=== PATIENT | female | born 1955 | race Hispanic/Latino ===

== ENCOUNTER 2021-02-02 10:39 | Emergency (ER) ==
[2021-02-02] MEDS ORDERED: Promethazine HCl 25 MG/ML VIAL ONE (11:31)
[2021-02-02] MEDS ORDERED: Ketorolac Tromethamine 30 MG/ML VIAL ONE (11:31)
[2021-02-02] MEDS ORDERED: diphenhydrAMINE 25 MG CAP ONE (12:22)
[2021-02-02] MEDS ORDERED: Prochlorperazine 10 MG/2 ML VIAL IVP SCH (12:30)
[2021-02-02] MEDS ORDERED: Promethazine 25 MG TAB ONE (14:48)
== END 2021-02-02 16:47 | disposition home or self-care (01) ==
LOC: ERS 10:39
DX: G43.909 Migraine, unspecified, not intractable, without status migrainosus (principal); M54.9 Dorsalgia, unspecified; G89.29 Other chronic pain; E11.9 Type 2 diabetes mellitus without complications; I10 Essential (primary) hypertension; Z79.84 Long term (current) use of oral hypoglycemic drugs; Z79.899 Other long term (current) drug therapy
CPT/HCPCS: 93005; 96372; 96374; J0780; J1885; J2550; Q0163; Q0169

== ENCOUNTER 2021-06-10 11:37 | Emergency (ER) | payer MEDICARE, OTHER ==
[2021-06-10 12:29] LABS: #Eosinphils 0.2 thou/uL (0.0-0.7); #Lymphocytes 1.5 thou/uL (1.20-3.40); #Monocytes 0.5 thou/uL (0.11-0.59); #Neutrophils 5.6 thou/uL (1.40-6.50); %Basophils 0.2 % (0.0-1.0); %Eosinophils 2.1 % (0.0-10.0); %Neutrophils 72.8 % (42.0-75.0); Hemoglobin 13.3 g/dL (12.0-16.0); Mean Corpuscular HGB CONC 31.7 g/dL (32.0-36.0); Mean Corpuscular Hemoglobin 25.6 pg (27.0-31.0); Mean Corpuscular Volume 80.7 fL (78.0-98.0); Mean Platelet Volume 9.8 fL (7.4-10.4); Platelet Count 209 thou/uL (130-400); RBC Distribution Width 14.9 % (11.5-14.5); White Blood Cell (WBC) Count 7.7 thou/uL (4.8-10.8)
[2021-06-10 12:50] LABS: ALT (SGPT) 8 U/L (8-55); AST (SGOT) 18 U/L (5-34); Albumin 3.1 g/dL (3.4-4.8); Alkaline Phosphatase 253 U/L (40-110); Anion Gap 17 mmol/L (10-20); BUN (Urea Nitrogen) 13 mg/dL (9.8-20.1); Bilirubin, Total 0.8 mg/dL (0.2-1.2); Calc. Creatinine Clearance 0 mL/min (70-130); Calcium 9.2 mg/dL (7.8-10.44); Carbon Dioxide 22 mmol/L (23-31); Chloride 97 mmol/L (98-107); Globulin 3.8 g/dL (2.4-3.5); Glucose 473 mg/dL (80-115); Potassium 3.5 mmol/L (3.5-5.1); Protein, Total 6.9 g/dL (5.8-8.1); Sodium 132 mmol/L (136-145)
[2021-06-10] MEDS ORDERED: Ibuprofen 800 MG TAB ONE (13:43)
[2021-06-10] MEDS ORDERED: Metoclopramide HCl 10 MG TAB ONE (13:43)
[2021-06-10 18:57] LABS: SARS-CoV-2 PCR by NAA Not Detected (NotDetected)
== END 2021-06-10 14:49 | disposition home or self-care (01) ==
LOC: ERS 11:37
DX: B34.9 Viral infection, unspecified (principal); Z20.822 Contact with and (suspected) exposure to COVID-19; E78.00 Pure hypercholesterolemia, unspecified; I10 Essential (primary) hypertension; E11.9 Type 2 diabetes mellitus without complications
CPT/HCPCS: 71045; 80053; 84484; 85025; 93005; U0003; U0005; 36415

== ENCOUNTER 2021-06-14 08:55 | Emergency (ER) | payer MEDICARE, OTHER | END 2021-06-14 12:39 | disposition home or self-care (01) | LOC: ERS 08:55 | DX: J00 Acute nasopharyngitis [common cold] (principal); G89.29 Other chronic pain; M54.9 Dorsalgia, unspecified; I10 Essential (primary) hypertension; E11.9 Type 2 diabetes mellitus without complications; E78.00 Pure hypercholesterolemia, unspecified | CPT/HCPCS: 99284 ==

== ENCOUNTER 2021-06-15 18:04 | Inpatient (IN) | payer MEDICARE, MEDICAID ==
[2021-06-15 19:08] LABS: Hemoglobin 13.9 g/dL (12.0-16.0); Mean Corpuscular HGB CONC 34.4 g/dL (32.0-36.0); Mean Corpuscular Hemoglobin 27.8 pg (27.0-31.0); Mean Corpuscular Volume 80.9 fL (78.0-98.0); Mean Platelet Volume 9.6 fL (7.4-10.4); Platelet Count 199 thou/uL (130-400); RBC Distribution Width 14.5 % (11.5-14.5); Red Blood Cell (RBC) Count 4.98 mill/uL (4.20-5.40)
[2021-06-15] MEDS ORDERED: Meclizine HCl 25 MG TAB ONE (19:13)
[2021-06-15] MEDS ORDERED: hydrALAZINE 20 MG/ML VIAL ONE (19:13)
[2021-06-15 19:26] LABS: MDiff Complete? YES; White Blood Cell (WBC) Count 6.7 thou/uL (4.8-10.8)
[2021-06-15 19:27] LABS: Band 3 % (5-11); Eosinophils 2 % (0-10); Lymphocytes 23 % (21-51); Monocytes 6 % (0-10); Neutrophil 63 % (42-75); Platelet Morphology Comment Appears Adequate; RBC Morphology Normal; Reactive Lymphocytes 1 % (0-10)
[2021-06-15 19:37] LABS: ALT (SGPT) 7 U/L (8-55); AST (SGOT) 12 U/L (5-34); Albumin 2.9 g/dL (3.4-4.8); Alkaline Phosphatase 234 U/L (40-110); Anion Gap 17 mmol/L (10-20); BUN (Urea Nitrogen) 11 mg/dL (9.8-20.1); Bilirubin, Total 0.3 mg/dL (0.2-1.2); Calc. Creatinine Clearance 0 mL/min (70-130); Calcium 8.5 mg/dL (7.8-10.44); Carbon Dioxide 21 mmol/L (23-31); Chloride 97 mmol/L (98-107); Globulin 3.7 g/dL (2.4-3.5); Potassium 3.1 mmol/L (3.5-5.1); Protein, Total 6.6 g/dL (5.8-8.1); Sodium 132 mmol/L (136-145)
[2021-06-15 19:39] LABS: Actual Bicarbonate (HCO3v) 27 mEq/L (22-28); Analyzer IN Cardio ER; Base Excess 1.3 mEq/L (-2.0 to +3.0); Calcium, Ionized (venous) 1.03 mmol/L (1.16-1.32); Chloride (VBG) 95 mmol/L (98-106); Hemoglobin (Hb) 12.6 g/dL (11.7-16.1); Potassium (VBG) 3.19 mmol/L (3.70-5.30); Sodium 130.1 mmol/L (133-146); pH (venous) 7.38 (7.32-7.43)
[2021-06-15 19:45] LABS: Glucose 695 mg/dL (80-115)
[2021-06-15] MEDS ORDERED: Potassium Chloride 20 MEQ TAB ONE (19:49)
[2021-06-15] MEDS ORDERED: Insulin Regular 300 UNITS/3 ML VIAL ONE (20:18)
[2021-06-16] MEDS ORDERED: Acetaminophen 650 MG Suppository PR PRN (01:10)
[2021-06-16] MEDS ORDERED: Dextrose 5% in Water 1,000 ML IV PRN (01:10)
[2021-06-16] MEDS ORDERED: HumaLOG 300 UNITS/3 ML VIAL SC PRN ×2 (01:10→02:50)
[2021-06-16] MEDS ORDERED: Dextrose 50% Abboject 50 ML SYRINGE SLOW IVP PRN (01:10)
[2021-06-16] MEDS ORDERED: Ondansetron PF 4 MG/2 ML Vial IVP PRN (01:12)
[2021-06-16] MEDS ORDERED: Benzonatate 100 MG CAP ONE (01:35)
[2021-06-16] MEDS ORDERED: Acetaminophen 325 MG TAB ONE (01:35)
[2021-06-16] MEDS: Benzonatate 100 MG CAP PO PRN ×2 (02:00→18:16)
[2021-06-16 02:07] LABS: Anion Gap 14 mmol/L (10-20); BUN (Urea Nitrogen) 11 mg/dL (9.8-20.1); Calc. Creatinine Clearance 0 mL/min (70-130); Calcium 8.4 mg/dL (7.8-10.44); Carbon Dioxide 26 mmol/L (23-31); Chloride 99 mmol/L (98-107); Glucose 381 mg/dL (80-115); Sodium 136 mmol/L (136-145)
[2021-06-16 02:16] LABS: Potassium 2.8 mmol/L (3.5-5.1)
[2021-06-16] MEDS ORDERED: Potassium Chloride 20 MEQ TAB PO SCH ×2 (02:45→05:00)
[2021-06-16] MEDS ORDERED: Nystatin Powder 15 GM BOT TOP PRN (02:48)
[2021-06-16] MEDS ORDERED: Labetalol HCl 100 MG/20 ML VIAL SLOW IVP PRN (02:52)
[2021-06-16] MEDS ORDERED: hydrALAZINE 20 MG/ML VIAL SLOW IVP PRN (02:52)
[2021-06-16] MEDS ORDERED: Amlodipine 5 MG TAB PO SCH ×2 (03:00→09:00)
[2021-06-16] MEDS ORDERED: Sodium Chloride 0.9% 1,000 ML IV SCH (03:15)
[2021-06-16] MEDS ORDERED: Senokot S 8.6-50 MG TAB PO PRN (03:17)
[2021-06-16] MEDS ORDERED: Potassium Chloride 20 MEQ TAB ONE ×2 (03:26→05:25)
[2021-06-16] MEDS ORDERED: Amlodipine 5 MG TAB ONE ×2 (03:26→09:26)
[2021-06-16 04:36] LABS: SARS-CoV-2 NAA Rapid Test Not Detected (NotDetected)
[2021-06-16] MEDS ORDERED: hydrALAZINE 20 MG/ML VIAL ONE (05:25)
[2021-06-16 05:56] LABS: #Eosinphils 0.2 thou/uL (0.0-0.7); #Monocytes 0.5 thou/uL (0.11-0.59); #Neutrophils 3.4 thou/uL (1.40-6.50); %Basophils 0.7 % (0.0-1.0); %Eosinophils 3.1 % (0.0-10.0); %Lymphocytes 33.3 % (21.0-51.0); %Monocytes 7.6 % (0.0-10.0); %Neutrophils 55.3 % (42.0-75.0); Hemoglobin 12.4 g/dL (12.0-16.0); Mean Corpuscular HGB CONC 32.2 g/dL (32.0-36.0); Mean Corpuscular Hemoglobin 25.8 pg (27.0-31.0); Mean Corpuscular Volume 80.3 fL (78.0-98.0); Mean Platelet Volume 9.3 fL (7.4-10.4); Platelet Count 212 thou/uL (130-400); RBC Distribution Width 14.8 % (11.5-14.5); White Blood Cell (WBC) Count 6.1 thou/uL (4.8-10.8)
[2021-06-16 06:04] LABS: Hemoglobin A1c 13.3 % (4.0-6.0)
[2021-06-16 06:19] LABS: Anion Gap 12 mmol/L (10-20); BUN (Urea Nitrogen) 9 mg/dL (9.8-20.1); Calc. Creatinine Clearance 0 mL/min (70-130); Calcium 8.2 mg/dL (7.8-10.44); Carbon Dioxide 25 mmol/L (23-31); Cardiac Risk 3.3 (Less than 4.5); Chloride 102 mmol/L (98-107); Cholesterol 190 mg/dl (< 200 Desired); Glucose 438 mg/dL (80-115); HDL Cholesterol 57 mg/dL (>60 Neg Risk); LDL Cholesterol, Calculated 97 mg/dL; Magnesium 1.5 mg/dL (1.6-2.6); Sodium 136 mmol/L (136-145); Triglycerides 180 mg/dL (Less than 150)
[2021-06-16] MEDS ORDERED: Albuterol 200 PUFF (6.7GM INHALER) ONE (08:17)
[2021-06-16] MEDS: Albuterol 200 PUFF (6.7GM INHALER) INH SCH ×3 (08:22→15:35)
[2021-06-16 08:27] LABS: Anion Gap 14 mmol/L (10-20); BUN (Urea Nitrogen) 10 mg/dL (9.8-20.1); Calc. Creatinine Clearance 0 mL/min (70-130); Calcium 8.4 mg/dL (7.8-10.44); Carbon Dioxide 22 mmol/L (23-31); Chloride 103 mmol/L (98-107); Glucose 467 mg/dL (80-115); Potassium 3.6 mmol/L (3.5-5.1); Sodium 135 mmol/L (136-145)
[2021-06-16] MEDS ORDERED: Lantus 1000 UNITS/10 ML VIAL SC SCH (09:00)
[2021-06-16] MEDS ORDERED: Lisinopril/Hydrochlorothiazide 20/25 mg Tablet PO SCH (09:30)
[2021-06-16] MEDS ORDERED: metFORMIN 500 MG TAB PO SCH ×2 (09:30→21:00)
[2021-06-16] MEDS: Carvedilol 6.25 MG TAB PO SCH ×2 (09:55→18:16)
[2021-06-16] MEDS ORDERED: glipiZIDE 5 MG TAB PO SCH (10:02)
[2021-06-16] MEDS ORDERED: HumaLOG 300 UNITS/3 ML VIAL ONE (13:51)
[2021-06-16] MEDS: HumaLOG 300 UNITS/3 ML VIAL SC PRN ×2 (13:52→18:00)
[2021-06-16 17:44] VITALS: BMI 34.1
[2021-06-16] MEDS ORDERED: FLU VACC QS2021-22(65YR UP)/PF 240 MCG/0.7 ML SYRINGE IM ONE (17:45)
[2021-06-16] MEDS: glipiZIDE 5 MG TAB PO SCH (18:18)
[2021-06-16] MEDS: Albuterol Sulfate 2.5 mg/3 ml Neb NEB SCH (19:49)
[2021-06-16] MEDS: Lantus 1000 UNITS/10 ML VIAL SC SCH (21:11)
[2021-06-17] MEDS: HumaLOG 300 UNITS/3 ML VIAL SC PRN ×3 (04:55→17:20)
[2021-06-17 07:29] LABS: #Eosinphils 0.2 thou/uL (0.0-0.7); #Lymphocytes 1.9 thou/uL (1.20-3.40); #Monocytes 0.5 thou/uL (0.11-0.59); #Neutrophils 3.4 thou/uL (1.40-6.50); %Basophils 0.6 % (0.0-1.0); %Eosinophils 3.8 % (0.0-10.0); %Lymphocytes 31.7 % (21.0-51.0); %Monocytes 7.8 % (0.0-10.0); %Neutrophils 56.2 % (42.0-75.0); Hemoglobin 11.2 g/dL (12.0-16.0); Mean Corpuscular HGB CONC 32.7 g/dL (32.0-36.0); Mean Corpuscular Hemoglobin 26.7 pg (27.0-31.0); Mean Corpuscular Volume 81.7 fL (78.0-98.0); Mean Platelet Volume 9.5 fL (7.4-10.4); Platelet Count 218 thou/uL (130-400); RBC Distribution Width 14.8 % (11.5-14.5)
[2021-06-17] MEDS: Albuterol Sulfate 2.5 mg/3 ml Neb NEB SCH ×3 (07:31→14:44)
[2021-06-17 07:48] LABS: Anion Gap 9 mmol/L (10-20); BUN (Urea Nitrogen) 14 mg/dL (9.8-20.1); Calc. Creatinine Clearance 70 mL/min (70-130); Calcium 8.6 mg/dL (7.8-10.44); Carbon Dioxide 28 mmol/L (23-31); Chloride 103 mmol/L (98-107); Glucose 348 mg/dL (80-115); Magnesium 1.6 mg/dL (1.6-2.6); Potassium 3.2 mmol/L (3.5-5.1); Sodium 137 mmol/L (136-145)
[2021-06-17 08:07] VITALS: TEMP 98.5
[2021-06-17] MEDS: Carvedilol 6.25 MG TAB PO SCH ×2 (08:10→17:21)
[2021-06-17] MEDS: glipiZIDE 5 MG TAB PO SCH ×2 (08:11→17:21)
[2021-06-17] MEDS: Lantus 1000 UNITS/10 ML VIAL SC SCH (08:11)
[2021-06-17] MEDS ORDERED: Amlodipine 10 MG TAB PO SCH (09:00)
[2021-06-17] MEDS ORDERED: Lisinopril/Hydrochlorothiazide 20/25 mg Tablet PO SCH (09:00)
[2021-06-17] MEDS ORDERED: Acetaminophen 325 MG TAB PO SCH (14:30)
[2021-06-17 17:19] VITALS: BP 161/80
== END 2021-06-17 18:34 | disposition home or self-care (01) | DRG 638 ==
LOC: ERS 18:04 → ERHOLD 20:40 → T4-A 06-16 16:42
PROVIDERS: ADMIT Internal Medicine; ATTEND Internal Medicine
DX: E11.65 Type 2 diabetes mellitus with hyperglycemia (principal); E87.2 Acidosis; I16.0 Hypertensive urgency; Z20.822 Contact with and (suspected) exposure to COVID-19; E78.00 Pure hypercholesterolemia, unspecified; M54.9 Dorsalgia, unspecified; G89.29 Other chronic pain; F41.9 Anxiety disorder, unspecified; N18.30 Chronic kidney disease, stage 3 unspecified; E11.22 Type 2 diabetes mellitus with diabetic chronic kidney disease; I12.9 Hypertensive chronic kidney disease with stage 1 through stage 4 chronic kidney disease, or unspecified chronic kidney disease; J45.909 Unspecified asthma, uncomplicated; K21.9 Gastro-esophageal reflux disease without esophagitis; E87.6 Hypokalemia; F31.9 Bipolar disorder, unspecified; Z90.49 Acquired absence of other specified parts of digestive tract; Z88.2 Allergy status to sulfonamides; Z88.5 Allergy status to narcotic agent; Z79.84 Long term (current) use of oral hypoglycemic drugs; Z79.899 Other long term (current) drug therapy
CPT/HCPCS: 0240U; 36415; 36416; 70450; 71045; 80048; 80053; 80061; 82010; 82805; 83036; 83735; 85025; 93005; 93306; 94640; 96374; 96375; J0360; J1815; J2405; J7050; J7611

== ENCOUNTER 2021-06-28 11:47 | Emergency (ER) | payer MEDICARE, OTHER ==
[2021-06-28 13:40] LABS: #Eosinphils 0.1 thou/uL (0.0-0.7); #Lymphocytes 2.2 thou/uL (1.20-3.40); #Monocytes 0.4 thou/uL (0.11-0.59); #Neutrophils 4.1 thou/uL (1.40-6.50); %Basophils 0.6 % (0.0-1.0); %Lymphocytes 32.1 % (21.0-51.0); %Monocytes 6.2 % (0.0-10.0); Hemoglobin 13.3 g/dL (12.0-16.0); Mean Corpuscular Volume 81.2 fL (78.0-98.0); Mean Platelet Volume 8.6 fL (7.4-10.4); Platelet Count 277 thou/uL (130-400); RBC Distribution Width 14.5 % (11.5-14.5); White Blood Cell (WBC) Count 6.9 thou/uL (4.8-10.8)
[2021-06-28] MEDS ORDERED: Acetaminophen 500 MG TAB ONE (13:49)
[2021-06-28] MEDS ORDERED: Ketorolac Tromethamine 30 MG/ML VIAL ONE (13:49)
[2021-06-28] MEDS ORDERED: Metoclopramide HCl 10 MG/2 ML VIAL ONE (13:49)
[2021-06-28] MEDS ORDERED: diphenhydrAMINE 50 MG/ML VIAL ONE (13:49)
[2021-06-28 14:00] LABS: ALT (SGPT) 12 U/L (8-55); AST (SGOT) 16 U/L (5-34); Albumin 3.1 g/dL (3.4-4.8); Alkaline Phosphatase 186 U/L (40-110); Anion Gap 13 mmol/L (10-20); BUN (Urea Nitrogen) 17 mg/dL (9.8-20.1); Bilirubin, Total 0.5 mg/dL (0.2-1.2); Calc. Creatinine Clearance 0 mL/min (70-130); Carbon Dioxide 27 mmol/L (23-31); Chloride 97 mmol/L (98-107); Globulin 3.7 g/dL (2.4-3.5); Glucose 464 mg/dL (80-115); Magnesium 1.6 mg/dL (1.6-2.6); Phosphorus 3.7 mg/dL (2.3-4.7); Potassium 3.5 mmol/L (3.5-5.1); Protein, Total 6.8 g/dL (5.8-8.1); Sodium 133 mmol/L (136-145)
[2021-06-28 16:49] LABS: Bacteria/HPF None Seen HPF (None Seen); Bilirubin Negative (Negative); Blood, Urine 1+ (Negative); Clarity Clear (Clear); Glucose, Urine (Dipstick) Greater than 1000 mg/dL (Negative); Ketone, Urine Negative (Negative); Leukocyte Negative Leu/uL (Negative); Nitrite Negative (Negative); Protein, Urine (Dipstick) 300 mg/dL (Neg-Trace); Specific Gravity, Urine 1.039 (1.002-1.036); Squamous Epithelial 0-3 HPF (0-3); Urobilinogen Normal mg/dL (Less than 2); WBC/HPF 0-3 HPF (0-3); pH, Urine 6.5 (5.0-9.0)
[2021-06-28 17:00] LABS: SARS-CoV-2 NAA Rapid Test Not Detected (NotDetected)
== END 2021-06-28 18:05 | disposition home or self-care (01) ==
LOC: ERS 11:47
DX: E11.65 Type 2 diabetes mellitus with hyperglycemia (principal); R11.2 Nausea with vomiting, unspecified; R19.7 Diarrhea, unspecified; R10.32 Left lower quadrant pain; R05.9 Cough, unspecified; R51.9 Headache, unspecified; I10 Essential (primary) hypertension; E78.00 Pure hypercholesterolemia, unspecified; Z20.822 Contact with and (suspected) exposure to COVID-19; Z79.4 Long term (current) use of insulin
CPT/HCPCS: 71045; 74177; 80053; 82010; 82962; 83690; 83735; 84100; 84484; 85025; 93005; 94760; 96365; 96366; 96375; 99285; U0002; 36415; 36416; 81003; 81015; J1200; J1885; J2765

== ENCOUNTER 2021-07-12 17:47 | Emergency (ER) | payer MEDICARE, MEDICAID ==
[2021-07-12 19:10] LABS: #Basophils 0.1 thou/uL (0.0-0.2); #Eosinphils 0.1 thou/uL (0.0-0.7); #Lymphocytes 1.9 thou/uL (1.20-3.40); #Monocytes 0.4 thou/uL (0.11-0.59); #Neutrophils 5.3 thou/uL (1.40-6.50); %Basophils 0.6 % (0.0-1.0); %Eosinophils 1.6 % (0.0-10.0); %Lymphocytes 24.3 % (21.0-51.0); %Monocytes 5.3 % (0.0-10.0); %Neutrophils 68.2 % (42.0-75.0); Hemoglobin 13.4 g/dL (12.0-16.0); Mean Corpuscular HGB CONC 33.9 g/dL (32.0-36.0); Mean Corpuscular Volume 82.6 fL (78.0-98.0); Mean Platelet Volume 8.9 fL (7.4-10.4); Platelet Count 248 thou/uL (130-400); RBC Distribution Width 14.4 % (11.5-14.5); White Blood Cell (WBC) Count 7.7 thou/uL (4.8-10.8)
[2021-07-12 19:33] LABS: Lipase 39 U/L (8-78); Magnesium 1.5 mg/dL (1.6-2.6)
[2021-07-12 19:36] LABS: ALT (SGPT) 7 U/L (8-55); AST (SGOT) 10 U/L (5-34); Albumin 3.2 g/dL (3.4-4.8); Alkaline Phosphatase 241 U/L (40-110); Anion Gap 14 mmol/L (10-20); BUN (Urea Nitrogen) 18 mg/dL (9.8-20.1); Bilirubin, Total 0.6 mg/dL (0.2-1.2); Calc. Creatinine Clearance 0 mL/min (70-130); Calcium 8.6 mg/dL (7.8-10.44); Carbon Dioxide 25 mmol/L (23-31); Chloride 95 mmol/L (98-107); Globulin 3.1 g/dL (2.4-3.5); Phosphorus 3.5 mg/dL (2.3-4.7); Protein, Total 6.3 g/dL (5.8-8.1); Sodium 130 mmol/L (136-145)
[2021-07-12 19:42] LABS: Glucose 705 mg/dL (80-115)
[2021-07-12 20:05] LABS: Bacteria/HPF None Seen HPF (None Seen); Bilirubin Negative (Negative); Blood, Urine 1+ (Negative); Clarity Clear (Clear); Glucose, Urine (Dipstick) Greater than 1000 mg/dL (Negative); Ketone, Urine Negative (Negative); Leukocyte Negative Leu/uL (Negative); Nitrite Negative (Negative); Protein, Urine (Dipstick) 300 mg/dL (Neg-Trace); Specific Gravity, Urine 1.031 (1.002-1.036); Urobilinogen Normal mg/dL (Less than 2); WBC/HPF 0-3 HPF (0-3); Yeast-Budding 1+ HPF (None Seen); pH, Urine 6.5 (5.0-9.0)
[2021-07-13] MEDS ORDERED: Magnesium 2 GM/50 ML BAG (IN WATER) ONE (00:09)
[2021-07-13] MEDS ORDERED: Ibuprofen 800 MG TAB ONE (00:09)
[2021-07-13] MEDS ORDERED: Insulin Regular 300 UNITS/3 ML VIAL ONE (00:09)
== END 2021-07-13 00:20 | disposition home or self-care (01) ==
LOC: ERS 17:47
DX: E11.65 Type 2 diabetes mellitus with hyperglycemia (principal); Z79.4 Long term (current) use of insulin; Z79.899 Other long term (current) drug therapy; E78.00 Pure hypercholesterolemia, unspecified; I10 Essential (primary) hypertension
CPT/HCPCS: 36415; 36416; 80053; 81003; 81015; 82010; 83690; 83735; 84100; 85025; 96365; 96375; J1815; J3475

== ENCOUNTER 2021-10-03 14:14 | Observation (INO) | payer MEDICARE, MEDICAID ==
[2021-10-03 14:39] LABS: #Eosinphils 0.3 thou/uL (0.0-0.7); #Lymphocytes 2.6 thou/uL (1.20-3.40); #Monocytes 0.4 thou/uL (0.11-0.59); #Neutrophils 4.2 thou/uL (1.40-6.50); %Basophils 0.6 % (0.0-1.0); %Eosinophils 4.3 % (0.0-10.0); %Lymphocytes 34.1 % (21.0-51.0); %Neutrophils 56.1 % (42.0-75.0); Mean Corpuscular HGB CONC 34.3 g/dL (32.0-36.0); Mean Corpuscular Hemoglobin 28.8 pg (27.0-31.0); Mean Corpuscular Volume 84.2 fL (78.0-98.0); Mean Platelet Volume 8.1 fL (7.4-10.4); Platelet Count 258 thou/uL (130-400); RBC Distribution Width 15.8 % (11.5-14.5); Red Blood Cell (RBC) Count 3.81 mill/uL (4.20-5.40); White Blood Cell (WBC) Count 7.5 thou/uL (4.8-10.8)
[2021-10-03 14:52] LABS: PTT 27.7 sec (22.9-36.1); Prothrombin Time 12.8 sec (12.0-14.7)
[2021-10-03 15:00] LABS: ALT (SGPT) 7 U/L (8-55); AST (SGOT) 13 U/L (5-34); Albumin 3.3 g/dL (3.4-4.8); Alkaline Phosphatase 166 U/L (40-110); Anion Gap 11 mmol/L (10-20); BUN (Urea Nitrogen) 20 mg/dL (9.8-20.1); Bilirubin, Total 0.5 mg/dL (0.2-1.2); Calc. Creatinine Clearance 0 mL/min (70-130); Calcium 9.6 mg/dL (7.8-10.44); Carbon Dioxide 28 mmol/L (23-31); Chloride 102 mmol/L (98-107); Globulin 3.8 g/dL (2.4-3.5); Glucose 144 mg/dL (80-115); Lipase 34 U/L (8-78); Magnesium 1.9 mg/dL (1.6-2.6); Potassium 3.8 mmol/L (3.5-5.1); Protein, Total 7.1 g/dL (5.8-8.1); Sodium 137 mmol/L (136-145)
[2021-10-03] MEDS ORDERED: Acetaminophen 500 MG TAB ONE (15:21)
[2021-10-03] MEDS ORDERED: Ondansetron PF 4 MG/2 ML Vial ONE (15:55)
[2021-10-03] MEDS ORDERED: hydrALAZINE 20 MG/ML VIAL SLOW IVP PRN ×2 (17:21→18:09)
[2021-10-03] MEDS ORDERED: Ondansetron ODT 4 MG TAB PO PRN (17:33)
[2021-10-03] MEDS ORDERED: Acetaminophen 325 MG TAB PO PRN (17:33)
[2021-10-03] MEDS ORDERED: Dextrose 50% Abboject 50 ML SYRINGE SLOW IVP PRN (17:39)
[2021-10-03] MEDS ORDERED: Dextrose 5% in Water 1,000 ML IV PRN (17:39)
[2021-10-03] MEDS ORDERED: HumaLOG 300 UNITS/3 ML VIAL SC PRN ×2 (17:39)
[2021-10-03] MEDS ORDERED: Carvedilol 6.25 MG TAB PO SCH (18:30)
[2021-10-03 19:51] LABS: Hemoglobin A1c 7.8 % (4.0-6.0)
[2021-10-03] MEDS ORDERED: Benzonatate 100 MG CAP PO PRN (20:05)
[2021-10-03] MEDS ORDERED: Albuterol Sulfate 2.5 mg/3 ml Neb NEB PRN (20:09)
[2021-10-03] MEDS: Insulin Glargine 30 UNITS/0.3 ML VIAL SC SCH (20:43)
[2021-10-03] MEDS: glipiZIDE 5 MG TAB PO SCH (20:44)
[2021-10-03] MEDS: guaiFENesin ER 600 MG TAB PO SCH (20:44)
[2021-10-03] MEDS ORDERED: Atorvastatin Calcium 40 MG TAB PO SCH (21:00)
[2021-10-03] MEDS ORDERED: Melatonin 3 MG TAB PO SCH ×2 (21:00→21:30)
[2021-10-03] MEDS ORDERED: Montelukast Sodium 10 mg Tablet PO SCH (21:00)
[2021-10-03] MEDS ORDERED: diphenhydrAMINE 25 MG CAP PO SCH (21:30)
[2021-10-03] MEDS ORDERED: Aripiprazole 10 MG TAB PO SCH (21:30)
[2021-10-04] MEDS ORDERED: Lorazepam 0.5 MG TAB PO PRN (03:47)
[2021-10-04 04:29] VITALS: BP 164/78; TEMP 97.5
[2021-10-04 05:52] VITALS: BMI 31.8
[2021-10-04 06:12] LABS: #Eosinphils 0.3 thou/uL (0.0-0.7); #Lymphocytes 2.3 thou/uL (1.20-3.40); #Monocytes 0.3 thou/uL (0.11-0.59); #Neutrophils 3.1 thou/uL (1.40-6.50); %Basophils 0.3 % (0.0-1.0); %Eosinophils 5.4 % (0.0-10.0); %Lymphocytes 37.1 % (21.0-51.0); %Monocytes 5.3 % (0.0-10.0); %Neutrophils 51.9 % (42.0-75.0); Hemoglobin 9.3 g/dL (12.0-16.0); Mean Corpuscular HGB CONC 34.7 g/dL (32.0-36.0); Mean Corpuscular Hemoglobin 29.7 pg (27.0-31.0); Mean Corpuscular Volume 85.6 fL (78.0-98.0); Mean Platelet Volume 8.2 fL (7.4-10.4); Platelet Count 202 thou/uL (130-400); RBC Distribution Width 15.9 % (11.5-14.5); Red Blood Cell (RBC) Count 3.12 mill/uL (4.20-5.40); White Blood Cell (WBC) Count 6.1 thou/uL (4.8-10.8)
[2021-10-04 06:40] LABS: ALT (SGPT) 7 U/L (8-55); AST (SGOT) 11 U/L (5-34); Albumin 2.5 g/dL (3.4-4.8); Alkaline Phosphatase 107 U/L (40-110); Anion Gap 10 mmol/L (10-20); BUN (Urea Nitrogen) 19 mg/dL (9.8-20.1); Bilirubin, Total 0.6 mg/dL (0.2-1.2); Calc. Creatinine Clearance 58 mL/min (70-130); Calcium 8.8 mg/dL (7.8-10.44); Carbon Dioxide 28 mmol/L (23-31); Cardiac Risk 2.8 (Less than 4.5); Chloride 105 mmol/L (98-107); Cholesterol 168 mg/dl (< 200 Desired); Globulin 3.1 g/dL (2.4-3.5); Glucose 162 mg/dL (80-115); HDL Cholesterol 61 mg/dL (>60 Neg Risk); LDL Cholesterol, Calculated 80 mg/dL; Protein, Total 5.6 g/dL (5.8-8.1); Sodium 139 mmol/L (136-145); Triglycerides 136 mg/dL (Less than 150)
[2021-10-04] MEDS ORDERED: Carvedilol 6.25 MG TAB PO SCH (08:00)
[2021-10-04] MEDS: Insulin Glargine 30 UNITS/0.3 ML VIAL SC SCH (08:42)
[2021-10-04] MEDS: glipiZIDE 5 MG TAB PO SCH (08:43)
[2021-10-04] MEDS: guaiFENesin ER 600 MG TAB PO SCH (08:43)
[2021-10-04] MEDS ORDERED: Loratadine 10 MG TAB PO SCH (09:00)
[2021-10-04] MEDS ORDERED: NIFEdipine XL 60 MG TAB PO SCH (09:00)
[2021-10-04] MEDS ORDERED: Empagliflozin 25 MG TAB PO SCH (09:00)
[2021-10-04] MEDS ORDERED: Aspirin 81 mg Enteric Coated Tablet PO SCH (09:00)
[2021-10-04] MEDS ORDERED: Enoxaparin Sodium 40 MG/0.4 ML SYRINGE SC SCH (09:00)
[2021-10-04 09:52] LABS: Amphetamine Not Detected (NotDetected); Barbiturates Screen Not Detected (NotDetected); Benzodiazepine Screen Not Detected (NotDetected); Cocaine Metabolite Screen Not Detected (NotDetected); Methadone Not Detected (NotDetected); Methamphetamine Not Detected (NotDetected); Opiate Screen Not Detected (NotDetected); Oxycodone Screen Not Detected (NotDetected); Phencyclidine (PCP) Not Detected (NotDetected); THC/Cannabinoid Screen Not Detected (NotDetected); Tricyclic Screen Not Detected (NotDetected)
[2021-10-04 11:44] LABS: SARS-CoV-2 PCR by NAA Not Detected (NotDetected)
[2021-10-04] MEDS ORDERED: Aripiprazole 10 MG TAB PO SCH (21:00)
== END 2021-10-04 11:35 | disposition home or self-care (01) ==
LOC: ERS 14:14 → NEURO 18:42 → INTOOBSV 18:42
PROVIDERS: ADMIT Family Medicine; ATTEND Family Medicine
DX: I16.1 Hypertensive emergency (principal); R55 Syncope and collapse; R47.1 Dysarthria and anarthria; J90 Pleural effusion, not elsewhere classified; J44.9 Chronic obstructive pulmonary disease, unspecified; I12.9 Hypertensive chronic kidney disease with stage 1 through stage 4 chronic kidney disease, or unspecified chronic kidney disease; E11.22 Type 2 diabetes mellitus with diabetic chronic kidney disease; N18.30 Chronic kidney disease, stage 3 unspecified; D63.1 Anemia in chronic kidney disease; E78.5 Hyperlipidemia, unspecified; G89.29 Other chronic pain; M54.9 Dorsalgia, unspecified; J32.9 Chronic sinusitis, unspecified; Z79.4 Long term (current) use of insulin; Z79.84 Long term (current) use of oral hypoglycemic drugs; Z79.899 Other long term (current) drug therapy; Z88.2 Allergy status to sulfonamides; Z88.5 Allergy status to narcotic agent; Z99.81 Dependence on supplemental oxygen; Z20.822 Contact with and (suspected) exposure to COVID-19
CPT/HCPCS: 70450; 70551; 71045; 80053; 80061; 80306; 82962 ×2; 83036; 83605; 83690; 83735; 83880; 84484; 85025; 85610; 85730; 93005; 93880; 96374; 97139; 99285; U0003; U0005; 36415; 36416; 84443; J1650; J1815; J2405; Q0162

== ENCOUNTER 2021-10-11 15:48 | Inpatient (IN) | payer MEDICARE, MEDICAID ==
[2021-10-11] MEDS ORDERED: diphenhydrAMINE 50 MG/ML VIAL ONE (16:44)
[2021-10-11] MEDS ORDERED: Metoclopramide HCl 10 MG/2 ML VIAL ONE (16:44)
[2021-10-11] MEDS ORDERED: Acetaminophen 500 MG TAB ONE (16:44)
[2021-10-11] MEDS ORDERED: Magnesium 2 GM/50 ML(in water) 2 GM in Premix Bag 1 BAG IVPB SCH (17:00)
[2021-10-11 17:25] LABS: #Basophils 0.1 thou/uL (0.0-0.2); #Eosinphils 0.3 thou/uL (0.0-0.7); #Lymphocytes 2.8 thou/uL (1.20-3.40); #Monocytes 0.5 thou/uL (0.11-0.59); #Neutrophils 4.7 thou/uL (1.40-6.50); %Basophils 0.7 % (0.0-1.0); %Eosinophils 3.9 % (0.0-10.0); %Lymphocytes 33.3 % (21.0-51.0); %Monocytes 5.7 % (0.0-10.0); %Neutrophils 56.5 % (42.0-75.0); Hemoglobin 10.5 g/dL (12.0-16.0); Mean Corpuscular HGB CONC 33.6 g/dL (32.0-36.0); Mean Corpuscular Hemoglobin 28.4 pg (27.0-31.0); Mean Corpuscular Volume 84.7 fL (78.0-98.0); Mean Platelet Volume 8.4 fL (7.4-10.4); Platelet Count 281 thou/uL (130-400); RBC Distribution Width 15.1 % (11.5-14.5); White Blood Cell (WBC) Count 8.3 thou/uL (4.8-10.8)
[2021-10-11 17:43] LABS: ALT (SGPT) 9 U/L (8-55); AST (SGOT) 20 U/L (5-34); Albumin 2.9 g/dL (3.4-4.8); Alkaline Phosphatase 160 U/L (40-110); Anion Gap 11 mmol/L (10-20); BUN (Urea Nitrogen) 20 mg/dL (9.8-20.1); Bilirubin, Total 0.4 mg/dL (0.2-1.2); Calc. Creatinine Clearance 0 mL/min (70-130); Carbon Dioxide 26 mmol/L (23-31); Chloride 106 mmol/L (98-107); Globulin 3.8 g/dL (2.4-3.5); Glucose 99 mg/dL (80-115); Potassium 3.9 mmol/L (3.5-5.1); Protein, Total 6.7 g/dL (5.8-8.1); Sodium 139 mmol/L (136-145)
[2021-10-11] MEDS ORDERED: Labetalol HCl 100 MG/20 ML VIAL ONE (18:02)
[2021-10-11] MEDS ORDERED: hydrALAZINE 20 MG/ML VIAL ONE ×2 (20:13→22:50)
[2021-10-11] MEDS ORDERED: Ondansetron PF 4 MG/2 ML Vial ONE (22:49)
[2021-10-12 00:31] VITALS: BMI 34.0
[2021-10-12] MEDS ORDERED: Ondansetron PF 4 MG/2 ML Vial IVP PRN (01:53)
[2021-10-12] MEDS ORDERED: Acetaminophen 325 MG TAB PO PRN (01:53)
[2021-10-12] MEDS ORDERED: Ondansetron ODT 4 MG TAB PO PRN (01:53)
[2021-10-12] MEDS ORDERED: Acetaminophen 650 MG Suppository PR PRN (01:53)
[2021-10-12] MEDS: HYDROcodone/Acetaminophen 5/325 mg Tablet PO PRN ×4 (02:15→22:05)
[2021-10-12] MEDS ORDERED: Labetalol HCl 100 MG/20 ML VIAL SLOW IVP PRN (02:21)
[2021-10-12] MEDS ORDERED: hydrALAZINE 20 MG/ML VIAL SLOW IVP PRN (02:21)
[2021-10-12] MEDS ORDERED: cloNIDine 0.1 MG TAB PO PRN (02:22)
[2021-10-12] MEDS ORDERED: Albuterol 200 PUFF (6.7GM INHALER) INH PRN (02:23)
[2021-10-12] MEDS ORDERED: Torsemide 10 MG TAB PO SCH ×2 (02:30→02:45)
[2021-10-12] MEDS ORDERED: NIFEdipine XL 60 MG TAB PO SCH (02:30)
[2021-10-12] MEDS ORDERED: Furosemide 40 MG/4 ML VIAL SLOW IVP SCH (03:00)
[2021-10-12] MEDS ORDERED: guaiFENesin ER 600 MG TAB PO SCH (03:00)
[2021-10-12 05:31] LABS: #Eosinphils 0.4 thou/uL (0.0-0.7); #Lymphocytes 2.5 thou/uL (1.20-3.40); #Monocytes 0.5 thou/uL (0.11-0.59); #Neutrophils 6.7 thou/uL (1.40-6.50); %Basophils 0.3 % (0.0-1.0); %Eosinophils 3.5 % (0.0-10.0); %Lymphocytes 24.7 % (21.0-51.0); %Monocytes 4.6 % (0.0-10.0); %Neutrophils 66.9 % (42.0-75.0); Hemoglobin 10.7 g/dL (12.0-16.0); Mean Corpuscular Hemoglobin 28.1 pg (27.0-31.0); Mean Corpuscular Volume 85.1 fL (78.0-98.0); Mean Platelet Volume 8.6 fL (7.4-10.4); Platelet Count 280 thou/uL (130-400); RBC Distribution Width 15.4 % (11.5-14.5); Red Blood Cell (RBC) Count 3.82 mill/uL (4.20-5.40); White Blood Cell (WBC) Count 10.1 thou/uL (4.8-10.8)
[2021-10-12] MEDS ORDERED: Dextrose 50% Abboject 50 ML SYRINGE SLOW IVP PRN (05:49)
[2021-10-12] MEDS ORDERED: Dextrose 5% in Water 1,000 ML IV PRN (05:49)
[2021-10-12 05:55] LABS: Anion Gap 15 mmol/L (10-20); BUN (Urea Nitrogen) 22 mg/dL (9.8-20.1); Calc. Creatinine Clearance 54 mL/min (70-130); Calcium 9.2 mg/dL (7.8-10.44); Carbon Dioxide 21 mmol/L (23-31); Chloride 105 mmol/L (98-107); Glucose 283 mg/dL (80-115); Potassium 3.7 mmol/L (3.5-5.1); Sodium 137 mmol/L (136-145)
[2021-10-12] MEDS: HumaLOG 300 UNITS/3 ML VIAL SC PRN ×3 (06:06→22:06)
[2021-10-12 07:43] LABS: Magnesium 1.7 mg/dL (1.6-2.6)
[2021-10-12] MEDS: Carvedilol 6.25 MG TAB PO SCH ×2 (07:45→15:53)
[2021-10-12] MEDS: guaiFENesin ER 600 MG TAB PO SCH ×2 (07:46→22:05)
[2021-10-12] MEDS ORDERED: Metoclopramide HCl 10 MG/2 ML VIAL IVP SCH (08:45)
[2021-10-12] MEDS ORDERED: Diazepam 10 MG/2 ML SYRINGE IVP SCH (08:45)
[2021-10-12] MEDS ORDERED: Lisinopril 20 MG TAB PO SCH (09:00)
[2021-10-12 12:00] LABS: SARS-CoV-2 PCR by NAA Not Detected (NotDetected)
[2021-10-12] MEDS: traZODone HCl 50 MG TAB PO SCH (22:05)
[2021-10-12] MEDS: Lisinopril 20 MG TAB PO SCH (22:05)
[2021-10-12] MEDS ORDERED: Lorazepam 0.5 MG TAB PO PRN (23:03)
[2021-10-13 05:42] LABS: Anion Gap 11 mmol/L (10-20); BUN (Urea Nitrogen) 25 mg/dL (9.8-20.1); Calc. Creatinine Clearance 52 mL/min (70-130); Calcium 8.4 mg/dL (7.8-10.44); Carbon Dioxide 26 mmol/L (23-31); Chloride 105 mmol/L (98-107); Glucose 184 mg/dL (80-115); Potassium 3.6 mmol/L (3.5-5.1); Sodium 138 mmol/L (136-145)
[2021-10-13] MEDS: HumaLOG 300 UNITS/3 ML VIAL SC PRN ×4 (06:23→21:15)
[2021-10-13] MEDS: HYDROcodone/Acetaminophen 5/325 mg Tablet PO PRN ×2 (06:24→21:12)
[2021-10-13] MEDS: Carvedilol 6.25 MG TAB PO SCH ×2 (08:27→16:04)
[2021-10-13] MEDS: guaiFENesin ER 600 MG TAB PO SCH ×2 (08:27→21:11)
[2021-10-13] MEDS: Empagliflozin 25 MG TAB PO SCH (08:27)
[2021-10-13] MEDS: Furosemide 40 MG/4 ML VIAL SLOW IVP SCH (08:27)
[2021-10-13] MEDS: Lisinopril 20 MG TAB PO SCH ×2 (08:27→21:11)
[2021-10-13] MEDS: NIFEdipine XL 60 MG TAB PO SCH (08:28)
[2021-10-13] MEDS ORDERED: Torsemide 10 MG TAB PO SCH (09:00)
[2021-10-13] MEDS ORDERED: SUMAtriptan Succinate 6 MG/0.5 ML VIAL SC SCH ×2 (09:45→15:45)
[2021-10-13] MEDS ORDERED: Metoclopramide HCl 10 MG/2 ML VIAL IVP SCH (09:45)
[2021-10-13] MEDS ORDERED: diphenhydrAMINE 10 MG in Sodium Chloride 0.9% 50 ML IVPB SCH (10:00)
[2021-10-13] MEDS ORDERED: Potassium Chloride 20 MEQ TAB PO SCH (12:00)
[2021-10-13] MEDS: traZODone HCl 50 MG TAB PO SCH (21:12)
[2021-10-14 06:16] LABS: Anion Gap 11 mmol/L (10-20); BUN (Urea Nitrogen) 28 mg/dL (9.8-20.1); Calc. Creatinine Clearance 55 mL/min (70-130); Calcium 8.6 mg/dL (7.8-10.44); Carbon Dioxide 27 mmol/L (23-31); Chloride 105 mmol/L (98-107); Glucose 156 mg/dL (80-115); Potassium 3.9 mmol/L (3.5-5.1); Sodium 139 mmol/L (136-145)
[2021-10-14] MEDS ORDERED: Carvedilol 25 MG TAB PO SCH (08:00)
[2021-10-14] MEDS: Furosemide 40 MG/4 ML VIAL SLOW IVP SCH (08:17)
[2021-10-14] MEDS: Empagliflozin 25 MG TAB PO SCH (08:17)
[2021-10-14] MEDS: guaiFENesin ER 600 MG TAB PO SCH (08:17)
[2021-10-14] MEDS: NIFEdipine XL 60 MG TAB PO SCH (08:17)
[2021-10-14] MEDS: Lisinopril 20 MG TAB PO SCH (08:17)
[2021-10-14] MEDS: HYDROcodone/Acetaminophen 5/325 mg Tablet PO PRN (08:22)
[2021-10-14] MEDS ORDERED: Potassium Chloride 20 MEQ TAB PO SCH (09:00)
[2021-10-14] MEDS: HumaLOG 300 UNITS/3 ML VIAL SC PRN (10:24)
[2021-10-14] MEDS ORDERED: SUMAtriptan Succinate 6 MG/0.5 ML VIAL SC SCH (10:30)
[2021-10-14] MEDS ORDERED: Metoclopramide HCl 10 MG/2 ML VIAL IVP SCH (10:30)
[2021-10-14] MEDS ORDERED: diphenhydrAMINE 50 MG/ML VIAL IVP SCH (10:30)
[2021-10-14] MEDS ORDERED: Lorazepam 2 MG/ML VIAL SLOW IVP SCH (10:45)
[2021-10-14 11:33] VITALS: BP 143/69; TEMP 98
== END 2021-10-14 13:56 | disposition home or self-care (01) | DRG 291 ==
LOC: ERS 15:48 → 2SW 21:50 → OBSVTOIN 10-13 17:57
PROVIDERS: ADMIT Internal Medicine; ATTEND Internal Medicine
DX: I13.0 Hypertensive heart and chronic kidney disease with heart failure and stage 1 through stage 4 chronic kidney disease, or unspecified chronic kidney disease (principal); I50.33 Acute on chronic diastolic (congestive) heart failure; I16.1 Hypertensive emergency; Z20.822 Contact with and (suspected) exposure to COVID-19; F41.9 Anxiety disorder, unspecified; F32.A Depression, unspecified; Z60.2 Problems related to living alone; E11.43 Type 2 diabetes mellitus with diabetic autonomic (poly)neuropathy; E66.9 Obesity, unspecified; K31.84 Gastroparesis; N18.32 Chronic kidney disease, stage 3b; E11.22 Type 2 diabetes mellitus with diabetic chronic kidney disease; E78.00 Pure hypercholesterolemia, unspecified; G89.29 Other chronic pain; M54.9 Dorsalgia, unspecified; Z96.612 Presence of left artificial shoulder joint; Z96.652 Presence of left artificial knee joint; Z86.73 Personal history of transient ischemic attack (TIA), and cerebral infarction without residual deficits; Z88.1 Allergy status to other antibiotic agents; Z88.5 Allergy status to narcotic agent; Z88.2 Allergy status to sulfonamides; Z79.899 Other long term (current) drug therapy; Z79.84 Long term (current) use of oral hypoglycemic drugs; Z79.82 Long term (current) use of aspirin; Z79.4 Long term (current) use of insulin; Z90.49 Acquired absence of other specified parts of digestive tract; Z90.710 Acquired absence of both cervix and uterus; Z98.890 Other specified postprocedural states; Z68.33 Body mass index [BMI] 33.0-33.9, adult
CPT/HCPCS: 36415; 36416; 70450; 71045; 80048; 80053; 83735; 83880; 84484; 85025; 93005; 96365; 96375; 96376; G0378; J0360; J1200; J1815; J1940; J2060; J2405; J2765; J3030; J3360; U0003; U0005

== ENCOUNTER 2021-10-23 16:38 | Emergency (ER) | payer MEDICARE, MEDICAID ==
[2021-10-23 17:14] LABS: #Eosinphils 0.3 thou/uL (0.0-0.7); #Lymphocytes 2.7 thou/uL (1.20-3.40); #Monocytes 0.4 thou/uL (0.11-0.59); #Neutrophils 3.3 thou/uL (1.40-6.50); %Basophils 0.7 % (0.0-1.0); %Eosinophils 5.1 % (0.0-10.0); %Lymphocytes 40.5 % (21.0-51.0); %Monocytes 5.7 % (0.0-10.0); Hemoglobin 10.8 g/dL (12.0-16.0); Mean Corpuscular Hemoglobin 29.2 pg (27.0-31.0); Mean Platelet Volume 8.4 fL (7.4-10.4); Platelet Count 264 thou/uL (130-400); RBC Distribution Width 14.5 % (11.5-14.5); Red Blood Cell (RBC) Count 3.69 mill/uL (4.20-5.40); White Blood Cell (WBC) Count 6.8 thou/uL (4.8-10.8)
[2021-10-23 17:30] LABS: ALT (SGPT) 10 U/L (8-55); AST (SGOT) 17 U/L (5-34); Albumin 3.2 g/dL (3.4-4.8); Alkaline Phosphatase 111 U/L (40-110); Anion Gap 14 mmol/L (10-20); BUN (Urea Nitrogen) 22 mg/dL (9.8-20.1); Bilirubin, Total 0.4 mg/dL (0.2-1.2); Calc. Creatinine Clearance 0 mL/min (70-130); Calcium 8.7 mg/dL (7.8-10.44); Carbon Dioxide 27 mmol/L (23-31); Chloride 102 mmol/L (98-107); Globulin 3.2 g/dL (2.4-3.5); Glucose 224 mg/dL (80-115); Potassium 4.3 mmol/L (3.5-5.1); Protein, Total 6.4 g/dL (5.8-8.1); Sodium 139 mmol/L (136-145)
[2021-10-23] MEDS ORDERED: Ondansetron PF 4 MG/2 ML Vial ONE (18:00)
[2021-10-23] MEDS ORDERED: Morphine 4 MG/ML VIAL ONE (18:00)
[2021-10-23] MEDS ORDERED: Dicyclomine 20 MG/2 ML VIAL ONE (20:58)
[2021-10-23 21:06] LABS: Bacteria/HPF None Seen HPF (None Seen); Bilirubin Negative (Negative); Blood, Urine Trace (Negative); Clarity Clear (Clear); Glucose, Urine (Dipstick) Greater than 1000 mg/dL (Negative); Ketone, Urine Negative (Negative); Leukocyte 25 Leu/uL (Negative); Nitrite Negative (Negative); Protein, Urine (Dipstick) 100 mg/dL (Neg-Trace); RBC/HPF 0-3 HPF (0-3); Specific Gravity, Urine 1.012 (1.002-1.036); Squamous Epithelial 0-3 HPF (0-3); Urobilinogen Normal mg/dL (Less than 2); WBC/HPF 0-3 HPF (0-3); pH, Urine 5.5 (5.0-9.0)
== END 2021-10-23 22:07 | disposition home or self-care (01) ==
LOC: ERS 16:38
DX: N17.9 Acute kidney failure, unspecified (principal); R10.31 Right lower quadrant pain; E78.00 Pure hypercholesterolemia, unspecified; I10 Essential (primary) hypertension; E11.9 Type 2 diabetes mellitus without complications; J44.9 Chronic obstructive pulmonary disease, unspecified; Z79.4 Long term (current) use of insulin; Z79.899 Other long term (current) drug therapy
CPT/HCPCS: 36415; 70450; 71045; 74176; 80053; 81003; 81015; 84484; 85025; 93005; 96372; 96374; 96375; J0500; J2270; J2405

== ENCOUNTER 2021-11-12 13:31 | Emergency (ER) | payer MEDICARE, MEDICAID ==
[2021-11-12] MEDS ORDERED: Dexamethasone 10 MG/ML VIAL ONE (15:44)
[2021-11-12] MEDS ORDERED: Metoclopramide HCl 10 MG/2 ML VIAL ONE (15:44)
[2021-11-12] MEDS ORDERED: Fentanyl 100 MCG/2 ML VIAL ONE (15:44)
[2021-11-12 15:49] LABS: #Eosinphils 0.2 thou/uL (0.0-0.7); #Lymphocytes 2.6 thou/uL (1.20-3.40); #Monocytes 0.3 thou/uL (0.11-0.59); #Neutrophils 3.4 thou/uL (1.40-6.50); %Basophils 0.5 % (0.0-1.0); %Eosinophils 3.5 % (0.0-10.0); %Lymphocytes 39.4 % (21.0-51.0); %Monocytes 4.8 % (0.0-10.0); %Neutrophils 51.8 % (42.0-75.0); Hemoglobin 11.4 g/dL (12.0-16.0); Mean Corpuscular HGB CONC 33.9 g/dL (32.0-36.0); Mean Corpuscular Volume 85.6 fL (78.0-98.0); Mean Platelet Volume 8.5 fL (7.4-10.4); Platelet Count 240 thou/uL (130-400); RBC Distribution Width 13.4 % (11.5-14.5); Red Blood Cell (RBC) Count 3.94 mill/uL (4.20-5.40); White Blood Cell (WBC) Count 6.5 thou/uL (4.8-10.8)
[2021-11-12 16:11] LABS: ALT (SGPT) 11 U/L (8-55); AST (SGOT) 15 U/L (5-34); Albumin 3.4 g/dL (3.4-4.8); Alkaline Phosphatase 126 U/L (40-110); Anion Gap 14 mmol/L (10-20); BUN (Urea Nitrogen) 28 mg/dL (9.8-20.1); Bilirubin, Total 0.3 mg/dL (0.2-1.2); CK (CPK) 28 U/L (29-168); Calc. Creatinine Clearance 0 mL/min (70-130); Calcium 9.7 mg/dL (7.8-10.44); Carbon Dioxide 27 mmol/L (23-31); Chloride 103 mmol/L (98-107); Globulin 3.6 g/dL (2.4-3.5); Glucose 160 mg/dL (80-115); Potassium 4.1 mmol/L (3.5-5.1); Sodium 140 mmol/L (136-145)
== END 2021-11-12 18:49 | disposition home or self-care (01) ==
LOC: ERS 13:31
DX: R51.9 Headache, unspecified (principal); E11.9 Type 2 diabetes mellitus without complications; E78.00 Pure hypercholesterolemia, unspecified; I10 Essential (primary) hypertension; J44.9 Chronic obstructive pulmonary disease, unspecified
CPT/HCPCS: 70450; 80053; 82550; 85025; 93005; 96374; 96375; J1100; J2765; J3010

== ENCOUNTER 2021-11-18 17:10 | Emergency (ER) | payer MEDICARE, OTHER ==
[2021-11-18] MEDS ORDERED: diphenhydrAMINE 50 MG/ML VIAL ONE (18:11)
[2021-11-18] MEDS ORDERED: Metoclopramide HCl 10 MG/2 ML VIAL ONE (18:11)
[2021-11-18] MEDS ORDERED: Acetaminophen 500 MG TAB ONE (18:11)
== END 2021-11-18 20:43 | disposition home or self-care (01) ==
LOC: ERS 17:10
DX: R55 Syncope and collapse (principal); R51.9 Headache, unspecified; E11.9 Type 2 diabetes mellitus without complications; I10 Essential (primary) hypertension; E78.00 Pure hypercholesterolemia, unspecified; J44.9 Chronic obstructive pulmonary disease, unspecified; Z79.4 Long term (current) use of insulin; Z79.899 Other long term (current) drug therapy
CPT/HCPCS: 70450; 93005; 96361; 96365; 96375; J1200; J2765

== ENCOUNTER 2021-11-30 19:18 | Emergency (ER) | payer MEDICARE, OTHER ==
[2021-11-30] MEDS ORDERED: Metoclopramide HCl 10 MG/2 ML VIAL ONE (20:36)
[2021-11-30] MEDS ORDERED: diphenhydrAMINE 50 MG/ML VIAL ONE (20:36)
[2021-11-30] MEDS ORDERED: Acetaminophen 500 MG TAB ONE (20:36)
[2021-11-30 20:41] LABS: #Eosinphils 0.1 thou/uL (0.0-0.7); #Lymphocytes 2.6 thou/uL (1.20-3.40); #Monocytes 0.4 thou/uL (0.11-0.59); #Neutrophils 3.8 thou/uL (1.40-6.50); %Basophils 0.2 % (0.0-1.0); %Lymphocytes 37.1 % (21.0-51.0); %Monocytes 6.3 % (0.0-10.0); %Neutrophils 54.4 % (42.0-75.0); Hemoglobin 11.1 g/dL (12.0-16.0); Mean Corpuscular Hemoglobin 28.1 pg (27.0-31.0); Mean Corpuscular Volume 82.5 fL (78.0-98.0); Mean Platelet Volume 8.2 fL (7.4-10.4); Platelet Count 232 thou/uL (130-400); RBC Distribution Width 13.3 % (11.5-14.5); Red Blood Cell (RBC) Count 3.94 mill/uL (4.20-5.40); White Blood Cell (WBC) Count 6.9 thou/uL (4.8-10.8)
[2021-11-30 20:46] LABS: Bilirubin Negative (Negative); Blood, Urine 1+ (Negative); Clarity Clear (Clear); Glucose, Urine (Dipstick) >=1000 mg/dL (Negative); Ketone, Urine Negative (Negative); Leukocyte Negative Leu/uL (Negative); Nitrite Negative (Negative); Protein, Urine (Dipstick) 200 mg/dL (Neg-Trace); Specific Gravity, Urine 1.011 (1.002-1.036); Squamous Epithelial 0-3 HPF (0-3); Urobilinogen Normal mg/dL (Less than 2); WBC/HPF 0-3 HPF (0-3)
[2021-11-30 20:48] LABS: Bacteria/HPF Rare-Few HPF (None Seen)
[2021-11-30 21:03] LABS: ALT (SGPT) 8 U/L (8-55); AST (SGOT) 12 U/L (5-34); Albumin 3.2 g/dL (3.4-4.8); Alkaline Phosphatase 140 U/L (40-110); Anion Gap 13 mmol/L (10-20); BUN (Urea Nitrogen) 29 mg/dL (9.8-20.1); Bilirubin, Total 0.3 mg/dL (0.2-1.2); Calc. Creatinine Clearance 0 mL/min (70-130); Calcium 9.5 mg/dL (7.8-10.44); Carbon Dioxide 23 mmol/L (23-31); Chloride 107 mmol/L (98-107); Estimated GFR 38; Globulin 3.4 g/dL (2.4-3.5); Glucose 88 mg/dL (80-115); Lipase 59 U/L (8-78); Potassium 3.3 mmol/L (3.5-5.1); Protein, Total 6.6 g/dL (5.8-8.1); Sodium 140 mmol/L (136-145)
[2021-11-30] MEDS ORDERED: methylPREDNISolone Sod Succ/PF 125 MG/2 ML VIAL ONE (21:38)
[2021-11-30] MEDS ORDERED: Ketorolac Tromethamine 30 MG/ML VIAL ONE (21:38)
[2021-11-30] MEDS ORDERED: Magnesium 2 GM/50 ML BAG (IN WATER) ONE (21:39)
== END 2021-11-30 23:22 | disposition home or self-care (01) ==
LOC: ERS 19:18
DX: G43.909 Migraine, unspecified, not intractable, without status migrainosus (principal); E11.9 Type 2 diabetes mellitus without complications; I10 Essential (primary) hypertension; E78.00 Pure hypercholesterolemia, unspecified; J45.909 Unspecified asthma, uncomplicated; Z79.4 Long term (current) use of insulin; Z79.899 Other long term (current) drug therapy; Z79.84 Long term (current) use of oral hypoglycemic drugs; N18.9 Chronic kidney disease, unspecified
CPT/HCPCS: 36415; 80069; 81001; 81015; 83690; 85025; 87086; 93005; 96374; 96375; J1200; J1885; J2765; J2930; J3475

== ENCOUNTER 2021-12-17 11:34 | Emergency (ER) | payer MEDICARE, OTHER ==
[2021-12-17] MEDS ORDERED: Ketorolac Tromethamine 30 MG/ML VIAL ONE (12:23)
[2021-12-17] MEDS ORDERED: Dexamethasone 10 MG/ML VIAL ONE (12:23)
[2021-12-17] MEDS ORDERED: diphenhydrAMINE 50 MG/ML VIAL ONE (12:23)
== END 2021-12-17 15:28 | disposition home or self-care (01) ==
LOC: ERS 11:34
DX: G43.909 Migraine, unspecified, not intractable, without status migrainosus (principal); I10 Essential (primary) hypertension; E11.9 Type 2 diabetes mellitus without complications; E78.5 Hyperlipidemia, unspecified; J44.9 Chronic obstructive pulmonary disease, unspecified; Z79.4 Long term (current) use of insulin; Z79.899 Other long term (current) drug therapy
CPT/HCPCS: 96374; 96375; J1100; J1200; J1790; J1885

== ENCOUNTER 2022-01-03 20:56 | Emergency (ER) | payer MEDICARE, OTHER ==
[2022-01-03] MEDS ORDERED: diphenhydrAMINE 50 MG/ML VIAL ONE (21:12)
[2022-01-03] MEDS ORDERED: Ketorolac Tromethamine 30 MG/ML VIAL ONE (21:12)
[2022-01-03] MEDS ORDERED: Metoclopramide HCl 10 MG/2 ML VIAL ONE (21:12)
[2022-01-03] MEDS ORDERED: methylPREDNISolone Sod Succ/PF 125 MG/2 ML VIAL ONE (22:43)
[2022-01-03] MEDS ORDERED: Acetaminophen 500 MG TAB ONE (22:43)
== END 2022-01-03 23:46 | disposition home or self-care (01) ==
LOC: ERS 20:56
DX: G43.909 Migraine, unspecified, not intractable, without status migrainosus (principal); E78.00 Pure hypercholesterolemia, unspecified; I10 Essential (primary) hypertension; E11.9 Type 2 diabetes mellitus without complications; J44.9 Chronic obstructive pulmonary disease, unspecified
CPT/HCPCS: 96365; 96375; J1200; J1885; J2765; J2930

== ENCOUNTER 2022-01-20 12:34 | Inpatient (IN) | payer OTHER ==
[2022-01-20] MEDS ORDERED: diphenhydrAMINE 50 MG/ML VIAL ONE (12:56)
[2022-01-20] MEDS ORDERED: Metoclopramide HCl 10 MG/2 ML VIAL ONE (12:56)
[2022-01-20] MEDS ORDERED: Magnesium 2 GM/50 ML BAG (IN WATER) ONE (12:56)
[2022-01-20] MEDS ORDERED: Acetaminophen 500 MG TAB ONE (12:56)
[2022-01-20 13:08] LABS: #Eosinphils 0.2 thou/uL (0.0-0.7); #Monocytes 0.4 thou/uL (0.11-0.59); #Neutrophils 6.1 thou/uL (1.40-6.50); %Basophils 0.3 % (0.0-1.0); %Monocytes 5.1 % (0.0-10.0); %Neutrophils 69.7 % (42.0-75.0); Hemoglobin 11.3 g/dL (12.0-16.0); Mean Corpuscular HGB CONC 33.7 g/dL (32.0-36.0); Mean Corpuscular Hemoglobin 28.4 pg (27.0-31.0); Mean Corpuscular Volume 84.3 fL (78.0-98.0); Mean Platelet Volume 8.4 fL (7.4-10.4); Platelet Count 252 thou/uL (130-400); RBC Distribution Width 13.1 % (11.5-14.5); Red Blood Cell (RBC) Count 3.97 mill/uL (4.20-5.40); White Blood Cell (WBC) Count 8.7 thou/uL (4.8-10.8)
[2022-01-20 13:31] LABS: ALT (SGPT) 8 U/L (8-55); AST (SGOT) 11 U/L (5-34); Albumin 3.3 g/dL (3.4-4.8); Alkaline Phosphatase 146 U/L (40-110); Anion Gap 18 mmol/L (10-20); BUN (Urea Nitrogen) 24 mg/dL (9.8-20.1); Bilirubin, Total 0.6 mg/dL (0.2-1.2); Calc. Creatinine Clearance 0 mL/min (70-130); Carbon Dioxide 21 mmol/L (23-31); Chloride 101 mmol/L (98-107); Estimated GFR 28; Globulin 3.2 g/dL (2.4-3.5); Potassium 4.6 mmol/L (3.5-5.1); Protein, Total 6.5 g/dL (5.8-8.1); Sodium 135 mmol/L (136-145)
[2022-01-20 13:37] LABS: Glucose 581 mg/dL (80-115)
[2022-01-20 14:08] LABS: Phosphorus 4.6 mg/dL (2.3-4.7)
[2022-01-20 14:12] LABS: Magnesium 1.8 mg/dL (1.6-2.6)
[2022-01-20 14:16] LABS: Actual Bicarbonate (HCO3v) 21 mEq/L (22-28); Base Excess -4.6 mEq/L (-2.0 to +3.0); Calcium, Ionized (venous) 1.07 mmol/L (1.16-1.32); Chloride (VBG) 103 mmol/L (98-106); Hemoglobin (Hb) 11.6 g/dL (11.7-16.1); Sodium 131.8 mmol/L (133-146); pH (venous) 7.35 (7.32-7.43)
[2022-01-20] MEDS ORDERED: Insulin Regular 300 UNITS/3 ML VIAL ONE (15:22)
[2022-01-20 15:59] LABS: Bacteria/HPF None Seen HPF (None Seen); Bilirubin Negative (Negative); Blood, Urine Trace (Negative); Clarity Clear (Clear); Glucose, Urine (Dipstick) Greater than 1000 mg/dL (Negative); Ketone, Urine Negative (Negative); Leukocyte Negative Leu/uL (Negative); Nitrite Negative (Negative); Protein, Urine (Dipstick) 200 mg/dL (Neg-Trace); RBC/HPF 0-3 HPF (0-3); Specific Gravity, Urine 1.026 (1.002-1.036); Squamous Epithelial 0-3 HPF (0-3); Urobilinogen Normal mg/dL (Less than 2)
[2022-01-20 17:33] LABS: Troponin I Less than 0.010 ng/mL (< 0.028)
[2022-01-20] MEDS ORDERED: Bisacodyl 5 MG TAB PO PRN (18:23)
[2022-01-20] MEDS ORDERED: Acetaminophen 650 MG Suppository PR PRN (18:23)
[2022-01-20] MEDS ORDERED: HumaLOG 300 UNITS/3 ML VIAL SC PRN ×2 (18:23)
[2022-01-20] MEDS ORDERED: Dextrose 5% in Water 1,000 ML IV PRN (18:23)
[2022-01-20] MEDS ORDERED: Ondansetron PF 4 MG/2 ML Vial IVP PRN (18:23)
[2022-01-20] MEDS ORDERED: Dextrose 50% Abboject 50 ML SYRINGE SLOW IVP PRN (18:23)
[2022-01-20] MEDS ORDERED: Guaifenesin DM 100-10/5 ML UDCUP PO PRN (18:23)
[2022-01-20] MEDS ORDERED: Senokot S 8.6-50 MG TAB PO PRN (18:23)
[2022-01-20] MEDS ORDERED: Calcium Carbonate 500 MG ChewTAB PO PRN (18:23)
[2022-01-20] MEDS ORDERED: Ondansetron ODT 4 MG TAB PO PRN (18:23)
[2022-01-20 19:36] LABS: Troponin I Less than 0.010 ng/mL (< 0.028)
[2022-01-20 21:59] VITALS: BMI 34.5
[2022-01-20] MEDS ORDERED: Benzonatate 100 MG CAP PO PRN (22:54)
[2022-01-20] MEDS ORDERED: Albuterol Sulfate 2.5 mg/3 ml Neb NEB PRN (23:08)
[2022-01-20] MEDS ORDERED: Atorvastatin Calcium 40 MG TAB PO SCH (23:15)
[2022-01-20] MEDS: ALPRAZolam 0.5 MG TAB PO SCH (23:25)
[2022-01-20] MEDS: Topiramate 25 MG TAB PO SCH (23:25)
[2022-01-20] MEDS: Sodium Chloride 0.9% 1,000 ML IV SCH (23:26)
[2022-01-20] MEDS ORDERED: Rosuvastatin 10 MG TAB PO SCH (23:30)
[2022-01-21 05:05] LABS: #Eosinphils 0.2 thou/uL (0.0-0.7); #Lymphocytes 2.2 thou/uL (1.20-3.40); #Monocytes 0.4 thou/uL (0.11-0.59); #Neutrophils 2.7 thou/uL (1.40-6.50); %Basophils 0.2 % (0.0-1.0); %Eosinophils 3.2 % (0.0-10.0); %Lymphocytes 39.5 % (21.0-51.0); %Neutrophils 49.2 % (42.0-75.0); Hemoglobin 10.5 g/dL (12.0-16.0); Mean Corpuscular HGB CONC 33.7 g/dL (32.0-36.0); Mean Corpuscular Hemoglobin 28.5 pg (27.0-31.0); Mean Corpuscular Volume 84.6 fL (78.0-98.0); Mean Platelet Volume 8.1 fL (7.4-10.4); Platelet Count 223 thou/uL (130-400); Red Blood Cell (RBC) Count 3.69 mill/uL (4.20-5.40); White Blood Cell (WBC) Count 5.5 thou/uL (4.8-10.8)
[2022-01-21 05:11] LABS: Hemoglobin A1c 7.9 % (4.0-6.0)
[2022-01-21 05:36] LABS: Anion Gap 14 mmol/L (10-20); BUN (Urea Nitrogen) 23 mg/dL (9.8-20.1); Calc. Creatinine Clearance 59 mL/min (70-130); Calcium 8.5 mg/dL (7.8-10.44); Carbon Dioxide 21 mmol/L (23-31); Chloride 109 mmol/L (98-107); Estimated GFR 40; Glucose 213 mg/dL (80-115); Sodium 140 mmol/L (136-145)
[2022-01-21] MEDS ORDERED: HumaLOG 300 UNITS/3 ML VIAL SC SCH (08:00)
[2022-01-21] MEDS ORDERED: Iopamidol-370 76% 500 ML 1 ML ONE (09:23)
[2022-01-21] MEDS: Carvedilol 25 MG TAB PO SCH ×2 (09:49→16:18)
[2022-01-21] MEDS: Lisinopril 20 MG TAB PO SCH ×2 (09:49→20:46)
[2022-01-21] MEDS: Aspirin 81 mg Enteric Coated Tablet PO SCH (09:50)
[2022-01-21] MEDS: Acetaminophen 325 MG TAB PO PRN ×2 (09:50→20:47)
[2022-01-21] MEDS: Potassium Chloride 20 MEQ TAB PO SCH (09:50)
[2022-01-21] MEDS: NIFEdipine XL 90 MG TAB PO SCH (09:50)
[2022-01-21] MEDS: Loratadine 10 MG TAB PO SCH (09:50)
[2022-01-21] MEDS: Topiramate 25 MG TAB PO SCH ×2 (09:50→20:47)
[2022-01-21] MEDS: glipiZIDE 5 MG TAB PO SCH ×2 (10:11→16:17)
[2022-01-21] MEDS: ALPRAZolam 0.5 MG TAB PO SCH ×3 (10:12→20:46)
[2022-01-21 14:18] LABS: Troponin I Less than 0.010 ng/mL (< 0.028)
[2022-01-21 14:42] LABS: #Eosinphils 0.2 thou/uL (0.0-0.7); #Lymphocytes 2.4 thou/uL (1.20-3.40); #Monocytes 0.4 thou/uL (0.11-0.59); #Neutrophils 3.3 thou/uL (1.40-6.50); %Basophils 0.6 % (0.0-1.0); %Eosinophils 2.7 % (0.0-10.0); %Lymphocytes 37.7 % (21.0-51.0); %Monocytes 6.6 % (0.0-10.0); %Neutrophils 52.4 % (42.0-75.0); Hemoglobin 11.1 g/dL (12.0-16.0); Mean Corpuscular HGB CONC 34.1 g/dL (32.0-36.0); Mean Corpuscular Hemoglobin 29.1 pg (27.0-31.0); Mean Corpuscular Volume 85.2 fL (78.0-98.0); Mean Platelet Volume 8.2 fL (7.4-10.4); Platelet Count 210 thou/uL (130-400); Red Blood Cell (RBC) Count 3.81 mill/uL (4.20-5.40); White Blood Cell (WBC) Count 6.3 thou/uL (4.8-10.8)
[2022-01-21 15:02] LABS: ALT (SGPT) 10 U/L (8-55); AST (SGOT) 13 U/L (5-34); Albumin 2.9 g/dL (3.4-4.8); Alkaline Phosphatase 121 U/L (40-110); Anion Gap 13 mmol/L (10-20); BUN (Urea Nitrogen) 20 mg/dL (9.8-20.1); Bilirubin, Total 0.4 mg/dL (0.2-1.2); Calc. Creatinine Clearance 57 mL/min (70-130); Calcium 8.6 mg/dL (7.8-10.44); Carbon Dioxide 21 mmol/L (23-31); Chloride 110 mmol/L (98-107); Estimated GFR 38; Glucose 222 mg/dL (80-115); Potassium 4.8 mmol/L (3.5-5.1); Protein, Total 5.9 g/dL (5.8-8.1); Sodium 139 mmol/L (136-145)
[2022-01-21] MEDS: HumaLOG 300 UNITS/3 ML VIAL SC SCH (16:18)
[2022-01-21] MEDS: Sodium Chloride 0.9% 1,000 ML IV SCH (16:19)
[2022-01-21 20:00] LABS: Troponin I Less than 0.010 ng/mL (< 0.028)
[2022-01-21] MEDS: Aripiprazole 10 MG TAB PO SCH (20:46)
[2022-01-21] MEDS: Montelukast Sodium 10 mg Tablet PO SCH (20:47)
[2022-01-21] MEDS: traZODone HCl 50 MG TAB PO SCH (20:47)
[2022-01-21] MEDS: Rosuvastatin 10 MG TAB PO SCH (20:47)
[2022-01-21] MEDS ORDERED: Atorvastatin Calcium 40 MG TAB PO SCH (21:00)
[2022-01-22] MEDS: HumaLOG 300 UNITS/3 ML VIAL SC SCH ×2 (07:50→16:36)
[2022-01-22] MEDS: glipiZIDE 5 MG TAB PO SCH ×2 (07:51→15:42)
[2022-01-22] MEDS: Carvedilol 25 MG TAB PO SCH ×2 (07:52→16:37)
[2022-01-22] MEDS: Potassium Chloride 20 MEQ TAB PO SCH (07:52)
[2022-01-22] MEDS: NIFEdipine XL 90 MG TAB PO SCH (07:53)
[2022-01-22] MEDS: ALPRAZolam 0.5 MG TAB PO SCH ×3 (07:53→20:33)
[2022-01-22] MEDS: Loratadine 10 MG TAB PO SCH (07:53)
[2022-01-22] MEDS: Topiramate 25 MG TAB PO SCH ×2 (07:53→20:34)
[2022-01-22] MEDS: Aspirin 81 mg Enteric Coated Tablet PO SCH (07:53)
[2022-01-22] MEDS: Lisinopril 20 MG TAB PO SCH ×2 (07:54→20:33)
[2022-01-22] MEDS: Acetaminophen 325 MG TAB PO PRN ×2 (15:42→19:34)
[2022-01-22] MEDS: Fioricet 325/50/40 mg Tablet PO PRN (17:39)
[2022-01-22] MEDS: Aripiprazole 10 MG TAB PO SCH (20:33)
[2022-01-22] MEDS: Montelukast Sodium 10 mg Tablet PO SCH (20:33)
[2022-01-22] MEDS: Rosuvastatin 10 MG TAB PO SCH (20:34)
[2022-01-22] MEDS: traZODone HCl 50 MG TAB PO SCH (20:34)
[2022-01-23 05:19] LABS: #Eosinphils 0.2 thou/uL (0.0-0.7); #Lymphocytes 2.2 thou/uL (1.20-3.40); #Monocytes 0.4 thou/uL (0.11-0.59); #Neutrophils 2.5 thou/uL (1.40-6.50); %Basophils 0.5 % (0.0-1.0); %Eosinophils 4.2 % (0.0-10.0); %Monocytes 6.9 % (0.0-10.0); %Neutrophils 47.4 % (42.0-75.0); Hemoglobin 9.8 g/dL (12.0-16.0); Mean Corpuscular HGB CONC 33.3 g/dL (32.0-36.0); Mean Corpuscular Hemoglobin 28.8 pg (27.0-31.0); Mean Corpuscular Volume 86.5 fL (78.0-98.0); Mean Platelet Volume 8.2 fL (7.4-10.4); Platelet Count 231 thou/uL (130-400); RBC Distribution Width 13.3 % (11.5-14.5); Red Blood Cell (RBC) Count 3.39 mill/uL (4.20-5.40); White Blood Cell (WBC) Count 5.3 thou/uL (4.8-10.8)
[2022-01-23 05:34] LABS: ALT (SGPT) 8 U/L (8-55); AST (SGOT) 11 U/L (5-34); Albumin 2.8 g/dL (3.4-4.8); Alkaline Phosphatase 100 U/L (40-110); Anion Gap 13 mmol/L (10-20); BUN (Urea Nitrogen) 22 mg/dL (9.8-20.1); Bilirubin, Total 0.3 mg/dL (0.2-1.2); Calc. Creatinine Clearance 50 mL/min (70-130); Calcium 8.7 mg/dL (7.8-10.44); Carbon Dioxide 22 mmol/L (23-31); Chloride 111 mmol/L (98-107); Estimated GFR 33; Globulin 2.6 g/dL (2.4-3.5); Glucose 116 mg/dL (80-115); Potassium 4.3 mmol/L (3.5-5.1); Protein, Total 5.4 g/dL (5.8-8.1); Sodium 142 mmol/L (136-145)
[2022-01-23] MEDS ORDERED: Regadenoson 0.4 MG/5 ML SYRINGE ONE (08:55)
[2022-01-23] MEDS: HumaLOG 300 UNITS/3 ML VIAL SC SCH ×2 (09:36→16:58)
[2022-01-23] MEDS: Carvedilol 25 MG TAB PO SCH ×2 (09:36→15:56)
[2022-01-23] MEDS: glipiZIDE 5 MG TAB PO SCH ×2 (09:36→15:56)
[2022-01-23] MEDS: ALPRAZolam 0.5 MG TAB PO SCH ×3 (12:28→20:10)
[2022-01-23] MEDS: Lisinopril 20 MG TAB PO SCH ×2 (15:26→20:17)
[2022-01-23] MEDS: Topiramate 25 MG TAB PO SCH ×2 (15:27→20:11)
[2022-01-23] MEDS: Potassium Chloride 20 MEQ TAB PO SCH (15:55)
[2022-01-23] MEDS: NIFEdipine XL 90 MG TAB PO SCH (15:56)
[2022-01-23] MEDS: Aspirin 81 mg Enteric Coated Tablet PO SCH (15:56)
[2022-01-23] MEDS: Loratadine 10 MG TAB PO SCH (15:56)
[2022-01-23] MEDS: traZODone HCl 50 MG TAB PO SCH (20:09)
[2022-01-23] MEDS: Montelukast Sodium 10 mg Tablet PO SCH (20:11)
[2022-01-23] MEDS: Rosuvastatin 10 MG TAB PO SCH (20:11)
[2022-01-23] MEDS: Aripiprazole 10 MG TAB PO SCH (20:11)
[2022-01-23] MEDS: Fioricet 325/50/40 mg Tablet PO PRN (21:08)
[2022-01-24 05:01] LABS: #Eosinphils 0.2 thou/uL (0.0-0.7); #Lymphocytes 2.4 thou/uL (1.20-3.40); #Monocytes 0.4 thou/uL (0.11-0.59); #Neutrophils 3.6 thou/uL (1.40-6.50); %Basophils 0.4 % (0.0-1.0); %Eosinophils 3.2 % (0.0-10.0); %Lymphocytes 35.6 % (21.0-51.0); %Monocytes 6.2 % (0.0-10.0); %Neutrophils 54.6 % (42.0-75.0); Hemoglobin 9.8 g/dL (12.0-16.0); Mean Corpuscular HGB CONC 33.3 g/dL (32.0-36.0); Mean Corpuscular Hemoglobin 28.8 pg (27.0-31.0); Mean Corpuscular Volume 86.5 fL (78.0-98.0); Mean Platelet Volume 8.2 fL (7.4-10.4); Platelet Count 245 thou/uL (130-400); RBC Distribution Width 12.8 % (11.5-14.5); Red Blood Cell (RBC) Count 3.41 mill/uL (4.20-5.40); White Blood Cell (WBC) Count 6.6 thou/uL (4.8-10.8)
[2022-01-24 05:19] LABS: ALT (SGPT) 7 U/L (8-55); AST (SGOT) 12 U/L (5-34); Albumin 2.8 g/dL (3.4-4.8); Alkaline Phosphatase 101 U/L (40-110); Anion Gap 15 mmol/L (10-20); BUN (Urea Nitrogen) 23 mg/dL (9.8-20.1); Bilirubin, Total 0.3 mg/dL (0.2-1.2); Calc. Creatinine Clearance 49 mL/min (70-130); Calcium 8.6 mg/dL (7.8-10.44); Carbon Dioxide 20 mmol/L (23-31); Chloride 110 mmol/L (98-107); Estimated GFR 32; Globulin 2.8 g/dL (2.4-3.5); Glucose 121 mg/dL (80-115); Potassium 4.4 mmol/L (3.5-5.1); Protein, Total 5.6 g/dL (5.8-8.1); Sodium 141 mmol/L (136-145)
[2022-01-24] MEDS: ALPRAZolam 0.5 MG TAB PO SCH (09:35)
[2022-01-24] MEDS: NIFEdipine XL 90 MG TAB PO SCH (09:35)
[2022-01-24] MEDS: Loratadine 10 MG TAB PO SCH (09:36)
[2022-01-24] MEDS: Carvedilol 25 MG TAB PO SCH ×2 (09:36→16:52)
[2022-01-24] MEDS: Potassium Chloride 20 MEQ TAB PO SCH (09:36)
[2022-01-24] MEDS: Lisinopril 20 MG TAB PO SCH ×2 (09:36→21:01)
[2022-01-24] MEDS: glipiZIDE 5 MG TAB PO SCH ×2 (09:36→16:52)
[2022-01-24] MEDS: Topiramate 25 MG TAB PO SCH (09:37)
[2022-01-24] MEDS: HumaLOG 300 UNITS/3 ML VIAL SC SCH ×2 (09:37→16:52)
[2022-01-24] MEDS: Aspirin 81 mg Enteric Coated Tablet PO SCH (09:38)
[2022-01-24] MEDS ORDERED: Electrolyte Replacement Protocol 1 EACH FS SCH (12:45)
[2022-01-24] MEDS: Acetaminophen 325 MG TAB PO PRN (14:22)
[2022-01-24] MEDS: Heparin 5,000 UNITS/ML VIAL SC SCH ×2 (14:23→21:01)
[2022-01-24] MEDS: Montelukast Sodium 10 mg Tablet PO SCH (21:01)
[2022-01-24] MEDS: Senokot S 8.6-50 MG TAB PO SCH (21:02)
[2022-01-24] MEDS: Rosuvastatin 10 MG TAB PO SCH (21:02)
[2022-01-25 04:55] LABS: #Eosinphils 0.2 thou/uL (0.0-0.7); #Lymphocytes 2.5 thou/uL (1.20-3.40); #Monocytes 0.4 thou/uL (0.11-0.59); #Neutrophils 2.9 thou/uL (1.40-6.50); %Basophils 0.6 % (0.0-1.0); %Eosinophils 3.3 % (0.0-10.0); %Lymphocytes 42.2 % (21.0-51.0); %Monocytes 6.6 % (0.0-10.0); %Neutrophils 47.4 % (42.0-75.0); Hemoglobin 11.1 g/dL (12.0-16.0); Mean Corpuscular HGB CONC 32.9 g/dL (32.0-36.0); Mean Corpuscular Hemoglobin 28.3 pg (27.0-31.0); Mean Platelet Volume 8.4 fL (7.4-10.4); Platelet Count 237 thou/uL (130-400); Red Blood Cell (RBC) Count 3.94 mill/uL (4.20-5.40)
[2022-01-25 05:23] LABS: Anion Gap 15 mmol/L (10-20); BUN (Urea Nitrogen) 24 mg/dL (9.8-20.1); Calc. Creatinine Clearance 49 mL/min (70-130); Calcium 9.5 mg/dL (7.8-10.44); Carbon Dioxide 22 mmol/L (23-31); Chloride 110 mmol/L (98-107); Estimated GFR 32; Glucose 98 mg/dL (80-115); Phosphorus 4.2 mg/dL (2.3-4.7); Potassium 4.5 mmol/L (3.5-5.1); Sodium 142 mmol/L (136-145)
[2022-01-25] MEDS: Acetaminophen 325 MG TAB PO PRN (07:30)
[2022-01-25] MEDS ORDERED: HumaLOG 300 UNITS/3 ML VIAL SC SCH (08:00)
[2022-01-25] MEDS: Carvedilol 25 MG TAB PO SCH (08:54)
[2022-01-25] MEDS: glipiZIDE 5 MG TAB PO SCH (08:54)
[2022-01-25] MEDS: Aspirin 81 mg Enteric Coated Tablet PO SCH (08:55)
[2022-01-25] MEDS: Potassium Chloride 20 MEQ TAB PO SCH (08:55)
[2022-01-25] MEDS: Magnesium 2 GM/50 ML(in water) 2 GM in Premix Bag 1 BAG IVPB SCH ×2 (08:55→11:14)
[2022-01-25] MEDS: Loratadine 10 MG TAB PO SCH (08:56)
[2022-01-25] MEDS: Lisinopril 20 MG TAB PO SCH (08:56)
[2022-01-25] MEDS: Heparin 5,000 UNITS/ML VIAL SC SCH (08:56)
[2022-01-25] MEDS ORDERED: NIFEdipine XL 60 MG TAB PO SCH (09:00)
[2022-01-25] MEDS ORDERED: NIFEdipine XL 90 MG TAB PO SCH (09:00)
[2022-01-25] MEDS: Senokot S 8.6-50 MG TAB PO SCH (09:20)
[2022-01-25] MEDS ORDERED: diphenhydrAMINE 25 MG CAP PO SCH (10:45)
[2022-01-25] MEDS ORDERED: diphenhydrAMINE 50 MG/ML VIAL IVP SCH (10:45)
[2022-01-25 13:52] VITALS: TEMP 98.1
[2022-01-25 16:48] VITALS: BP 167/71
== END 2022-01-25 14:35 | disposition home health service (06) | DRG 637 ==
LOC: ERS 12:34 → 2SW 15:26 → OBSVTOIN 01-22 10:17
PROVIDERS: ADMIT Family Medicine; ATTEND Internal Medicine
DX: E11.65 Type 2 diabetes mellitus with hyperglycemia (principal); I50.33 Acute on chronic diastolic (congestive) heart failure; J96.01 Acute respiratory failure with hypoxia; I13.0 Hypertensive heart and chronic kidney disease with heart failure and stage 1 through stage 4 chronic kidney disease, or unspecified chronic kidney disease; N17.9 Acute kidney failure, unspecified; Z20.822 Contact with and (suspected) exposure to COVID-19; E11.22 Type 2 diabetes mellitus with diabetic chronic kidney disease; N18.30 Chronic kidney disease, stage 3 unspecified; F41.9 Anxiety disorder, unspecified; F32.A Depression, unspecified; Z96.653 Presence of artificial knee joint, bilateral; E11.43 Type 2 diabetes mellitus with diabetic autonomic (poly)neuropathy; I95.1 Orthostatic hypotension; K31.84 Gastroparesis; D63.1 Anemia in chronic kidney disease; Z60.2 Problems related to living alone; G43.909 Migraine, unspecified, not intractable, without status migrainosus; E78.00 Pure hypercholesterolemia, unspecified; G89.29 Other chronic pain; M54.9 Dorsalgia, unspecified; E66.9 Obesity, unspecified; Z88.8 Allergy status to other drugs, medicaments and biological substances; Z88.6 Allergy status to analgesic agent; Z86.73 Personal history of transient ischemic attack (TIA), and cerebral infarction without residual deficits; Z88.2 Allergy status to sulfonamides; Z79.899 Other long term (current) drug therapy; Z79.82 Long term (current) use of aspirin; Z79.4 Long term (current) use of insulin; Z90.49 Acquired absence of other specified parts of digestive tract; Z90.710 Acquired absence of both cervix and uterus; Z83.3 Family history of diabetes mellitus; Z68.34 Body mass index [BMI] 34.0-34.9, adult
CPT/HCPCS: 36415; 36416; 70450; 70551; 71045; 71275; 74220; 78452; 80048; 80053; 81003; 81015; 82010; 82805; 83036; 83735; 84100; 84484; 85025; 93005; 93010; 93017; 93306; 93880; 94760; 95816; 95819; 95957; 96365; 96367; 96375; A9500; G0378; J1200; J1644; J1815; J2765; J2785; J3475; J7050; Q9967; U0003; U0005

== ENCOUNTER 2022-01-26 04:00 | Emergency (ER) | payer OTHER ==
[2022-01-26] MEDS ORDERED: Morphine 4 MG/ML VIAL ONE (05:03)
[2022-01-26 05:39] LABS: #Basophils 0.1 thou/uL (0.0-0.2); #Eosinphils 0.2 thou/uL (0.0-0.7); #Monocytes 0.5 thou/uL (0.11-0.59); #Neutrophils 5.2 thou/uL (1.40-6.50); %Basophils 0.6 % (0.0-1.0); %Eosinophils 2.5 % (0.0-10.0); %Lymphocytes 25.2 % (21.0-51.0); %Monocytes 5.7 % (0.0-10.0); Hemoglobin 10.7 g/dL (12.0-16.0); Mean Corpuscular HGB CONC 33.7 g/dL (32.0-36.0); Mean Corpuscular Hemoglobin 28.8 pg (27.0-31.0); Mean Corpuscular Volume 85.5 fL (78.0-98.0); Mean Platelet Volume 8.4 fL (7.4-10.4); Platelet Count 250 thou/uL (130-400); Red Blood Cell (RBC) Count 3.72 mill/uL (4.20-5.40); White Blood Cell (WBC) Count 7.9 thou/uL (4.8-10.8)
[2022-01-26 05:53] LABS: ALT (SGPT) 8 U/L (8-55); AST (SGOT) 12 U/L (5-34); Albumin 3.2 g/dL (3.4-4.8); Alkaline Phosphatase 169 U/L (40-110); Anion Gap 14 mmol/L (10-20); BUN (Urea Nitrogen) 24 mg/dL (9.8-20.1); Bilirubin, Total 0.3 mg/dL (0.2-1.2); CK (CPK) 23 U/L (29-168); Calc. Creatinine Clearance 0 mL/min (70-130); Calcium 9.2 mg/dL (7.8-10.44); Carbon Dioxide 24 mmol/L (23-31); Chloride 108 mmol/L (98-107); Estimated GFR 34; Globulin 3.3 g/dL (2.4-3.5); Glucose 187 mg/dL (80-115); Potassium 4.7 mmol/L (3.5-5.1); Protein, Total 6.5 g/dL (5.8-8.1); Sodium 141 mmol/L (136-145)
== END 2022-01-26 07:40 | disposition home or self-care (01) ==
LOC: ERS 04:00
DX: S00.83XA Contusion of other part of head, initial encounter (principal); M25.552 Pain in left hip; R51.9 Headache, unspecified; M25.571 Pain in right ankle and joints of right foot; M54.2 Cervicalgia; E11.9 Type 2 diabetes mellitus without complications; E78.00 Pure hypercholesterolemia, unspecified; I10 Essential (primary) hypertension; J44.9 Chronic obstructive pulmonary disease, unspecified; W06.XXXA Fall from bed, initial encounter; Z86.73 Personal history of transient ischemic attack (TIA), and cerebral infarction without residual deficits; Z79.899 Other long term (current) drug therapy
CPT/HCPCS: 70450; 71045; 72125; 80053; 82550; 84484; 85025; 93005; 96374; J2270

== ENCOUNTER 2022-01-28 10:15 | Emergency (ER) | payer OTHER ==
[2022-01-28] MEDS ORDERED: hydrALAZINE 20 MG/ML VIAL ONE (11:06)
[2022-01-28 11:31] LABS: #Eosinphils 0.1 thou/uL (0.0-0.7); #Monocytes 0.4 thou/uL (0.11-0.59); #Neutrophils 3.6 thou/uL (1.40-6.50); %Basophils 0.6 % (0.0-1.0); %Monocytes 5.6 % (0.0-10.0); %Neutrophils 58.7 % (42.0-75.0); Hemoglobin 9.6 g/dL (12.0-16.0); Mean Corpuscular HGB CONC 33.5 g/dL (32.0-36.0); Mean Corpuscular Hemoglobin 28.5 pg (27.0-31.0); Mean Corpuscular Volume 85.2 fL (78.0-98.0); Mean Platelet Volume 8.2 fL (7.4-10.4); Platelet Count 250 thou/uL (130-400); RBC Distribution Width 12.9 % (11.5-14.5); Red Blood Cell (RBC) Count 3.38 mill/uL (4.20-5.40); White Blood Cell (WBC) Count 6.2 thou/uL (4.8-10.8)
[2022-01-28] MEDS ORDERED: Acetaminophen 500 MG TAB ONE (11:49)
[2022-01-28] MEDS ORDERED: Ketorolac Tromethamine 30 MG/ML VIAL ONE (11:49)
[2022-01-28] MEDS ORDERED: diphenhydrAMINE 50 MG/ML VIAL ONE (11:49)
[2022-01-28 11:55] LABS: ALT (SGPT) 7 U/L (8-55); AST (SGOT) 11 U/L (5-34); Alkaline Phosphatase 112 U/L (40-110); Anion Gap 10 mmol/L (10-20); BUN (Urea Nitrogen) 14 mg/dL (9.8-20.1); Bilirubin, Total 0.4 mg/dL (0.2-1.2); Calc. Creatinine Clearance 0 mL/min (70-130); Calcium 8.9 mg/dL (7.8-10.44); Carbon Dioxide 25 mmol/L (23-31); Chloride 107 mmol/L (98-107); Estimated GFR 45; Glucose 208 mg/dL (80-115); Potassium 3.9 mmol/L (3.5-5.1); Sodium 138 mmol/L (136-145)
[2022-01-28 12:14] LABS: Bilirubin Negative (Negative); Blood, Urine 2+ (Negative); Clarity Clear (Clear); Glucose, Urine (Dipstick) 500 mg/dL (Negative); Ketone, Urine Negative (Negative); Leukocyte Negative Leu/uL (Negative); Nitrite Negative (Negative); Protein, Urine (Dipstick) 300 mg/dL (Neg-Trace); Specific Gravity, Urine 1.021 (1.002-1.036); Squamous Epithelial 0-3 HPF (0-3); Urobilinogen Normal mg/dL (Less than 2); pH, Urine 6.5 (5.0-9.0)
[2022-01-28 12:15] LABS: Bacteria/HPF 1+ HPF (None Seen)
[2022-01-28] MEDS ORDERED: Promethazine HCl 12.5 MG in Sodium Chloride 0.9% 50 ML IVPB SCH (12:15)
[2022-01-28] MEDS ORDERED: Morphine 4 MG/ML VIAL ONE (14:54)
== END 2022-01-28 15:41 | disposition home or self-care (01) ==
LOC: ERS 10:15
DX: S32.010A Wedge compression fracture of first lumbar vertebra, initial encounter for closed fracture (principal); S32.030A Wedge compression fracture of third lumbar vertebra, initial encounter for closed fracture; S22.050A Wedge compression fracture of T5-T6 vertebra, initial encounter for closed fracture; S00.83XA Contusion of other part of head, initial encounter; I10 Essential (primary) hypertension; E11.9 Type 2 diabetes mellitus without complications; E78.00 Pure hypercholesterolemia, unspecified; J44.9 Chronic obstructive pulmonary disease, unspecified; Z86.73 Personal history of transient ischemic attack (TIA), and cerebral infarction without residual deficits; Z79.899 Other long term (current) drug therapy; W19.XXXA Unspecified fall, initial encounter
CPT/HCPCS: 36415; 51701; 72128; 72131; 80053; 81003; 81015; 83880; 84484; 85025; 93005; 96365; 96366; 96375; J0360; J1200; J1885; J2270; J2550

== ENCOUNTER 2022-02-02 19:59 | Emergency (ER) | payer OTHER ==
[2022-02-02 21:10] LABS: #Eosinphils 0.3 thou/uL (0.0-0.7); #Lymphocytes 2.4 thou/uL (1.20-3.40); #Monocytes 0.4 thou/uL (0.11-0.59); %Basophils 0.6 % (0.0-1.0); %Eosinophils 4.4 % (0.0-10.0); %Monocytes 5.8 % (0.0-10.0); %Neutrophils 49.3 % (42.0-75.0); Hemoglobin 10.5 g/dL (12.0-16.0); Mean Corpuscular HGB CONC 33.6 g/dL (32.0-36.0); Mean Corpuscular Hemoglobin 28.5 pg (27.0-31.0); Mean Corpuscular Volume 84.9 fL (78.0-98.0); Mean Platelet Volume 7.7 fL (7.4-10.4); Platelet Count 276 thou/uL (130-400); Red Blood Cell (RBC) Count 3.67 mill/uL (4.20-5.40)
[2022-02-02 21:32] LABS: ALT (SGPT) 10 U/L (8-55); AST (SGOT) 14 U/L (5-34); Albumin 3.2 g/dL (3.4-4.8); Alkaline Phosphatase 151 U/L (40-110); Anion Gap 13 mmol/L (10-20); BUN (Urea Nitrogen) 20 mg/dL (9.8-20.1); Bilirubin, Total 0.4 mg/dL (0.2-1.2); CK (CPK) 25 U/L (29-168); Calc. Creatinine Clearance 0 mL/min (70-130); Calcium 9.1 mg/dL (7.8-10.44); Carbon Dioxide 24 mmol/L (23-31); Chloride 106 mmol/L (98-107); Estimated GFR 39; Globulin 3.3 g/dL (2.4-3.5); Glucose 152 mg/dL (80-115); Potassium 4.1 mmol/L (3.5-5.1); Protein, Total 6.5 g/dL (5.8-8.1); Sodium 139 mmol/L (136-145)
[2022-02-02] MEDS ORDERED: Morphine 2 MG/ML VIAL ONE (22:27)
== END 2022-02-02 20:20 | disposition home or self-care (01) ==
LOC: ERS 19:59
DX: R55 Syncope and collapse (principal); E11.9 Type 2 diabetes mellitus without complications; E78.00 Pure hypercholesterolemia, unspecified; I10 Essential (primary) hypertension; J44.9 Chronic obstructive pulmonary disease, unspecified; Z86.73 Personal history of transient ischemic attack (TIA), and cerebral infarction without residual deficits; Z79.899 Other long term (current) drug therapy
CPT/HCPCS: 70450; 72125; 73564; 80053; 82550; 84484; 85025; 93005; 96374; 99285; J2270; 36415

== ENCOUNTER 2022-02-07 14:58 | Observation (INO) | payer OTHER ==
[2022-02-07 16:30] LABS: #Eosinphils 0.3 thou/uL (0.0-0.7); #Lymphocytes 2.2 thou/uL (1.20-3.40); #Monocytes 0.5 thou/uL (0.11-0.59); #Neutrophils 3.9 thou/uL (1.40-6.50); %Basophils 0.4 % (0.0-1.0); %Lymphocytes 32.5 % (21.0-51.0); %Monocytes 6.5 % (0.0-10.0); %Neutrophils 56.6 % (42.0-75.0); Hemoglobin 10.2 g/dL (12.0-16.0); Mean Corpuscular Hemoglobin 28.4 pg (27.0-31.0); Mean Corpuscular Volume 83.5 fL (78.0-98.0); Mean Platelet Volume 7.1 fL (7.4-10.4); Platelet Count 251 thou/uL (130-400); Red Blood Cell (RBC) Count 3.58 mill/uL (4.20-5.40); White Blood Cell (WBC) Count 6.9 thou/uL (4.8-10.8)
[2022-02-07 16:53] LABS: ALT (SGPT) 9 U/L (8-55); AST (SGOT) 11 U/L (5-34); Albumin 3.5 g/dL (3.4-4.8); Alkaline Phosphatase 147 U/L (40-110); Anion Gap 12 mmol/L (10-20); BUN (Urea Nitrogen) 27 mg/dL (9.8-20.1); Bilirubin, Total 0.4 mg/dL (0.2-1.2); Calc. Creatinine Clearance 0 mL/min (70-130); Carbon Dioxide 28 mmol/L (23-31); Chloride 102 mmol/L (98-107); Estimated GFR 34; Globulin 2.7 g/dL (2.4-3.5); Glucose 206 mg/dL (80-115); Potassium 4.2 mmol/L (3.5-5.1); Protein, Total 6.2 g/dL (5.8-8.1); Sodium 138 mmol/L (136-145)
[2022-02-07] MEDS ORDERED: HYDROcodone/Acetaminophen 5/325 mg Tablet ONE (16:53)
[2022-02-07] MEDS ORDERED: Ondansetron PF 4 MG/2 ML Vial IVP PRN (17:55)
[2022-02-07] MEDS ORDERED: Bisacodyl 5 MG TAB PO PRN (17:55)
[2022-02-07] MEDS ORDERED: Bisacodyl 10 MG SUPP PR PRN (17:55)
[2022-02-07] MEDS ORDERED: Acetaminophen 325 MG TAB PO PRN (17:55)
[2022-02-07] MEDS ORDERED: Senokot S 8.6-50 MG TAB PO PRN (17:55)
[2022-02-07] MEDS ORDERED: Aspirin 325 mg Enteric Coated Tablet PO SCH (18:00)
[2022-02-07 20:02] VITALS: BMI 34.3
[2022-02-07 20:05] LABS: Troponin I Less than 0.010 ng/mL (< 0.028)
[2022-02-07] MEDS ORDERED: HYDROcodone/Acetaminophen 5/325 mg Tablet PO PRN (20:59)
[2022-02-07] MEDS ORDERED: Rosuvastatin 20 MG TAB PO SCH (21:00)
[2022-02-07 23:06] LABS: Troponin I Less than 0.010 ng/mL (< 0.028)
[2022-02-08 05:58] LABS: ALT (SGPT) 9 U/L (8-55); AST (SGOT) 11 U/L (5-34); Alkaline Phosphatase 117 U/L (40-110); Anion Gap 13 mmol/L (10-20); BUN (Urea Nitrogen) 29 mg/dL (9.8-20.1); Bilirubin, Direct 0.1 mg/dL (0.1-0.3); Bilirubin, Total 0.3 mg/dL (0.2-1.2); Calc. Creatinine Clearance 56 mL/min (70-130); Calcium 8.8 mg/dL (7.8-10.44); Carbon Dioxide 25 mmol/L (23-31); Cardiac Risk 3.9 (Less than 4.5); Chloride 104 mmol/L (98-107); Cholesterol 205 mg/dl (< 200 Desired); Estimated GFR 37; Glucose 177 mg/dL (80-115); HDL Cholesterol 52 mg/dL (>60 Neg Risk); LDL Cholesterol, Calculated 109 mg/dL; Magnesium 1.8 mg/dL (1.6-2.6); Sodium 138 mmol/L (136-145); Triglycerides 221 mg/dL (Less than 150)
[2022-02-08 06:32] LABS: #Eosinphils 0.3 thou/uL (0.0-0.7); #Lymphocytes 1.9 thou/uL (1.20-3.40); #Monocytes 0.6 thou/uL (0.11-0.59); #Neutrophils 6.7 thou/uL (1.40-6.50); %Basophils 0.4 % (0.0-1.0); %Eosinophils 2.7 % (0.0-10.0); %Lymphocytes 19.9 % (21.0-51.0); %Monocytes 6.2 % (0.0-10.0); %Neutrophils 70.8 % (42.0-75.0); Hemoglobin 10.4 g/dL (12.0-16.0); Mean Corpuscular HGB CONC 32.3 g/dL (32.0-36.0); Mean Corpuscular Hemoglobin 27.9 pg (27.0-31.0); Mean Corpuscular Volume 86.6 fL (78.0-98.0); Mean Platelet Volume 7.7 fL (7.4-10.4); Platelet Count 244 thou/uL (130-400); RBC Distribution Width 13.1 % (11.5-14.5); Red Blood Cell (RBC) Count 3.74 mill/uL (4.20-5.40); White Blood Cell (WBC) Count 9.4 thou/uL (4.8-10.8)
[2022-02-08] MEDS ORDERED: Aspirin 81 mg Enteric Coated Tablet PO SCH (09:00)
[2022-02-08 16:27] VITALS: BP 167/77; TEMP 98.1
[2022-02-08] MEDS ORDERED: Heparin 5,000 UNITS/ML VIAL SC SCH (21:00)
== END 2022-02-08 18:10 | disposition home or self-care (01) ==
LOC: ERS 14:58 → NEURO 17:49
PROVIDERS: ADMIT Internal Medicine; ATTEND Internal Medicine
DX: R55 Syncope and collapse (principal); G93.41 Metabolic encephalopathy; I13.0 Hypertensive heart and chronic kidney disease with heart failure and stage 1 through stage 4 chronic kidney disease, or unspecified chronic kidney disease; E11.22 Type 2 diabetes mellitus with diabetic chronic kidney disease; N18.30 Chronic kidney disease, stage 3 unspecified; I50.32 Chronic diastolic (congestive) heart failure; N17.9 Acute kidney failure, unspecified; J44.9 Chronic obstructive pulmonary disease, unspecified; M48.061 Spinal stenosis, lumbar region without neurogenic claudication; M51.36 Other intervertebral disc degeneration, lumbar region; M47.816 Spondylosis without myelopathy or radiculopathy, lumbar region; M51.37 Other intervertebral disc degeneration, lumbosacral region; M48.07 Spinal stenosis, lumbosacral region; G89.11 Acute pain due to trauma; M25.511 Pain in right shoulder; M25.512 Pain in left shoulder; M19.011 Primary osteoarthritis, right shoulder; M19.012 Primary osteoarthritis, left shoulder; E11.43 Type 2 diabetes mellitus with diabetic autonomic (poly)neuropathy; K31.84 Gastroparesis; Z86.73 Personal history of transient ischemic attack (TIA), and cerebral infarction without residual deficits; Z79.4 Long term (current) use of insulin; Z79.899 Other long term (current) drug therapy; Z88.1 Allergy status to other antibiotic agents; Z88.2 Allergy status to sulfonamides; Z88.5 Allergy status to narcotic agent; Z95.818 Presence of other cardiac implants and grafts; Z98.1 Arthrodesis status; Z98.890 Other specified postprocedural states; W18.30XA Fall on same level, unspecified, initial encounter
CPT/HCPCS: 70450; 70486; 71045; 72100; 72125; 72128; 72131; 73030 ×2; 73060; 80048; 80061; 80076; 80307; 83735; 84484 ×2; 85025; 93005; 95712; 95819; 95957; 97530; 97535; 99285; G0378 ×3; 36415; 80053; 84443

== ENCOUNTER 2022-03-05 18:58 | Emergency (ER) | payer OTHER ==
[2022-03-05] MEDS ORDERED: Acetaminophen 500 MG TAB ONE (19:24)
[2022-03-05] MEDS ORDERED: Magnesium 2 GM/50 ML BAG (IN WATER) ONE (19:24)
[2022-03-05] MEDS ORDERED: diphenhydrAMINE 50 MG/ML VIAL ONE (19:25)
[2022-03-05] MEDS ORDERED: Metoclopramide HCl 10 MG/2 ML VIAL ONE (19:25)
[2022-03-05] MEDS ORDERED: Ketorolac Tromethamine 30 MG/ML VIAL ONE (20:32)
[2022-03-05] MEDS ORDERED: Valproate Sodium 500 MG in Sodium Chloride 0.9% 100 ML IVPB SCH (21:30)
== END 2022-03-05 22:47 ==
LOC: ERS 18:58
DX: R51.9 Headache, unspecified (principal); E11.9 Type 2 diabetes mellitus without complications; I10 Essential (primary) hypertension; Z86.73 Personal history of transient ischemic attack (TIA), and cerebral infarction without residual deficits; Z79.899 Other long term (current) drug therapy
CPT/HCPCS: 96365; 96367; 96368; 96375; J1200; J1885; J2765; J3475; J3490

== ENCOUNTER 2022-03-15 11:34 | Observation (INO) | payer OTHER ==
[2022-03-15 13:00] LABS: #Eosinphils 0.3 thou/uL (0.0-0.7); #Monocytes 0.4 thou/uL (0.11-0.59); #Neutrophils 3.3 thou/uL (1.40-6.50); %Basophils 0.5 % (0.0-1.0); %Eosinophils 4.3 % (0.0-10.0); %Lymphocytes 32.8 % (21.0-51.0); %Monocytes 6.2 % (0.0-10.0); %Neutrophils 56.1 % (42.0-75.0); Hemoglobin 10.4 g/dL (12.0-16.0); Mean Corpuscular HGB CONC 32.4 g/dL (32.0-36.0); Mean Corpuscular Hemoglobin 27.8 pg (27.0-31.0); Mean Corpuscular Volume 85.6 fl (78.0-98.0); Mean Platelet Volume 7.9 fL (7.4-10.4); Platelet Count 242 thou/uL (130-400); Red Blood Cell (RBC) Count 3.74 mill/uL (4.20-5.40)
[2022-03-15 13:21] LABS: ALT (SGPT) 21 U/L (8-55); AST (SGOT) 25 U/L (5-34); Albumin 3.2 g/dL (3.4-4.8); Alkaline Phosphatase 186 U/L (40-110); Anion Gap 12 mmol/L (10-20); BUN (Urea Nitrogen) 33 mg/dL (9.8-20.1); Bilirubin, Total 0.2 mg/dL (0.2-1.2); Calc. Creatinine Clearance 0 mL/min (70-130); Calcium 8.9 mg/dL (7.8-10.44); Carbon Dioxide 24 mmol/L (23-31); Chloride 108 mmol/L (98-107); Estimated GFR 35; Globulin 3.3 g/dL (2.4-3.5); Glucose 75 mg/dL (80-115); Potassium 5.3 mmol/L (3.5-5.1); Protein, Total 6.5 g/dL (5.8-8.1); Sodium 139 mmol/L (136-145)
[2022-03-15] MEDS ORDERED: Prochlorperazine 10 MG/2 ML VIAL ONE (14:05)
[2022-03-15] MEDS ORDERED: Acetaminophen 500 MG TAB ONE (14:05)
[2022-03-15 16:47] LABS: Bilirubin Negative (Negative); Blood, Urine Trace (Negative); Glucose, Urine (Dipstick) Greater than 1000 mg/dL (Negative); Ketone, Urine Negative (Negative); Leukocyte Negative Leu/uL (Negative); Nitrite Negative (Negative); Protein, Urine (Dipstick) 100 mg/dL (Neg-Trace); Specific Gravity, Urine 1.015 (1.002-1.036); Squamous Epithelial 0-3 HPF (0-3); Urobilinogen Normal mg/dL (Less than 2)
[2022-03-15 16:48] LABS: Bacteria/HPF 1+ HPF (None Seen); Clarity Cloudy (Clear)
[2022-03-15] MEDS ORDERED: hydrALAZINE 20 MG/ML VIAL ONE (20:48)
[2022-03-15] MEDS ORDERED: Acetaminophen 325 MG TAB PO PRN ×2 (21:45→23:47)
[2022-03-15] MEDS ORDERED: Ondansetron PF 4 MG/2 ML Vial IVP PRN (23:47)
[2022-03-15] MEDS ORDERED: Ondansetron ODT 4 MG TAB PO PRN (23:47)
[2022-03-16 00:25] VITALS: BMI 36.8
[2022-03-16] MEDS ORDERED: hydrALAZINE 20 MG/ML VIAL SLOW IVP PRN (03:06)
[2022-03-16 05:12] LABS: #Eosinphils 0.3 thou/uL (0.0-0.7); #Lymphocytes 2.2 thou/uL (1.20-3.40); #Monocytes 0.4 thou/uL (0.11-0.59); #Neutrophils 3.2 thou/uL (1.40-6.50); %Basophils 0.3 % (0.0-1.0); %Eosinophils 4.4 % (0.0-10.0); %Lymphocytes 35.8 % (21.0-51.0); %Monocytes 6.6 % (0.0-10.0); %Neutrophils 52.9 % (42.0-75.0); Mean Corpuscular HGB CONC 32.6 g/dL (32.0-36.0); Mean Corpuscular Hemoglobin 28.6 pg (27.0-31.0); Mean Corpuscular Volume 87.8 fl (78.0-98.0); Mean Platelet Volume 7.8 fL (7.4-10.4); Platelet Count 263 thou/uL (130-400); RBC Distribution Width 13.1 % (11.5-14.5)
[2022-03-16 05:29] LABS: ALT (SGPT) 23 U/L (8-55); AST (SGOT) 22 U/L (5-34); Albumin 3.5 g/dL (3.4-4.8); Alkaline Phosphatase 160 U/L (40-110); Anion Gap 13 mmol/L (10-20); BUN (Urea Nitrogen) 31 mg/dL (9.8-20.1); Bilirubin, Total 0.3 mg/dL (0.2-1.2); Calc. Creatinine Clearance 55 mL/min (70-130); Calcium 9.1 mg/dL (7.8-10.44); Carbon Dioxide 20 mmol/L (23-31); Chloride 108 mmol/L (98-107); Estimated GFR 36; Globulin 3.4 g/dL (2.4-3.5); Glucose 246 mg/dL (80-115); Potassium 4.8 mmol/L (3.5-5.1); Protein, Total 6.9 g/dL (5.8-8.1); Sodium 136 mmol/L (136-145)
[2022-03-16] MEDS ORDERED: Non-Formulary Item 1 EACH (Promethazine Hcl [Promethazine Hcl] 12.5 MG Tablet) PO PRN (08:33)
[2022-03-16] MEDS ORDERED: Non-Formulary Item 1 EACH (Albuterol Sulfate Hfa (Or) 200 PUFF Inh) INH PRN (08:33)
[2022-03-16] MEDS ORDERED: Dextrose 50% Abboject 50 ML SYRINGE SLOW IVP PRN (08:40)
[2022-03-16] MEDS ORDERED: Dextrose 5% in Water 1,000 ML IV PRN (08:40)
[2022-03-16] MEDS ORDERED: HumaLOG 300 UNITS/3 ML VIAL SC PRN ×2 (08:40)
[2022-03-16] MEDS ORDERED: Albuterol Sulfate 2.5 mg/3 ml Neb NEB PRN (08:53)
[2022-03-16] MEDS ORDERED: Non-Formulary Item 1 EACH (Nifedipine [Nifedipine Er] 60 MG Tab.Er.24) PO SCH (09:00)
[2022-03-16] MEDS ORDERED: NIFEdipine XL 60 MG TAB PO SCH (09:00)
[2022-03-16] MEDS ORDERED: Aspirin 81 mg Enteric Coated Tablet PO SCH (09:00)
[2022-03-16] MEDS ORDERED: Lisinopril 20 MG TAB PO SCH (09:00)
[2022-03-16] MEDS ORDERED: Torsemide 10 MG TAB PO SCH (09:00)
[2022-03-16 10:56] LABS: Hemoglobin A1c 7.2 % (4.0-6.0)
[2022-03-16 15:49] VITALS: TEMP 98
[2022-03-16 16:05] VITALS: BP 151/58
[2022-03-16] MEDS ORDERED: Carvedilol 25 MG TAB PO SCH (17:00)
[2022-03-16] MEDS ORDERED: Non-Formulary Item 1 EACH (Insulin Aspart [Novolog Flexpen] 100 UNIT/ML Insuln.Pen) SQ SCH (17:00)
[2022-03-16] MEDS ORDERED: HumaLOG 300 UNITS/3 ML VIAL SC SCH (17:00)
[2022-03-16] MEDS ORDERED: Rosuvastatin 10 MG TAB PO SCH (21:00)
[2022-03-16] MEDS ORDERED: Non-Formulary Item 1 EACH (Duloxetine Hcl [Duloxetine Hcl] 40 MG Capsule.Dr) PO SCH (21:00)
[2022-03-16] MEDS ORDERED: Non-Formulary Item 1 EACH (Trazodone Hcl [Trazodone Hcl] 100 MG Tablet) PO SCH (21:00)
[2022-03-16] MEDS ORDERED: Gabapentin 300 MG CAP PO SCH (21:00)
[2022-03-16] MEDS ORDERED: Aripiprazole 2 MG TAB PO SCH (21:00)
[2022-03-16] MEDS ORDERED: traZODone HCl 150 MG TAB PO SCH (21:00)
== END 2022-03-16 17:25 | disposition home or self-care (01) ==
LOC: ERS 11:34 → NEURO 19:43
PROVIDERS: ADMIT Student in an Organized Health Care Education/Training Program; ATTEND Student in an Organized Health Care Education/Training Program
DX: R55 Syncope and collapse (principal); M54.9 Dorsalgia, unspecified; I13.0 Hypertensive heart and chronic kidney disease with heart failure and stage 1 through stage 4 chronic kidney disease, or unspecified chronic kidney disease; E11.22 Type 2 diabetes mellitus with diabetic chronic kidney disease; N18.32 Chronic kidney disease, stage 3b; I50.30 Unspecified diastolic (congestive) heart failure; D63.1 Anemia in chronic kidney disease; E87.5 Hyperkalemia; I16.0 Hypertensive urgency; E78.00 Pure hypercholesterolemia, unspecified; Z79.4 Long term (current) use of insulin; Z79.82 Long term (current) use of aspirin; Z79.899 Other long term (current) drug therapy; Z88.1 Allergy status to other antibiotic agents; Z88.2 Allergy status to sulfonamides; Z88.5 Allergy status to narcotic agent; Z20.822 Contact with and (suspected) exposure to COVID-19
CPT/HCPCS: 71045; 80053 ×2; 82962 ×2; 83036; 84484; 85025 ×2; 85046; 87086; 93005; 94760; U0003; U0005; 36415; 36416; 81003; 81015; 85060; G0378; J0360; J0780; J1815

== ENCOUNTER 2022-03-27 08:35 | Outpatient (CLI) | payer OTHER | END 2022-03-27 08:36 | disposition home or self-care (01) | LOC: RAD 08:35 | PROVIDERS: ATTEND Physician Assistant | DX: S22.051D Stable burst fracture of T5-T6 vertebra, subsequent encounter for fracture with routine healing (principal) | CPT/HCPCS: 72072 ==

== ENCOUNTER 2022-04-03 18:16 | Observation (INO) | payer OTHER ==
[~2022-04-03 18:16] MED LIST: Iopamidol-370 76% 500 ML 1 ML ONE
[2022-04-03 19:22] LABS: Hemoglobin 11.1 g/dL (12.0-16.0); Mean Corpuscular HGB CONC 33.3 g/dL (32.0-36.0); Mean Corpuscular Hemoglobin 28.5 pg (27.0-31.0); Mean Corpuscular Volume 85.4 fl (78.0-98.0); Mean Platelet Volume 7.5 fL (7.4-10.4); Platelet Count 267 10x3/uL (130-400); RBC Distribution Width 12.3 % (11.5-14.5); Red Blood Cell (RBC) Count 3.92 mill/uL (4.20-5.40); White Blood Cell (WBC) Count 5.9 10x3/uL (4.8-10.8)
[2022-04-03 19:39] LABS: Band 2 % (5-11); Eosinophils 3 % (0-10); Lymphocytes 51 % (21-51); MDiff Complete? YES; Monocytes 4 % (0-10); Neutrophil 40 % (42-75); Platelet Morphology Comment Appears Adequate; Polychromasia SLIGHT = 2-3 cells (100X) (0-2/hpf)
[2022-04-03 19:41] LABS: ALT (SGPT) 12 U/L (8-55); AST (SGOT) 16 U/L (5-34); Albumin 3.4 g/dL (3.4-4.8); Alkaline Phosphatase 165 U/L (40-110); Anion Gap 14 mmol/L (10-20); BUN (Urea Nitrogen) 23 mg/dL (9.8-20.1); Bilirubin, Total 0.2 mg/dL (0.2-1.2); Calc. Creatinine Clearance 0 mL/min (70-130); Calcium 9.2 mg/dL (7.8-10.44); Carbon Dioxide 26 mmol/L (23-31); Chloride 102 mmol/L (98-107); Estimated GFR 30; Globulin 3.7 g/dL (2.4-3.5); Glucose 247 mg/dL (80-115); Potassium 4.7 mmol/L (3.5-5.1); Protein, Total 7.1 g/dL (5.8-8.1); Sodium 137 mmol/L (136-145)
[2022-04-03] MEDS ORDERED: Aspirin 325 MG TAB ONE (23:42)
[2022-04-04] MEDS ORDERED: Dextrose 50% Abboject 50 ML SYRINGE SLOW IVP PRN (00:20)
[2022-04-04] MEDS ORDERED: HumaLOG 300 UNITS/3 ML VIAL SC PRN (00:20)
[2022-04-04] MEDS ORDERED: Dextrose 5% in Water 1,000 ML IV PRN (00:20)
[2022-04-04 01:00] VITALS: BMI 37.0
[2022-04-04 05:12] LABS: #Eosinphils 0.2 thou/uL (0.0-0.7); #Lymphocytes 2.3 thou/uL (1.20-3.40); #Monocytes 0.4 thou/uL (0.11-0.59); #Neutrophils 3.7 thou/uL (1.40-6.50); %Basophils 0.5 % (0.0-1.0); %Eosinophils 3.6 % (0.0-10.0); %Lymphocytes 34.6 % (21.0-51.0); %Monocytes 5.8 % (0.0-10.0); %Neutrophils 55.6 % (42.0-75.0); Hemoglobin 10.3 g/dL (12.0-16.0); Mean Corpuscular HGB CONC 32.6 g/dL (32.0-36.0); Mean Corpuscular Hemoglobin 27.9 pg (27.0-31.0); Mean Corpuscular Volume 85.5 fl (78.0-98.0); Mean Platelet Volume 7.4 fL (7.4-10.4); Platelet Count 281 10x3/uL (130-400); RBC Distribution Width 12.5 % (11.5-14.5); White Blood Cell (WBC) Count 6.6 10x3/uL (4.8-10.8)
[2022-04-04 05:28] LABS: ALT (SGPT) 10 U/L (8-55); AST (SGOT) 10 U/L (5-34); Alkaline Phosphatase 120 U/L (40-110); Anion Gap 11 mmol/L (10-20); BUN (Urea Nitrogen) 22 mg/dL (9.8-20.1); Bilirubin, Total 0.2 mg/dL (0.2-1.2); Calc. Creatinine Clearance 52 mL/min (70-130); Calcium 8.8 mg/dL (7.8-10.44); Carbon Dioxide 28 mmol/L (23-31); Chloride 104 mmol/L (98-107); Estimated GFR 33; Glucose 203 mg/dL (80-115); Potassium 4.1 mmol/L (3.5-5.1); Sodium 139 mmol/L (136-145)
[2022-04-04 05:31] LABS: Troponin I 0.013 ng/mL (< 0.028)
[2022-04-04] MEDS ORDERED: Dulaglutide [Trulicity] 0.75 MG/0.5 ML Pen.Injctr SC SCH (06:00)
[2022-04-04] MEDS ORDERED: HumaLOG 300 UNITS/3 ML VIAL SC SCH (08:00)
[2022-04-04] MEDS ORDERED: Carvedilol 25 MG TAB PO SCH (08:00)
[2022-04-04] MEDS ORDERED: Enoxaparin Sodium 40 MG/0.4 ML SYRINGE SC SCH (09:00)
[2022-04-04] MEDS ORDERED: Aripiprazole 10 MG TAB PO SCH (09:00)
[2022-04-04] MEDS ORDERED: Ezetimibe 10 MG TAB PO SCH (09:00)
[2022-04-04] MEDS ORDERED: Empagliflozin 25 MG TAB PO SCH (09:00)
[2022-04-04] MEDS ORDERED: Lisinopril 20 MG TAB PO SCH (09:00)
[2022-04-04] MEDS ORDERED: NIFEdipine XL 60 MG TAB PO SCH (09:00)
[2022-04-04] MEDS ORDERED: FLUoxetine HCl 20 MG CAP PO SCH (09:00)
[2022-04-04 12:06] LABS: Amphetamine Not Detected (NotDetected); Barbiturates Screen Not Detected (NotDetected); Benzodiazepine Screen Detected (NotDetected); Cocaine Metabolite Screen Not Detected (NotDetected); Methadone Not Detected (NotDetected); Methamphetamine Not Detected (NotDetected); Opiate Screen Detected (NotDetected); Oxycodone Screen Not Detected (NotDetected); Phencyclidine (PCP) Not Detected (NotDetected); THC/Cannabinoid Screen Not Detected (NotDetected); Tricyclic Screen Not Detected (NotDetected)
[2022-04-04 13:27] VITALS: BP 170/76; TEMP 97.8
[2022-04-04] MEDS ORDERED: traZODone HCl 150 MG TAB PO SCH (21:00)
[2022-04-04] MEDS ORDERED: Rosuvastatin 10 MG TAB PO SCH (21:00)
[2022-04-05] MEDS ORDERED: Aspirin 81 mg Enteric Coated Tablet PO SCH (09:00)
== END 2022-04-04 13:28 | disposition home or self-care (01) ==
LOC: ERS 18:16 → 2SW 23:29
PROVIDERS: ADMIT Family Medicine; ATTEND Family Medicine
DX: I95.1 Orthostatic hypotension (principal); R07.89 Other chest pain; I13.0 Hypertensive heart and chronic kidney disease with heart failure and stage 1 through stage 4 chronic kidney disease, or unspecified chronic kidney disease; E11.22 Type 2 diabetes mellitus with diabetic chronic kidney disease; N18.32 Chronic kidney disease, stage 3b; I50.30 Unspecified diastolic (congestive) heart failure; N17.9 Acute kidney failure, unspecified; D63.1 Anemia in chronic kidney disease; E78.00 Pure hypercholesterolemia, unspecified; G47.00 Insomnia, unspecified; U07.1 COVID-19; Z86.73 Personal history of transient ischemic attack (TIA), and cerebral infarction without residual deficits; Z79.4 Long term (current) use of insulin; Z79.82 Long term (current) use of aspirin; Z79.84 Long term (current) use of oral hypoglycemic drugs; Z79.899 Other long term (current) drug therapy; Z88.1 Allergy status to other antibiotic agents; Z88.2 Allergy status to sulfonamides; Z88.5 Allergy status to narcotic agent
CPT/HCPCS: 70450; 71045; 71275; 72125; 80053 ×2; 80306; 82962; 84484 ×3; 85025 ×2; 85379; 93005 ×2; 99285; U0003; U0005; 36415; 36416; 93010; 96372; G0378; J1650; J1815; Q9967

== ENCOUNTER 2022-04-26 14:22 | Inpatient (IN) | payer OTHER ==
[2022-04-26 15:20] LABS: #Eosinphils 0.2 thou/uL (0.0-0.7); #Lymphocytes 2.2 thou/uL (1.20-3.40); #Monocytes 0.6 thou/uL (0.11-0.59); #Neutrophils 3.6 thou/uL (1.40-6.50); %Basophils 0.1 % (0.0-1.0); %Eosinophils 2.6 % (0.0-10.0); %Lymphocytes 32.9 % (21.0-51.0); %Monocytes 9.1 % (0.0-10.0); %Neutrophils 55.2 % (42.0-75.0); Hemoglobin 10.3 g/dL (12.0-16.0); Mean Corpuscular HGB CONC 34.5 g/dL (32.0-36.0); Mean Corpuscular Hemoglobin 28.6 pg (27.0-31.0); Mean Platelet Volume 7.7 fL (7.4-10.4); Platelet Count 251 10x3/uL (130-400); RBC Distribution Width 13.3 % (11.5-14.5); Red Blood Cell (RBC) Count 3.61 mill/uL (4.20-5.40); White Blood Cell (WBC) Count 6.6 10x3/uL (4.8-10.8)
[2022-04-26 15:35] LABS: ALT (SGPT) 10 U/L (8-55); AST (SGOT) 10 U/L (5-34); Albumin 3.2 g/dL (3.4-4.8); Alkaline Phosphatase 148 U/L (40-110); Anion Gap 12 mmol/L (10-20); BUN (Urea Nitrogen) 37 mg/dL (9.8-20.1); Bilirubin, Total 0.3 mg/dL (0.2-1.2); Calc. Creatinine Clearance 0 mL/min (70-130); Calcium 8.6 mg/dL (7.8-10.44); Carbon Dioxide 32 mmol/L (23-31); Chloride 97 mmol/L (98-107); Estimated GFR 20; Globulin 2.6 g/dL (2.4-3.5); Glucose 179 mg/dL (80-115); Potassium 4.7 mmol/L (3.5-5.1); Protein, Total 5.8 g/dL (5.8-8.1); Sodium 136 mmol/L (136-145)
[2022-04-26] MEDS ORDERED: Ketorolac Tromethamine 30 MG/ML VIAL ONE (15:50)
[2022-04-26 18:15] LABS: SARS-CoV-2 NAA Rapid Test DETECTED (NotDetected)
[2022-04-26 20:03] LABS: Troponin I Less than 0.010 ng/mL (< 0.028)
[2022-04-26] MEDS ORDERED: Dextrose 5% in Water 1,000 ML IV PRN (20:28)
[2022-04-26] MEDS ORDERED: Ondansetron PF 4 MG/2 ML Vial IVP PRN (20:28)
[2022-04-26] MEDS ORDERED: Calcium Carbonate 500 MG ChewTAB PO PRN (20:28)
[2022-04-26] MEDS ORDERED: HumaLOG 300 UNITS/3 ML VIAL SC PRN (20:28)
[2022-04-26] MEDS ORDERED: Dextrose 50% Abboject 50 ML SYRINGE SLOW IVP PRN (20:28)
[2022-04-26] MEDS ORDERED: Lidocaine 5% Patch TD PRN (20:44)
[2022-04-26] MEDS ORDERED: Transdermal Patch Removal TOP PRN (20:48)
[2022-04-26 23:42] LABS: Troponin I Less than 0.010 ng/mL (< 0.028)
[2022-04-27 00:09] VITALS: BMI 38.2
[2022-04-27] MEDS: Acetaminophen 325 MG TAB PO SCH ×4 (00:23→18:00)
[2022-04-27] MEDS: Heparin 5,000 UNITS/ML VIAL SC SCH ×4 (00:24→23:09)
[2022-04-27] MEDS ORDERED: HYDROcodone/Acetaminophen 5/325 mg Tablet PO PRN (00:38)
[2022-04-27] MEDS ORDERED: Dulaglutide (Trulicity) 0.75 MG/0.5 ML Pen.Injctr SC SCH (00:45)
[2022-04-27 04:46] LABS: #Eosinphils 0.2 thou/uL (0.0-0.7); #Lymphocytes 2.2 thou/uL (1.20-3.40); #Monocytes 0.4 thou/uL (0.11-0.59); #Neutrophils 2.8 thou/uL (1.40-6.50); %Basophils 0.7 % (0.0-1.0); %Eosinophils 4.1 % (0.0-10.0); %Lymphocytes 38.3 % (21.0-51.0); %Monocytes 7.7 % (0.0-10.0); %Neutrophils 49.2 % (42.0-75.0); Mean Corpuscular HGB CONC 33.2 g/dL (32.0-36.0); Mean Corpuscular Volume 84.3 fl (78.0-98.0); Platelet Count 239 10x3/uL (130-400); RBC Distribution Width 13.4 % (11.5-14.5); Red Blood Cell (RBC) Count 3.59 mill/uL (4.20-5.40); White Blood Cell (WBC) Count 5.8 10x3/uL (4.8-10.8)
[2022-04-27 04:52] LABS: Anion Gap 11 mmol/L (10-20); BUN (Urea Nitrogen) 41 mg/dL (9.8-20.1); Calc. Creatinine Clearance 37 mL/min (70-130); Calcium 8.5 mg/dL (7.8-10.44); Carbon Dioxide 30 mmol/L (23-31); Chloride 98 mmol/L (98-107); Estimated GFR 21; Glucose 221 mg/dL (80-115); Potassium 4.2 mmol/L (3.5-5.1); Sodium 135 mmol/L (136-145)
[2022-04-27] MEDS: HumaLOG 300 UNITS/3 ML VIAL SC PRN (06:45)
[2022-04-27] MEDS: Ezetimibe 10 MG TAB PO SCH (09:43)
[2022-04-27] MEDS: Carvedilol 25 MG TAB PO SCH ×2 (09:43→18:44)
[2022-04-27] MEDS: Torsemide 10 MG TAB PO SCH (09:43)
[2022-04-27] MEDS: NIFEdipine XL 60 MG TAB PO SCH (09:43)
[2022-04-27] MEDS: HumaLOG 300 UNITS/3 ML VIAL SC SCH ×2 (09:44→18:46)
[2022-04-27] MEDS ORDERED: Gabapentin 300 MG CAP PO SCH (11:00)
[2022-04-27] MEDS: Aripiprazole 10 MG TAB PO SCH (12:46)
[2022-04-27] MEDS: HYDROcodone/Acetaminophen 5/325 mg Tablet PO SCH ×3 (12:46→23:46)
[2022-04-27] MEDS: Empagliflozin 10 MG TAB PO SCH (12:47)
[2022-04-27] MEDS ORDERED: Sodium Chloride 0.9% 1,000 ML IV SCH (17:15)
[2022-04-27] MEDS: Rosuvastatin 10 MG TAB PO SCH (21:18)
[2022-04-27] MEDS: Gabapentin 300 MG CAP PO SCH (21:19)
[2022-04-27] MEDS: Ondansetron ODT 4 MG TAB PO PRN (23:51)
[2022-04-28] MEDS: Acetaminophen 325 MG TAB PO SCH ×4 (00:58→18:11)
[2022-04-28 05:04] LABS: #Eosinphils 0.2 thou/uL (0.0-0.7); #Lymphocytes 1.9 thou/uL (1.20-3.40); #Monocytes 0.4 thou/uL (0.11-0.59); #Neutrophils 2.5 thou/uL (1.40-6.50); %Basophils 0.1 % (0.0-1.0); %Eosinophils 4.7 % (0.0-10.0); %Lymphocytes 37.5 % (21.0-51.0); %Monocytes 7.7 % (0.0-10.0); %Neutrophils 50.1 % (42.0-75.0); Hemoglobin 10.3 g/dL (12.0-16.0); Mean Corpuscular HGB CONC 32.1 g/dL (32.0-36.0); Mean Corpuscular Hemoglobin 27.4 pg (27.0-31.0); Mean Corpuscular Volume 85.3 fl (78.0-98.0); Mean Platelet Volume 7.9 fL (7.4-10.4); Platelet Count 246 10x3/uL (130-400); RBC Distribution Width 13.4 % (11.5-14.5); Red Blood Cell (RBC) Count 3.78 mill/uL (4.20-5.40); White Blood Cell (WBC) Count 5.1 10x3/uL (4.8-10.8)
[2022-04-28 05:27] LABS: Anion Gap 13 mmol/L (10-20); BUN (Urea Nitrogen) 39 mg/dL (9.8-20.1); Calc. Creatinine Clearance 13 mL/min (70-130); Calcium 8.5 mg/dL (7.8-10.44); Carbon Dioxide 27 mmol/L (23-31); Chloride 102 mmol/L (98-107); Estimated GFR 23; Glucose 200 mg/dL (80-115); Potassium 5.2 mmol/L (3.5-5.1); Sodium 137 mmol/L (136-145)
[2022-04-28] MEDS: HYDROcodone/Acetaminophen 5/325 mg Tablet PO SCH ×3 (06:41→18:12)
[2022-04-28] MEDS: Empagliflozin 10 MG TAB PO SCH (08:53)
[2022-04-28] MEDS: Carvedilol 25 MG TAB PO SCH ×2 (08:53→18:11)
[2022-04-28] MEDS: Aripiprazole 10 MG TAB PO SCH (08:53)
[2022-04-28] MEDS: NIFEdipine XL 60 MG TAB PO SCH (08:53)
[2022-04-28] MEDS: Ezetimibe 10 MG TAB PO SCH (08:53)
[2022-04-28] MEDS: HumaLOG 300 UNITS/3 ML VIAL SC SCH ×2 (08:54→18:12)
[2022-04-28] MEDS: Gabapentin 300 MG CAP PO SCH ×2 (08:54→21:54)
[2022-04-28] MEDS: Heparin 5,000 UNITS/ML VIAL SC SCH ×3 (08:55→21:57)
[2022-04-28] MEDS: Torsemide 10 MG TAB PO SCH (08:55)
[2022-04-28] MEDS ORDERED: Sodium Chloride 0.9% 1,000 ML IV SCH (09:15)
[2022-04-28] MEDS: HumaLOG 300 UNITS/3 ML VIAL SC PRN (12:08)
[2022-04-28] MEDS: Ondansetron ODT 4 MG TAB PO PRN (14:36)
[2022-04-28] MEDS: Rosuvastatin 10 MG TAB PO SCH (21:57)
[2022-04-29] MEDS: HYDROcodone/Acetaminophen 5/325 mg Tablet PO SCH ×3 (00:34→11:49)
[2022-04-29] MEDS: Acetaminophen 325 MG TAB PO SCH ×4 (00:34→17:17)
[2022-04-29 04:35] LABS: #Eosinphils 0.2 thou/uL (0.0-0.7); #Lymphocytes 2.1 thou/uL (1.20-3.40); #Monocytes 0.4 thou/uL (0.11-0.59); #Neutrophils 2.6 thou/uL (1.40-6.50); %Basophils 0.5 % (0.0-1.0); %Eosinophils 4.1 % (0.0-10.0); %Lymphocytes 39.5 % (21.0-51.0); %Monocytes 7.1 % (0.0-10.0); %Neutrophils 48.9 % (42.0-75.0); Hemoglobin 10.5 g/dL (12.0-16.0); Mean Corpuscular HGB CONC 32.5 g/dL (32.0-36.0); Mean Corpuscular Hemoglobin 28.1 pg (27.0-31.0); Mean Corpuscular Volume 86.5 fl (78.0-98.0); Mean Platelet Volume 7.7 fL (7.4-10.4); Platelet Count 254 10x3/uL (130-400); RBC Distribution Width 13.4 % (11.5-14.5); Red Blood Cell (RBC) Count 3.75 mill/uL (4.20-5.40); White Blood Cell (WBC) Count 5.3 10x3/uL (4.8-10.8)
[2022-04-29 04:56] LABS: Anion Gap 13 mmol/L (10-20); BUN (Urea Nitrogen) 42 mg/dL (9.8-20.1); Calc. Creatinine Clearance 38 mL/min (70-130); Calcium 9.1 mg/dL (7.8-10.44); Carbon Dioxide 26 mmol/L (23-31); Chloride 103 mmol/L (98-107); Estimated GFR 22; Glucose 173 mg/dL (80-115); Potassium 5.3 mmol/L (3.5-5.1); Sodium 137 mmol/L (136-145)
[2022-04-29] MEDS: Sodium Chloride 0.9% 1,000 ML IV SCH ×2 (06:34→15:16)
[2022-04-29] MEDS ORDERED: GUAIFENESIN SF SOLN 200 MG/10 ML UDCUP PO PRN (07:51)
[2022-04-29] MEDS: Carvedilol 25 MG TAB PO SCH ×2 (09:17→17:16)
[2022-04-29] MEDS: Gabapentin 300 MG CAP PO SCH ×2 (09:18→22:46)
[2022-04-29] MEDS: Ezetimibe 10 MG TAB PO SCH (09:18)
[2022-04-29] MEDS: Empagliflozin 10 MG TAB PO SCH (09:18)
[2022-04-29] MEDS: NIFEdipine XL 60 MG TAB PO SCH (09:19)
[2022-04-29] MEDS: Heparin 5,000 UNITS/ML VIAL SC SCH ×3 (09:19→22:48)
[2022-04-29] MEDS: HumaLOG 300 UNITS/3 ML VIAL SC SCH ×2 (09:19→17:17)
[2022-04-29] MEDS: Aripiprazole 10 MG TAB PO SCH (09:25)
[2022-04-29] MEDS ORDERED: ALPRAZolam 0.5 MG TAB PO PRN (09:58)
[2022-04-29] MEDS: HumaLOG 300 UNITS/3 ML VIAL SC PRN (11:50)
[2022-04-29] MEDS ORDERED: HYDROcodone/Acetaminophen 5/325 mg Tablet PO PRN (16:42)
[2022-04-29] MEDS ORDERED: Lidocaine 5% Patch TD SCH (21:00)
[2022-04-29] MEDS: Rosuvastatin 10 MG TAB PO SCH (22:47)
[2022-04-30] MEDS: Acetaminophen 325 MG TAB PO SCH ×2 (00:38→06:52)
[2022-04-30] MEDS: Ondansetron ODT 4 MG TAB PO PRN (02:33)
[2022-04-30] MEDS: Sodium Chloride 0.9% 1,000 ML IV SCH (02:36)
[2022-04-30 05:21] LABS: #Eosinphils 0.2 thou/uL (0.0-0.7); #Lymphocytes 2.1 thou/uL (1.20-3.40); #Monocytes 0.4 thou/uL (0.11-0.59); %Basophils 0.4 % (0.0-1.0); %Eosinophils 3.8 % (0.0-10.0); %Lymphocytes 36.8 % (21.0-51.0); %Monocytes 7.1 % (0.0-10.0); %Neutrophils 51.9 % (42.0-75.0); Hemoglobin 9.5 g/dL (12.0-16.0); Mean Corpuscular HGB CONC 32.5 g/dL (32.0-36.0); Mean Corpuscular Hemoglobin 27.8 pg (27.0-31.0); Mean Corpuscular Volume 85.6 fl (78.0-98.0); Mean Platelet Volume 7.8 fL (7.4-10.4); Platelet Count 227 10x3/uL (130-400); RBC Distribution Width 13.3 % (11.5-14.5); Red Blood Cell (RBC) Count 3.43 mill/uL (4.20-5.40); White Blood Cell (WBC) Count 5.7 10x3/uL (4.8-10.8)
[2022-04-30 05:38] LABS: Anion Gap 12 mmol/L (10-20); BUN (Urea Nitrogen) 39 mg/dL (9.8-20.1); Calc. Creatinine Clearance 41 mL/min (70-130); Calcium 8.6 mg/dL (7.8-10.44); Carbon Dioxide 25 mmol/L (23-31); Chloride 105 mmol/L (98-107); Estimated GFR 24; Glucose 135 mg/dL (80-115); Sodium 137 mmol/L (136-145)
[2022-04-30 08:24] VITALS: TEMP 97.5
[2022-04-30] MEDS: Gabapentin 300 MG CAP PO SCH (08:54)
[2022-04-30] MEDS: Carvedilol 25 MG TAB PO SCH (08:54)
[2022-04-30] MEDS: NIFEdipine XL 60 MG TAB PO SCH (08:54)
[2022-04-30] MEDS: Aripiprazole 10 MG TAB PO SCH (08:54)
[2022-04-30] MEDS: Ezetimibe 10 MG TAB PO SCH (08:54)
[2022-04-30] MEDS: Empagliflozin 10 MG TAB PO SCH (08:54)
[2022-04-30] MEDS: Heparin 5,000 UNITS/ML VIAL SC SCH (08:55)
[2022-04-30] MEDS: HumaLOG 300 UNITS/3 ML VIAL SC SCH (08:55)
[2022-04-30] MEDS ORDERED: Transdermal Patch Removal TOP SCH (09:00)
[2022-04-30 10:39] VITALS: BP 182/89
== END 2022-04-30 11:50 | disposition home health service (06) | DRG 683 ==
LOC: ERS 14:22 → 2NO 18:22 → OBSVTOIN 04-28 11:41
PROVIDERS: ADMIT Family Medicine; ATTEND Student in an Organized Health Care Education/Training Program
DX: N17.9 Acute kidney failure, unspecified (principal); F05 Delirium due to known physiological condition; I50.32 Chronic diastolic (congestive) heart failure; E78.5 Hyperlipidemia, unspecified; F31.9 Bipolar disorder, unspecified; F41.9 Anxiety disorder, unspecified; I95.1 Orthostatic hypotension; N18.32 Chronic kidney disease, stage 3b; G47.00 Insomnia, unspecified; Z96.653 Presence of artificial knee joint, bilateral; G89.29 Other chronic pain; M54.9 Dorsalgia, unspecified; R79.89 Other specified abnormal findings of blood chemistry; R07.89 Other chest pain; D63.1 Anemia in chronic kidney disease; K21.9 Gastro-esophageal reflux disease without esophagitis; I11.0 Hypertensive heart disease with heart failure; E86.9 Volume depletion, unspecified; T46.4X5A Adverse effect of angiotensin-converting-enzyme inhibitors, initial encounter; Z88.1 Allergy status to other antibiotic agents; Z88.5 Allergy status to narcotic agent; Z88.2 Allergy status to sulfonamides; Z79.899 Other long term (current) drug therapy; Z79.4 Long term (current) use of insulin; Z79.82 Long term (current) use of aspirin; Z86.73 Personal history of transient ischemic attack (TIA), and cerebral infarction without residual deficits; Z90.49 Acquired absence of other specified parts of digestive tract; Z90.710 Acquired absence of both cervix and uterus; Z98.890 Other specified postprocedural states; Z82.49 Family history of ischemic heart disease and other diseases of the circulatory system; Z83.3 Family history of diabetes mellitus; Z86.16 Personal history of COVID-19
CPT/HCPCS: 36415; 36416; 70450; 72125; 72128; 72131; 80048; 80053; 82570; 83880; 84145; 84484; 84540; 85025; 85379; 93005; 93970; 94640; 96372; 96374; G0378; J1644; J1815; J1885; J7050; J7620; Q0162; U0002

== ENCOUNTER 2022-05-01 11:09 | Observation (INO) | payer OTHER ==
[2022-05-01 11:45] LABS: #Eosinphils 0.3 thou/uL (0.0-0.7); #Lymphocytes 1.4 thou/uL (1.20-3.40); #Monocytes 0.4 thou/uL (0.11-0.59); #Neutrophils 4.5 thou/uL (1.40-6.50); %Basophils 0.3 % (0.0-1.0); %Lymphocytes 20.7 % (21.0-51.0); %Monocytes 6.6 % (0.0-10.0); %Neutrophils 68.3 % (42.0-75.0); Mean Corpuscular HGB CONC 32.9 g/dL (32.0-36.0); Mean Corpuscular Hemoglobin 27.9 pg (27.0-31.0); Mean Corpuscular Volume 84.9 fl (78.0-98.0); Mean Platelet Volume 8.2 fL (7.4-10.4); Platelet Count 268 10x3/uL (130-400); RBC Distribution Width 13.6 % (11.5-14.5); Red Blood Cell (RBC) Count 3.95 mill/uL (4.20-5.40); White Blood Cell (WBC) Count 6.6 10x3/uL (4.8-10.8)
[2022-05-01 12:08] LABS: INR-International Normal Ratio 0.9; PTT 28.5 sec (22.9-36.1); Prothrombin Time 12.9 sec (12.0-14.7)
[2022-05-01 12:09] LABS: ALT (SGPT) 9 U/L (8-55); AST (SGOT) 14 U/L (5-34); Albumin 3.5 g/dL (3.4-4.8); Alkaline Phosphatase 141 U/L (40-110); Anion Gap 13 mmol/L (10-20); BUN (Urea Nitrogen) 34 mg/dL (9.8-20.1); Bilirubin, Total 0.3 mg/dL (0.2-1.2); Calc. Creatinine Clearance 0 mL/min (70-130); Calcium 9.4 mg/dL (7.8-10.44); Carbon Dioxide 26 mmol/L (23-31); Chloride 100 mmol/L (98-107); Estimated GFR 24; Globulin 3.7 g/dL (2.4-3.5); Lipase 45 U/L (8-78); Magnesium 2.1 mg/dL (1.6-2.6); Potassium 4.7 mmol/L (3.5-5.1); Protein, Total 7.2 g/dL (5.8-8.1); Sodium 134 mmol/L (136-145)
[2022-05-01 12:18] LABS: Glucose 422 mg/dL (80-115)
[2022-05-01 12:30] LABS: Actual Bicarbonate (HCO3v) 28 mEq/L (22-28); Base Excess 1.4 mEq/L (-2.0 to +3.0); Calcium, Ionized (venous) 1.18 mmol/L (1.16-1.32); Chloride (VBG) 102 mmol/L (98-106); Potassium (VBG) 4.59 mmol/L (3.70-5.30); Sodium 135.7 mmol/L (133-146); pH (venous) 7.34 (7.32-7.43)
[2022-05-01 12:39] LABS: Bilirubin Negative (Negative); Blood, Urine Negative (Negative); Clarity Clear (Clear); Glucose, Urine (Dipstick) Greater than 1000 mg/dL (Negative); Ketone, Urine Negative (Negative); Leukocyte 25 Leu/uL (Negative); Nitrite Negative (Negative); Protein, Urine (Dipstick) 50 mg/dL (Neg-Trace); RBC/HPF 0-3 HPF (0-3); Specific Gravity, Urine 1.014 (1.002-1.036); Squamous Epithelial 0-3 HPF (0-3); Urobilinogen Normal mg/dL (Less than 2); WBC/HPF 0-3 HPF (0-3); pH, Urine 5.5 (5.0-9.0)
[2022-05-01 12:40] LABS: Bacteria/HPF Rare-Few HPF (None Seen)
[2022-05-01] MEDS ORDERED: Insulin Regular 300 UNITS/3 ML VIAL ONE (12:56)
[2022-05-01] MEDS ORDERED: Acetaminophen 500 MG TAB ONE (12:59)
[2022-05-01 13:03] LABS: CK (CPK) 28 U/L (29-168); Phosphorus 4.2 mg/dL (2.3-4.7)
[2022-05-01 13:20] LABS: SARS-CoV-2 NAA Rapid Test DETECTED (NotDetected)
[2022-05-01] MEDS ORDERED: Acetaminophen 325 MG TAB PO PRN (14:44)
[2022-05-01] MEDS ORDERED: Ondansetron ODT 4 MG TAB PO PRN (14:44)
[2022-05-01] MEDS ORDERED: Morphine 4 MG/ML VIAL ONE (14:49)
[2022-05-01] MEDS ORDERED: Lactated Ringer's 500 ML IV SCH (15:15)
[2022-05-01] MEDS ORDERED: Dextrose 50% Abboject 50 ML SYRINGE SLOW IVP PRN (15:31)
[2022-05-01] MEDS ORDERED: Dextrose 5% in Water 1,000 ML IV PRN (15:31)
[2022-05-01] MEDS ORDERED: HumaLOG 300 UNITS/3 ML VIAL SC PRN ×2 (15:31)
[2022-05-01] MEDS ORDERED: Calcium Carbonate 500 MG ChewTAB PO PRN (15:32)
[2022-05-01] MEDS ORDERED: Dulaglutide (Trulicity) 0.75 MG/0.5 ML Pen.Injctr SC SCH (15:45)
[2022-05-01 16:13] LABS: Lactic Acid 1.2 mmol/L (0.5-2.2)
[2022-05-01] MEDS ORDERED: Carvedilol 25 MG TAB PO SCH (17:00)
[2022-05-01] MEDS ORDERED: Acetaminophen 325 MG TAB PO SCH (18:00)
[2022-05-01 18:33] VITALS: BMI 36.9
[2022-05-01] MEDS ORDERED: Polyethylene Glycol 3350 17 GM Packet PO SCH (18:45)
[2022-05-01] MEDS: Lactated Ringer's 500 ML IV SCH (18:50)
[2022-05-01] MEDS: Carvedilol 6.25 MG TAB PO SCH (19:00)
[2022-05-01] MEDS ORDERED: Gabapentin 300 MG CAP PO SCH (21:00)
[2022-05-01] MEDS ORDERED: Rosuvastatin 10 MG TAB PO SCH (21:00)
[2022-05-01] MEDS ORDERED: Lidocaine 5% Patch TD SCH (21:00)
[2022-05-01] MEDS: HYDROcodone/Acetaminophen 5/325 mg Tablet PO PRN (21:20)
[2022-05-01] MEDS: Heparin 5,000 UNITS/ML VIAL SC SCH (21:21)
[2022-05-01] MEDS: Senokot S 8.6-50 MG TAB PO SCH (21:23)
[2022-05-02] MEDS ORDERED: Cyclobenzaprine 10 MG TAB PO SCH (00:15)
[2022-05-02] MEDS: Lactated Ringer's 500 ML IV SCH (02:49)
[2022-05-02 05:33] LABS: #Eosinphils 0.2 thou/uL (0.0-0.7); #Lymphocytes 1.8 thou/uL (1.20-3.40); #Monocytes 0.3 thou/uL (0.11-0.59); #Neutrophils 2.3 thou/uL (1.40-6.50); %Basophils 0.5 % (0.0-1.0); %Eosinophils 5.3 % (0.0-10.0); %Lymphocytes 39.3 % (21.0-51.0); %Monocytes 6.5 % (0.0-10.0); %Neutrophils 48.4 % (42.0-75.0); Hemoglobin 9.7 g/dL (12.0-16.0); Mean Corpuscular HGB CONC 33.5 g/dL (32.0-36.0); Mean Corpuscular Hemoglobin 28.1 pg (27.0-31.0); Mean Corpuscular Volume 83.9 fl (78.0-98.0); Mean Platelet Volume 7.8 fL (7.4-10.4); Platelet Count 248 10x3/uL (130-400); RBC Distribution Width 13.8 % (11.5-14.5); Red Blood Cell (RBC) Count 3.46 mill/uL (4.20-5.40); White Blood Cell (WBC) Count 4.7 10x3/uL (4.8-10.8)
[2022-05-02 05:55] LABS: ALT (SGPT) 7 U/L (8-55); AST (SGOT) 13 U/L (5-34); Alkaline Phosphatase 122 U/L (40-110); Anion Gap 13 mmol/L (10-20); BUN (Urea Nitrogen) 29 mg/dL (9.8-20.1); Bilirubin, Total 0.3 mg/dL (0.2-1.2); Calc. Creatinine Clearance 50 mL/min (70-130); Carbon Dioxide 25 mmol/L (23-31); Chloride 105 mmol/L (98-107); Estimated GFR 31; Glucose 195 mg/dL (80-115); Potassium 4.5 mmol/L (3.5-5.1); Sodium 138 mmol/L (136-145)
[2022-05-02] MEDS: HYDROcodone/Acetaminophen 5/325 mg Tablet PO PRN (07:56)
[2022-05-02] MEDS: HumaLOG 300 UNITS/3 ML VIAL SC SCH ×2 (07:59→16:03)
[2022-05-02] MEDS: Heparin 5,000 UNITS/ML VIAL SC SCH ×2 (08:00→16:00)
[2022-05-02] MEDS: Senokot S 8.6-50 MG TAB PO SCH (08:02)
[2022-05-02] MEDS: Carvedilol 6.25 MG TAB PO SCH ×2 (08:07→16:00)
[2022-05-02] MEDS ORDERED: Transdermal Patch Removal TOP SCH (09:00)
[2022-05-02] MEDS ORDERED: Polyethylene Glycol 3350 17 GM Packet PO SCH ×4 (09:00→21:00)
[2022-05-02] MEDS ORDERED: NIFEdipine XL 60 MG TAB PO SCH (09:00)
[2022-05-02] MEDS ORDERED: Gabapentin 300 MG CAP PO SCH (09:00)
[2022-05-02] MEDS ORDERED: Aripiprazole 10 MG TAB PO SCH (09:00)
[2022-05-02] MEDS ORDERED: Empagliflozin 10 MG TAB PO SCH (09:00)
[2022-05-02] MEDS ORDERED: Ezetimibe 10 MG TAB PO SCH (09:00)
[2022-05-02] MEDS ORDERED: Torsemide 10 MG TAB PO SCH (12:00)
[2022-05-02 12:05] VITALS: TEMP 97.2
[2022-05-02] MEDS ORDERED: Acetaminophen 325 MG TAB PO SCH (12:15)
[2022-05-02 16:31] VITALS: BP 136/65
[2022-05-03] MEDS ORDERED: Torsemide 10 MG TAB PO SCH (09:00)
== END 2022-05-02 17:35 | disposition home or self-care (01) ==
LOC: ERS 11:09 → ERHOLD 15:31 → 2SW 15:31
PROVIDERS: ADMIT Student in an Organized Health Care Education/Training Program; ATTEND Student in an Organized Health Care Education/Training Program
DX: I95.1 Orthostatic hypotension (principal); U07.1 COVID-19; I13.0 Hypertensive heart and chronic kidney disease with heart failure and stage 1 through stage 4 chronic kidney disease, or unspecified chronic kidney disease; E11.22 Type 2 diabetes mellitus with diabetic chronic kidney disease; N18.32 Chronic kidney disease, stage 3b; I50.30 Unspecified diastolic (congestive) heart failure; D63.1 Anemia in chronic kidney disease; E78.5 Hyperlipidemia, unspecified; R10.9 Unspecified abdominal pain; G89.29 Other chronic pain; M54.9 Dorsalgia, unspecified; M48.02 Spinal stenosis, cervical region; J44.9 Chronic obstructive pulmonary disease, unspecified; Z86.73 Personal history of transient ischemic attack (TIA), and cerebral infarction without residual deficits; Z79.4 Long term (current) use of insulin; Z79.84 Long term (current) use of oral hypoglycemic drugs; Z79.85 Long-term (current) use of injectable non-insulin antidiabetic drugs; Z79.899 Other long term (current) drug therapy; Z88.1 Allergy status to other antibiotic agents; Z88.2 Allergy status to sulfonamides; Z88.5 Allergy status to narcotic agent; Z95.818 Presence of other cardiac implants and grafts; Z98.1 Arthrodesis status
CPT/HCPCS: 0240U; 70450; 71250; 72125; 73564; 74177; 80053; 82010; 82550; 82805; 82962 ×2; 83605; 83690; 83735; 84100; 84484 ×2; 85025; 85610; 85730; 93005; 94760; 96361; 96372 ×2; 96374; 97116; 97530; 99285; G0378 ×3; 36415; 36416; 81003; 81015; 84443; J1644; J1815; J2270; J7120

== ENCOUNTER 2022-05-28 13:00 | Emergency (ER) | payer OTHER ==
[2022-05-28] MEDS ORDERED: Acetaminophen 500 MG TAB ONE (13:29)
[2022-05-28] MEDS ORDERED: Ondansetron ODT 4 MG TAB ONE (13:30)
[2022-05-28 13:36] LABS: #Eosinphils 0.2 thou/uL (0.0-0.7); #Lymphocytes 2.3 thou/uL (1.20-3.40); #Monocytes 0.4 thou/uL (0.11-0.59); #Neutrophils 3.4 thou/uL (1.40-6.50); %Basophils 0.6 % (0.0-1.0); %Lymphocytes 36.3 % (21.0-51.0); %Monocytes 6.9 % (0.0-10.0); %Neutrophils 53.2 % (42.0-75.0); Hemoglobin 10.4 g/dL (12.0-16.0); Mean Corpuscular HGB CONC 33.7 g/dL (32.0-36.0); Mean Corpuscular Hemoglobin 28.2 pg (27.0-31.0); Mean Corpuscular Volume 83.6 fl (78.0-98.0); Mean Platelet Volume 7.8 fL (7.4-10.4); Platelet Count 242 10x3/uL (130-400); RBC Distribution Width 13.5 % (11.5-14.5); White Blood Cell (WBC) Count 6.3 10x3/uL (4.8-10.8)
[2022-05-28] MEDS ORDERED: Promethazine HCl 25 MG in Sodium Chloride 0.9% 50 ML IVPB SCH (13:45)
[2022-05-28 13:58] LABS: ALT (SGPT) 9 U/L (8-55); AST (SGOT) 15 U/L (5-34); Albumin 3.3 g/dL (3.4-4.8); Alkaline Phosphatase 136 U/L (40-110); Anion Gap 10 mmol/L (10-20); BUN (Urea Nitrogen) 22 mg/dL (9.8-20.1); Bilirubin, Total 0.3 mg/dL (0.2-1.2); Calc. Creatinine Clearance 0 mL/min (70-130); Calcium 8.5 mg/dL (7.8-10.44); Carbon Dioxide 25 mmol/L (23-31); Chloride 105 mmol/L (98-107); Estimated GFR 32; Globulin 2.8 g/dL (2.4-3.5); Glucose 269 mg/dL (80-115); Lipase 74 U/L (8-78); Potassium 4.4 mmol/L (3.5-5.1); Protein, Total 6.1 g/dL (5.8-8.1); Sodium 136 mmol/L (136-145)
[2022-05-28 14:44] LABS: Bacteria/HPF None Seen HPF (None Seen); Bilirubin Negative (Negative); Blood, Urine 1+ (Negative); Clarity Clear (Clear); Glucose, Urine (Dipstick) Greater than 1000 mg/dL (Negative); Ketone, Urine Negative (Negative); Leukocyte Negative Leu/uL (Negative); Nitrite Negative (Negative); Protein, Urine (Dipstick) 100 mg/dL (Neg-Trace); RBC/HPF 0-3 HPF (0-3); Specific Gravity, Urine 1.023 (1.002-1.036); Urobilinogen Normal mg/dL (Less than 2); WBC/HPF 0-3 HPF (0-3)
== END 2022-05-28 16:03 | disposition home or self-care (01) ==
LOC: ERS 13:00
DX: R55 Syncope and collapse (principal); E11.9 Type 2 diabetes mellitus without complications; E78.00 Pure hypercholesterolemia, unspecified; I10 Essential (primary) hypertension; J44.9 Chronic obstructive pulmonary disease, unspecified
CPT/HCPCS: 70450; 70486; 71275; 72125; 74174; 80053; 81003; 81015; 83690; 83880; 84484; 85025; 93005; 96361; 96365; J2550; Q0162; Q9967

== ENCOUNTER 2022-06-02 14:34 | Emergency (ER) | payer MEDICARE, OTHER ==
[2022-06-02 15:16] LABS: #Eosinphils 0.3 thou/uL (0.0-0.7); #Lymphocytes 2.6 thou/uL (1.20-3.40); #Monocytes 0.5 thou/uL (0.11-0.59); #Neutrophils 4.6 thou/uL (1.40-6.50); %Basophils 0.4 % (0.0-1.0); %Eosinophils 3.8 % (0.0-10.0); %Lymphocytes 32.9 % (21.0-51.0); %Monocytes 6.2 % (0.0-10.0); %Neutrophils 56.7 % (42.0-75.0); Hemoglobin 11.4 g/dL (12.0-16.0); Mean Corpuscular HGB CONC 34.5 g/dL (32.0-36.0); Mean Corpuscular Hemoglobin 28.2 pg (27.0-31.0); Mean Corpuscular Volume 81.9 fl (78.0-98.0); Mean Platelet Volume 7.7 fL (7.4-10.4); Platelet Count 285 10x3/uL (130-400); RBC Distribution Width 13.7 % (11.5-14.5); Red Blood Cell (RBC) Count 4.04 mill/uL (4.20-5.40)
[2022-06-02 15:38] LABS: ALT (SGPT) 8 U/L (8-55); AST (SGOT) 13 U/L (5-34); Albumin 3.6 g/dL (3.4-4.8); Alkaline Phosphatase 219 U/L (40-110); Anion Gap 11 mmol/L (10-20); BUN (Urea Nitrogen) 25 mg/dL (9.8-20.1); Bilirubin, Total 0.4 mg/dL (0.2-1.2); Calc. Creatinine Clearance 0 mL/min (70-130); Carbon Dioxide 21 mmol/L (23-31); Chloride 107 mmol/L (98-107); Estimated GFR 27; Globulin 3.7 g/dL (2.4-3.5); Glucose 139 mg/dL (80-115); Potassium 4.2 mmol/L (3.5-5.1); Protein, Total 7.3 g/dL (5.8-8.1); Sodium 135 mmol/L (136-145)
== END 2022-06-02 16:33 | disposition home or self-care (01) ==
LOC: ERS 14:34
DX: R55 Syncope and collapse (principal); E78.00 Pure hypercholesterolemia, unspecified; E11.9 Type 2 diabetes mellitus without complications; I10 Essential (primary) hypertension
CPT/HCPCS: 36415; 80053; 84484; 85025; 93005

== ENCOUNTER 2022-06-08 09:47 | Outpatient (CLI) | payer OTHER | END 2022-06-08 09:48 | disposition home or self-care (01) | LOC: RAD 09:47 | PROVIDERS: ATTEND Physician Assistant | DX: S22.009A Unspecified fracture of unspecified thoracic vertebra, initial encounter for closed fracture (principal) | CPT/HCPCS: 72072 ==

== ENCOUNTER 2022-06-08 10:39 | Emergency (ER) | payer MEDICARE, OTHER ==
[2022-06-08] MEDS ORDERED: HYDROcodone/Acetaminophen 5/325 mg Tablet ONE (12:40)
[2022-06-08 12:43] LABS: #Eosinphils 0.1 thou/uL (0.0-0.7); #Lymphocytes 1.3 thou/uL (1.20-3.40); #Monocytes 0.4 thou/uL (0.11-0.59); %Basophils 0.1 % (0.0-1.0); %Eosinophils 0.5 % (0.0-10.0); %Lymphocytes 11.8 % (21.0-51.0); %Neutrophils 83.6 % (42.0-75.0); Hemoglobin 12.1 g/dL (12.0-16.0); Mean Corpuscular Hemoglobin 28.1 pg (27.0-31.0); Mean Corpuscular Volume 82.7 fl (78.0-98.0); Mean Platelet Volume 7.8 fL (7.4-10.4); Platelet Count 322 10x3/uL (130-400); RBC Distribution Width 14.2 % (11.5-14.5); Red Blood Cell (RBC) Count 4.28 mill/uL (4.20-5.40); White Blood Cell (WBC) Count 10.7 10x3/uL (4.8-10.8)
[2022-06-08 13:12] LABS: ALT (SGPT) 11 U/L (8-55); AST (SGOT) 16 U/L (5-34); Albumin 3.7 g/dL (3.4-4.8); Alkaline Phosphatase 161 U/L (40-110); BUN (Urea Nitrogen) 31 mg/dL (9.8-20.1); Bilirubin, Total 0.4 mg/dL (0.2-1.2); CK (CPK) 66 U/L (29-168); Calc. Creatinine Clearance 0 mL/min (70-130); Carbon Dioxide 22 mmol/L (23-31); Chloride 105 mmol/L (98-107); Estimated GFR 24; Globulin 3.1 g/dL (2.4-3.5); Glucose 285 mg/dL (80-115); Potassium 4.9 mmol/L (3.5-5.1); Protein, Total 6.8 g/dL (5.8-8.1); Sodium 138 mmol/L (136-145)
[2022-06-08 13:23] LABS: Anion Gap 16 mmol/L (10-20)
== END 2022-06-08 13:56 | disposition home or self-care (01) ==
LOC: ERS 10:39
DX: R55 Syncope and collapse (principal); E11.22 Type 2 diabetes mellitus with diabetic chronic kidney disease; I12.9 Hypertensive chronic kidney disease with stage 1 through stage 4 chronic kidney disease, or unspecified chronic kidney disease; N18.9 Chronic kidney disease, unspecified; E78.00 Pure hypercholesterolemia, unspecified; J44.9 Chronic obstructive pulmonary disease, unspecified; Z79.899 Other long term (current) drug therapy
CPT/HCPCS: 36415; 71045; 72072; 80053; 82550; 84484; 85025; 93005

== ENCOUNTER 2022-06-16 16:43 | Emergency (ER) | payer OTHER, MEDICAID ==
[2022-06-16 18:58] LABS: #Eosinphils 0.4 thou/uL (0.0-0.7); #Lymphocytes 2.3 thou/uL (1.20-3.40); #Monocytes 0.5 thou/uL (0.11-0.59); #Neutrophils 3.6 thou/uL (1.40-6.50); %Basophils 0.2 % (0.0-1.0); %Eosinophils 5.5 % (0.0-10.0); %Lymphocytes 34.3 % (21.0-51.0); %Monocytes 6.6 % (0.0-10.0); %Neutrophils 53.5 % (42.0-75.0); Hemoglobin 10.5 g/dL (12.0-16.0); Mean Corpuscular HGB CONC 34.5 g/dL (32.0-36.0); Mean Corpuscular Hemoglobin 29.6 pg (27.0-31.0); Mean Platelet Volume 7.9 fL (7.4-10.4); Platelet Count 290 10x3/uL (130-400); RBC Distribution Width 13.8 % (11.5-14.5); Red Blood Cell (RBC) Count 3.55 mill/uL (4.20-5.40); White Blood Cell (WBC) Count 6.8 10x3/uL (4.8-10.8)
[2022-06-16 19:10] LABS: Prothrombin Time 13.7 sec (12.0-14.7)
[2022-06-16 19:11] LABS: PTT 28.7 sec (22.9-36.1)
[2022-06-16 19:18] LABS: ALT (SGPT) 11 U/L (8-55); AST (SGOT) 23 U/L (5-34); Alkaline Phosphatase 212 U/L (40-110); Anion Gap 15 mmol/L (10-20); BUN (Urea Nitrogen) 21 mg/dL (9.8-20.1); Bilirubin, Total 0.2 mg/dL (0.2-1.2); Calc. Creatinine Clearance 0 mL/min (70-130); Calcium 8.1 mg/dL (7.8-10.44); Carbon Dioxide 22 mmol/L (23-31); Chloride 110 mmol/L (98-107); Estimated GFR 33; Globulin 2.8 g/dL (2.4-3.5); Glucose 151 mg/dL (80-115); Potassium 4.6 mmol/L (3.5-5.1); Protein, Total 5.8 g/dL (5.8-8.1); Sodium 142 mmol/L (136-145)
[2022-06-16] MEDS ORDERED: Ondansetron PF 4 MG/2 ML Vial ONE (20:06)
[2022-06-16] MEDS ORDERED: Morphine 4 MG/ML VIAL ONE (20:06)
[2022-06-16] MEDS ORDERED: Aspirin Chewable 81 MG TAB ONE (20:07)
== END 2022-06-16 23:15 | disposition home or self-care (01) ==
LOC: ERS 16:43
DX: R55 Syncope and collapse (principal); R00.2 Palpitations; E11.9 Type 2 diabetes mellitus without complications; E78.00 Pure hypercholesterolemia, unspecified; I10 Essential (primary) hypertension; J44.9 Chronic obstructive pulmonary disease, unspecified; Z79.899 Other long term (current) drug therapy
CPT/HCPCS: 36415; 70450; 71045; 72125; 80053; 83880; 84484; 85025; 85610; 85730; 93005; 96361; 96374; 96375; J2270; J2405

== ENCOUNTER 2022-06-18 18:07 | Emergency (ER) | payer MEDICAID, OTHER ==
[2022-06-18] MEDS ORDERED: Morphine 4 MG/ML VIAL ONE (19:20)
[2022-06-18] MEDS ORDERED: Ketorolac Tromethamine 30 MG/ML VIAL ONE (20:28)
== END 2022-06-18 21:38 | disposition home or self-care (01) ==
LOC: ERS 18:07
DX: M54.50 Low back pain, unspecified (principal); M54.2 Cervicalgia; E11.9 Type 2 diabetes mellitus without complications; E78.00 Pure hypercholesterolemia, unspecified; I10 Essential (primary) hypertension; J44.9 Chronic obstructive pulmonary disease, unspecified; W18.30XA Fall on same level, unspecified, initial encounter
CPT/HCPCS: 70450; 72125; 72131; 96372; J1885; J2270

== ENCOUNTER 2022-06-20 07:13 | Day surgery (SDC) | payer OTHER, MEDICAID ==
[2022-06-19 09:04] VITALS: BMI 37.4
[2022-06-20] MEDS ORDERED: Lidocaine 1% PF 5 ML VIAL ONE (09:12)
[2022-06-20] MEDS ORDERED: PROPOFOL 200 MG/20 ML VIAL ONE (09:12)
== END 2022-06-20 10:20 | disposition home or self-care (01) ==
LOC: SDC 07:13
PROVIDERS: ATTEND Internal Medicine Gastroenterology
PROC: 0DJD8ZZ Inspection of Lower Intestinal Tract, Via Natural or Artificial Opening Endoscopic (ICD-10-PCS; principal; 2022-06-20)
PROC: 0DJ08ZZ Inspection of Upper Intestinal Tract, Via Natural or Artificial Opening Endoscopic (ICD-10-PCS; 2022-06-20)
PROC: 0D758ZZ Dilation of Esophagus, Via Natural or Artificial Opening Endoscopic (ICD-10-PCS; 2022-06-20)
DX: Z12.11 Encounter for screening for malignant neoplasm of colon (principal); K29.70 Gastritis, unspecified, without bleeding; K22.89 Other specified disease of esophagus; K21.9 Gastro-esophageal reflux disease without esophagitis; R13.10 Dysphagia, unspecified; R10.10 Upper abdominal pain, unspecified; I12.9 Hypertensive chronic kidney disease with stage 1 through stage 4 chronic kidney disease, or unspecified chronic kidney disease; E11.22 Type 2 diabetes mellitus with diabetic chronic kidney disease; N18.9 Chronic kidney disease, unspecified; E78.00 Pure hypercholesterolemia, unspecified; Z86.73 Personal history of transient ischemic attack (TIA), and cerebral infarction without residual deficits; Z79.4 Long term (current) use of insulin; Z79.84 Long term (current) use of oral hypoglycemic drugs; Z79.85 Long-term (current) use of injectable non-insulin antidiabetic drugs; Z79.899 Other long term (current) drug therapy; Z88.1 Allergy status to other antibiotic agents; Z88.2 Allergy status to sulfonamides; Z88.5 Allergy status to narcotic agent
CPT/HCPCS: 43235; 43450; 82962; G0121; 36416; J2704

== ENCOUNTER 2022-06-25 14:51 | Emergency (ER) | payer MEDICAID, OTHER ==
[2022-06-25 16:05] LABS: #Eosinphils 0.2 thou/uL (0.0-0.7); #Lymphocytes 1.7 thou/uL (1.20-3.40); #Monocytes 0.6 thou/uL (0.11-0.59); #Neutrophils 6.2 thou/uL (1.40-6.50); %Basophils 0.5 % (0.0-1.0); %Eosinophils 2.3 % (0.0-10.0); %Lymphocytes 19.4 % (21.0-51.0); %Neutrophils 70.8 % (42.0-75.0); Hemoglobin 10.9 g/dL (12.0-16.0); Mean Corpuscular HGB CONC 33.8 g/dL (32.0-36.0); Mean Corpuscular Hemoglobin 29.8 pg (27.0-31.0); Mean Corpuscular Volume 88.3 fl (78.0-98.0); Mean Platelet Volume 9.2 fL (7.4-10.4); Platelet Count 209 10x3/uL (130-400); RBC Distribution Width 13.7 % (11.5-14.5); Red Blood Cell (RBC) Count 3.66 mill/uL (4.20-5.40); White Blood Cell (WBC) Count 8.8 10x3/uL (4.8-10.8)
[2022-06-25 16:23] LABS: ALT (SGPT) 10 U/L (8-55); AST (SGOT) 10 U/L (5-34); Albumin 3.2 g/dL (3.4-4.8); Alkaline Phosphatase 126 U/L (40-110); Anion Gap 14 mmol/L (10-20); BUN (Urea Nitrogen) 23 mg/dL (9.8-20.1); Bilirubin, Total 0.4 mg/dL (0.2-1.2); Calc. Creatinine Clearance 0 mL/min (70-130); Calcium 8.8 mg/dL (7.8-10.44); Carbon Dioxide 22 mmol/L (23-31); Chloride 106 mmol/L (98-107); Estimated GFR 29; Globulin 3.3 g/dL (2.4-3.5); Glucose 140 mg/dL (80-115); Potassium 4.4 mmol/L (3.5-5.1); Protein, Total 6.5 g/dL (5.8-8.1); Sodium 138 mmol/L (136-145)
[2022-06-25] MEDS ORDERED: Ketorolac Tromethamine 30 MG/ML VIAL ONE (16:39)
[2022-06-25 16:53] LABS: Acetaminophen Less than 10.0 mcg/mL (10.0-30.0); Alcohol Less than 10 mg/dL (Less than 10); Salicylate Less than 8.0 mg/dL (15.0-30.0)
[2022-06-25] MEDS ORDERED: Morphine 4 MG/ML VIAL ONE (18:49)
== END 2022-06-25 18:47 | disposition home or self-care (01) ==
LOC: ERS 14:51
DX: R55 Syncope and collapse (principal); E11.9 Type 2 diabetes mellitus without complications; E78.00 Pure hypercholesterolemia, unspecified; I10 Essential (primary) hypertension; J44.9 Chronic obstructive pulmonary disease, unspecified
CPT/HCPCS: 36415; 70450; 71045; 80053; 80307; 83605; 84484; 85025; 93005; 96361; 96372; 96374; J1885; J2270

== ENCOUNTER 2022-06-30 13:19 | Observation (INO) | payer OTHER ==
[2022-06-30 14:06] LABS: #Eosinphils 0.3 thou/uL (0.0-0.7); #Lymphocytes 1.7 thou/uL (1.20-3.40); #Monocytes 0.4 thou/uL (0.11-0.59); #Neutrophils 4.3 thou/uL (1.40-6.50); %Basophils 0.1 % (0.0-1.0); %Eosinophils 4.2 % (0.0-10.0); %Lymphocytes 25.5 % (21.0-51.0); %Monocytes 6.4 % (0.0-10.0); %Neutrophils 63.8 % (42.0-75.0); Hemoglobin 9.9 g/dL (12.0-16.0); Mean Corpuscular HGB CONC 32.9 g/dL (32.0-36.0); Mean Corpuscular Hemoglobin 28.2 pg (27.0-31.0); Mean Corpuscular Volume 85.7 fl (78.0-98.0); Mean Platelet Volume 8.6 fL (7.4-10.4); Platelet Count 267 10x3/uL (130-400); RBC Distribution Width 14.1 % (11.5-14.5); Red Blood Cell (RBC) Count 3.51 mill/uL (4.20-5.40); White Blood Cell (WBC) Count 6.7 10x3/uL (4.8-10.8)
[2022-06-30 14:10] LABS: ALT (SGPT) 7 U/L (8-55); AST (SGOT) 11 U/L (5-34); Albumin 3.1 g/dL (3.4-4.8); Alkaline Phosphatase 172 U/L (40-110); Anion Gap 15 mmol/L (10-20); BUN (Urea Nitrogen) 18 mg/dL (9.8-20.1); Bilirubin, Total 0.4 mg/dL (0.2-1.2); Calc. Creatinine Clearance 0 mL/min (70-130); Carbon Dioxide 24 mmol/L (23-31); Chloride 106 mmol/L (98-107); Estimated GFR 32; Globulin 3.5 g/dL (2.4-3.5); Glucose 311 mg/dL (80-115); Lipase 39 U/L (8-78); Potassium 4.5 mmol/L (3.5-5.1); Protein, Total 6.6 g/dL (5.8-8.1); Sodium 140 mmol/L (136-145)
[2022-06-30] MEDS ORDERED: HYDROcodone/Acetaminophen 5/325 mg Tablet ONE (18:25)
[2022-06-30 19:10] LABS: Troponin I Less than 0.010 ng/mL (< 0.028)
[2022-06-30 23:16] VITALS: BMI 38.6
[2022-07-01 00:54] LABS: Troponin I Less than 0.010 ng/mL (< 0.028)
[2022-07-01] MEDS ORDERED: Ondansetron PF 4 MG/2 ML Vial IVP PRN (03:26)
[2022-07-01] MEDS ORDERED: Dextrose 5% in Water 1,000 ML IV PRN (03:28)
[2022-07-01] MEDS ORDERED: Dextrose 50% Abboject 50 ML SYRINGE SLOW IVP PRN (03:28)
[2022-07-01] MEDS ORDERED: HumaLOG 300 UNITS/3 ML VIAL SC PRN ×2 (03:28)
[2022-07-01 04:16] LABS: #Eosinphils 0.3 thou/uL (0.0-0.7); #Lymphocytes 1.7 thou/uL (1.20-3.40); #Monocytes 0.4 thou/uL (0.11-0.59); #Neutrophils 3.7 thou/uL (1.40-6.50); %Basophils 0.1 % (0.0-1.0); %Eosinophils 5.1 % (0.0-10.0); %Lymphocytes 27.4 % (21.0-51.0); %Neutrophils 60.3 % (42.0-75.0); Hemoglobin 9.3 g/dL (12.0-16.0); Mean Corpuscular HGB CONC 33.6 g/dL (32.0-36.0); Mean Corpuscular Hemoglobin 28.8 pg (27.0-31.0); Mean Corpuscular Volume 85.8 fl (78.0-98.0); Mean Platelet Volume 8.3 fL (7.4-10.4); Platelet Count 235 10x3/uL (130-400); Red Blood Cell (RBC) Count 3.24 mill/uL (4.20-5.40); White Blood Cell (WBC) Count 6.1 10x3/uL (4.8-10.8)
[2022-07-01 04:40] LABS: Anion Gap 11 mmol/L (10-20); BUN (Urea Nitrogen) 19 mg/dL (9.8-20.1); Calc. Creatinine Clearance 61 mL/min (70-130); Calcium 8.8 mg/dL (7.8-10.44); Carbon Dioxide 27 mmol/L (23-31); Chloride 105 mmol/L (98-107); Estimated GFR 37; Glucose 248 mg/dL (80-115); Potassium 3.8 mmol/L (3.5-5.1); Sodium 139 mmol/L (136-145)
[2022-07-01] MEDS: Acetaminophen 325 MG TAB PO PRN ×3 (06:13→20:45)
[2022-07-01] MEDS ORDERED: Iopamidol-370 76% 500 ML 1 ML ONE (09:29)
[2022-07-01] MEDS ORDERED: Magnevist 469MG/ML 20 ML VIAL ONE (09:37)
[2022-07-01] MEDS ORDERED: ALPRAZolam 0.5 MG TAB PO PRN (15:02)
[2022-07-01] MEDS: Carvedilol 6.25 MG TAB PO SCH (18:18)
[2022-07-01] MEDS: DULoxetine 60 MG CAP PO SCH (20:45)
[2022-07-02 04:51] LABS: #Eosinphils 0.3 thou/uL (0.0-0.7); #Lymphocytes 2.2 thou/uL (1.20-3.40); #Monocytes 0.5 thou/uL (0.11-0.59); #Neutrophils 3.9 thou/uL (1.40-6.50); %Basophils 0.5 % (0.0-1.0); %Lymphocytes 31.5 % (21.0-51.0); %Monocytes 7.3 % (0.0-10.0); %Neutrophils 56.7 % (42.0-75.0); Hemoglobin 9.9 g/dL (12.0-16.0); Mean Corpuscular HGB CONC 34.1 g/dL (32.0-36.0); Mean Corpuscular Hemoglobin 29.1 pg (27.0-31.0); Mean Corpuscular Volume 85.1 fl (78.0-98.0); Mean Platelet Volume 7.7 fL (7.4-10.4); Platelet Count 242 10x3/uL (130-400); RBC Distribution Width 14.1 % (11.5-14.5); Red Blood Cell (RBC) Count 3.39 mill/uL (4.20-5.40); White Blood Cell (WBC) Count 6.9 10x3/uL (4.8-10.8)
[2022-07-02 05:17] LABS: Anion Gap 14 mmol/L (10-20); BUN (Urea Nitrogen) 18 mg/dL (9.8-20.1); Calc. Creatinine Clearance 33 mL/min (70-130); Calcium 9.2 mg/dL (7.8-10.44); Carbon Dioxide 26 mmol/L (23-31); Chloride 104 mmol/L (98-107); Estimated GFR 35; Glucose 172 mg/dL (80-115); Sodium 140 mmol/L (136-145)
[2022-07-02] MEDS: Carvedilol 6.25 MG TAB PO SCH ×2 (10:31→17:33)
[2022-07-02] MEDS: NIFEdipine XL 60 MG TAB PO SCH (10:32)
[2022-07-02] MEDS: Insulin Glargine 30 UNITS/0.3 ML VIAL SC SCH (10:32)
[2022-07-02] MEDS: HYDROcodone/Acetaminophen 5/325 mg Tablet PO PRN (14:59)
[2022-07-02] MEDS: HumaLOG 300 UNITS/3 ML VIAL SC SCH (17:32)
[2022-07-02] MEDS ORDERED: Atorvastatin Calcium 40 MG TAB PO SCH (21:00)
[2022-07-02] MEDS ORDERED: Montelukast Sodium 10 mg Tablet PO SCH (21:00)
[2022-07-02] MEDS: DULoxetine 60 MG CAP PO SCH (21:04)
[2022-07-03] MEDS ORDERED: Fludrocortisone Acetate 0.1 MG TAB PO SCH (09:00)
[2022-07-03] MEDS ORDERED: Aripiprazole 10 MG TAB PO SCH (09:00)
[2022-07-03] MEDS ORDERED: Empagliflozin 25 MG TAB PO SCH (09:00)
[2022-07-03 09:09] VITALS: BP 167/73; TEMP 97.6
[2022-07-03] MEDS: Carvedilol 6.25 MG TAB PO SCH (09:30)
[2022-07-03] MEDS: Insulin Glargine 30 UNITS/0.3 ML VIAL SC SCH (09:31)
[2022-07-03] MEDS: NIFEdipine XL 60 MG TAB PO SCH (09:31)
[2022-07-03] MEDS: HYDROcodone/Acetaminophen 5/325 mg Tablet PO PRN (09:31)
[2022-07-03] MEDS: HumaLOG 300 UNITS/3 ML VIAL SC SCH (09:32)
== END 2022-07-03 14:12 | disposition home or self-care (01) ==
LOC: ERS 13:19 → 2NO 18:14
PROVIDERS: ADMIT Hospitalist; ATTEND Hospitalist
DX: R55 Syncope and collapse (principal); I13.0 Hypertensive heart and chronic kidney disease with heart failure and stage 1 through stage 4 chronic kidney disease, or unspecified chronic kidney disease; E11.22 Type 2 diabetes mellitus with diabetic chronic kidney disease; N18.30 Chronic kidney disease, stage 3 unspecified; N17.9 Acute kidney failure, unspecified; I50.32 Chronic diastolic (congestive) heart failure; D63.1 Anemia in chronic kidney disease; R51.9 Headache, unspecified; E78.00 Pure hypercholesterolemia, unspecified; G89.29 Other chronic pain; M54.9 Dorsalgia, unspecified; M54.2 Cervicalgia; J44.9 Chronic obstructive pulmonary disease, unspecified; K21.9 Gastro-esophageal reflux disease without esophagitis; R07.2 Precordial pain; Z86.73 Personal history of transient ischemic attack (TIA), and cerebral infarction without residual deficits; Z79.4 Long term (current) use of insulin; Z79.84 Long term (current) use of oral hypoglycemic drugs; Z79.899 Other long term (current) drug therapy; Z88.1 Allergy status to other antibiotic agents; Z88.2 Allergy status to sulfonamides; Z88.5 Allergy status to narcotic agent; Z20.822 Contact with and (suspected) exposure to COVID-19
CPT/HCPCS: 70450; 70553; 71045; 71275; 72125; 73630; 80048 ×2; 80053; 82533; 82962 ×4; 83690; 84146; 84443; 84484 ×2; 85025 ×3; 85379; 87804 ×2; 93005 ×2; 94760; 97116; 97530; 99285; U0003; U0005; 36415; 36416; 93010; A9579; G0378; J1815; Q9967

== ENCOUNTER 2022-07-31 12:47 | Inpatient (IN) | payer OTHER ==
[2022-07-31] MEDS ORDERED: Ondansetron PF 4 MG/2 ML Vial ONE (13:23)
[2022-07-31] MEDS ORDERED: Morphine 4 MG/ML VIAL ONE ×2 (13:23→16:51)
[2022-07-31 13:25] LABS: #Eosinphils 0.2 thou/uL (0.0-0.7); #Lymphocytes 1.6 thou/uL (1.20-3.40); #Monocytes 0.3 thou/uL (0.11-0.59); #Neutrophils 3.9 thou/uL (1.40-6.50); %Basophils 0.6 % (0.0-1.0); %Eosinophils 3.8 % (0.0-10.0); %Lymphocytes 26.1 % (21.0-51.0); %Monocytes 4.8 % (0.0-10.0); %Neutrophils 64.6 % (42.0-75.0); Hemoglobin 10.3 g/dL (12.0-16.0); Mean Corpuscular Hemoglobin 27.5 pg (27.0-31.0); Mean Corpuscular Volume 83.3 fl (78.0-98.0); Mean Platelet Volume 8.6 fL (7.4-10.4); Platelet Count 222 10x3/uL (130-400); RBC Distribution Width 13.8 % (11.5-14.5); Red Blood Cell (RBC) Count 3.73 mill/uL (4.20-5.40); White Blood Cell (WBC) Count 6.1 10x3/uL (4.8-10.8)
[2022-07-31 13:53] LABS: ALT (SGPT) Less than 7 U/L (8-55); AST (SGOT) 10 U/L (5-34); Albumin 2.9 g/dL (3.4-4.8); Alkaline Phosphatase 208 U/L (40-110); Anion Gap 11 mmol/L (10-20); BUN (Urea Nitrogen) 28 mg/dL (9.8-20.1); Bilirubin, Total 0.3 mg/dL (0.2-1.2); Calc. Creatinine Clearance 0 mL/min (70-130); Calcium 8.8 mg/dL (7.8-10.44); Carbon Dioxide 26 mmol/L (23-31); Chloride 102 mmol/L (98-107); Estimated GFR 27; Glucose 338 mg/dL (80-115); Lipase 24 U/L (8-78); Protein, Total 5.9 g/dL (5.8-8.1); Sodium 135 mmol/L (136-145)
[2022-07-31 15:25] LABS: Bacteria/HPF 4+ HPF (None Seen); Bilirubin Negative (Negative); Blood, Urine Trace (Negative); Clarity Clear (Clear); Glucose, Urine (Dipstick) Greater than 1000 mg/dL (Negative); Ketone, Urine Negative (Negative); Leukocyte Negative Leu/uL (Negative); Nitrite Negative (Negative); Protein, Urine (Dipstick) 100 mg/dL (Neg-Trace); RBC/HPF 0-3 HPF (0-3); Specific Gravity, Urine 1.022 (1.002-1.036); Urobilinogen Normal mg/dL (Less than 2); WBC/HPF 0-3 HPF (0-3)
[2022-07-31] MEDS ORDERED: Senokot S 8.6-50 MG TAB PO PRN (16:47)
[2022-07-31] MEDS ORDERED: Melatonin 3 MG TAB PO PRN (16:50)
[2022-07-31] MEDS ORDERED: Morphine 4 MG/ML VIAL SLOW IVP PRN (16:50)
[2022-07-31] MEDS ORDERED: Morphine 2 MG/ML VIAL SLOW IVP PRN (16:50)
[2022-07-31] MEDS ORDERED: Dextrose 5% in Water 1,000 ML IV PRN (16:52)
[2022-07-31] MEDS ORDERED: HumaLOG 300 UNITS/3 ML VIAL SC PRN (16:52)
[2022-07-31] MEDS ORDERED: Dextrose 50% Abboject 50 ML SYRINGE SLOW IVP PRN (16:52)
[2022-07-31] MEDS ORDERED: Promethazine HCl 6.25 MG in Sodium Chloride 0.9% 50 ML IVPB PRN (16:57)
[2022-07-31] MEDS: Sodium Chloride 0.9% 1,000 ML IV SCH (18:46)
[2022-07-31 19:59] VITALS: BMI 36.6
[2022-08-01] MEDS: Sodium Chloride 0.9% 1,000 ML IV SCH (05:28)
[2022-08-01 07:36] LABS: ALT (SGPT) Less than 7 U/L (8-55); AST (SGOT) 14 U/L (5-34); Albumin 2.9 g/dL (3.4-4.8); Alkaline Phosphatase 161 U/L (40-110); Anion Gap 13 mmol/L (10-20); BUN (Urea Nitrogen) 25 mg/dL (9.8-20.1); Bilirubin, Total 0.4 mg/dL (0.2-1.2); Calc. Creatinine Clearance 45 mL/min (70-130); Calcium 8.8 mg/dL (7.8-10.44); Carbon Dioxide 24 mmol/L (23-31); Chloride 107 mmol/L (98-107); Estimated GFR 28; Globulin 3.1 g/dL (2.4-3.5); Glucose 240 mg/dL (80-115); Potassium 4.3 mmol/L (3.5-5.1); Sodium 140 mmol/L (136-145)
[2022-08-01] MEDS ORDERED: Pantoprazole 40 MG VIAL IVP SCH (09:00)
[2022-08-01] MEDS ORDERED: Non-Formulary Item 1 EACH (Nifedipine [Nifedipine Er] 60 MG Tab.Er.24) PO SCH (09:00)
[2022-08-01] MEDS ORDERED: Famotidine/PF 20 mg/2ml Vial SLOW IVP SCH (09:00)
[2022-08-01] MEDS: NIFEdipine XL 90 MG TAB PO SCH (10:28)
[2022-08-01 11:11] LABS: #Eosinphils 0.2 thou/uL (0.0-0.7); #Lymphocytes 1.3 thou/uL (1.20-3.40); #Monocytes 0.4 thou/uL (0.11-0.59); #Neutrophils 5.6 thou/uL (1.40-6.50); %Basophils 0.2 % (0.0-1.0); %Eosinophils 2.8 % (0.0-10.0); %Lymphocytes 17.6 % (21.0-51.0); %Monocytes 5.5 % (0.0-10.0); %Neutrophils 73.9 % (42.0-75.0); Hemoglobin 12.7 g/dL (12.0-16.0); Mean Corpuscular Hemoglobin 27.3 pg (27.0-31.0); Mean Corpuscular Volume 85.3 fl (78.0-98.0); Mean Platelet Volume 8.7 fL (7.4-10.4); Platelet Count 244 10x3/uL (130-400); RBC Distribution Width 14.1 % (11.5-14.5); Red Blood Cell (RBC) Count 4.68 mill/uL (4.20-5.40); White Blood Cell (WBC) Count 7.5 10x3/uL (4.8-10.8)
[2022-08-01] MEDS ORDERED: hydrALAZINE 20 MG/ML VIAL SLOW IVP PRN (11:22)
[2022-08-01] MEDS: Carvedilol 25 MG TAB PO SCH (16:54)
[2022-08-01] MEDS ORDERED: Carvedilol 6.25 MG TAB PO SCH (17:00)
[2022-08-01] MEDS: HumaLOG 300 UNITS/3 ML VIAL SC PRN ×2 (17:41→21:47)
[2022-08-01] MEDS: DULoxetine 60 MG CAP PO SCH (20:34)
[2022-08-01] MEDS: Gabapentin 300 MG CAP PO SCH (20:34)
[2022-08-01] MEDS: Acetaminophen 325 MG TAB PO PRN (20:43)
[2022-08-01] MEDS ORDERED: Montelukast Sodium 10 mg Tablet PO SCH (21:00)
[2022-08-01] MEDS ORDERED: Atorvastatin Calcium 40 MG TAB PO SCH (21:00)
[2022-08-02] MEDS: Acetaminophen 325 MG TAB PO PRN (05:30)
[2022-08-02 06:56] LABS: Hemoglobin A1c 8.4 % (4.0-6.0)
[2022-08-02 07:11] LABS: Anion Gap 11 mmol/L (10-20); BUN (Urea Nitrogen) 24 mg/dL (9.8-20.1); Calc. Creatinine Clearance 47 mL/min (70-130); Calcium 8.6 mg/dL (7.8-10.44); Carbon Dioxide 25 mmol/L (23-31); Chloride 102 mmol/L (98-107); Estimated GFR 29; Glucose 290 mg/dL (80-115); Potassium 3.5 mmol/L (3.5-5.1); Sodium 134 mmol/L (136-145)
[2022-08-02] MEDS: Carvedilol 25 MG TAB PO SCH (08:47)
[2022-08-02] MEDS: NIFEdipine XL 90 MG TAB PO SCH (08:47)
[2022-08-02] MEDS: Gabapentin 300 MG CAP PO SCH (08:47)
[2022-08-02] MEDS: DULoxetine 60 MG CAP PO SCH (08:48)
[2022-08-02 09:00] VITALS: BP 121/70; TEMP 98.6
[2022-08-02] MEDS ORDERED: Fludrocortisone Acetate 0.1 MG TAB PO SCH (09:00)
[2022-08-02] MEDS ORDERED: ALPRAZolam 0.5 MG TAB PO SCH (09:00)
[2022-08-02] MEDS ORDERED: Famotidine 20 MG TAB PO SCH (09:00)
[2022-08-02] MEDS ORDERED: Ezetimibe 10 MG TAB PO SCH (09:00)
== END 2022-08-02 11:30 | disposition home or self-care (01) | DRG 389 ==
LOC: ERS 12:47 → SURG A 18:07 → OBSVTOIN 08-01 08:10
PROVIDERS: ADMIT Hospitalist; ATTEND Internal Medicine
DX: K56.600 Partial intestinal obstruction, unspecified as to cause (principal); E87.1 Hypo-osmolality and hyponatremia; I13.0 Hypertensive heart and chronic kidney disease with heart failure and stage 1 through stage 4 chronic kidney disease, or unspecified chronic kidney disease; I50.32 Chronic diastolic (congestive) heart failure; N17.9 Acute kidney failure, unspecified; K56.7 Ileus, unspecified; E78.00 Pure hypercholesterolemia, unspecified; M54.9 Dorsalgia, unspecified; G89.29 Other chronic pain; M54.2 Cervicalgia; J44.9 Chronic obstructive pulmonary disease, unspecified; N18.9 Chronic kidney disease, unspecified; E11.22 Type 2 diabetes mellitus with diabetic chronic kidney disease; Z96.653 Presence of artificial knee joint, bilateral; F41.9 Anxiety disorder, unspecified; F32.A Depression, unspecified; D63.1 Anemia in chronic kidney disease; I95.9 Hypotension, unspecified; R33.9 Retention of urine, unspecified; Z88.6 Allergy status to analgesic agent; Z90.49 Acquired absence of other specified parts of digestive tract; Z86.73 Personal history of transient ischemic attack (TIA), and cerebral infarction without residual deficits; Z88.2 Allergy status to sulfonamides; Z79.899 Other long term (current) drug therapy; Z88.8 Allergy status to other drugs, medicaments and biological substances; Z79.4 Long term (current) use of insulin; Z79.84 Long term (current) use of oral hypoglycemic drugs; Z98.890 Other specified postprocedural states; Z90.89 Acquired absence of other organs; Z90.710 Acquired absence of both cervix and uterus; Z20.822 Contact with and (suspected) exposure to COVID-19
CPT/HCPCS: 36415; 36416; 74176; 74250; 80048; 80053; 81003; 81015; 83036; 83605; 83690; 85025; 87086; 96374; 96375; 96376; C9113; G0378; J1650; J1815; J2270; J2405; J2550; J7050; S0028; U0003; U0005

== ENCOUNTER 2022-08-30 17:28 | Emergency (ER) | payer OTHER ==
[2022-08-30 18:30] LABS: #Eosinphils 0.2 thou/uL (0.0-0.7); #Monocytes 0.5 thou/uL (0.11-0.59); #Neutrophils 3.3 thou/uL (1.40-6.50); %Basophils 0.4 % (0.0-1.0); %Eosinophils 3.2 % (0.0-10.0); %Lymphocytes 33.5 % (21.0-51.0); %Monocytes 8.2 % (0.0-10.0); %Neutrophils 54.7 % (42.0-75.0); Hemoglobin 10.2 g/dL (12.0-16.0); Mean Corpuscular HGB CONC 32.4 g/dL (32.0-36.0); Mean Corpuscular Volume 83.4 fl (78.0-98.0); Mean Platelet Volume 8.4 fL (7.4-10.4); Platelet Count 250 10x3/uL (130-400); RBC Distribution Width 13.8 % (11.5-14.5); Red Blood Cell (RBC) Count 3.78 mill/uL (4.20-5.40)
[2022-08-30 18:50] LABS: ALT (SGPT) 10 U/L (8-55); AST (SGOT) 13 U/L (5-34); Albumin 3.1 g/dL (3.4-4.8); Alkaline Phosphatase 252 U/L (40-110); Anion Gap 17 mmol/L (10-20); BUN (Urea Nitrogen) 24 mg/dL (9.8-20.1); Bilirubin, Total 0.3 mg/dL (0.2-1.2); Calc. Creatinine Clearance 0 mL/min (70-130); Calcium 8.1 mg/dL (7.8-10.44); Carbon Dioxide 21 mmol/L (23-31); Chloride 102 mmol/L (98-107); Estimated GFR 22; Globulin 2.6 g/dL (2.4-3.5); Glucose 361 mg/dL (80-115); Potassium 4.4 mmol/L (3.5-5.1); Protein, Total 5.7 g/dL (5.8-8.1); Sodium 136 mmol/L (136-145)
[2022-08-30] MEDS ORDERED: Acetaminophen 500 MG TAB ONE (20:14)
[2022-08-30] MEDS ORDERED: Boostrix 0.5 ML (Tdap) VIAL (>/=7 yrs of age) ONE (20:14)
== END 2022-08-30 20:30 | disposition home or self-care (01) ==
LOC: ERS 17:28
DX: S62.602A Fracture of unspecified phalanx of right middle finger, initial encounter for closed fracture (principal); E11.9 Type 2 diabetes mellitus without complications; E78.00 Pure hypercholesterolemia, unspecified; I10 Essential (primary) hypertension; J44.9 Chronic obstructive pulmonary disease, unspecified; W18.30XA Fall on same level, unspecified, initial encounter; Y92.009 Unspecified place in unspecified non-institutional (private) residence as the place of occurrence of the external cause
CPT/HCPCS: 36415; 71045; 80053; 84484; 85025; 90471; 90715; 93005

== ENCOUNTER 2022-09-05 19:29 | Inpatient (IN) | payer OTHER ==
[2022-09-05 21:01] LABS: #Eosinphils 0.2 thou/uL (0.0-0.7); #Lymphocytes 2.4 thou/uL (1.20-3.40); #Monocytes 0.7 thou/uL (0.11-0.59); #Neutrophils 7.8 thou/uL (1.40-6.50); %Basophils 0.3 % (0.0-1.0); %Eosinophils 1.6 % (0.0-10.0); %Lymphocytes 21.4 % (21.0-51.0); %Monocytes 5.9 % (0.0-10.0); %Neutrophils 70.8 % (42.0-75.0); Hemoglobin 10.9 g/dL (12.0-16.0); Mean Corpuscular HGB CONC 33.4 g/dL (32.0-36.0); Mean Corpuscular Hemoglobin 27.4 pg (27.0-31.0); Mean Corpuscular Volume 82.1 fl (78.0-98.0); Mean Platelet Volume 8.4 fL (7.4-10.4); Platelet Count 280 10x3/uL (130-400); RBC Distribution Width 14.1 % (11.5-14.5); Red Blood Cell (RBC) Count 3.98 mill/uL (4.20-5.40); White Blood Cell (WBC) Count 11.1 10x3/uL (4.8-10.8)
[2022-09-05 21:11] LABS: Bilirubin Negative (Negative); Blood, Urine 2+ (Negative); Clarity Clear (Clear); Glucose, Urine (Dipstick) Greater than 1000 mg/dL (Negative); Ketone, Urine Negative (Negative); Leukocyte 75 Leu/uL (Negative); Nitrite Negative (Negative); Protein, Urine (Dipstick) 300 mg/dL (Neg-Trace); Specific Gravity, Urine 1.023 (1.002-1.036); Urobilinogen Normal mg/dL (Less than 2); Yeast-Budding Rare HPF (None Seen)
[2022-09-05 21:12] LABS: Bacteria/HPF 1+ HPF (None Seen)
[2022-09-05 21:20] LABS: ALT (SGPT) 8 U/L (8-55); AST (SGOT) 13 U/L (5-34); Albumin 3.4 g/dL (3.4-4.8); Alkaline Phosphatase 306 U/L (40-110); Anion Gap 15 mmol/L (10-20); BUN (Urea Nitrogen) 23 mg/dL (9.8-20.1); Bilirubin, Total 0.3 mg/dL (0.2-1.2); Calc. Creatinine Clearance 0 mL/min (70-130); Calcium 8.8 mg/dL (7.8-10.44); Carbon Dioxide 25 mmol/L (23-31); Chloride 99 mmol/L (98-107); Estimated GFR 21; Globulin 3.5 g/dL (2.4-3.5); Potassium 4.2 mmol/L (3.5-5.1); Protein, Total 6.9 g/dL (5.8-8.1); Sodium 135 mmol/L (136-145)
[2022-09-05 21:24] LABS: Glucose 497 mg/dL (80-115)
[2022-09-05] MEDS ORDERED: Vancomycin 500 MG VIAL (PEDI) ONE (22:33)
[2022-09-05] MEDS ORDERED: fentaNYL 50 mcg/mL 1 mL Vial ONE (22:33)
[2022-09-05] MEDS ORDERED: Cefepime 2 GM VIAL ONE (22:33)
[2022-09-05] MEDS ORDERED: Vancomycin HCl 2.5 GM in Sodium Chloride 0.9% 500 ML IVPB SCH (22:45)
[2022-09-05 22:59] LABS: Actual Bicarbonate (HCO3v) 26 mEq/L (22-28); Analyzer IN Cardio ER; Base Excess 1.1 mEq/L (-2.0 to +3.0); Calcium, Ionized (venous) 0.99 mmol/L (1.16-1.32); Chloride (VBG) 99 mmol/L (98-106); Hemoglobin (Hb) 12.2 g/dL (11.7-16.1); Potassium (VBG) 4.34 mmol/L (3.70-5.30); Sodium 133.8 mmol/L (133-146); pH (venous) 7.43 (7.32-7.43)
[2022-09-06] MEDS ORDERED: Ondansetron ODT 4 MG TAB PO PRN (00:01)
[2022-09-06] MEDS ORDERED: Ondansetron PF 4 MG/2 ML Vial IVP PRN (00:01)
[2022-09-06] MEDS ORDERED: Acetaminophen 650 MG Suppository PR PRN (00:01)
[2022-09-06] MEDS ORDERED: ALPRAZolam 0.5 MG TAB PO PRN (00:05)
[2022-09-06] MEDS ORDERED: Dextrose 50% Abboject 50 ML SYRINGE SLOW IVP PRN (00:13)
[2022-09-06] MEDS ORDERED: Dextrose 5% in Water 1,000 ML IV PRN (00:13)
[2022-09-06] MEDS ORDERED: Cefepime 2 GM VIAL ONE (00:33)
[2022-09-06 01:03] LABS: Lactic Acid 0.8 mmol/L (0.5-2.2)
[2022-09-06 03:12] VITALS: BMI 37.4
[2022-09-06] MEDS ORDERED: cloNIDine 0.1 MG TAB PO PRN (03:33)
[2022-09-06] MEDS ORDERED: Vancomycin Dose by Levels Sliding Scale (Wt > 99) FS SCH (03:45)
[2022-09-06] MEDS ORDERED: NIFEdipine XL 90 MG TAB PO SCH (03:45)
[2022-09-06] MEDS ORDERED: Carvedilol 25 MG TAB PO SCH (03:45)
[2022-09-06] MEDS ORDERED: Morphine 4 MG/ML VIAL ONE (03:49)
[2022-09-06] MEDS: Morphine 4 MG/ML VIAL SLOW IVP PRN ×2 (04:01→20:44)
[2022-09-06 05:19] LABS: Anion Gap 16 mmol/L (10-20); Calc. Creatinine Clearance 47 mL/min (70-130); Calcium 7.7 mg/dL (7.8-10.44); Carbon Dioxide 17 mmol/L (23-31); Chloride 108 mmol/L (98-107); Estimated GFR 29; Glucose 377 mg/dL (80-115); Potassium 4.5 mmol/L (3.5-5.1); Sodium 136 mmol/L (136-145)
[2022-09-06 05:32] LABS: BUN (Urea Nitrogen) 25 mg/dL (9.8-20.1)
[2022-09-06] MEDS ORDERED: cloNIDine 0.1 MG TAB ONE (06:58)
[2022-09-06] MEDS ORDERED: HumaLOG 300 UNITS/3 ML VIAL SC SCH (08:00)
[2022-09-06 08:14] LABS: #Eosinphils 0.2 thou/uL (0.0-0.7); #Lymphocytes 1.4 thou/uL (1.20-3.40); #Monocytes 0.5 thou/uL (0.11-0.59); %Basophils 0.4 % (0.0-1.0); %Eosinophils 3.3 % (0.0-10.0); %Lymphocytes 19.1 % (21.0-51.0); %Neutrophils 70.2 % (42.0-75.0); Hemoglobin 10.8 g/dL (12.0-16.0); Mean Corpuscular HGB CONC 33.3 g/dL (32.0-36.0); Mean Corpuscular Hemoglobin 27.6 pg (27.0-31.0); Mean Corpuscular Volume 82.9 fl (78.0-98.0); Mean Platelet Volume 8.7 fL (7.4-10.4); Platelet Count 210 10x3/uL (130-400); RBC Distribution Width 14.1 % (11.5-14.5); White Blood Cell (WBC) Count 7.2 10x3/uL (4.8-10.8)
[2022-09-06] MEDS ORDERED: VANCOMYCIN 1.25 GM/250 ML BAG IVPB SCH (09:00)
[2022-09-06] MEDS ORDERED: HumaLOG 300 UNITS/3 ML VIAL ONE (09:40)
[2022-09-06] MEDS ORDERED: Insulin Glargine 30 UNITS/0.3 ML VIAL SC SCH (10:30)
[2022-09-06] MEDS ORDERED: Empagliflozin 25 MG TAB PO SCH (10:45)
[2022-09-06] MEDS ORDERED: Clindamycin/D5W 900 mg/50 ml Premix Bag ONE (11:19)
[2022-09-06] MEDS: Clindamycin/D5W 900 MG in Premix Bag 1 BAG IVPB SCH ×3 (11:28→23:19)
[2022-09-06] MEDS: Sodium Chloride 0.9% 1,000 ML IV SCH (11:28)
[2022-09-06] MEDS ORDERED: Clindamycin (PEDI) 900 MG in Syringe 0 ML IVPB SCH (12:00)
[2022-09-06] MEDS: Carvedilol 25 MG TAB PO SCH (17:08)
[2022-09-06] MEDS: HumaLOG 300 UNITS/3 ML VIAL SC PRN ×2 (17:09→20:49)
[2022-09-07] MEDS: Clindamycin/D5W 900 MG in Premix Bag 1 BAG IVPB SCH ×4 (05:14→23:22)
[2022-09-07] MEDS: Sodium Chloride 0.9% 1,000 ML IV SCH ×3 (05:14→23:23)
[2022-09-07] MEDS: Morphine 4 MG/ML VIAL SLOW IVP PRN ×2 (05:23→20:45)
[2022-09-07] MEDS: HumaLOG 300 UNITS/3 ML VIAL SC PRN ×4 (05:23→23:28)
[2022-09-07] MEDS: Carvedilol 25 MG TAB PO SCH ×2 (08:40→17:21)
[2022-09-07] MEDS: NIFEdipine XL 90 MG TAB PO SCH (08:40)
[2022-09-07] MEDS: Fluconazole 100 MG TAB PO SCH (08:40)
[2022-09-07] MEDS ORDERED: Empagliflozin 25 MG TAB PO SCH (09:00)
[2022-09-07] MEDS: ALPRAZolam 0.5 MG TAB PO PRN (23:31)
[2022-09-08] MEDS: Clindamycin/D5W 900 MG in Premix Bag 1 BAG IVPB SCH ×4 (05:01→23:03)
[2022-09-08] MEDS: NIFEdipine XL 90 MG TAB PO SCH (08:38)
[2022-09-08] MEDS: Carvedilol 25 MG TAB PO SCH ×2 (08:38→17:30)
[2022-09-08] MEDS: Fluconazole 100 MG TAB PO SCH (08:38)
[2022-09-08] MEDS: HumaLOG 300 UNITS/3 ML VIAL SC PRN ×2 (12:09→17:31)
[2022-09-08] MEDS ORDERED: Docusate 100 MG CAP PO SCH (12:15)
[2022-09-08] MEDS: Sodium Chloride 0.9% 1,000 ML IV SCH (12:15)
[2022-09-08] MEDS: ALPRAZolam 0.5 MG TAB PO PRN (20:22)
[2022-09-08] MEDS: Docusate 100 MG CAP PO SCH (20:23)
[2022-09-08] MEDS: Acetaminophen 325 MG TAB PO PRN (20:24)
[2022-09-09] MEDS: Clindamycin/D5W 900 MG in Premix Bag 1 BAG IVPB SCH ×2 (05:38→12:42)
[2022-09-09] MEDS: HumaLOG 300 UNITS/3 ML VIAL SC PRN ×3 (05:41→20:21)
[2022-09-09 07:37] LABS: #Eosinphils 0.2 thou/uL (0.0-0.7); #Lymphocytes 1.4 thou/uL (1.20-3.40); #Monocytes 0.4 thou/uL (0.11-0.59); #Neutrophils 2.8 thou/uL (1.40-6.50); %Basophils 0.2 % (0.0-1.0); %Eosinophils 4.2 % (0.0-10.0); %Lymphocytes 29.1 % (21.0-51.0); %Monocytes 7.6 % (0.0-10.0); %Neutrophils 58.9 % (42.0-75.0); Hemoglobin 9.3 g/dL (12.0-16.0); Mean Corpuscular HGB CONC 33.6 g/dL (32.0-36.0); Mean Corpuscular Hemoglobin 27.7 pg (27.0-31.0); Mean Corpuscular Volume 82.4 fl (78.0-98.0); Mean Platelet Volume 8.4 fL (7.4-10.4); Platelet Count 227 10x3/uL (130-400); RBC Distribution Width 14.2 % (11.5-14.5); Red Blood Cell (RBC) Count 3.34 mill/uL (4.20-5.40); White Blood Cell (WBC) Count 4.7 10x3/uL (4.8-10.8)
[2022-09-09 07:56] LABS: Anion Gap 11 mmol/L (10-20); BUN (Urea Nitrogen) 27 mg/dL (9.8-20.1); Calc. Creatinine Clearance 42 mL/min (70-130); Carbon Dioxide 21 mmol/L (23-31); Chloride 111 mmol/L (98-107); Estimated GFR 25; Glucose 247 mg/dL (80-115); Potassium 4.1 mmol/L (3.5-5.1); Sodium 139 mmol/L (136-145)
[2022-09-09] MEDS: Sodium Chloride 0.9% 1,000 ML IV SCH ×2 (08:26→18:37)
[2022-09-09] MEDS: Docusate 100 MG CAP PO SCH ×2 (08:27→20:11)
[2022-09-09] MEDS: Carvedilol 25 MG TAB PO SCH ×2 (08:27→16:14)
[2022-09-09] MEDS: Fluconazole 100 MG TAB PO SCH (08:28)
[2022-09-09] MEDS: NIFEdipine XL 90 MG TAB PO SCH (08:28)
[2022-09-09] MEDS: ALPRAZolam 0.5 MG TAB PO PRN ×2 (08:36→20:31)
[2022-09-09] MEDS ORDERED: Doxycycline 100 MG CAP PO SCH (16:00)
[2022-09-09] MEDS: Meclizine HCl 25 MG TAB PO PRN (20:20)
[2022-09-10] MEDS: HumaLOG 300 UNITS/3 ML VIAL SC PRN ×3 (06:09→17:10)
[2022-09-10 07:31] LABS: #Eosinphils 0.2 thou/uL (0.0-0.7); #Lymphocytes 1.4 thou/uL (1.20-3.40); #Monocytes 0.3 thou/uL (0.11-0.59); #Neutrophils 2.7 thou/uL (1.40-6.50); %Basophils 0.5 % (0.0-1.0); %Eosinophils 4.4 % (0.0-10.0); %Lymphocytes 29.4 % (21.0-51.0); %Monocytes 6.9 % (0.0-10.0); %Neutrophils 58.9 % (42.0-75.0); Hemoglobin 10.3 g/dL (12.0-16.0); Mean Corpuscular HGB CONC 34.1 g/dL (32.0-36.0); Mean Corpuscular Hemoglobin 27.5 pg (27.0-31.0); Mean Corpuscular Volume 80.8 fl (78.0-98.0); Mean Platelet Volume 8.6 fL (7.4-10.4); Platelet Count 241 10x3/uL (130-400); RBC Distribution Width 14.1 % (11.5-14.5); Red Blood Cell (RBC) Count 3.73 mill/uL (4.20-5.40); White Blood Cell (WBC) Count 4.7 10x3/uL (4.8-10.8)
[2022-09-10] MEDS ORDERED: Loperamide HCl 2 MG CAP PO PRN (08:15)
[2022-09-10] MEDS: NIFEdipine XL 90 MG TAB PO SCH (08:21)
[2022-09-10] MEDS: Sodium Chloride 0.9% 1,000 ML IV SCH ×3 (08:21→19:28)
[2022-09-10] MEDS: Docusate 100 MG CAP PO SCH ×2 (08:21→19:28)
[2022-09-10] MEDS: Carvedilol 25 MG TAB PO SCH ×2 (08:21→17:09)
[2022-09-10] MEDS: Doxycycline 100 MG CAP PO SCH ×2 (08:21→21:14)
[2022-09-10] MEDS ORDERED: Ondansetron ORAL SOLN. 4 MG/5 ML UDCUP PO PRN (08:26)
[2022-09-10 09:07] LABS: Calcium 9.1 mg/dL (7.8-10.44); Chloride 111 mmol/L (98-107); Glucose 243 mg/dL (80-115); Potassium 3.7 mmol/L (3.5-5.1); Sodium 139 mmol/L (136-145)
[2022-09-10 09:09] LABS: Anion Gap 15 mmol/L (10-20); Carbon Dioxide 17 mmol/L (23-31)
[2022-09-10 09:11] LABS: Calc. Creatinine Clearance 50 mL/min (70-130); Estimated GFR 32
[2022-09-10 09:12] LABS: BUN (Urea Nitrogen) 21 mg/dL (9.8-20.1)
[2022-09-10] MEDS: ALPRAZolam 0.5 MG TAB PO PRN ×2 (11:55→21:14)
[2022-09-10] MEDS: Acetaminophen 325 MG TAB PO PRN (17:28)
[2022-09-10] MEDS: Meclizine HCl 25 MG TAB PO PRN (21:14)
[2022-09-11 07:20] LABS: #Eosinphils 0.2 thou/uL (0.0-0.7); #Lymphocytes 1.9 thou/uL (1.20-3.40); #Monocytes 0.4 thou/uL (0.11-0.59); #Neutrophils 2.9 thou/uL (1.40-6.50); %Basophils 0.7 % (0.0-1.0); %Eosinophils 3.4 % (0.0-10.0); %Lymphocytes 34.7 % (21.0-51.0); %Monocytes 7.7 % (0.0-10.0); %Neutrophils 53.5 % (42.0-75.0); Hemoglobin 9.9 g/dL (12.0-16.0); Mean Corpuscular HGB CONC 33.9 g/dL (32.0-36.0); Mean Corpuscular Hemoglobin 27.6 pg (27.0-31.0); Mean Corpuscular Volume 81.2 fl (78.0-98.0); Mean Platelet Volume 8.7 fL (7.4-10.4); Platelet Count 250 10x3/uL (130-400); RBC Distribution Width 14.3 % (11.5-14.5); Red Blood Cell (RBC) Count 3.61 mill/uL (4.20-5.40); White Blood Cell (WBC) Count 5.5 10x3/uL (4.8-10.8)
[2022-09-11 07:26] VITALS: BP 153/77; TEMP 97.5
[2022-09-11 07:39] LABS: Anion Gap 13 mmol/L (10-20); BUN (Urea Nitrogen) 20 mg/dL (9.8-20.1); Calc. Creatinine Clearance 50 mL/min (70-130); Calcium 9.3 mg/dL (7.8-10.44); Carbon Dioxide 17 mmol/L (23-31); Chloride 110 mmol/L (98-107); Estimated GFR 31; Glucose 279 mg/dL (80-115); Sodium 136 mmol/L (136-145)
[2022-09-11] MEDS ORDERED: Saccharomyces boulardii 250 MG CAP PO SCH (09:00)
[2022-09-11] MEDS: NIFEdipine XL 90 MG TAB PO SCH (09:25)
[2022-09-11] MEDS: Doxycycline 100 MG CAP PO SCH (09:25)
[2022-09-11] MEDS: Carvedilol 25 MG TAB PO SCH (09:26)
[2022-09-11] MEDS: Docusate 100 MG CAP PO SCH (09:26)
[2022-09-11] MEDS: HumaLOG 300 UNITS/3 ML VIAL SC PRN (11:36)
[2022-09-11] MEDS: Sodium Chloride 0.9% 1,000 ML IV SCH (12:35)
== END 2022-09-11 13:47 | disposition home or self-care (01) | DRG 603 ==
LOC: ERS 19:29 → ERHOLD 09-06 00:22 → T4-A 09-06 14:19
PROVIDERS: ADMIT Hospitalist; ATTEND Hospitalist
DX: L02.221 Furuncle of abdominal wall (principal); E87.1 Hypo-osmolality and hyponatremia; I13.0 Hypertensive heart and chronic kidney disease with heart failure and stage 1 through stage 4 chronic kidney disease, or unspecified chronic kidney disease; N17.9 Acute kidney failure, unspecified; N18.4 Chronic kidney disease, stage 4 (severe); E87.20 Acidosis, unspecified; N76.0 Acute vaginitis; M54.9 Dorsalgia, unspecified; J44.9 Chronic obstructive pulmonary disease, unspecified; E11.65 Type 2 diabetes mellitus with hyperglycemia; E11.22 Type 2 diabetes mellitus with diabetic chronic kidney disease; I50.9 Heart failure, unspecified; E86.0 Dehydration; G89.4 Chronic pain syndrome; J45.909 Unspecified asthma, uncomplicated; Z86.73 Personal history of transient ischemic attack (TIA), and cerebral infarction without residual deficits; Z88.1 Allergy status to other antibiotic agents; Z88.5 Allergy status to narcotic agent; Z88.2 Allergy status to sulfonamides; Z91.09 Other allergy status, other than to drugs and biological substances; Z79.899 Other long term (current) drug therapy; Z79.4 Long term (current) use of insulin; Z79.84 Long term (current) use of oral hypoglycemic drugs; Z98.890 Other specified postprocedural states; Z90.49 Acquired absence of other specified parts of digestive tract; Z90.710 Acquired absence of both cervix and uterus
CPT/HCPCS: 36415; 36416; 80048; 80053; 81003; 81015; 82010; 82805; 83605; 83690; 84484; 85025; 87040; 87149; 93005; 94760; 96365; 96366; 96367; 96375; J0692; J1650; J1815; J2270; J3010; J3370; J3371; J3490; J7030; J7050; Q0162

== ENCOUNTER 2022-09-20 14:31 | Inpatient (IN) | payer OTHER ==
[2022-09-20] MEDS ORDERED: Morphine 4 MG/ML VIAL ONE (15:26)
[2022-09-20] MEDS ORDERED: Ondansetron PF 4 MG/2 ML Vial ONE (15:27)
[2022-09-20 16:36] LABS: #Eosinphils 0.3 thou/uL (0.0-0.7); #Lymphocytes 1.6 thou/uL (1.20-3.40); #Monocytes 0.4 thou/uL (0.11-0.59); #Neutrophils 4.1 thou/uL (1.40-6.50); %Basophils 0.6 % (0.0-1.0); %Eosinophils 4.4 % (0.0-10.0); %Lymphocytes 25.2 % (21.0-51.0); %Monocytes 6.6 % (0.0-10.0); %Neutrophils 63.2 % (42.0-75.0); Hemoglobin 9.4 g/dL (12.0-16.0); Mean Corpuscular HGB CONC 34.8 g/dL (32.0-36.0); Mean Corpuscular Volume 80.4 fl (78.0-98.0); Mean Platelet Volume 9.5 fL (7.4-10.4); Platelet Count 246 10x3/uL (130-400); RBC Distribution Width 14.6 % (11.5-14.5); Red Blood Cell (RBC) Count 3.34 mill/uL (4.20-5.40); White Blood Cell (WBC) Count 6.4 10x3/uL (4.8-10.8)
[2022-09-20 16:57] LABS: ALT (SGPT) 7 U/L (8-55); AST (SGOT) 13 U/L (5-34); Albumin 2.9 g/dL (3.4-4.8); Alcohol Less than 10 mg/dL (Less than 10); Alkaline Phosphatase 241 U/L (40-110); Anion Gap 13 mmol/L (10-20); BUN (Urea Nitrogen) 20 mg/dL (9.8-20.1); Bilirubin, Total 0.3 mg/dL (0.2-1.2); Calc. Creatinine Clearance 0 mL/min (70-130); Calcium 8.5 mg/dL (7.8-10.44); Carbon Dioxide 23 mmol/L (23-31); Chloride 105 mmol/L (98-107); Estimated GFR 20; Globulin 3.3 g/dL (2.4-3.5); Potassium 3.7 mmol/L (3.5-5.1); Protein, Total 6.2 g/dL (5.8-8.1); Sodium 137 mmol/L (136-145)
[2022-09-20 17:09] LABS: Glucose 426 mg/dL (80-115)
[2022-09-20] MEDS ORDERED: Acetaminophen 650 MG Suppository PR PRN (20:21)
[2022-09-20] MEDS ORDERED: Ondansetron PF 4 MG/2 ML Vial IVP PRN (20:21)
[2022-09-20] MEDS ORDERED: Dextrose 50% Abboject 50 ML SYRINGE SLOW IVP PRN (20:21)
[2022-09-20] MEDS ORDERED: Dextrose 5% in Water 1,000 ML IV PRN (20:21)
[2022-09-20 20:42] LABS: Actual Bicarbonate (HCO3a) 23.4 mEq/L (22-28); Analyzer IN Cardio ER; Base Excess (BEa) -5.6 mEq/L (-2.0 to +3.0); Calcium, Ionized (arterial) 1.19 mmol/L (1.12-1.30); Carboxyhemoglobin (COHb) 0.3 gm% (0.0-3.0); Hematocrit-ABG 31 % (36.0-47.0); Hemoglobin (Hb) 10.7 g/dL (12.0-16.0); O2 Tension (PaO2), arterial 78.6 mmHg (> 80.0); Potassium - ABG Lab 3.92 mmol/L (3.70-5.30)
[2022-09-20 20:44] LABS: pH, Arterial 7.174 (7.35-7.45)
[2022-09-20 20:45] LABS: ALV-art Gradient 68.435 mmHg (0-20); CO2 Tension 64.9 mmHg (35.0-45.0); Puncture Site LBA
[2022-09-20] MEDS ORDERED: Furosemide 40 MG/4 ML VIAL SLOW IVP SCH (21:00)
[2022-09-20 21:06] LABS: Troponin I Less than 0.010 ng/mL (< 0.028)
[2022-09-20] MEDS ORDERED: Electrolyte Replacement Protocol 1 EACH FS SCH (21:15)
[2022-09-20] MEDS ORDERED: Furosemide 40 MG/4 ML VIAL ONE (21:35)
[2022-09-20 22:09] LABS: Anion Gap 15 mmol/L (10-20); BUN (Urea Nitrogen) 19 mg/dL (9.8-20.1); Calc. Creatinine Clearance 0 mL/min (70-130); Calcium 8.6 mg/dL (7.8-10.44); Carbon Dioxide 21 mmol/L (23-31); Chloride 107 mmol/L (98-107); Estimated GFR 21; Glucose 301 mg/dL (80-115); Potassium 4.1 mmol/L (3.5-5.1); Sodium 139 mmol/L (136-145)
[2022-09-20] MEDS ORDERED: Ipratropium/Albuterol 3 ML NEB NEB PRN (22:10)
[2022-09-20 22:12] LABS: Magnesium 1.8 mg/dL (1.6-2.6)
[2022-09-20] MEDS: Ipratropium/Albuterol 3 ML NEB NEB SCH (23:12)
[2022-09-20 23:36] LABS: Actual Bicarbonate (HCO3a) 22.6 mEq/L (22-28); Base Excess (BEa) -5.5 mEq/L (-2.0 to +3.0); CO2 Tension 56.7 mmHg (35.0-45.0); Carboxyhemoglobin (COHb) 0.5 gm% (0.0-3.0); Hematocrit-ABG 32 % (36.0-47.0); Hemoglobin (Hb) 10.8 g/dL (12.0-16.0); O2 Tension (PaO2), arterial 85.5 mmHg (> 80.0); Potassium - ABG Lab 4.16 mmol/L (3.70-5.30); pH, Arterial 7.218 (7.35-7.45)
[2022-09-20 23:38] LABS: ALV-art Gradient 57.525 mmHg (0-20); Puncture Site LRA
[2022-09-21 00:42] LABS: Troponin I Less than 0.010 ng/mL (< 0.028)
[2022-09-21 00:47] LABS: Bacteria/HPF None Seen HPF (None Seen); Bilirubin Negative (Negative); Blood, Urine Negative (Negative); Clarity Clear (Clear); Glucose, Urine (Dipstick) Greater than 1000 mg/dL (Negative); Ketone, Urine Negative (Negative); Leukocyte Negative Leu/uL (Negative); Nitrite Negative (Negative); Protein, Urine (Dipstick) 100 mg/dL (Neg-Trace); RBC/HPF 0-3 HPF (0-3); Specific Gravity, Urine 1.014 (1.002-1.036); Squamous Epithelial 0-3 HPF (0-3); Urobilinogen Normal mg/dL (Less than 2); WBC/HPF 0-3 HPF (0-3)
[2022-09-21] MEDS: Ipratropium/Albuterol 3 ML NEB NEB SCH ×6 (03:29→23:06)
[2022-09-21] MEDS: HumaLOG 300 UNITS/3 ML VIAL SC PRN ×3 (05:17→17:41)
[2022-09-21 07:31] LABS: #Eosinphils 0.1 thou/uL (0.0-0.7); #Lymphocytes 1.5 thou/uL (1.20-3.40); #Monocytes 0.4 thou/uL (0.11-0.59); #Neutrophils 3.8 thou/uL (1.40-6.50); %Basophils 0.2 % (0.0-1.0); %Eosinophils 1.7 % (0.0-10.0); %Monocytes 6.9 % (0.0-10.0); %Neutrophils 66.1 % (42.0-75.0); Hemoglobin 9.2 g/dL (12.0-16.0); Mean Corpuscular HGB CONC 33.6 g/dL (32.0-36.0); Mean Corpuscular Hemoglobin 27.6 pg (27.0-31.0); Mean Corpuscular Volume 82.3 fl (78.0-98.0); Mean Platelet Volume 8.8 fL (7.4-10.4); Platelet Count 254 10x3/uL (130-400); RBC Distribution Width 14.5 % (11.5-14.5); Red Blood Cell (RBC) Count 3.32 mill/uL (4.20-5.40); White Blood Cell (WBC) Count 5.8 10x3/uL (4.8-10.8)
[2022-09-21 07:34] LABS: Iron 23 ug/dL (50-170); Iron Binding Capacity, Total 196 mcg/dL (265-497)
[2022-09-21 07:38] LABS: Anion Gap 10 mmol/L (10-20); BUN (Urea Nitrogen) 19 mg/dL (9.8-20.1); Calc. Creatinine Clearance 39 mL/min (70-130); Calcium 8.8 mg/dL (7.8-10.44); Carbon Dioxide 27 mmol/L (23-31); Chloride 109 mmol/L (98-107); Estimated GFR 21; Glucose 213 mg/dL (80-115); Iron 22 ug/dL (50-170); Iron Binding Capacity, Total 200 mcg/dL (265-497); Magnesium 1.8 mg/dL (1.6-2.6); Sodium 142 mmol/L (136-145)
[2022-09-21 07:51] LABS: Actual Bicarbonate (HCO3a) 26.6 mEq/L (22-28); Base Excess (BEa) -0.8 mEq/L (-2.0 to +3.0); CO2 Tension 59.3 mmHg (35.0-45.0); Calcium, Ionized (arterial) 1.22 mmol/L (1.12-1.30); Carboxyhemoglobin (COHb) 0.3 gm% (0.0-3.0); Hematocrit-ABG 28 % (36.0-47.0); Hemoglobin (Hb) 9.6 g/dL (12.0-16.0); O2 Tension (PaO2), arterial 91.5 mmHg (> 80.0); Potassium - ABG Lab 3.79 mmol/L (3.70-5.30)
[2022-09-21 07:55] LABS: ALV-art Gradient 48.275 mmHg (0-20); Puncture Site RRA
[2022-09-21] MEDS ORDERED: Magnesium 2 GM/50 ML(in water) 2 GM in Premix Bag 1 BAG IVPB SCH (08:00)
[2022-09-21] MEDS: Famotidine/PF 20 mg/2ml Vial SLOW IVP SCH (08:08)
[2022-09-21 09:51] LABS: Amphetamine Not Detected (NotDetected); Barbiturates Screen Not Detected (NotDetected); Benzodiazepine Screen Not Detected (NotDetected); Cocaine Metabolite Screen Not Detected (NotDetected); Methadone Not Detected (NotDetected); Methamphetamine Not Detected (NotDetected); Opiate Screen Detected (NotDetected); Oxycodone Screen Not Detected (NotDetected); Phencyclidine (PCP) Not Detected (NotDetected); THC/Cannabinoid Screen Not Detected (NotDetected); Tricyclic Screen Not Detected (NotDetected)
[2022-09-21] MEDS: Acetaminophen 325 MG TAB PO PRN ×2 (15:38→19:38)
[2022-09-21] MEDS ORDERED: Albumin 25% 25 GM/100 ML BOT IVPB SCH (18:15)
[2022-09-21 19:34] LABS: Creatinine, Urine 52.6 mg/dL (47-110)
[2022-09-21] MEDS ORDERED: Benzonatate 100 MG CAP PO PRN (19:52)
[2022-09-21] MEDS: Furosemide 40 MG/4 ML VIAL SLOW IVP SCH (20:14)
[2022-09-21] MEDS ORDERED: Spironolactone 25 MG TAB PO SCH (21:00)
[2022-09-21] MEDS: Albumin 25% 25 GM/100 ML BOT IVPB SCH (21:15)
[2022-09-22] MEDS: Ipratropium/Albuterol 3 ML NEB NEB SCH ×6 (02:26→23:42)
[2022-09-22 03:55] LABS: #Eosinphils 0.2 thou/uL (0.0-0.7); #Lymphocytes 1.5 thou/uL (1.20-3.40); #Monocytes 0.3 thou/uL (0.11-0.59); #Neutrophils 2.2 thou/uL (1.40-6.50); %Basophils 0.2 % (0.0-1.0); %Eosinophils 4.8 % (0.0-10.0); %Lymphocytes 35.8 % (21.0-51.0); %Monocytes 7.4 % (0.0-10.0); %Neutrophils 51.7 % (42.0-75.0); Hemoglobin 7.1 g/dL (12.0-16.0); Mean Corpuscular Hemoglobin 26.1 pg (27.0-31.0); Mean Platelet Volume 8.7 fL (7.4-10.4); Platelet Count 207 10x3/uL (130-400); RBC Distribution Width 14.7 % (11.5-14.5); Red Blood Cell (RBC) Count 2.74 mill/uL (4.20-5.40); White Blood Cell (WBC) Count 4.2 10x3/uL (4.8-10.8)
[2022-09-22 04:18] LABS: Anion Gap 14 mmol/L (10-20); BUN (Urea Nitrogen) 19 mg/dL (9.8-20.1); CK (CPK) 23 U/L (29-168); Calc. Creatinine Clearance 43 mL/min (70-130); Calcium 8.6 mg/dL (7.8-10.44); Carbon Dioxide 25 mmol/L (23-31); Chloride 107 mmol/L (98-107); Estimated GFR 24; Glucose 173 mg/dL (80-115); Potassium 3.6 mmol/L (3.5-5.1); Sodium 142 mmol/L (136-145)
[2022-09-22] MEDS: Albumin 25% 25 GM/100 ML BOT IVPB SCH ×3 (05:05→20:38)
[2022-09-22] MEDS ORDERED: Iron, Sodium Ferric Gluconate 250 MG in Sodium Chloride 0.9% 250 ML 250 ML IVPB SCH (08:00)
[2022-09-22] MEDS ORDERED: EPOETIN ALFA-EPBX (ESRD) 10,000 UNITS/ML VIAL SC SCH (08:00)
[2022-09-22] MEDS: Furosemide 40 MG/4 ML VIAL SLOW IVP SCH ×2 (08:30→20:38)
[2022-09-22] MEDS: Spironolactone 25 MG TAB PO SCH ×2 (08:30→20:38)
[2022-09-22] MEDS: Famotidine/PF 20 mg/2ml Vial SLOW IVP SCH (08:30)
[2022-09-22] MEDS: HumaLOG 300 UNITS/3 ML VIAL SC PRN ×2 (11:31→21:09)
[2022-09-22] MEDS: Ondansetron ODT 4 MG TAB PO PRN (11:31)
[2022-09-22] MEDS ORDERED: hydrALAZINE 20 MG/ML VIAL SLOW IVP SCH (12:30)
[2022-09-22] MEDS ORDERED: NIFEdipine XL 60 MG TAB PO SCH (14:00)
[2022-09-22] MEDS: Acetaminophen 325 MG TAB PO PRN (17:02)
[2022-09-22] MEDS: hydrALAZINE 20 MG/ML VIAL SLOW IVP PRN (17:12)
[2022-09-22] MEDS: DULoxetine 60 MG CAP PO SCH (20:38)
[2022-09-23] MEDS: hydrALAZINE 20 MG/ML VIAL SLOW IVP PRN ×2 (00:04→04:56)
[2022-09-23] MEDS ORDERED: Phenol 118 ML BOT PO PRN (01:51)
[2022-09-23] MEDS ORDERED: Sodium Chloride 0.65% Nasal 44 ML BOT EA NARE PRN (01:51)
[2022-09-23] MEDS ORDERED: Mag-Al 1200 mg/1200 mg/30 ML UDCUP PO PRN (01:51)
[2022-09-23] MEDS ORDERED: hydrOXYzine 25 MG TAB PO SCH (02:00)
[2022-09-23] MEDS: Ipratropium/Albuterol 3 ML NEB NEB SCH (03:05)
[2022-09-23 04:22] LABS: #Eosinphils 0.2 thou/uL (0.0-0.7); #Lymphocytes 1.8 thou/uL (1.20-3.40); #Monocytes 0.7 thou/uL (0.11-0.59); #Neutrophils 5.4 thou/uL (1.40-6.50); %Basophils 0.1 % (0.0-1.0); %Eosinophils 2.5 % (0.0-10.0); %Lymphocytes 22.2 % (21.0-51.0); %Monocytes 8.7 % (0.0-10.0); %Neutrophils 66.5 % (42.0-75.0); Hemoglobin 9.1 g/dL (12.0-16.0); Mean Corpuscular HGB CONC 33.1 g/dL (32.0-36.0); Mean Corpuscular Hemoglobin 27.7 pg (27.0-31.0); Mean Corpuscular Volume 83.6 fl (78.0-98.0); Platelet Count 210 10x3/uL (130-400); RBC Distribution Width 15.2 % (11.5-14.5); Red Blood Cell (RBC) Count 3.29 mill/uL (4.20-5.40); White Blood Cell (WBC) Count 8.1 10x3/uL (4.8-10.8)
[2022-09-23 04:37] LABS: Anion Gap 17 mmol/L (10-20); BUN (Urea Nitrogen) 22 mg/dL (9.8-20.1); Calc. Creatinine Clearance 42 mL/min (70-130); Calcium 9.4 mg/dL (7.8-10.44); Carbon Dioxide 22 mmol/L (23-31); Chloride 105 mmol/L (98-107); Estimated GFR 24; Glucose 181 mg/dL (80-115); Potassium 3.8 mmol/L (3.5-5.1); Sodium 140 mmol/L (136-145)
[2022-09-23] MEDS: HumaLOG 300 UNITS/3 ML VIAL SC PRN ×3 (06:22→17:30)
[2022-09-23] MEDS: Ipratropium 200 Puff Oral Inhaler INH SCH ×5 (07:37→23:15)
[2022-09-23] MEDS: Albuterol HFA (OR) 200 PUFF INH INH SCH ×5 (07:39→23:14)
[2022-09-23] MEDS: Empagliflozin 25 MG TAB PO SCH (09:55)
[2022-09-23] MEDS: Famotidine/PF 20 mg/2ml Vial SLOW IVP SCH (09:55)
[2022-09-23] MEDS: Spironolactone 25 MG TAB PO SCH ×2 (09:55→20:39)
[2022-09-23] MEDS: Furosemide 40 MG/4 ML VIAL SLOW IVP SCH ×2 (09:55→20:40)
[2022-09-23] MEDS: DULoxetine 60 MG CAP PO SCH ×2 (09:55→20:39)
[2022-09-23] MEDS: Aripiprazole 10 MG TAB PO SCH (09:55)
[2022-09-23] MEDS ORDERED: NIFEdipine XL 60 MG TAB PO SCH (10:00)
[2022-09-23] MEDS ORDERED: Iron, Sodium Ferric Gluconate 250 MG in Sodium Chloride 0.9% 250 ML 250 ML IVPB SCH (16:00)
[2022-09-23] MEDS: Acetaminophen 325 MG TAB PO PRN (20:38)
[2022-09-23] MEDS: Doxycycline 100 MG CAP PO SCH (20:39)
[2022-09-24] MEDS: Albuterol HFA (OR) 200 PUFF INH INH SCH ×6 (02:28→23:31)
[2022-09-24] MEDS: Ipratropium 200 Puff Oral Inhaler INH SCH ×6 (02:28→23:31)
[2022-09-24] MEDS: Acetaminophen 325 MG TAB PO PRN ×3 (03:52→18:37)
[2022-09-24 04:19] LABS: #Eosinphils 0.1 thou/uL (0.0-0.7); #Lymphocytes 1.8 thou/uL (1.20-3.40); #Monocytes 0.7 thou/uL (0.11-0.59); #Neutrophils 5.4 thou/uL (1.40-6.50); %Basophils 0.2 % (0.0-1.0); %Eosinophils 1.7 % (0.0-10.0); %Monocytes 8.6 % (0.0-10.0); %Neutrophils 67.5 % (42.0-75.0); Hemoglobin 9.4 g/dL (12.0-16.0); Mean Corpuscular HGB CONC 32.7 g/dL (32.0-36.0); Mean Corpuscular Hemoglobin 27.6 pg (27.0-31.0); Mean Corpuscular Volume 84.4 fl (78.0-98.0); Platelet Count 212 10x3/uL (130-400); RBC Distribution Width 15.1 % (11.5-14.5); White Blood Cell (WBC) Count 7.9 10x3/uL (4.8-10.8)
[2022-09-24 04:35] LABS: Anion Gap 16 mmol/L (10-20); BUN (Urea Nitrogen) 21 mg/dL (9.8-20.1); Calc. Creatinine Clearance 45 mL/min (70-130); Carbon Dioxide 24 mmol/L (23-31); Chloride 102 mmol/L (98-107); Potassium 3.3 mmol/L (3.5-5.1); Sodium 139 mmol/L (136-145)
[2022-09-24 04:36] LABS: Albumin 3.6 g/dL (3.4-4.8); BUN/Creatinine Ratio 10.14; Calcium 9.8 mg/dL (7.8-10.44); Estimated GFR 26; Glucose 234 mg/dL (80-115); Phosphorus 3.1 mg/dL (2.3-4.7)
[2022-09-24] MEDS: HumaLOG 300 UNITS/3 ML VIAL SC PRN ×3 (06:13→17:05)
[2022-09-24] MEDS: hydrALAZINE 20 MG/ML VIAL SLOW IVP PRN ×2 (06:15→14:10)
[2022-09-24] MEDS ORDERED: Potassium Chloride 20 MEQ TAB PO SCH (08:00)
[2022-09-24] MEDS: Empagliflozin 25 MG TAB PO SCH (08:37)
[2022-09-24] MEDS: Doxycycline 100 MG CAP PO SCH ×2 (08:37→20:21)
[2022-09-24] MEDS: Famotidine/PF 20 mg/2ml Vial SLOW IVP SCH (08:37)
[2022-09-24] MEDS: Aripiprazole 10 MG TAB PO SCH (08:37)
[2022-09-24] MEDS: Spironolactone 25 MG TAB PO SCH ×2 (08:37→20:21)
[2022-09-24] MEDS: DULoxetine 60 MG CAP PO SCH ×2 (08:37→20:21)
[2022-09-24] MEDS: Furosemide 40 MG/4 ML VIAL SLOW IVP SCH ×2 (08:37→20:21)
[2022-09-24] MEDS: NIFEdipine XL 60 MG TAB PO SCH ×2 (08:38→20:19)
[2022-09-24] MEDS: Labetalol HCl 100 MG TAB PO SCH ×2 (08:38→20:22)
[2022-09-24] MEDS ORDERED: Magnesium 2 GM/50 ML(in water) 2 GM in Premix Bag 1 BAG IVPB SCH (08:45)
[2022-09-24] MEDS ORDERED: NIFEdipine XL 30 MG TAB PO SCH (10:00)
[2022-09-24 14:04] LABS: 24 Hr Creatinine 1445.21 mg/24 hr (710-1650); Creatinine, Urine 41.89 mg/dL (47-110)
[2022-09-24] MEDS: traMADol HCl 50 MG TAB PO PRN (20:20)
[2022-09-24] MEDS: hydrALAZINE 25 MG TAB PO SCH (20:20)
[2022-09-24] MEDS: Insulin Glargine 30 UNITS/0.3 ML VIAL SC SCH (20:21)
[2022-09-25] MEDS: Albuterol HFA (OR) 200 PUFF INH INH SCH ×6 (03:06→23:03)
[2022-09-25] MEDS: Ipratropium 200 Puff Oral Inhaler INH SCH ×6 (03:07→23:03)
[2022-09-25 04:25] LABS: #Eosinphils 0.2 thou/uL (0.0-0.7); #Lymphocytes 1.7 thou/uL (1.20-3.40); #Monocytes 0.6 thou/uL (0.11-0.59); #Neutrophils 3.8 thou/uL (1.40-6.50); %Basophils 0.2 % (0.0-1.0); %Eosinophils 3.1 % (0.0-10.0); %Lymphocytes 26.6 % (21.0-51.0); %Monocytes 9.1 % (0.0-10.0); %Neutrophils 60.9 % (42.0-75.0); Hemoglobin 9.8 g/dL (12.0-16.0); Mean Corpuscular HGB CONC 33.1 g/dL (32.0-36.0); Mean Corpuscular Hemoglobin 27.9 pg (27.0-31.0); Mean Corpuscular Volume 84.4 fl (78.0-98.0); Mean Platelet Volume 8.6 fL (7.4-10.4); Platelet Count 211 10x3/uL (130-400); RBC Distribution Width 15.4 % (11.5-14.5); Red Blood Cell (RBC) Count 3.49 mill/uL (4.20-5.40); White Blood Cell (WBC) Count 6.2 10x3/uL (4.8-10.8)
[2022-09-25 04:38] LABS: Albumin 3.6 g/dL (3.4-4.8); Anion Gap 16 mmol/L (10-20); BUN (Urea Nitrogen) 24 mg/dL (9.8-20.1); BUN/Creatinine Ratio 11.06; Calc. Creatinine Clearance 43 mL/min (70-130); Calcium 9.7 mg/dL (7.8-10.44); Carbon Dioxide 28 mmol/L (23-31); Chloride 100 mmol/L (98-107); Estimated GFR 24; Glucose 243 mg/dL (80-115); Phosphorus 3.9 mg/dL (2.3-4.7); Potassium 3.7 mmol/L (3.5-5.1); Sodium 140 mmol/L (136-145)
[2022-09-25] MEDS: HumaLOG 300 UNITS/3 ML VIAL SC PRN ×4 (05:56→21:14)
[2022-09-25] MEDS ORDERED: Furosemide 40 MG/4 ML VIAL SLOW IVP SCH (09:00)
[2022-09-25] MEDS: NIFEdipine XL 60 MG TAB PO SCH ×2 (09:14→21:15)
[2022-09-25] MEDS: Doxycycline 100 MG CAP PO SCH ×2 (09:14→21:15)
[2022-09-25] MEDS: Labetalol HCl 100 MG TAB PO SCH ×2 (09:14→21:15)
[2022-09-25] MEDS: DULoxetine 60 MG CAP PO SCH ×2 (09:14→21:15)
[2022-09-25] MEDS: Spironolactone 25 MG TAB PO SCH ×2 (09:14→21:15)
[2022-09-25] MEDS: Famotidine/PF 20 mg/2ml Vial SLOW IVP SCH (09:15)
[2022-09-25] MEDS: hydrALAZINE 25 MG TAB PO SCH ×3 (09:15→21:15)
[2022-09-25] MEDS: Empagliflozin 25 MG TAB PO SCH (10:23)
[2022-09-25] MEDS: Aripiprazole 10 MG TAB PO SCH (10:23)
[2022-09-25] MEDS: traMADol HCl 50 MG TAB PO PRN ×2 (12:25→21:16)
[2022-09-25] MEDS: Insulin Glargine 30 UNITS/0.3 ML VIAL SC SCH (21:14)
[2022-09-26] MEDS: Albuterol HFA (OR) 200 PUFF INH INH SCH ×6 (03:01→23:50)
[2022-09-26] MEDS: Ipratropium 200 Puff Oral Inhaler INH SCH ×6 (03:01→23:50)
[2022-09-26 04:29] LABS: #Eosinphils 0.2 thou/uL (0.0-0.7); #Monocytes 0.6 thou/uL (0.11-0.59); #Neutrophils 4.2 thou/uL (1.40-6.50); %Basophils 0.6 % (0.0-1.0); %Eosinophils 3.1 % (0.0-10.0); %Lymphocytes 24.5 % (21.0-51.0); %Monocytes 8.4 % (0.0-10.0); %Neutrophils 62.4 % (42.0-75.0); Hemoglobin 9.3 g/dL (12.0-16.0); Mean Corpuscular HGB CONC 31.7 g/dL (32.0-36.0); Mean Corpuscular Hemoglobin 26.6 pg (27.0-31.0); Mean Corpuscular Volume 83.7 fl (78.0-98.0); Mean Platelet Volume 10.4 fL (7.4-10.4); Platelet Count 241 10x3/uL (130-400); RBC Distribution Width 16.4 % (11.5-14.5); White Blood Cell (WBC) Count 6.8 10x3/uL (4.8-10.8)
[2022-09-26 04:53] LABS: Albumin 3.3 g/dL (3.4-4.8); Anion Gap 15 mmol/L (10-20); BUN (Urea Nitrogen) 29 mg/dL (9.8-20.1); BUN/Creatinine Ratio 13.06; Calc. Creatinine Clearance 40 mL/min (70-130); Calcium 9.1 mg/dL (7.8-10.44); Carbon Dioxide 27 mmol/L (23-31); Chloride 101 mmol/L (98-107); Estimated GFR 24; Glucose 193 mg/dL (80-115); Phosphorus 4.1 mg/dL (2.3-4.7); Potassium 3.2 mmol/L (3.5-5.1); Sodium 140 mmol/L (136-145)
[2022-09-26] MEDS: HumaLOG 300 UNITS/3 ML VIAL SC PRN ×3 (05:37→20:32)
[2022-09-26] MEDS ORDERED: Potassium Chloride 20 MEQ TAB PO SCH (08:00)
[2022-09-26] MEDS: Famotidine/PF 20 mg/2ml Vial SLOW IVP SCH (09:12)
[2022-09-26] MEDS: Spironolactone 25 MG TAB PO SCH ×2 (09:12→20:31)
[2022-09-26] MEDS: Labetalol HCl 100 MG TAB PO SCH ×2 (09:12→20:31)
[2022-09-26] MEDS: DULoxetine 60 MG CAP PO SCH ×2 (09:12→20:30)
[2022-09-26] MEDS: hydrALAZINE 25 MG TAB PO SCH ×3 (09:12→20:30)
[2022-09-26] MEDS: NIFEdipine XL 60 MG TAB PO SCH ×2 (09:12→20:31)
[2022-09-26] MEDS: Doxycycline 100 MG CAP PO SCH ×2 (09:12→20:30)
[2022-09-26 09:29] LABS: PTT 31.9 sec (22.9-36.1)
[2022-09-26] MEDS: Empagliflozin 25 MG TAB PO SCH (10:12)
[2022-09-26] MEDS: Torsemide 10 MG TAB PO SCH (10:12)
[2022-09-26] MEDS: Aripiprazole 10 MG TAB PO SCH (10:12)
[2022-09-26] MEDS ORDERED: hydrALAZINE 20 MG/ML VIAL SLOW IVP SCH (10:30)
[2022-09-26] MEDS ORDERED: fentaNYL 50 mcg/mL 1 mL Vial ONE (11:47)
[2022-09-26] MEDS ORDERED: Midazolam HCl 2 mg/2 ml Vial ONE (11:47)
[2022-09-26] MEDS ORDERED: Sodium Bicarbonate 2.5 MEQ/5 ML VIAL ONE (11:48)
[2022-09-26] MEDS ORDERED: Lidocaine 1% PF 5 ML VIAL ONE (11:48)
[2022-09-26] MEDS: traMADol HCl 50 MG TAB PO PRN (13:51)
[2022-09-26] MEDS: Acetaminophen 325 MG TAB PO PRN ×2 (17:57→21:41)
[2022-09-26] MEDS: Insulin Glargine 30 UNITS/0.3 ML VIAL SC SCH (20:32)
[2022-09-26] MEDS: Ondansetron ODT 4 MG TAB PO PRN (20:36)
[2022-09-27] MEDS: traMADol HCl 50 MG TAB PO PRN (03:29)
[2022-09-27] MEDS: Ipratropium 200 Puff Oral Inhaler INH SCH ×4 (03:50→14:30)
[2022-09-27] MEDS: Albuterol HFA (OR) 200 PUFF INH INH SCH ×4 (04:10→14:30)
[2022-09-27] MEDS ORDERED: hydrOXYzine 25 MG TAB PO SCH (04:45)
[2022-09-27 04:52] LABS: #Eosinphils 0.4 thou/uL (0.0-0.7); #Monocytes 0.6 thou/uL (0.11-0.59); #Neutrophils 3.8 thou/uL (1.40-6.50); %Basophils 0.6 % (0.0-1.0); %Eosinophils 5.3 % (0.0-10.0); %Lymphocytes 27.7 % (21.0-51.0); %Monocytes 8.4 % (0.0-10.0); %Neutrophils 57.1 % (42.0-75.0); Hemoglobin 9.6 g/dL (12.0-16.0); Mean Corpuscular HGB CONC 29.4 g/dL (32.0-36.0); Mean Corpuscular Hemoglobin 26.6 pg (27.0-31.0); Mean Corpuscular Volume 90.6 fl (78.0-98.0); Mean Platelet Volume 11.3 fL (7.4-10.4); Platelet Count 239 10x3/uL (130-400); RBC Distribution Width 16.9 % (11.5-14.5); Red Blood Cell (RBC) Count 3.61 mill/uL (4.20-5.40); White Blood Cell (WBC) Count 6.7 10x3/uL (4.8-10.8)
[2022-09-27 05:13] LABS: Albumin 3.5 g/dL (3.4-4.8); Anion Gap 17 mmol/L (10-20); BUN (Urea Nitrogen) 27 mg/dL (9.8-20.1); Calc. Creatinine Clearance 0 mL/min (70-130); Calcium 8.8 mg/dL (7.8-10.44); Carbon Dioxide 23 mmol/L (23-31); Chloride 102 mmol/L (98-107); Estimated GFR 25; Glucose 167 mg/dL (80-115); Phosphorus 4.9 mg/dL (2.3-4.7); Potassium 3.8 mmol/L (3.5-5.1); Sodium 138 mmol/L (136-145)
[2022-09-27 05:40] LABS: Burr Cells SLIGHT = 2-5 cells HPF (0-1); CellaVision Operator ID lab.abc; Macrocytosis SLIGHT = 6-15 cells HPF (0-5); Platelet Morphology Comment Platelets Normal; Poikilocytosis MODERATE=16-30 cells HPF (0-5); Polychromasia SLIGHT = 2-3 cells HPF (0-2); RBC Morphology Within Normal Limits
[2022-09-27] MEDS: HumaLOG 300 UNITS/3 ML VIAL SC PRN ×2 (06:07→11:32)
[2022-09-27] MEDS: DULoxetine 60 MG CAP PO SCH (09:18)
[2022-09-27] MEDS: hydrALAZINE 25 MG TAB PO SCH (09:18)
[2022-09-27] MEDS: Doxycycline 100 MG CAP PO SCH (09:18)
[2022-09-27] MEDS: Spironolactone 25 MG TAB PO SCH (09:18)
[2022-09-27] MEDS: Labetalol HCl 100 MG TAB PO SCH (09:18)
[2022-09-27] MEDS: Aripiprazole 10 MG TAB PO SCH (09:18)
[2022-09-27] MEDS: Empagliflozin 25 MG TAB PO SCH (09:18)
[2022-09-27] MEDS: NIFEdipine XL 60 MG TAB PO SCH (09:19)
[2022-09-27] MEDS: Famotidine/PF 20 mg/2ml Vial SLOW IVP SCH (09:20)
[2022-09-27] MEDS: Torsemide 10 MG TAB PO SCH (09:23)
[2022-09-27] MEDS ORDERED: Labetalol HCl 100 MG TAB PO SCH ×2 (10:15→21:00)
[2022-09-27] MEDS ORDERED: Torsemide 10 MG TAB PO SCH (10:30)
[2022-09-27 14:00] VITALS: TEMP 97.8
[2022-09-27 14:14] VITALS: BP 164/72
[2022-09-28] MEDS ORDERED: Torsemide 10 MG TAB PO SCH (09:00)
== END 2022-09-27 17:05 | disposition home or self-care (01) | DRG 291 ==
LOC: ERS 14:31 → CCU 20:16 → 2NO 09-22 15:43
PROVIDERS: ADMIT Student in an Organized Health Care Education/Training Program; ATTEND Internal Medicine
PROC: 30233N1 Transfusion of Nonautologous Red Blood Cells into Peripheral Vein, Percutaneous Approach (ICD-10-PCS; principal; 2022-09-22)
PROC: 0TB13ZX Excision of Left Kidney, Percutaneous Approach, Diagnostic (ICD-10-PCS; 2022-09-26)
DX: I13.0 Hypertensive heart and chronic kidney disease with heart failure and stage 1 through stage 4 chronic kidney disease, or unspecified chronic kidney disease (principal); G93.41 Metabolic encephalopathy; I50.33 Acute on chronic diastolic (congestive) heart failure; J96.21 Acute and chronic respiratory failure with hypoxia; J96.22 Acute and chronic respiratory failure with hypercapnia; J44.1 Chronic obstructive pulmonary disease with (acute) exacerbation; N17.9 Acute kidney failure, unspecified; D62 Acute posthemorrhagic anemia; N18.4 Chronic kidney disease, stage 4 (severe); I95.1 Orthostatic hypotension; Z96.653 Presence of artificial knee joint, bilateral; F41.9 Anxiety disorder, unspecified; F32.A Depression, unspecified; M54.9 Dorsalgia, unspecified; G89.29 Other chronic pain; E11.22 Type 2 diabetes mellitus with diabetic chronic kidney disease; D63.1 Anemia in chronic kidney disease; D50.9 Iron deficiency anemia, unspecified; J20.9 Acute bronchitis, unspecified; I16.0 Hypertensive urgency; E87.6 Hypokalemia; Z90.710 Acquired absence of both cervix and uterus; Z90.49 Acquired absence of other specified parts of digestive tract; Z98.890 Other specified postprocedural states; Z88.5 Allergy status to narcotic agent; Z88.2 Allergy status to sulfonamides; Z88.1 Allergy status to other antibiotic agents; Z79.84 Long term (current) use of oral hypoglycemic drugs; Z79.899 Other long term (current) drug therapy; Z79.4 Long term (current) use of insulin
CPT/HCPCS: 36415; 36416; 36430; 36600; 50200; 70450; 71045; 71250; 72125; 74176; 77002; 80048; 80053; 80069; 80306; 80307; 81001; 82040; 82088; 82274; 82550; 82570; 82728; 82805; 83540; 83550; 83605; 83735; 83880; 83930; 84156; 84244; 84300; 84484; 84540; 85025; 85379; 85610; 85730; 86850; 86900; 86901; 88329; 93005; 93306; 94640; 94660; 94760; 96361; 96372; 96374; 96375; J0360; J1650; J1815; J1940; J2250; J2270; J2405; J2916; J3010; J3475; J7050; J7620; P9016; P9047; Q0162; Q5105; S0028

== ENCOUNTER 2022-10-01 12:07 | Emergency (ER) | payer OTHER, MEDICARE ==
[2022-10-01 12:38] LABS: #Basophils 0.1 thou/uL (0.0-0.2); #Eosinphils 0.2 thou/uL (0.0-0.7); #Monocytes 0.7 thou/uL (0.11-0.59); #Neutrophils 8.4 thou/uL (1.40-6.50); %Basophils 0.5 % (0.0-1.0); %Eosinophils 1.6 % (0.0-10.0); %Lymphocytes 13.9 % (21.0-51.0); %Monocytes 6.3 % (0.0-10.0); %Neutrophils 76.9 % (42.0-75.0); Hemoglobin 9.8 g/dL (12.0-16.0); Mean Corpuscular HGB CONC 31.4 g/dL (32.0-36.0); Mean Corpuscular Hemoglobin 26.6 pg (27.0-31.0); Mean Corpuscular Volume 84.6 fl (78.0-98.0); Mean Platelet Volume 10.8 fL (7.4-10.4); Platelet Count 303 10x3/uL (130-400); Red Blood Cell (RBC) Count 3.69 mill/uL (4.20-5.40); White Blood Cell (WBC) Count 10.9 10x3/uL (4.8-10.8)
[2022-10-01] MEDS ORDERED: Lidocaine 1% w/Epinephrine 1:100K 20 ML VIAL ONE (12:43)
[2022-10-01 13:02] LABS: ALT (SGPT) 7 U/L (8-55); AST (SGOT) 17 U/L (5-34); Albumin 3.6 g/dL (3.4-4.8); Alkaline Phosphatase 156 U/L (40-110); Anion Gap 18 mmol/L (10-20); BUN (Urea Nitrogen) 45 mg/dL (9.8-20.1); Bilirubin, Total 0.6 mg/dL (0.2-1.2); Calc. Creatinine Clearance 0 mL/min (70-130); Calcium 9.3 mg/dL (7.8-10.44); Carbon Dioxide 23 mmol/L (23-31); Chloride 100 mmol/L (98-107); Estimated GFR 15; Globulin 3.3 g/dL (2.4-3.5); Glucose 277 mg/dL (80-115); Potassium 4.7 mmol/L (3.5-5.1); Protein, Total 6.9 g/dL (5.8-8.1); Sodium 136 mmol/L (136-145)
[2022-10-01] MEDS ORDERED: HYDROcodone/Acetaminophen 5/325 mg Tablet ONE (13:19)
== END 2022-10-01 15:25 ==
LOC: ERS 12:07
DX: S01.01XA Laceration without foreign body of scalp, initial encounter (principal); R55 Syncope and collapse; I11.0 Hypertensive heart disease with heart failure; I50.9 Heart failure, unspecified; E78.00 Pure hypercholesterolemia, unspecified; E11.9 Type 2 diabetes mellitus without complications; J44.9 Chronic obstructive pulmonary disease, unspecified; W01.198A Fall on same level from slipping, tripping and stumbling with subsequent striking against other object, initial encounter; Z79.899 Other long term (current) drug therapy
CPT/HCPCS: 12001; 36415; 70450; 71045; 80053; 83880; 84484; 85025; 93005; 94760

== ENCOUNTER 2022-10-26 15:25 | Inpatient (IN) | payer OTHER ==
[2022-10-26 16:00] LABS: #Eosinphils 0.2 thou/uL (0.0-0.7); #Monocytes 0.4 thou/uL (0.11-0.59); #Neutrophils 4.3 thou/uL (1.40-6.50); %Basophils 0.5 % (0.0-1.0); %Eosinophils 3.1 % (0.0-10.0); %Lymphocytes 21.8 % (21.0-51.0); %Monocytes 6.6 % (0.0-10.0); %Neutrophils 67.1 % (42.0-75.0); Hemoglobin 10.2 g/dL (12.0-16.0); Mean Corpuscular Hemoglobin 27.9 pg (27.0-31.0); Mean Corpuscular Volume 84.4 fl (78.0-98.0); Mean Platelet Volume 10.6 fL (7.4-10.4); Platelet Count 252 10x3/uL (130-400); RBC Distribution Width 15.2 % (11.5-14.5); Red Blood Cell (RBC) Count 3.66 mill/uL (4.20-5.40); White Blood Cell (WBC) Count 6.5 10x3/uL (4.8-10.8)
[2022-10-26] MEDS ORDERED: Amlodipine 5 mg/Benazepril 10 mg CAP PO SCH (16:15)
[2022-10-26] MEDS ORDERED: Insulin Regular 300 UNITS/3 ML VIAL ONE (16:17)
[2022-10-26 16:22] LABS: ALT (SGPT) 10 U/L (8-55); AST (SGOT) 12 U/L (5-34); Albumin 3.5 g/dL (3.4-4.8); Alkaline Phosphatase 226 U/L (40-110); Anion Gap 12 mmol/L (10-20); BUN (Urea Nitrogen) 31 mg/dL (9.8-20.1); Bilirubin, Total 0.3 mg/dL (0.2-1.2); Calc. Creatinine Clearance 0 mL/min (70-130); Calcium 8.7 mg/dL (7.8-10.44); Carbon Dioxide 25 mmol/L (23-31); Chloride 106 mmol/L (98-107); Estimated GFR 22; Globulin 3.2 g/dL (2.4-3.5); Glucose 298 mg/dL (80-115); Lipase 81 U/L (8-78); Potassium 4.8 mmol/L (3.5-5.1); Protein, Total 6.7 g/dL (5.8-8.1); Sodium 138 mmol/L (136-145)
[2022-10-26] MEDS ORDERED: Acetaminophen 500 MG TAB ONE (17:34)
[2022-10-26] MEDS ORDERED: Metoclopramide HCl 10 MG/2 ML VIAL ONE (17:34)
[2022-10-26] MEDS ORDERED: diphenhydrAMINE 50 MG/ML VIAL ONE (17:34)
[2022-10-26] MEDS ORDERED: hydrALAZINE 20 MG/ML VIAL ONE (19:23)
[2022-10-26] MEDS ORDERED: Ondansetron ODT 4 MG TAB PO PRN (20:30)
[2022-10-26] MEDS ORDERED: Senokot S 8.6-50 MG TAB PO PRN (20:30)
[2022-10-26] MEDS ORDERED: Calcium Carbonate 500 MG ChewTAB PO PRN (20:30)
[2022-10-26] MEDS ORDERED: Dextrose 50% Abboject 50 ML SYRINGE SLOW IVP PRN (20:32)
[2022-10-26] MEDS ORDERED: HumaLOG 300 UNITS/3 ML VIAL SC PRN (20:32)
[2022-10-26] MEDS ORDERED: Glucagon 1 MG/ML KIT IM PRN (20:32)
[2022-10-26] MEDS ORDERED: Dextrose 5% in Water 1,000 ML IV PRN (20:32)
[2022-10-26 20:54] LABS: Troponin I Less than 0.010 ng/mL (< 0.028)
[2022-10-26] MEDS ORDERED: Famotidine 20 MG TAB PO SCH (21:00)
[2022-10-26 21:06] VITALS: BMI 37.0
[2022-10-26] MEDS: Atorvastatin Calcium 40 MG TAB PO SCH (21:48)
[2022-10-26] MEDS: DULoxetine 60 MG CAP PO SCH (21:48)
[2022-10-26] MEDS: Montelukast Sodium 10 mg Tablet PO SCH (21:49)
[2022-10-26] MEDS: hydrALAZINE 25 MG TAB PO SCH (21:50)
[2022-10-26] MEDS: NIFEdipine XL 60 MG TAB PO SCH (21:54)
[2022-10-26] MEDS: Spironolactone 100 MG TAB PO SCH (21:55)
[2022-10-26] MEDS: Labetalol HCl 100 MG TAB PO SCH (21:55)
[2022-10-26 23:33] LABS: Troponin I Less than 0.010 ng/mL (< 0.028)
[2022-10-27 05:08] LABS: #Eosinphils 0.4 thou/uL (0.0-0.7); #Monocytes 0.6 thou/uL (0.11-0.59); #Neutrophils 4.6 thou/uL (1.40-6.50); %Basophils 0.5 % (0.0-1.0); %Eosinophils 4.3 % (0.0-10.0); %Lymphocytes 32.9 % (21.0-51.0); %Monocytes 6.9 % (0.0-10.0); %Neutrophils 54.5 % (42.0-75.0); Hemoglobin 10.9 g/dL (12.0-16.0); Mean Corpuscular HGB CONC 33.2 g/dL (32.0-36.0); Mean Corpuscular Hemoglobin 28.1 pg (27.0-31.0); Mean Corpuscular Volume 84.5 fl (78.0-98.0); Mean Platelet Volume 10.7 fL (7.4-10.4); Platelet Count 268 10x3/uL (130-400); RBC Distribution Width 15.6 % (11.5-14.5); Red Blood Cell (RBC) Count 3.88 mill/uL (4.20-5.40); White Blood Cell (WBC) Count 8.5 10x3/uL (4.8-10.8)
[2022-10-27 05:32] LABS: Anion Gap 12 mmol/L (10-20); BUN (Urea Nitrogen) 34 mg/dL (9.8-20.1); Calc. Creatinine Clearance 36 mL/min (70-130); Carbon Dioxide 22 mmol/L (23-31); Chloride 108 mmol/L (98-107); Estimated GFR 22; Glucose 306 mg/dL (80-115); Potassium 4.7 mmol/L (3.5-5.1); Sodium 137 mmol/L (136-145)
[2022-10-27] MEDS: HumaLOG 300 UNITS/3 ML VIAL SC PRN ×2 (05:59→12:52)
[2022-10-27] MEDS: Acetaminophen 325 MG TAB PO PRN (07:22)
[2022-10-27] MEDS ORDERED: Torsemide 10 MG TAB PO SCH (09:00)
[2022-10-27] MEDS ORDERED: methylPREDNISolone Sod Succ 40 MG VIAL IVP SCH (09:00)
[2022-10-27] MEDS ORDERED: Fioricet 325/50/40 mg Tablet PO SCH (09:00)
[2022-10-27] MEDS ORDERED: Ipratropium/Albuterol 3 ML NEB NEB SCH (09:00)
[2022-10-27] MEDS: traMADol HCl 50 MG TAB PO PRN ×2 (09:22→18:10)
[2022-10-27] MEDS: Ezetimibe 10 MG TAB PO SCH (09:23)
[2022-10-27] MEDS: NIFEdipine XL 60 MG TAB PO SCH ×2 (09:23→20:50)
[2022-10-27] MEDS: Aripiprazole 10 MG TAB PO SCH (09:23)
[2022-10-27] MEDS: Gabapentin 400 MG CAP PO SCH ×3 (09:23→20:50)
[2022-10-27] MEDS: Empagliflozin 25 MG TAB PO SCH (09:23)
[2022-10-27] MEDS: Labetalol HCl 100 MG TAB PO SCH ×2 (09:24→20:50)
[2022-10-27] MEDS: Spironolactone 100 MG TAB PO SCH ×2 (09:24→20:50)
[2022-10-27] MEDS: DULoxetine 60 MG CAP PO SCH ×2 (09:25→20:50)
[2022-10-27] MEDS: hydrALAZINE 25 MG TAB PO SCH ×3 (09:25→20:50)
[2022-10-27] MEDS: ALPRAZolam 0.5 MG TAB PO PRN ×2 (09:32→20:50)
[2022-10-27] MEDS ORDERED: glipiZIDE 5 MG TAB PO SCH (13:15)
[2022-10-27] MEDS ORDERED: Morphine 2 MG/ML VIAL SLOW IVP SCH (13:30)
[2022-10-27] MEDS ORDERED: Promethazine HCl 25 MG in Sodium Chloride 0.9% 50 ML IVPB SCH (13:30)
[2022-10-27] MEDS ORDERED: Insulin Regular 300 UNITS/3 ML VIAL IVP SCH (17:30)
[2022-10-27] MEDS ORDERED: Sodium Chloride 0.9% 500 ML IV SCH ×2 (17:45→18:00)
[2022-10-27] MEDS: Atorvastatin Calcium 40 MG TAB PO SCH (20:50)
[2022-10-27] MEDS: Montelukast Sodium 10 mg Tablet PO SCH (20:50)
[2022-10-27] MEDS ORDERED: HumaLOG 300 UNITS/3 ML VIAL SC SCH (22:15)
[2022-10-28] MEDS: traMADol HCl 50 MG TAB PO PRN ×2 (04:04→20:34)
[2022-10-28 05:24] LABS: #Monocytes 0.3 thou/uL (0.11-0.59); #Neutrophils 8.4 thou/uL (1.40-6.50); %Basophils 0.1 % (0.0-1.0); %Lymphocytes 8.3 % (21.0-51.0); %Monocytes 2.6 % (0.0-10.0); %Neutrophils 88.2 % (42.0-75.0); Hemoglobin 11.8 g/dL (12.0-16.0); Mean Corpuscular HGB CONC 32.2 g/dL (32.0-36.0); Mean Corpuscular Hemoglobin 27.4 pg (27.0-31.0); Mean Corpuscular Volume 85.2 fl (78.0-98.0); Mean Platelet Volume 11.5 fL (7.4-10.4); RBC Distribution Width 15.6 % (11.5-14.5); Red Blood Cell (RBC) Count 4.31 mill/uL (4.20-5.40); White Blood Cell (WBC) Count 9.5 10x3/uL (4.8-10.8)
[2022-10-28 05:25] LABS: Platelet Count 247 10x3/uL (130-400)
[2022-10-28 05:44] LABS: Anion Gap 16 mmol/L (10-20); BUN (Urea Nitrogen) 52 mg/dL (9.8-20.1); Calc. Creatinine Clearance 26 mL/min (70-130); Calcium 9.3 mg/dL (7.8-10.44); Carbon Dioxide 18 mmol/L (23-31); Chloride 103 mmol/L (98-107); Estimated GFR 14; Sodium 131 mmol/L (136-145)
[2022-10-28 05:47] LABS: Glucose 423 mg/dL (80-115); Potassium 6.4 mmol/L (3.5-5.1)
[2022-10-28] MEDS ORDERED: HumaLOG 300 UNITS/3 ML VIAL SC PRN (06:06)
[2022-10-28] MEDS: Fioricet 325/50/40 mg Tablet PO PRN ×2 (06:12→18:28)
[2022-10-28] MEDS: HumaLOG 300 UNITS/3 ML VIAL SC PRN ×3 (06:13→18:15)
[2022-10-28 06:43] LABS: Anion Gap 15 mmol/L (10-20); BUN (Urea Nitrogen) 54 mg/dL (9.8-20.1); Calc. Creatinine Clearance 25 mL/min (70-130); Calcium 9.2 mg/dL (7.8-10.44); Carbon Dioxide 21 mmol/L (23-31); Chloride 103 mmol/L (98-107); Estimated GFR 14; Sodium 133 mmol/L (136-145)
[2022-10-28 06:46] LABS: Glucose 437 mg/dL (80-115); Potassium 6.3 mmol/L (3.5-5.1)
[2022-10-28] MEDS ORDERED: Calcium Gluc 4.6 MEQ/10 ML (100 MG/ML) SLOW IVP SCH (07:00)
[2022-10-28] MEDS: Sodium Chloride 0.9% 1,000 ML IV SCH ×2 (07:42→16:44)
[2022-10-28] MEDS: DULoxetine 60 MG CAP PO SCH ×2 (09:28→20:33)
[2022-10-28] MEDS: Ezetimibe 10 MG TAB PO SCH (09:28)
[2022-10-28] MEDS: NIFEdipine XL 60 MG TAB PO SCH ×2 (09:28→20:32)
[2022-10-28] MEDS: Empagliflozin 25 MG TAB PO SCH (09:28)
[2022-10-28] MEDS: Gabapentin 400 MG CAP PO SCH ×3 (09:28→20:33)
[2022-10-28] MEDS: Aripiprazole 10 MG TAB PO SCH (09:28)
[2022-10-28] MEDS: hydrALAZINE 25 MG TAB PO SCH ×3 (09:28→20:33)
[2022-10-28] MEDS: Labetalol HCl 100 MG TAB PO SCH ×2 (09:28→20:33)
[2022-10-28] MEDS: glipiZIDE 5 MG TAB PO SCH (09:29)
[2022-10-28 10:19] LABS: Anion Gap 17 mmol/L (10-20); BUN (Urea Nitrogen) 56 mg/dL (9.8-20.1); Calc. Creatinine Clearance 25 mL/min (70-130); Calcium 9.6 mg/dL (7.8-10.44); Carbon Dioxide 20 mmol/L (23-31); Chloride 103 mmol/L (98-107); Estimated GFR 14; Glucose 378 mg/dL (80-115); Potassium 5.7 mmol/L (3.5-5.1); Sodium 134 mmol/L (136-145)
[2022-10-28] MEDS ORDERED: Dextrose 50% Abboject 50 ML SYRINGE SLOW IVP SCH (12:45)
[2022-10-28] MEDS ORDERED: Insulin Regular 300 UNITS/3 ML VIAL IVP SCH (12:45)
[2022-10-28 14:49] LABS: Bilirubin Negative (Negative); Blood, Urine 1+ (Negative); CAUTI Indications for Culture Dysuria,urgency,freq; Clarity Extra Turbid (Clear); Glucose, Urine (Dipstick) Greater than 1000 mg/dL (Negative); Ketone, Urine Negative (Negative); Leukocyte 500 Leu/uL (Negative); Nitrite Negative (Negative); Protein, Urine (Dipstick) 200 mg/dL (Neg-Trace); Specific Gravity, Urine 1.013 (1.002-1.036); Squamous Epithelial 0-3 HPF (0-3); Urobilinogen Normal mg/dL (Less than 2); WBC/HPF Greater than 50 HPF (0-3)
[2022-10-28 14:56] LABS: Bacteria/HPF 4+ HPF (None Seen); Urine Culture Reflex Yes Yes
[2022-10-28] MEDS: Cefepime 1 GM in Sodium Chloride 0.9% 100 ML IVPB SCH (18:19)
[2022-10-28] MEDS: Montelukast Sodium 10 mg Tablet PO SCH (20:33)
[2022-10-28] MEDS: Atorvastatin Calcium 40 MG TAB PO SCH (20:34)
[2022-10-28] MEDS: ALPRAZolam 0.5 MG TAB PO PRN (20:34)
[2022-10-28 20:42] LABS: Anion Gap 16 mmol/L (10-20); BUN (Urea Nitrogen) 56 mg/dL (9.8-20.1); Calc. Creatinine Clearance 26 mL/min (70-130); Calcium 8.9 mg/dL (7.8-10.44); Carbon Dioxide 20 mmol/L (23-31); Chloride 105 mmol/L (98-107); Estimated GFR 15; Glucose 211 mg/dL (80-115); Potassium 4.7 mmol/L (3.5-5.1); Sodium 136 mmol/L (136-145)
[2022-10-29] MEDS: Sodium Chloride 0.9% 1,000 ML IV SCH ×3 (02:27→20:10)
[2022-10-29] MEDS: traMADol HCl 50 MG TAB PO PRN ×3 (05:50→20:20)
[2022-10-29] MEDS: HumaLOG 300 UNITS/3 ML VIAL SC PRN ×2 (05:52→18:15)
[2022-10-29 06:26] LABS: Anion Gap 15 mmol/L (10-20); BUN (Urea Nitrogen) 59 mg/dL (9.8-20.1); Calc. Creatinine Clearance 26 mL/min (70-130); Calcium 8.2 mg/dL (7.8-10.44); Carbon Dioxide 21 mmol/L (23-31); Chloride 104 mmol/L (98-107); Estimated GFR 14; Glucose 216 mg/dL (80-115); Potassium 4.6 mmol/L (3.5-5.1); Sodium 135 mmol/L (136-145)
[2022-10-29] MEDS: DULoxetine 60 MG CAP PO SCH ×2 (08:53→20:11)
[2022-10-29] MEDS: Empagliflozin 25 MG TAB PO SCH (08:53)
[2022-10-29] MEDS: Gabapentin 400 MG CAP PO SCH ×3 (08:53→20:11)
[2022-10-29] MEDS: Aripiprazole 10 MG TAB PO SCH (08:53)
[2022-10-29] MEDS: Ezetimibe 10 MG TAB PO SCH (08:53)
[2022-10-29] MEDS: Labetalol HCl 100 MG TAB PO SCH ×2 (08:54→20:12)
[2022-10-29] MEDS: glipiZIDE 5 MG TAB PO SCH (08:54)
[2022-10-29] MEDS: hydrALAZINE 25 MG TAB PO SCH ×3 (08:54→20:12)
[2022-10-29] MEDS: NIFEdipine XL 60 MG TAB PO SCH ×2 (08:55→20:12)
[2022-10-29 11:13] LABS: SARS-CoV-2 NAA Rapid Test Not Detected (NotDetected)
[2022-10-29] MEDS: Cefepime 1 GM in Sodium Chloride 0.9% 100 ML IVPB SCH (20:10)
[2022-10-29] MEDS: Atorvastatin Calcium 40 MG TAB PO SCH (20:11)
[2022-10-29] MEDS: Montelukast Sodium 10 mg Tablet PO SCH (20:12)
[2022-10-30] MEDS: Sodium Chloride 0.9% 1,000 ML IV SCH (04:43)
[2022-10-30] MEDS: glipiZIDE 5 MG TAB PO SCH (08:37)
[2022-10-30] MEDS: Gabapentin 400 MG CAP PO SCH ×3 (08:37→21:38)
[2022-10-30] MEDS: NIFEdipine XL 60 MG TAB PO SCH ×2 (08:37→21:39)
[2022-10-30] MEDS: Empagliflozin 25 MG TAB PO SCH (08:37)
[2022-10-30] MEDS: DULoxetine 60 MG CAP PO SCH ×2 (08:37→21:39)
[2022-10-30] MEDS: Ezetimibe 10 MG TAB PO SCH (08:37)
[2022-10-30] MEDS: Labetalol HCl 100 MG TAB PO SCH ×2 (08:37→21:38)
[2022-10-30] MEDS: Aripiprazole 10 MG TAB PO SCH (08:38)
[2022-10-30] MEDS: Acetaminophen 325 MG TAB PO PRN (08:38)
[2022-10-30 09:13] LABS: #Eosinphils 0.3 thou/uL (0.0-0.7); #Monocytes 0.5 thou/uL (0.11-0.59); #Neutrophils 4.5 thou/uL (1.40-6.50); %Basophils 0.4 % (0.0-1.0); %Eosinophils 4.3 % (0.0-10.0); %Lymphocytes 24.7 % (21.0-51.0); %Monocytes 7.4 % (0.0-10.0); %Neutrophils 61.8 % (42.0-75.0); Hemoglobin 9.3 g/dL (12.0-16.0); Mean Corpuscular HGB CONC 31.4 g/dL (32.0-36.0); Mean Corpuscular Hemoglobin 27.4 pg (27.0-31.0); Mean Corpuscular Volume 87.3 fl (78.0-98.0); Mean Platelet Volume 10.9 fL (7.4-10.4); Platelet Count 235 10x3/uL (130-400); RBC Distribution Width 16.1 % (11.5-14.5); Red Blood Cell (RBC) Count 3.39 mill/uL (4.20-5.40); White Blood Cell (WBC) Count 7.3 10x3/uL (4.8-10.8)
[2022-10-30 09:35] LABS: Anion Gap 16 mmol/L (10-20); BUN (Urea Nitrogen) 57 mg/dL (9.8-20.1); Calc. Creatinine Clearance 29 mL/min (70-130); Calcium 8.5 mg/dL (7.8-10.44); Carbon Dioxide 18 mmol/L (23-31); Chloride 108 mmol/L (98-107); Estimated GFR 16; Glucose 238 mg/dL (80-115); Potassium 4.6 mmol/L (3.5-5.1); Sodium 137 mmol/L (136-145)
[2022-10-30] MEDS ORDERED: Vancomycin Dose by Levels Sliding Scale (Wt > 99) FS SCH (13:30)
[2022-10-30] MEDS ORDERED: VANCOMYCIN 2 GRAM/500 ML BAG 2 GM in Premix Bag 1 BAG IVPB SCH (13:45)
[2022-10-30] MEDS ORDERED: cefTRIAXone\\ROCEPHIN 2 GM in Sodium Chloride 0.9% 100 ML IVPB SCH (14:00)
[2022-10-30] MEDS: Sodium Bicarbonate Tab 325 MG TAB PO SCH ×2 (15:40→21:39)
[2022-10-30] MEDS: traMADol HCl 50 MG TAB PO PRN (15:40)
[2022-10-30 15:48] LABS: CSF Source CSF; Clarity Clear (Clear); Tube # 4
[2022-10-30 15:59] LABS: Color Of CSF Supernatant COLORLESS (Colorless); Tube # 1; Unspun CSF Color COLORLESS (Colorless)
[2022-10-30 16:01] LABS: CSF, Glucose 118 mg/dl (40-70); CSF, Protein 47 mg/dL (15-40)
[2022-10-30] MEDS: HumaLOG 300 UNITS/3 ML VIAL SC PRN (18:02)
[2022-10-30] MEDS: Atorvastatin Calcium 40 MG TAB PO SCH (21:38)
[2022-10-30] MEDS: Cefdinir 300 MG CAP PO SCH (21:38)
[2022-10-30] MEDS: Montelukast Sodium 10 mg Tablet PO SCH (21:40)
[2022-10-30] MEDS: Fioricet 325/50/40 mg Tablet PO PRN (21:40)
[2022-10-31 05:30] LABS: #Eosinphils 0.3 thou/uL (0.0-0.7); #Monocytes 0.5 thou/uL (0.11-0.59); #Neutrophils 4.5 thou/uL (1.40-6.50); %Basophils 0.3 % (0.0-1.0); %Eosinophils 4.3 % (0.0-10.0); %Lymphocytes 17.5 % (21.0-51.0); %Monocytes 8.1 % (0.0-10.0); %Neutrophils 68.9 % (42.0-75.0); Mean Corpuscular HGB CONC 31.9 g/dL (32.0-36.0); Mean Corpuscular Hemoglobin 27.3 pg (27.0-31.0); Mean Corpuscular Volume 85.7 fl (78.0-98.0); Mean Platelet Volume 10.6 fL (7.4-10.4); Platelet Count 205 10x3/uL (130-400); RBC Distribution Width 16.1 % (11.5-14.5); Red Blood Cell (RBC) Count 2.93 mill/uL (4.20-5.40); White Blood Cell (WBC) Count 6.5 10x3/uL (4.8-10.8)
[2022-10-31 05:56] LABS: Anion Gap 12 mmol/L (10-20); BUN (Urea Nitrogen) 53 mg/dL (9.8-20.1); BUN/Creatinine Ratio 19.13; Calc. Creatinine Clearance 31 mL/min (70-130); Calcium 8.4 mg/dL (7.8-10.44); Carbon Dioxide 20 mmol/L (23-31); Chloride 110 mmol/L (98-107); Estimated GFR 18; Glucose 241 mg/dL (80-115); Phosphorus 5.4 mg/dL (2.3-4.7); Potassium 4.6 mmol/L (3.5-5.1); Sodium 137 mmol/L (136-145)
[2022-10-31] MEDS: HumaLOG 300 UNITS/3 ML VIAL SC PRN ×2 (06:46→18:27)
[2022-10-31] MEDS: Gabapentin 400 MG CAP PO SCH ×3 (09:12→21:18)
[2022-10-31] MEDS: Labetalol HCl 100 MG TAB PO SCH ×2 (09:13→21:19)
[2022-10-31] MEDS: Aripiprazole 10 MG TAB PO SCH (09:13)
[2022-10-31] MEDS: Sodium Bicarbonate Tab 325 MG TAB PO SCH ×3 (09:13→21:20)
[2022-10-31] MEDS: NIFEdipine XL 60 MG TAB PO SCH ×2 (09:13→21:19)
[2022-10-31] MEDS: traMADol HCl 50 MG TAB PO PRN (09:14)
[2022-10-31] MEDS: DULoxetine 60 MG CAP PO SCH ×2 (09:14→21:18)
[2022-10-31] MEDS: glipiZIDE 5 MG TAB PO SCH (09:14)
[2022-10-31] MEDS: Ezetimibe 10 MG TAB PO SCH (09:14)
[2022-10-31] MEDS: Empagliflozin 25 MG TAB PO SCH (09:14)
[2022-10-31] MEDS ORDERED: Torsemide 10 MG TAB PO SCH (11:00)
[2022-10-31] MEDS: Atorvastatin Calcium 40 MG TAB PO SCH (21:18)
[2022-10-31] MEDS: Cefdinir 300 MG CAP PO SCH (21:18)
[2022-10-31] MEDS: Montelukast Sodium 10 mg Tablet PO SCH (21:19)
[2022-10-31] MEDS: Acetaminophen 325 MG TAB PO PRN (21:21)
[2022-11-01] MEDS: HumaLOG 300 UNITS/3 ML VIAL SC PRN ×2 (04:29→16:39)
[2022-11-01] MEDS: traMADol HCl 50 MG TAB PO PRN (05:04)
[2022-11-01 08:03] LABS: #Eosinphils 0.3 thou/uL (0.0-0.7); #Monocytes 0.4 thou/uL (0.11-0.59); #Neutrophils 3.4 thou/uL (1.40-6.50); %Basophils 0.7 % (0.0-1.0); %Lymphocytes 26.8 % (21.0-51.0); %Monocytes 7.3 % (0.0-10.0); %Neutrophils 59.2 % (42.0-75.0); Hemoglobin 8.2 g/dL (12.0-16.0); Mean Corpuscular Hemoglobin 27.9 pg (27.0-31.0); Mean Corpuscular Volume 87.1 fl (78.0-98.0); Mean Platelet Volume 10.9 fL (7.4-10.4); Platelet Count 233 10x3/uL (130-400); Red Blood Cell (RBC) Count 2.94 mill/uL (4.20-5.40); White Blood Cell (WBC) Count 5.8 10x3/uL (4.8-10.8)
[2022-11-01 08:24] LABS: Anion Gap 10 mmol/L (10-20); BUN (Urea Nitrogen) 49 mg/dL (9.8-20.1); BUN/Creatinine Ratio 19.29; Calc. Creatinine Clearance 34 mL/min (70-130); Calcium 8.7 mg/dL (7.8-10.44); Carbon Dioxide 22 mmol/L (23-31); Chloride 107 mmol/L (98-107); Estimated GFR 20; Glucose 214 mg/dL (80-115); Phosphorus 4.5 mg/dL (2.3-4.7); Potassium 4.4 mmol/L (3.5-5.1); Sodium 135 mmol/L (136-145)
[2022-11-01] MEDS: Ezetimibe 10 MG TAB PO SCH (08:49)
[2022-11-01] MEDS: NIFEdipine XL 60 MG TAB PO SCH (08:49)
[2022-11-01] MEDS: Empagliflozin 25 MG TAB PO SCH (08:50)
[2022-11-01] MEDS: glipiZIDE 5 MG TAB PO SCH (08:50)
[2022-11-01] MEDS: Gabapentin 400 MG CAP PO SCH ×2 (08:50→15:17)
[2022-11-01] MEDS: Sodium Bicarbonate Tab 325 MG TAB PO SCH ×2 (08:50→15:18)
[2022-11-01] MEDS: Aripiprazole 10 MG TAB PO SCH (08:50)
[2022-11-01] MEDS: DULoxetine 60 MG CAP PO SCH (08:50)
[2022-11-01] MEDS: Labetalol HCl 100 MG TAB PO SCH (08:50)
[2022-11-01] MEDS ORDERED: Spironolactone 100 MG TAB PO SCH (09:00)
[2022-11-01] MEDS ORDERED: Torsemide 10 MG TAB PO SCH (09:00)
[2022-11-01] MEDS: Acetaminophen 325 MG TAB PO PRN (15:20)
[2022-11-01 16:05] VITALS: BP 128/60; TEMP 98.4
== END 2022-11-01 16:49 | disposition home or self-care (01) | DRG 690 ==
LOC: ERS 15:25 → 2SW 19:40 → OBSVTOIN 10-28 12:18
PROVIDERS: ADMIT Student in an Organized Health Care Education/Training Program; ATTEND Internal Medicine
PROC: 009U3ZX Drainage of Spinal Canal, Percutaneous Approach, Diagnostic (ICD-10-PCS; principal; 2022-10-30)
PROC: B01B1ZZ Fluoroscopy of Spinal Cord using Low Osmolar Contrast (ICD-10-PCS; 2022-10-30)
DX: N39.0 Urinary tract infection, site not specified (principal); N17.9 Acute kidney failure, unspecified; E87.1 Hypo-osmolality and hyponatremia; I16.9 Hypertensive crisis, unspecified; E87.20 Acidosis, unspecified; N18.4 Chronic kidney disease, stage 4 (severe); I13.0 Hypertensive heart and chronic kidney disease with heart failure and stage 1 through stage 4 chronic kidney disease, or unspecified chronic kidney disease; E87.5 Hyperkalemia; E11.22 Type 2 diabetes mellitus with diabetic chronic kidney disease; J44.9 Chronic obstructive pulmonary disease, unspecified; Z96.653 Presence of artificial knee joint, bilateral; E11.65 Type 2 diabetes mellitus with hyperglycemia; E11.21 Type 2 diabetes mellitus with diabetic nephropathy; E78.00 Pure hypercholesterolemia, unspecified; D63.1 Anemia in chronic kidney disease; E88.09 Other disorders of plasma-protein metabolism, not elsewhere classified; E11.40 Type 2 diabetes mellitus with diabetic neuropathy, unspecified; Z20.822 Contact with and (suspected) exposure to COVID-19; M54.2 Cervicalgia; Z88.1 Allergy status to other antibiotic agents; Z88.2 Allergy status to sulfonamides; Z88.8 Allergy status to other drugs, medicaments and biological substances; Z79.899 Other long term (current) drug therapy; Z90.49 Acquired absence of other specified parts of digestive tract; Z98.890 Other specified postprocedural states
CPT/HCPCS: 36415; 36416; 62270; 71045; 80048; 80053; 80069; 81001; 82945; 83690; 83880; 84157; 84484; 85025; 87070; 87077; 87086; 87186; 87205; 89051; 93005; 93010; 94640; 96365; 96375; G0378; J0360; J0612; J0692; J0696; J1200; J1815; J2272; J2550; J2765; J2920; J3370; J3490; J7030; J7050; J7611; J7620; J7999; Q0162

== ENCOUNTER 2022-11-28 19:45 | Observation (INO) | payer OTHER ==
[2022-11-28 20:17] LABS: #Eosinphils 0.2 thou/uL (0.0-0.7); #Monocytes 0.4 thou/uL (0.11-0.59); #Neutrophils 2.9 thou/uL (1.40-6.50); %Basophils 0.5 % (0.0-1.0); %Eosinophils 3.8 % (0.0-10.0); %Lymphocytes 37.3 % (21.0-51.0); %Monocytes 7.6 % (0.0-10.0); %Neutrophils 50.3 % (42.0-75.0); Hemoglobin 8.8 g/dL (12.0-16.0); Mean Corpuscular Hemoglobin 27.8 pg (27.0-31.0); Mean Corpuscular Volume 86.8 fl (78.0-98.0); Mean Platelet Volume 9.9 fL (7.4-10.4); Platelet Count 193 10x3/uL (130-400); RBC Distribution Width 14.7 % (11.5-14.5); Red Blood Cell (RBC) Count 3.17 mill/uL (4.20-5.40); White Blood Cell (WBC) Count 5.8 10x3/uL (4.8-10.8)
[2022-11-28] MEDS ORDERED: Nitroglycerin 2% Ointment 1 INCH/1 GM Packet ONE (20:21)
[2022-11-28 20:51] LABS: ALT (SGPT) 8 U/L (8-55); AST (SGOT) 9 U/L (5-34); Albumin 3.5 g/dL (3.4-4.8); Alkaline Phosphatase 199 U/L (40-110); Anion Gap 15 mmol/L (10-20); BUN (Urea Nitrogen) 34 mg/dL (9.8-20.1); Bilirubin, Total 0.3 mg/dL (0.2-1.2); Calc. Creatinine Clearance 0 mL/min (70-130); Carbon Dioxide 24 mmol/L (23-31); Chloride 102 mmol/L (98-107); Estimated GFR 17; Glucose 354 mg/dL (80-115); Potassium 4.8 mmol/L (3.5-5.1); Protein, Total 6.5 g/dL (5.8-8.1); Sodium 136 mmol/L (136-145)
[2022-11-28] MEDS ORDERED: Glucagon 1 MG/ML KIT IM PRN (23:28)
[2022-11-28] MEDS ORDERED: HumaLOG 300 UNITS/3 ML VIAL SC PRN (23:28)
[2022-11-28] MEDS ORDERED: Dextrose 50% Abboject 50 ML SYRINGE SLOW IVP PRN (23:28)
[2022-11-28] MEDS ORDERED: Dextrose 5% in Water 1,000 ML IV PRN (23:28)
[2022-11-29 04:26] LABS: Troponin I 0.012 ng/mL (< 0.028)
[2022-11-29] MEDS ORDERED: Aspirin 325 MG TAB ONE (08:51)
[2022-11-29] MEDS ORDERED: HumaLOG 300 UNITS/3 ML VIAL ONE (08:52)
[2022-11-29] MEDS: HumaLOG 300 UNITS/3 ML VIAL SC PRN ×2 (08:53→17:47)
[2022-11-29] MEDS: Aspirin 325 mg Enteric Coated Tablet PO SCH (08:53)
[2022-11-29 10:09] LABS: Hemoglobin A1c 8.2 % (4.0-6.0)
[2022-11-29] MEDS ORDERED: Empagliflozin 25 MG TAB PO SCH (10:45)
[2022-11-29 12:10] VITALS: BMI 31.9
[2022-11-29] MEDS ORDERED: Spironolactone 100 MG TAB PO SCH (13:45)
[2022-11-29] MEDS: Gabapentin 300 MG CAP PO SCH ×2 (14:05→20:55)
[2022-11-29 16:14] LABS: SARS-CoV-2 NAA Rapid Test Not Detected (NotDetected)
[2022-11-29] MEDS ORDERED: Acetaminophen 325 MG TAB PO PRN (19:26)
[2022-11-29] MEDS ORDERED: Acetaminophen 500 MG TAB PO SCH (19:30)
[2022-11-29] MEDS: Labetalol HCl 100 MG TAB PO SCH (20:55)
[2022-11-29] MEDS: DULoxetine 60 MG CAP PO SCH (20:55)
[2022-11-29] MEDS: NIFEdipine XL 60 MG TAB PO SCH (20:55)
[2022-11-29] MEDS ORDERED: Aripiprazole 10 MG TAB PO SCH (21:00)
[2022-11-29] MEDS ORDERED: glipiZIDE 5 MG TAB PO SCH (21:00)
[2022-11-29] MEDS ORDERED: Ezetimibe 10 MG TAB PO SCH (21:00)
[2022-11-29] MEDS ORDERED: Montelukast Sodium 10 mg Tablet PO SCH (21:00)
[2022-11-29] MEDS ORDERED: Atorvastatin Calcium 40 MG TAB PO SCH (21:00)
[2022-11-30] MEDS: Labetalol HCl 100 MG TAB PO SCH (07:54)
[2022-11-30] MEDS: Aspirin 325 mg Enteric Coated Tablet PO SCH (07:58)
[2022-11-30] MEDS: NIFEdipine XL 60 MG TAB PO SCH (07:58)
[2022-11-30 08:00] VITALS: BP 165/88
[2022-11-30] MEDS: Gabapentin 300 MG CAP PO SCH (08:00)
[2022-11-30] MEDS: DULoxetine 60 MG CAP PO SCH (08:00)
[2022-11-30 08:14] VITALS: TEMP 97.4
[2022-11-30] MEDS ORDERED: Torsemide 10 MG TAB PO SCH (09:00)
[2022-11-30] MEDS ORDERED: Spironolactone 100 MG TAB PO SCH (09:00)
[2022-11-30] MEDS ORDERED: Sodium Bicarbonate Tab 325 MG TAB PO SCH (09:00)
[2022-11-30] MEDS ORDERED: Empagliflozin 25 MG TAB PO SCH (09:00)
[2022-11-30] MEDS ORDERED: traZODone HCl 150 MG TAB PO SCH (21:00)
== END 2022-11-30 11:45 | disposition home or self-care (01) ==
LOC: ERS 19:45 → ERHOLD 23:15 → 2SW 11-29 11:40
PROVIDERS: ADMIT Hospitalist; ATTEND Family Medicine
DX: R07.81 Pleurodynia (principal); I13.0 Hypertensive heart and chronic kidney disease with heart failure and stage 1 through stage 4 chronic kidney disease, or unspecified chronic kidney disease; I50.9 Heart failure, unspecified; N18.4 Chronic kidney disease, stage 4 (severe); D64.9 Anemia, unspecified; E78.5 Hyperlipidemia, unspecified; E11.9 Type 2 diabetes mellitus without complications; Z79.4 Long term (current) use of insulin; Z79.84 Long term (current) use of oral hypoglycemic drugs; Z79.899 Other long term (current) drug therapy; Z88.1 Allergy status to other antibiotic agents; Z88.2 Allergy status to sulfonamides; Z91.048 Other nonmedicinal substance allergy status
CPT/HCPCS: 0241U; 71045; 80053; 82962 ×2; 83036; 84484 ×3; 85025; 87633; 93005; 94760; 99285; 36415; 36416; G0378; J1650; J1815

== ENCOUNTER 2022-12-16 17:57 | Emergency (ER) | payer OTHER ==
[2022-12-16 18:24] LABS: Bacteria/HPF None Seen HPF (None Seen); Bilirubin Negative (Negative); Blood, Urine Trace (Negative); CAUTI Indications for Culture Pelvic or flank pain; Clarity Clear (Clear); Glucose, Urine (Dipstick) Greater than 1000 mg/dL (Negative); Ketone, Urine Negative (Negative); Leukocyte Negative Leu/uL (Negative); Nitrite Negative (Negative); Protein, Urine (Dipstick) 100 mg/dL (Neg-Trace); RBC/HPF 0-3 HPF (0-3); Specific Gravity, Urine 1.013 (1.002-1.036); Squamous Epithelial None Seen HPF (0-3); Urobilinogen Normal mg/dL (Less than 2); WBC/HPF 0-3 HPF (0-3)
[2022-12-16 18:26] LABS: Urine Culture Reflex No No
[2022-12-16 18:56] LABS: #Eosinphils 0.2 thou/uL (0.0-0.7); #Monocytes 0.4 thou/uL (0.11-0.59); #Neutrophils 3.7 thou/uL (1.40-6.50); %Basophils 0.5 % (0.0-1.0); %Eosinophils 2.8 % (0.0-10.0); %Lymphocytes 29.5 % (21.0-51.0); %Monocytes 6.2 % (0.0-10.0); %Neutrophils 60.5 % (42.0-75.0); Hemoglobin 9.6 g/dL (12.0-16.0); Mean Corpuscular HGB CONC 31.7 g/dL (32.0-36.0); Mean Corpuscular Hemoglobin 27.8 pg (27.0-31.0); Mean Corpuscular Volume 87.8 fl (78.0-98.0); Mean Platelet Volume 9.8 fL (7.4-10.4); Platelet Count 228 10x3/uL (130-400); RBC Distribution Width 14.5 % (11.5-14.5); Red Blood Cell (RBC) Count 3.45 mill/uL (4.20-5.40); White Blood Cell (WBC) Count 6.1 10x3/uL (4.8-10.8)
[2022-12-16 19:21] LABS: ALT (SGPT) 10 U/L (8-55); AST (SGOT) 12 U/L (5-34); Albumin 3.4 g/dL (3.4-4.8); Alkaline Phosphatase 171 U/L (40-110); Anion Gap 10 mmol/L (10-20); BUN (Urea Nitrogen) 29 mg/dL (9.8-20.1); Bilirubin, Total 0.2 mg/dL (0.2-1.2); Calc. Creatinine Clearance 0 mL/min (70-130); Calcium 8.8 mg/dL (7.8-10.44); Carbon Dioxide 27 mmol/L (23-31); Chloride 106 mmol/L (98-107); Estimated GFR 22; Globulin 2.9 g/dL (2.4-3.5); Glucose 192 mg/dL (80-115); Lipase 75 U/L (8-78); Potassium 4.8 mmol/L (3.5-5.1); Protein, Total 6.3 g/dL (5.8-8.1); Sodium 138 mmol/L (136-145)
[2022-12-16] MEDS ORDERED: Ondansetron PF 4 MG/2 ML Vial ONE (20:03)
[2022-12-16] MEDS ORDERED: Ketorolac Tromethamine 30 MG/ML VIAL ONE (20:03)
== END 2022-12-16 21:42 | disposition home or self-care (01) ==
LOC: ERS 17:57
DX: R10.30 Lower abdominal pain, unspecified (principal); M54.9 Dorsalgia, unspecified; I13.0 Hypertensive heart and chronic kidney disease with heart failure and stage 1 through stage 4 chronic kidney disease, or unspecified chronic kidney disease; I50.9 Heart failure, unspecified; N18.9 Chronic kidney disease, unspecified; E11.22 Type 2 diabetes mellitus with diabetic chronic kidney disease; E78.00 Pure hypercholesterolemia, unspecified
CPT/HCPCS: 36415; 74176; 80053; 81001; 83690; 85025; 96361; 96374; 96375; J1885; J2405

== ENCOUNTER 2022-12-22 11:41 | Inpatient (IN) | payer OTHER ==
[2022-12-22] MEDS ORDERED: Acetaminophen 500 MG TAB ONE (12:45)
[2022-12-22 12:55] LABS: #Eosinphils 0.2 thou/uL (0.0-0.7); #Monocytes 0.4 thou/uL (0.11-0.59); #Neutrophils 6.4 thou/uL (1.40-6.50); %Basophils 0.5 % (0.0-1.0); %Eosinophils 2.8 % (0.0-10.0); %Lymphocytes 15.7 % (21.0-51.0); %Monocytes 5.1 % (0.0-10.0); %Neutrophils 74.6 % (42.0-75.0); Hematocrit 33.4 % (36.0-47.0); Hemoglobin 10.6 g/dL (12.0-16.0); Mean Corpuscular HGB CONC 31.7 g/dL (32.0-36.0); Mean Corpuscular Hemoglobin 28.1 pg (27.0-31.0); Mean Corpuscular Volume 88.6 fl (78.0-98.0); Platelet Count 223 10x3/uL (130-400); RBC Distribution Width 14.4 % (11.5-14.5); Red Blood Cell (RBC) Count 3.77 mill/uL (4.20-5.40); White Blood Cell (WBC) Count 8.6 10x3/uL (4.8-10.8)
[2022-12-22 13:27] LABS: ALT (SGPT) 12 U/L (8-55); AST (SGOT) 14 U/L (5-34); Albumin 3.7 g/dL (3.4-4.8); Alkaline Phosphatase 196 U/L (40-110); Anion Gap 13 mmol/L (10-20); BUN (Urea Nitrogen) 24 mg/dL (9.8-20.1); Bilirubin, Total 0.4 mg/dL (0.2-1.2); Calc. Creatinine Clearance 0 mL/min (70-130); Calcium 9.2 mg/dL (7.8-10.44); Carbon Dioxide 24 mmol/L (23-31); Chloride 106 mmol/L (98-107); Estimated GFR 20; Globulin 3.4 g/dL (2.4-3.5); Glucose 131 mg/dL (80-115); Protein, Total 7.1 g/dL (5.8-8.1); Sodium 137 mmol/L (136-145)
[2022-12-22] MEDS ORDERED: Aspirin Chewable 81 MG TAB ONE (13:28)
[2022-12-22 13:35] LABS: Potassium 6.2 mmol/L (3.5-5.1)
[2022-12-22] MEDS ORDERED: Calcium Chloride 1 GM/10 ML Abboject SYRINGE ONE (13:44)
[2022-12-22] MEDS ORDERED: Albuterol 2.5 MG/0.5 ML NEB ONE (14:20)
[2022-12-22] MEDS ORDERED: fentaNYL 50 mcg/mL 1 mL Vial ONE (15:03)
[2022-12-22 17:01] LABS: Troponin I Less than 0.010 ng/mL (< 0.028)
[2022-12-22 17:21] VITALS: BMI 37.8
[2022-12-22] MEDS ORDERED: Glucagon 1 MG/ML KIT IM PRN (18:36)
[2022-12-22] MEDS ORDERED: Dextrose 50% Abboject 50 ML SYRINGE SLOW IVP PRN (18:36)
[2022-12-22] MEDS ORDERED: Senokot S 8.6-50 MG TAB PO PRN (18:36)
[2022-12-22] MEDS ORDERED: HYDROcodone/Acetaminophen 7.5/325 mg Tablet PO PRN (18:36)
[2022-12-22] MEDS ORDERED: Albuterol 200 PUFF (6.7GM INHALER) INH PRN (18:36)
[2022-12-22] MEDS ORDERED: Ondansetron ODT 4 MG TAB PO PRN (18:36)
[2022-12-22] MEDS ORDERED: Ondansetron PF 4 MG/2 ML Vial IVP PRN (18:36)
[2022-12-22] MEDS ORDERED: Dextrose 5% in Water 1,000 ML IV PRN (18:36)
[2022-12-22] MEDS: Morphine 4 MG/ML VIAL SLOW IVP PRN (20:16)
[2022-12-22] MEDS: Gabapentin 400 MG CAP PO SCH (20:18)
[2022-12-22] MEDS: Sodium Chloride 0.9% 1,000 ML IV SCH (20:18)
[2022-12-22] MEDS: Atorvastatin Calcium 40 MG TAB PO SCH (20:18)
[2022-12-22] MEDS: Sodium Bicarbonate Tab 325 MG TAB PO SCH (20:18)
[2022-12-22] MEDS: DULoxetine 60 MG CAP PO SCH (20:18)
[2022-12-22] MEDS: Montelukast Sodium 10 mg Tablet PO SCH (20:18)
[2022-12-22] MEDS: Famotidine 20 MG TAB PO SCH (20:18)
[2022-12-22] MEDS: Ezetimibe 10 MG TAB PO SCH (20:19)
[2022-12-22] MEDS: traZODone HCl 150 MG TAB PO SCH (20:19)
[2022-12-22] MEDS: Aripiprazole 10 MG TAB PO SCH (20:19)
[2022-12-22] MEDS: HYDROcodone/Acetaminophen 7.5/325 mg Tablet PO PRN (23:00)
[2022-12-23 04:08] LABS: #Eosinphils 0.3 thou/uL (0.0-0.7); #Monocytes 0.6 thou/uL (0.11-0.59); #Neutrophils 3.9 thou/uL (1.40-6.50); %Basophils 0.5 % (0.0-1.0); %Eosinophils 3.8 % (0.0-10.0); %Lymphocytes 27.6 % (21.0-51.0); %Monocytes 8.3 % (0.0-10.0); %Neutrophils 58.9 % (42.0-75.0); Hematocrit 31.1 % (36.0-47.0); Hemoglobin 9.8 g/dL (12.0-16.0); Mean Corpuscular HGB CONC 31.5 g/dL (32.0-36.0); Mean Corpuscular Hemoglobin 27.8 pg (27.0-31.0); Mean Corpuscular Volume 88.4 fl (78.0-98.0); Mean Platelet Volume 10.2 fL (7.4-10.4); Platelet Count 203 10x3/uL (130-400); RBC Distribution Width 14.6 % (11.5-14.5); Red Blood Cell (RBC) Count 3.52 mill/uL (4.20-5.40); White Blood Cell (WBC) Count 6.7 10x3/uL (4.8-10.8)
[2022-12-23 04:35] LABS: ALT (SGPT) 8 U/L (8-55); AST (SGOT) 11 U/L (5-34); Albumin 3.3 g/dL (3.4-4.8); Alkaline Phosphatase 162 U/L (40-110); Anion Gap 14 mmol/L (10-20); BUN (Urea Nitrogen) 27 mg/dL (9.8-20.1); Bilirubin, Total 0.3 mg/dL (0.2-1.2); Calc. Creatinine Clearance 32 mL/min (70-130); Calcium 8.6 mg/dL (7.8-10.44); Carbon Dioxide 21 mmol/L (23-31); Chloride 107 mmol/L (98-107); Estimated GFR 18; Globulin 2.9 g/dL (2.4-3.5); Glucose 243 mg/dL (80-115); Potassium 5.7 mmol/L (3.5-5.1); Protein, Total 6.2 g/dL (5.8-8.1); Sodium 136 mmol/L (136-145)
[2022-12-23] MEDS: HumaLOG 300 UNITS/3 ML VIAL SC PRN ×3 (06:54→21:22)
[2022-12-23] MEDS ORDERED: Torsemide 10 MG TAB PO SCH (09:00)
[2022-12-23] MEDS ORDERED: Empagliflozin 10 MG TAB PO SCH (09:00)
[2022-12-23] MEDS ORDERED: Calcium Gluc 4.6 MEQ/10 ML (100 MG/ML) SLOW IVP ONE (09:14)
[2022-12-23] MEDS: Gabapentin 400 MG CAP PO SCH ×3 (09:21→21:12)
[2022-12-23] MEDS: Aspirin 81 mg Enteric Coated Tablet PO SCH (09:21)
[2022-12-23] MEDS: Sodium Bicarbonate Tab 325 MG TAB PO SCH ×3 (09:21→21:12)
[2022-12-23] MEDS: HYDROcodone/Acetaminophen 7.5/325 mg Tablet PO PRN (09:21)
[2022-12-23] MEDS: DULoxetine 60 MG CAP PO SCH ×2 (09:21→21:02)
[2022-12-23] MEDS ORDERED: CALCIUM GLUC 1 GM/NS 50 ML 1 GM in Premix Bag 1 BAG IVPB SCH ×2 (09:30→18:30)
[2022-12-23] MEDS: Morphine 4 MG/ML VIAL SLOW IVP PRN (11:37)
[2022-12-23] MEDS: Sodium Chloride 0.9% 1,000 ML IV SCH (14:07)
[2022-12-23] MEDS ORDERED: LOKELMA 10 GM PACKET PO SCH ×2 (14:47→23:59)
[2022-12-23 17:15] LABS: Actual Bicarbonate (HCO3a) 24.1 mEq/L (22-28); Base Excess (BEa) -3.8 mEq/L (-2.0 to +3.0); CO2 Tension 57.9 mmHg (35.0-45.0); Calcium, Ionized (arterial) 1.15 mmol/L (1.12-1.30); Carboxyhemoglobin (COHb) 0.8 gm% (0.0-3.0); Hematocrit-ABG 34 % (36.0-47.0); Hemoglobin (Hb) 11.4 g/dL (12.0-16.0); O2 Tension (PaO2), arterial 99.8 mmHg (> 80.0); pH, Arterial 7.238 (7.35-7.45)
[2022-12-23 17:19] LABS: Potassium - ABG Lab 6.67 mmol/L (3.70-5.30); Puncture Site Right Radial
[2022-12-23 17:20] LABS: ALV-art Gradient 27.465 mmHg (0-20)
[2022-12-23] MEDS ORDERED: Naloxone HCl 0.4 mg/ml Vial IV SCH ×2 (17:30→21:00)
[2022-12-23 18:10] LABS: Anion Gap 17 mmol/L (10-20); BUN (Urea Nitrogen) 32 mg/dL (9.8-20.1); Calc. Creatinine Clearance 28 mL/min (70-130); Calcium 8.7 mg/dL (7.8-10.44); Carbon Dioxide 19 mmol/L (23-31); Chloride 107 mmol/L (98-107); Estimated GFR 15; Glucose 198 mg/dL (80-115); Sodium 136 mmol/L (136-145)
[2022-12-23 18:18] LABS: Potassium 6.9 mmol/L (3.5-5.1)
[2022-12-23] MEDS ORDERED: Dextrose 50% Abboject 50 ML SYRINGE SLOW IVP SCH (18:20)
[2022-12-23] MEDS ORDERED: Insulin Regular 300 UNITS/3 ML VIAL IVP SCH (18:21)
[2022-12-23] MEDS ORDERED: Sodium Bicarbonate 150 MEQ in Sterile Water 1,000 ML IV SCH (18:30)
[2022-12-23] MEDS: Acetaminophen 500 MG TAB PO PRN (21:02)
[2022-12-23] MEDS: Montelukast Sodium 10 mg Tablet PO SCH (21:02)
[2022-12-23] MEDS: Aripiprazole 10 MG TAB PO SCH (21:02)
[2022-12-23] MEDS: Famotidine 20 MG TAB PO SCH (21:02)
[2022-12-23] MEDS: Atorvastatin Calcium 40 MG TAB PO SCH (21:02)
[2022-12-23] MEDS: Ezetimibe 10 MG TAB PO SCH (21:02)
[2022-12-23] MEDS: traZODone HCl 150 MG TAB PO SCH (21:12)
[2022-12-23] MEDS ORDERED: Ipratropium/Albuterol 3 ML NEB NEB PRN (21:47)
[2022-12-23] MEDS: hydrALAZINE 20 MG/ML VIAL SLOW IVP PRN (22:09)
[2022-12-23 23:21] LABS: Actual Bicarbonate (HCO3a) 26.3 mEq/L (22-28); Base Excess (BEa) -0.1 mEq/L (-2.0 to +3.0); CO2 Tension 51.1 mmHg (35.0-45.0); Calcium, Ionized (arterial) 1.12 mmol/L (1.12-1.30); Carboxyhemoglobin (COHb) 0.8 gm% (0.0-3.0); Hematocrit-ABG 32 % (36.0-47.0); O2 Tension (PaO2), arterial 135.8 mmHg (> 80.0); Potassium - ABG Lab 5.49 mmol/L (3.70-5.30)
[2022-12-23 23:27] LABS: Anion Gap 16 mmol/L (10-20); BUN (Urea Nitrogen) 31 mg/dL (9.8-20.1); Calc. Creatinine Clearance 28 mL/min (70-130); Carbon Dioxide 21 mmol/L (23-31); Chloride 106 mmol/L (98-107); Estimated GFR 15; Glucose 238 mg/dL (80-115); Sodium 137 mmol/L (136-145)
[2022-12-23 23:29] LABS: Potassium 6.2 mmol/L (3.5-5.1)
[2022-12-24] MEDS: HumaLOG 300 UNITS/3 ML VIAL SC PRN (06:30)
[2022-12-24 06:43] LABS: #Eosinphils 0.2 thou/uL (0.0-0.7); #Monocytes 0.5 thou/uL (0.11-0.59); #Neutrophils 3.1 thou/uL (1.40-6.50); %Basophils 0.4 % (0.0-1.0); %Eosinophils 4.3 % (0.0-10.0); %Lymphocytes 28.9 % (21.0-51.0); %Monocytes 8.9 % (0.0-10.0); %Neutrophils 57.1 % (42.0-75.0); Hematocrit 29.9 % (36.0-47.0); Hemoglobin 9.2 g/dL (12.0-16.0); Mean Corpuscular HGB CONC 30.8 g/dL (32.0-36.0); Mean Corpuscular Hemoglobin 27.9 pg (27.0-31.0); Mean Corpuscular Volume 90.6 fl (78.0-98.0); Platelet Count 169 10x3/uL (130-400); RBC Distribution Width 14.7 % (11.5-14.5); White Blood Cell (WBC) Count 5.4 10x3/uL (4.8-10.8)
[2022-12-24 07:09] LABS: Anion Gap 12 mmol/L (10-20); BUN (Urea Nitrogen) 31 mg/dL (9.8-20.1); Calc. Creatinine Clearance 28 mL/min (70-130); Calcium 8.1 mg/dL (7.8-10.44); Carbon Dioxide 31 mmol/L (23-31); Chloride 101 mmol/L (98-107); Estimated GFR 16; Glucose 208 mg/dL (80-115); Potassium 4.5 mmol/L (3.5-5.1); Sodium 139 mmol/L (136-145)
[2022-12-24 07:16] LABS: Anion Gap 14 mmol/L (10-20); BUN (Urea Nitrogen) 31 mg/dL (9.8-20.1); Calc. Creatinine Clearance 28 mL/min (70-130); Calcium 8.3 mg/dL (7.8-10.44); Carbon Dioxide 29 mmol/L (23-31); Chloride 103 mmol/L (98-107); Estimated GFR 16; Glucose 210 mg/dL (80-115); Phosphorus 5.8 mg/dL (2.3-4.7); Potassium 4.6 mmol/L (3.5-5.1); Sodium 141 mmol/L (136-145)
[2022-12-24] MEDS ORDERED: Gabapentin 100 MG CAP PO SCH (09:00)
[2022-12-24] MEDS: Aspirin 81 mg Enteric Coated Tablet PO SCH (09:00)
[2022-12-24] MEDS: Sodium Bicarbonate Tab 325 MG TAB PO SCH ×3 (09:00→21:20)
[2022-12-24] MEDS: Albumin 25% 25 GM/100 ML BOT IVPB SCH ×3 (11:11→21:18)
[2022-12-24] MEDS: Aripiprazole 10 MG TAB PO SCH (21:18)
[2022-12-24] MEDS: Famotidine 20 MG TAB PO SCH (21:19)
[2022-12-24] MEDS: Ezetimibe 10 MG TAB PO SCH (21:19)
[2022-12-24] MEDS: Atorvastatin Calcium 40 MG TAB PO SCH (21:19)
[2022-12-24] MEDS: Montelukast Sodium 10 mg Tablet PO SCH (21:19)
[2022-12-24] MEDS: hydrALAZINE 20 MG/ML VIAL SLOW IVP PRN (22:09)
[2022-12-25] MEDS: hydrALAZINE 20 MG/ML VIAL SLOW IVP PRN ×3 (01:55→20:35)
[2022-12-25 03:46] LABS: #Eosinphils 0.3 thou/uL (0.0-0.7); #Monocytes 0.6 thou/uL (0.11-0.59); #Neutrophils 3.8 thou/uL (1.40-6.50); %Basophils 0.5 % (0.0-1.0); %Eosinophils 3.9 % (0.0-10.0); %Lymphocytes 25.7 % (21.0-51.0); %Monocytes 9.8 % (0.0-10.0); %Neutrophils 59.6 % (42.0-75.0); Hematocrit 26.8 % (36.0-47.0); Hemoglobin 8.7 g/dL (12.0-16.0); Mean Corpuscular HGB CONC 32.5 g/dL (32.0-36.0); Mean Platelet Volume 9.9 fL (7.4-10.4); Platelet Count 168 10x3/uL (130-400); RBC Distribution Width 14.5 % (11.5-14.5); Red Blood Cell (RBC) Count 3.11 mill/uL (4.20-5.40); White Blood Cell (WBC) Count 6.3 10x3/uL (4.8-10.8)
[2022-12-25 03:47] LABS: Mean Corpuscular Volume 86.2 fl (78.0-98.0)
[2022-12-25 04:07] LABS: Anion Gap 13 mmol/L (10-20); BUN (Urea Nitrogen) 30 mg/dL (9.8-20.1); Calc. Creatinine Clearance 34 mL/min (70-130); Calcium 8.8 mg/dL (7.8-10.44); Carbon Dioxide 26 mmol/L (23-31); Chloride 105 mmol/L (98-107); Estimated GFR 21; Glucose 160 mg/dL (80-115); Potassium 3.9 mmol/L (3.5-5.1); Sodium 140 mmol/L (136-145)
[2022-12-25] MEDS: Acetaminophen 500 MG TAB PO PRN ×2 (04:22→20:26)
[2022-12-25] MEDS: Sodium Bicarbonate Tab 325 MG TAB PO SCH ×3 (08:35→21:40)
[2022-12-25] MEDS: Aspirin 81 mg Enteric Coated Tablet PO SCH (08:36)
[2022-12-25] MEDS ORDERED: Lidocaine 1% (PF) 30 ML VIAL ONE (13:20)
[2022-12-25] MEDS ORDERED: Gentamicin 80 MG/2 ML VIAL ONE (13:21)
[2022-12-25] MEDS ORDERED: Clindamycin/D5W 900 mg/50 ml Premix Bag ONE (13:25)
[2022-12-25] MEDS ORDERED: PROPOFOL 200 MG/20 ML VIAL ONE (13:42)
[2022-12-25] MEDS ORDERED: Empagliflozin 10 MG TAB PO SCH (14:00)
[2022-12-25] MEDS ORDERED: hydrALAZINE 20 MG/ML VIAL ONE (15:30)
[2022-12-25] MEDS: Epoetin (ESRD) 10,000 UNITS/ML VIAL SC SCH (17:46)
[2022-12-25] MEDS: Aripiprazole 10 MG TAB PO SCH (20:24)
[2022-12-25] MEDS: Ezetimibe 10 MG TAB PO SCH (20:25)
[2022-12-25] MEDS: Atorvastatin Calcium 40 MG TAB PO SCH (20:25)
[2022-12-25] MEDS: Famotidine 20 MG TAB PO SCH (20:28)
[2022-12-25] MEDS: Montelukast Sodium 10 mg Tablet PO SCH (20:28)
[2022-12-25] MEDS: NIFEdipine XL 60 MG TAB PO SCH (20:28)
[2022-12-26] MEDS: Acetaminophen 500 MG TAB PO PRN ×2 (01:06→09:46)
[2022-12-26] MEDS: hydrALAZINE 20 MG/ML VIAL SLOW IVP PRN (04:09)
[2022-12-26 08:09] LABS: Hematocrit 33.9 % (36.0-47.0); Hemoglobin 9.8 g/dL (12.0-16.0)
[2022-12-26] MEDS ORDERED: Empagliflozin 10 MG TAB PO SCH (09:00)
[2022-12-26] MEDS ORDERED: Nebivolol HCl 5 MG TAB PO SCH (09:00)
[2022-12-26] MEDS ORDERED: cloNIDine 0.1 MG TAB PO SCH ×2 (09:27→10:00)
[2022-12-26 09:31] LABS: Anion Gap 21 mmol/L (10-20); BUN (Urea Nitrogen) 31 mg/dL (9.8-20.1); Calc. Creatinine Clearance 37 mL/min (70-130); Calcium 9.5 mg/dL (7.8-10.44); Carbon Dioxide 18 mmol/L (23-31); Chloride 104 mmol/L (98-107); Estimated GFR 23; Glucose 205 mg/dL (80-115); Potassium 4.3 mmol/L (3.5-5.1); Sodium 139 mmol/L (136-145)
[2022-12-26] MEDS: Sodium Bicarbonate Tab 325 MG TAB PO SCH ×3 (09:46→20:06)
[2022-12-26] MEDS: Aspirin 81 mg Enteric Coated Tablet PO SCH (09:49)
[2022-12-26] MEDS: Doxycycline 100 MG CAP PO SCH ×2 (09:49→20:06)
[2022-12-26] MEDS: NIFEdipine XL 60 MG TAB PO SCH ×2 (09:49→20:07)
[2022-12-26] MEDS: HumaLOG 300 UNITS/3 ML VIAL SC PRN ×3 (12:32→21:01)
[2022-12-26] MEDS: Ezetimibe 10 MG TAB PO SCH (20:06)
[2022-12-26] MEDS: Montelukast Sodium 10 mg Tablet PO SCH (20:06)
[2022-12-26] MEDS: Atorvastatin Calcium 40 MG TAB PO SCH (20:06)
[2022-12-26] MEDS: Famotidine 20 MG TAB PO SCH (20:06)
[2022-12-26] MEDS: cloNIDine 0.1 MG TAB PO SCH (20:06)
[2022-12-26] MEDS: Aripiprazole 10 MG TAB PO SCH (20:07)
[2022-12-26] MEDS: Morphine 2 MG/ML VIAL SLOW IVP PRN (20:51)
[2022-12-27 00:13] LABS: CKMB 1.1 ng/mL (0-6.6)
[2022-12-27] MEDS: Acetaminophen 500 MG TAB PO PRN ×2 (01:51→18:51)
[2022-12-27 04:11] LABS: Anion Gap 18 mmol/L (10-20); BUN (Urea Nitrogen) 39 mg/dL (9.8-20.1); Calc. Creatinine Clearance 33 mL/min (70-130); Calcium 8.9 mg/dL (7.8-10.44); Carbon Dioxide 23 mmol/L (23-31); Chloride 103 mmol/L (98-107); Estimated GFR 20; Glucose 208 mg/dL (80-115); Potassium 3.6 mmol/L (3.5-5.1); Sodium 140 mmol/L (136-145)
[2022-12-27] MEDS: HumaLOG 300 UNITS/3 ML VIAL SC PRN ×4 (06:09→23:15)
[2022-12-27] MEDS: Aspirin 81 mg Enteric Coated Tablet PO SCH (10:37)
[2022-12-27] MEDS: Sodium Bicarbonate Tab 325 MG TAB PO SCH ×3 (10:37→20:17)
[2022-12-27] MEDS: Nebivolol HCl 5 MG TAB PO SCH (10:38)
[2022-12-27] MEDS: NIFEdipine XL 60 MG TAB PO SCH ×2 (10:38→20:17)
[2022-12-27] MEDS: Empagliflozin 25 MG TAB PO SCH (10:39)
[2022-12-27] MEDS: cloNIDine 0.1 MG TAB PO SCH ×2 (10:39→20:18)
[2022-12-27] MEDS: Doxycycline 100 MG CAP PO SCH ×2 (10:39→20:17)
[2022-12-27] MEDS: Atorvastatin Calcium 40 MG TAB PO SCH (20:17)
[2022-12-27] MEDS: Aripiprazole 10 MG TAB PO SCH (20:17)
[2022-12-27] MEDS: Famotidine 20 MG TAB PO SCH (20:18)
[2022-12-27] MEDS: Montelukast Sodium 10 mg Tablet PO SCH (20:18)
[2022-12-27] MEDS: glipiZIDE 5 MG TAB PO SCH (20:18)
[2022-12-27] MEDS: Ezetimibe 10 MG TAB PO SCH (20:18)
[2022-12-28] MEDS: Acetaminophen 500 MG TAB PO PRN ×2 (02:30→09:55)
[2022-12-28 07:07] LABS: #Eosinphils 0.2 thou/uL (0.0-0.7); #Monocytes 0.5 thou/uL (0.11-0.59); #Neutrophils 3.2 thou/uL (1.40-6.50); %Basophils 0.3 % (0.0-1.0); %Eosinophils 4.1 % (0.0-10.0); %Lymphocytes 32.7 % (21.0-51.0); %Monocytes 8.3 % (0.0-10.0); %Neutrophils 53.9 % (42.0-75.0); Hematocrit 28.8 % (36.0-47.0); Hemoglobin 9.3 g/dL (12.0-16.0); Mean Corpuscular HGB CONC 32.3 g/dL (32.0-36.0); Mean Corpuscular Hemoglobin 27.8 pg (27.0-31.0); Mean Platelet Volume 10.1 fL (7.4-10.4); Platelet Count 179 10x3/uL (130-400); RBC Distribution Width 14.2 % (11.5-14.5); Red Blood Cell (RBC) Count 3.35 mill/uL (4.20-5.40); White Blood Cell (WBC) Count 5.9 10x3/uL (4.8-10.8)
[2022-12-28 07:28] LABS: Albumin 3.4 g/dL (3.4-4.8); Anion Gap 14 mmol/L (10-20); BUN (Urea Nitrogen) 46 mg/dL (9.8-20.1); BUN/Creatinine Ratio 18.18; Calc. Creatinine Clearance 33 mL/min (70-130); Carbon Dioxide 26 mmol/L (23-31); Chloride 103 mmol/L (98-107); Estimated GFR 20; Glucose 206 mg/dL (80-115); Magnesium 1.7 mg/dL (1.6-2.6); Phosphorus 4.3 mg/dL (2.3-4.7); Potassium 3.9 mmol/L (3.5-5.1); Sodium 139 mmol/L (136-145)
[2022-12-28] MEDS: Sodium Bicarbonate Tab 325 MG TAB PO SCH ×3 (09:43→20:28)
[2022-12-28] MEDS: Nebivolol HCl 5 MG TAB PO SCH (09:44)
[2022-12-28] MEDS: Aspirin 81 mg Enteric Coated Tablet PO SCH (09:44)
[2022-12-28] MEDS: Empagliflozin 25 MG TAB PO SCH (09:44)
[2022-12-28] MEDS: Doxycycline 100 MG CAP PO SCH ×2 (09:44→20:29)
[2022-12-28] MEDS: NIFEdipine XL 60 MG TAB PO SCH ×2 (09:44→20:37)
[2022-12-28] MEDS: cloNIDine 0.1 MG TAB PO SCH ×2 (09:44→20:30)
[2022-12-28] MEDS: HumaLOG 300 UNITS/3 ML VIAL SC PRN ×3 (12:09→20:37)
[2022-12-28] MEDS: Morphine 2 MG/ML VIAL SLOW IVP PRN (13:07)
[2022-12-28] MEDS: Aripiprazole 10 MG TAB PO SCH (20:28)
[2022-12-28] MEDS: traMADol HCl 50 MG TAB PO PRN (20:29)
[2022-12-28] MEDS: Ezetimibe 10 MG TAB PO SCH (20:29)
[2022-12-28] MEDS: Famotidine 20 MG TAB PO SCH (20:29)
[2022-12-28] MEDS: Atorvastatin Calcium 40 MG TAB PO SCH (20:30)
[2022-12-28] MEDS: Montelukast Sodium 10 mg Tablet PO SCH (20:36)
[2022-12-28] MEDS: glipiZIDE 5 MG TAB PO SCH (20:37)
[2022-12-29] MEDS: HumaLOG 300 UNITS/3 ML VIAL SC PRN ×3 (06:37→17:15)
[2022-12-29] MEDS: Nebivolol HCl 5 MG TAB PO SCH (08:02)
[2022-12-29] MEDS: Sodium Bicarbonate Tab 325 MG TAB PO SCH ×3 (08:02→20:35)
[2022-12-29] MEDS: Doxycycline 100 MG CAP PO SCH ×2 (08:03→20:34)
[2022-12-29] MEDS: NIFEdipine XL 60 MG TAB PO SCH ×2 (08:03→20:35)
[2022-12-29] MEDS: cloNIDine 0.1 MG TAB PO SCH ×2 (08:03→20:34)
[2022-12-29] MEDS: Aspirin 81 mg Enteric Coated Tablet PO SCH (08:03)
[2022-12-29] MEDS: Empagliflozin 25 MG TAB PO SCH (08:13)
[2022-12-29 08:17] LABS: Albumin 3.3 g/dL (3.4-4.8); Anion Gap 12 mmol/L (10-20); BUN (Urea Nitrogen) 49 mg/dL (9.8-20.1); BUN/Creatinine Ratio 18.92; Calc. Creatinine Clearance 32 mL/min (70-130); Calcium 8.8 mg/dL (7.8-10.44); Carbon Dioxide 26 mmol/L (23-31); Chloride 104 mmol/L (98-107); Estimated GFR 20; Glucose 250 mg/dL (80-115); Phosphorus 4.8 mg/dL (2.3-4.7); Potassium 4.2 mmol/L (3.5-5.1); Sodium 138 mmol/L (136-145)
[2022-12-29] MEDS ORDERED: hydrOXYzine 10 MG TAB PO PRN (19:42)
[2022-12-29] MEDS: glipiZIDE 5 MG TAB PO SCH (20:34)
[2022-12-29] MEDS: Ezetimibe 10 MG TAB PO SCH (20:34)
[2022-12-29] MEDS: Famotidine 20 MG TAB PO SCH (20:34)
[2022-12-29] MEDS: Aripiprazole 10 MG TAB PO SCH (20:34)
[2022-12-29] MEDS: Montelukast Sodium 10 mg Tablet PO SCH (20:35)
[2022-12-29] MEDS: Atorvastatin Calcium 40 MG TAB PO SCH (20:39)
[2022-12-29] MEDS: Acetaminophen 500 MG TAB PO PRN (21:26)
[2022-12-29] MEDS: traMADol HCl 50 MG TAB PO PRN (21:28)
[2022-12-30] MEDS: Aspirin 81 mg Enteric Coated Tablet PO SCH (08:55)
[2022-12-30] MEDS: cloNIDine 0.1 MG TAB PO SCH ×2 (08:55→19:56)
[2022-12-30] MEDS: Sodium Bicarbonate Tab 325 MG TAB PO SCH ×3 (08:56→19:59)
[2022-12-30] MEDS: Doxycycline 100 MG CAP PO SCH ×2 (08:56→19:57)
[2022-12-30] MEDS: Empagliflozin 25 MG TAB PO SCH (08:56)
[2022-12-30] MEDS: Nebivolol HCl 5 MG TAB PO SCH (08:57)
[2022-12-30] MEDS: NIFEdipine XL 60 MG TAB PO SCH ×2 (08:57→20:02)
[2022-12-30] MEDS: traMADol HCl 50 MG TAB PO PRN (09:06)
[2022-12-30] MEDS: HumaLOG 300 UNITS/3 ML VIAL SC PRN ×2 (12:32→20:04)
[2022-12-30] MEDS: Aripiprazole 10 MG TAB PO SCH (19:56)
[2022-12-30] MEDS: Atorvastatin Calcium 40 MG TAB PO SCH (19:56)
[2022-12-30] MEDS: Ezetimibe 10 MG TAB PO SCH (19:57)
[2022-12-30] MEDS: glipiZIDE 5 MG TAB PO SCH (19:58)
[2022-12-30] MEDS: Montelukast Sodium 10 mg Tablet PO SCH (19:58)
[2022-12-30] MEDS: Famotidine 20 MG TAB PO SCH (19:58)
[2022-12-31 06:36] LABS: #Eosinphils 0.3 thou/uL (0.0-0.7); #Monocytes 0.6 thou/uL (0.11-0.59); %Basophils 0.6 % (0.0-1.0); %Lymphocytes 31.9 % (21.0-51.0); %Monocytes 7.6 % (0.0-10.0); %Neutrophils 55.2 % (42.0-75.0); Hematocrit 25.8 % (36.0-47.0); Hemoglobin 8.4 g/dL (12.0-16.0); Mean Corpuscular HGB CONC 32.6 g/dL (32.0-36.0); Mean Corpuscular Hemoglobin 28.1 pg (27.0-31.0); Mean Corpuscular Volume 86.3 fl (78.0-98.0); Mean Platelet Volume 10.7 fL (7.4-10.4); Platelet Count 240 10x3/uL (130-400); RBC Distribution Width 14.5 % (11.5-14.5); Red Blood Cell (RBC) Count 2.99 mill/uL (4.20-5.40); White Blood Cell (WBC) Count 7.2 10x3/uL (4.8-10.8)
[2022-12-31 07:18] LABS: AST (SGOT) 13 U/L (5-34); Alkaline Phosphatase 122 U/L (40-110); Anion Gap 12 mmol/L (10-20); BUN (Urea Nitrogen) 53 mg/dL (9.8-20.1); Bilirubin, Total 0.4 mg/dL (0.2-1.2); Calc. Creatinine Clearance 34 mL/min (70-130); Calcium 8.8 mg/dL (7.8-10.44); Carbon Dioxide 25 mmol/L (23-31); Chloride 105 mmol/L (98-107); Estimated GFR 21; Globulin 3.1 g/dL (2.4-3.5); Glucose 150 mg/dL (80-115); Magnesium 1.9 mg/dL (1.6-2.6); Potassium 4.6 mmol/L (3.5-5.1); Protein, Total 6.1 g/dL (5.8-8.1); Sodium 137 mmol/L (136-145)
[2022-12-31 07:30] LABS: ALT (SGPT) Less than 7 U/L (8-55)
[2022-12-31] MEDS: Aspirin 81 mg Enteric Coated Tablet PO SCH (08:27)
[2022-12-31] MEDS: Doxycycline 100 MG CAP PO SCH ×2 (08:27→20:45)
[2022-12-31] MEDS: cloNIDine 0.1 MG TAB PO SCH ×2 (08:27→20:44)
[2022-12-31] MEDS: Empagliflozin 25 MG TAB PO SCH (08:27)
[2022-12-31] MEDS: Sodium Bicarbonate Tab 325 MG TAB PO SCH ×3 (08:28→20:46)
[2022-12-31] MEDS: Nebivolol HCl 5 MG TAB PO SCH (08:28)
[2022-12-31] MEDS: NIFEdipine XL 60 MG TAB PO SCH ×2 (08:28→20:46)
[2022-12-31] MEDS: traMADol HCl 50 MG TAB PO PRN (08:36)
[2022-12-31] MEDS: HumaLOG 300 UNITS/3 ML VIAL SC PRN (13:05)
[2022-12-31] MEDS: Acetaminophen 500 MG TAB PO PRN (14:21)
[2022-12-31] MEDS: Atorvastatin Calcium 40 MG TAB PO SCH (20:44)
[2022-12-31] MEDS: Aripiprazole 10 MG TAB PO SCH (20:44)
[2022-12-31] MEDS: glipiZIDE 5 MG TAB PO SCH (20:45)
[2022-12-31] MEDS: Ezetimibe 10 MG TAB PO SCH (20:45)
[2022-12-31] MEDS: Famotidine 20 MG TAB PO SCH (20:45)
[2022-12-31] MEDS: Montelukast Sodium 10 mg Tablet PO SCH (20:46)
[2023-01-01 05:42] LABS: #Eosinphils 0.3 thou/uL (0.0-0.7); #Monocytes 0.5 thou/uL (0.11-0.59); #Neutrophils 3.7 thou/uL (1.40-6.50); %Basophils 0.5 % (0.0-1.0); %Eosinophils 4.6 % (0.0-10.0); %Lymphocytes 30.8 % (21.0-51.0); %Monocytes 7.6 % (0.0-10.0); %Neutrophils 55.7 % (42.0-75.0); Hematocrit 30.9 % (36.0-47.0); Hemoglobin 9.9 g/dL (12.0-16.0); Mean Corpuscular Volume 87.5 fl (78.0-98.0); Mean Platelet Volume 10.7 fL (7.4-10.4); Platelet Count 262 10x3/uL (130-400); RBC Distribution Width 14.2 % (11.5-14.5); Red Blood Cell (RBC) Count 3.53 mill/uL (4.20-5.40); White Blood Cell (WBC) Count 6.6 10x3/uL (4.8-10.8)
[2023-01-01] MEDS: Doxycycline 100 MG CAP PO SCH ×2 (09:41→20:38)
[2023-01-01] MEDS: Sodium Bicarbonate Tab 325 MG TAB PO SCH ×3 (09:41→20:39)
[2023-01-01] MEDS: NIFEdipine XL 60 MG TAB PO SCH ×2 (09:42→20:39)
[2023-01-01] MEDS: Empagliflozin 25 MG TAB PO SCH (09:42)
[2023-01-01] MEDS: Aspirin 81 mg Enteric Coated Tablet PO SCH (09:42)
[2023-01-01] MEDS: Nebivolol HCl 5 MG TAB PO SCH (09:42)
[2023-01-01] MEDS: cloNIDine 0.1 MG TAB PO SCH ×2 (09:42→20:38)
[2023-01-01] MEDS: traMADol HCl 50 MG TAB PO PRN ×2 (09:45→20:39)
[2023-01-01] MEDS: HumaLOG 300 UNITS/3 ML VIAL SC PRN ×2 (12:37→17:36)
[2023-01-01] MEDS: Epoetin (ESRD) 10,000 UNITS/ML VIAL SC SCH (15:06)
[2023-01-01] MEDS: Acetaminophen 500 MG TAB PO PRN (15:07)
[2023-01-01] MEDS: Atorvastatin Calcium 40 MG TAB PO SCH (20:38)
[2023-01-01] MEDS: glipiZIDE 5 MG TAB PO SCH (20:38)
[2023-01-01] MEDS: Montelukast Sodium 10 mg Tablet PO SCH (20:38)
[2023-01-01] MEDS: Ezetimibe 10 MG TAB PO SCH (20:39)
[2023-01-01] MEDS: Famotidine 20 MG TAB PO SCH (20:39)
[2023-01-01] MEDS: Aripiprazole 10 MG TAB PO SCH (20:39)
[2023-01-02 06:05] LABS: #Eosinphils 0.3 thou/uL (0.0-0.7); #Monocytes 0.6 thou/uL (0.11-0.59); #Neutrophils 4.1 thou/uL (1.40-6.50); %Basophils 0.6 % (0.0-1.0); %Eosinophils 4.5 % (0.0-10.0); %Lymphocytes 26.8 % (21.0-51.0); %Monocytes 7.9 % (0.0-10.0); %Neutrophils 59.5 % (42.0-75.0); Hematocrit 32.4 % (36.0-47.0); Hemoglobin 9.9 g/dL (12.0-16.0); Mean Corpuscular HGB CONC 30.6 g/dL (32.0-36.0); Mean Corpuscular Hemoglobin 28.3 pg (27.0-31.0); Mean Corpuscular Volume 92.6 fl (78.0-98.0); Mean Platelet Volume 11.1 fL (7.4-10.4); Platelet Count 250 10x3/uL (130-400); RBC Distribution Width 14.5 % (11.5-14.5); White Blood Cell (WBC) Count 6.9 10x3/uL (4.8-10.8)
[2023-01-02 06:28] LABS: Anion Gap 16 mmol/L (10-20); BUN (Urea Nitrogen) 47 mg/dL (9.8-20.1); Calc. Creatinine Clearance 30 mL/min (70-130); Calcium 8.9 mg/dL (7.8-10.44); Carbon Dioxide 18 mmol/L (23-31); Chloride 105 mmol/L (98-107); Estimated GFR 18; Glucose 193 mg/dL (80-115); Potassium 5.2 mmol/L (3.5-5.1); Sodium 134 mmol/L (136-145)
[2023-01-02] MEDS: traMADol HCl 50 MG TAB PO PRN (09:32)
[2023-01-02] MEDS: NIFEdipine XL 60 MG TAB PO SCH (09:34)
[2023-01-02] MEDS: Sodium Bicarbonate Tab 325 MG TAB PO SCH ×2 (09:34→14:23)
[2023-01-02] MEDS: cloNIDine 0.1 MG TAB PO SCH (09:35)
[2023-01-02] MEDS: Nebivolol HCl 5 MG TAB PO SCH (09:35)
[2023-01-02] MEDS: Empagliflozin 25 MG TAB PO SCH (09:35)
[2023-01-02] MEDS: Aspirin 81 mg Enteric Coated Tablet PO SCH (09:35)
[2023-01-02] MEDS: HumaLOG 300 UNITS/3 ML VIAL SC PRN (12:32)
[2023-01-02 16:29] VITALS: BP 168/79; TEMP 98.2
== END 2023-01-02 17:01 | DRG 242 ==
LOC: ERS 11:41 → 2NO 16:55 → OBSVTOIN 18:36 → IMCU/EMU 12-23 18:00 → T4-A 12-29 14:41
PROVIDERS: ADMIT Family Medicine; ATTEND Hospitalist
PROC: 4A133R1 Monitoring of Arterial Saturation, Peripheral, Percutaneous Approach (ICD-10-PCS; 2022-12-23)
PROC: 5A09357 Assistance with Respiratory Ventilation, Less than 24 Consecutive Hours, Continuous Positive Airway Pressure (ICD-10-PCS; 2022-12-23)
PROC: 30233J1 Transfusion of Nonautologous Serum Albumin into Peripheral Vein, Percutaneous Approach (ICD-10-PCS; 2022-12-24)
PROC: 0JH606Z Insertion of Pacemaker, Dual Chamber into Chest Subcutaneous Tissue and Fascia, Open Approach (ICD-10-PCS; principal; 2022-12-25)
PROC: 02H63JZ Insertion of Pacemaker Lead into Right Atrium, Percutaneous Approach (ICD-10-PCS; 2022-12-25)
PROC: 02HK3JZ Insertion of Pacemaker Lead into Right Ventricle, Percutaneous Approach (ICD-10-PCS; 2022-12-25)
DX: I49.5 Sick sinus syndrome (principal); G93.41 Metabolic encephalopathy; J96.21 Acute and chronic respiratory failure with hypoxia; J96.22 Acute and chronic respiratory failure with hypercapnia; E87.20 Acidosis, unspecified; I13.0 Hypertensive heart and chronic kidney disease with heart failure and stage 1 through stage 4 chronic kidney disease, or unspecified chronic kidney disease; E87.4 Mixed disorder of acid-base balance; N18.4 Chronic kidney disease, stage 4 (severe); S82.54XA Nondisplaced fracture of medial malleolus of right tibia, initial encounter for closed fracture; S82.891A Other fracture of right lower leg, initial encounter for closed fracture; E87.6 Hypokalemia; E11.21 Type 2 diabetes mellitus with diabetic nephropathy; E11.22 Type 2 diabetes mellitus with diabetic chronic kidney disease; I50.9 Heart failure, unspecified; J44.9 Chronic obstructive pulmonary disease, unspecified; G89.29 Other chronic pain; G43.909 Migraine, unspecified, not intractable, without status migrainosus; D63.1 Anemia in chronic kidney disease; F41.9 Anxiety disorder, unspecified; F32.A Depression, unspecified; Z88.2 Allergy status to sulfonamides; Z88.1 Allergy status to other antibiotic agents; Z90.49 Acquired absence of other specified parts of digestive tract; Z90.710 Acquired absence of both cervix and uterus; Z98.890 Other specified postprocedural states; Z79.899 Other long term (current) drug therapy; Z95.818 Presence of other cardiac implants and grafts; Z79.82 Long term (current) use of aspirin; Z86.73 Personal history of transient ischemic attack (TIA), and cerebral infarction without residual deficits; Z96.653 Presence of artificial knee joint, bilateral; Z88.6 Allergy status to analgesic agent; Z91.09 Other allergy status, other than to drugs and biological substances; Z82.49 Family history of ischemic heart disease and other diseases of the circulatory system; W18.30XA Fall on same level, unspecified, initial encounter; E78.00 Pure hypercholesterolemia, unspecified; M54.9 Dorsalgia, unspecified; M54.2 Cervicalgia; Z90.89 Acquired absence of other organs; E87.5 Hyperkalemia; Z20.822 Contact with and (suspected) exposure to COVID-19
CPT/HCPCS: 33208; 36415; 36416; 70450; 71045; 72125; 80048; 80053; 80069; 82040; 82550; 82553; 82805; 83735; 83880; 84484; 85014; 85018; 85025; 93005; 93010; 94640; 94660; 96374; 96375; A4217; C1785; C1894; C1898; G0378; J0360; J0613; J1580; J1815; J2001; J2270; J2272; J2310; J2704; J3010; J3490; J7050; J7611; J7999; P9047; Q4081

== ENCOUNTER 2023-01-19 10:33 | Emergency (ER) | payer OTHER ==
[2023-01-19] MEDS ORDERED: fentaNYL 50 mcg/mL 1 mL Vial ONE (11:35)
[2023-01-19] MEDS ORDERED: LORazepam 2 MG/ML SYR.(CARPUJECT) ONE (11:36)
[2023-01-19 11:47] LABS: #Eosinphils 0.1 thou/uL (0.0-0.7); #Monocytes 0.4 thou/uL (0.11-0.59); #Neutrophils 6.2 thou/uL (1.40-6.50); %Basophils 0.4 % (0.0-1.0); %Eosinophils 0.8 % (0.0-10.0); %Lymphocytes 12.5 % (21.0-51.0); %Monocytes 5.2 % (0.0-10.0); %Neutrophils 80.7 % (42.0-75.0); Hematocrit 24.1 % (36.0-47.0); Hemoglobin 7.5 g/dL (12.0-16.0); Mean Corpuscular HGB CONC 31.1 g/dL (32.0-36.0); Mean Corpuscular Hemoglobin 27.8 pg (27.0-31.0); Mean Corpuscular Volume 89.3 fl (78.0-98.0); Mean Platelet Volume 10.7 fL (7.4-10.4); Platelet Count 202 10x3/uL (130-400); RBC Distribution Width 15.3 % (11.5-14.5); White Blood Cell (WBC) Count 7.6 10x3/uL (4.8-10.8)
[2023-01-19 12:16] LABS: ALT (SGPT) 7 U/L (8-55); AST (SGOT) 14 U/L (5-34); Albumin 3.4 g/dL (3.4-4.8); Alkaline Phosphatase 147 U/L (40-110); Anion Gap 15 mmol/L (10-20); BUN (Urea Nitrogen) 40 mg/dL (9.8-20.1); Bilirubin, Total 0.6 mg/dL (0.2-1.2); Calc. Creatinine Clearance 0 mL/min (70-130); Calcium 9.1 mg/dL (7.8-10.44); Carbon Dioxide 23 mmol/L (23-31); Chloride 106 mmol/L (98-107); Estimated GFR 19; Globulin 3.2 g/dL (2.4-3.5); Glucose 197 mg/dL (80-115); Potassium 4.8 mmol/L (3.5-5.1); Protein, Total 6.6 g/dL (5.8-8.1); Sodium 139 mmol/L (136-145)
== END 2023-01-19 14:52 | disposition home or self-care (01) ==
LOC: ERS 10:33
DX: S82.491A Other fracture of shaft of right fibula, initial encounter for closed fracture (principal); E11.9 Type 2 diabetes mellitus without complications; E78.00 Pure hypercholesterolemia, unspecified; I10 Essential (primary) hypertension; Z79.899 Other long term (current) drug therapy; W18.30XA Fall on same level, unspecified, initial encounter
CPT/HCPCS: 73600; 80053; 85025; 93005; J2060; J3010; 29515; 96374; 96375

== ENCOUNTER 2023-01-31 10:21 | Observation (INO) | payer OTHER, MEDICAID ==
[2023-01-31] MEDS ORDERED: Midazolam HCl 2 mg/2 ml Vial ONE (11:03)
[2023-01-31] MEDS ORDERED: fentaNYL 50 mcg/mL 1 mL Vial ONE ×3 (11:03→18:49)
[2023-01-31] MEDS ORDERED: Bupivacaine PF 0.5% 30 ML VIAL ONE (11:03)
[2023-01-31] MEDS ORDERED: fentaNYL PF 100 MCG/2 ML SYRINGE ONE (12:23)
[2023-01-31] MEDS ORDERED: Ondansetron PF 4 MG/2 ML Vial ONE (12:37)
[2023-01-31] MEDS ORDERED: Bupivacaine HCl 0.5%/Epinephrine 1:200,000/PF 30 ml Vial ONE (12:37)
[2023-01-31] MEDS ORDERED: PROPOFOL 200 MG/20 ML VIAL ONE (12:37)
[2023-01-31] MEDS ORDERED: Lidocaine 1% PF 5 ML VIAL ONE (12:37)
[2023-01-31] MEDS ORDERED: Ondansetron PF 4 MG/2 ML Vial SLOW IVP PRN (12:40)
[2023-01-31] MEDS ORDERED: fentaNYL 50 mcg/mL 1 mL Vial SLOW IVP PRN (12:40)
[2023-01-31] MEDS ORDERED: Communication Order-Pharmacy FS SCH (12:45)
[2023-01-31] MEDS ORDERED: Clindamycin/D5W 900 mg/50 ml Premix Bag ONE (12:55)
[2023-01-31 21:43] VITALS: BMI 33.8
[2023-01-31] MEDS: Clindamycin/D5W 900 MG in Premix Bag 1 BAG IVPB SCH ×2 (21:58→22:44)
[2023-01-31] MEDS: Aspirin 81 mg Enteric Coated Tablet PO SCH (22:44)
[2023-02-01] MEDS: HYDROcodone/Acetaminophen 5/325 mg Tablet PO PRN ×4 (01:58→21:09)
[2023-02-01] MEDS: Aspirin 81 mg Enteric Coated Tablet PO SCH ×2 (08:45→21:09)
[2023-02-01] MEDS ORDERED: Albuterol 200 PUFF (6.7GM INHALER) INH PRN (09:48)
[2023-02-01] MEDS ORDERED: HumaLOG 300 UNITS/3 ML VIAL SC SCH (15:00)
[2023-02-01] MEDS: Gabapentin 300 MG CAP PO SCH ×2 (15:08→21:09)
[2023-02-01] MEDS: HumaLOG 300 UNITS/3 ML VIAL SC SCH (16:43)
[2023-02-01] MEDS ORDERED: Ezetimibe 10 MG TAB PO SCH (21:00)
[2023-02-01] MEDS ORDERED: Atorvastatin Calcium 40 MG TAB PO SCH (21:00)
[2023-02-01] MEDS ORDERED: Aripiprazole 10 MG TAB PO SCH (21:00)
[2023-02-01] MEDS ORDERED: glipiZIDE 5 MG TAB PO SCH (21:00)
[2023-02-01] MEDS ORDERED: Montelukast Sodium 10 mg Tablet PO SCH (21:00)
[2023-02-01] MEDS ORDERED: Famotidine 20 MG TAB PO SCH (21:00)
[2023-02-01] MEDS ORDERED: traZODone HCl 150 MG TAB PO SCH (21:00)
[2023-02-01] MEDS: Ranolazine 500 MG ER.TAB PO SCH (21:08)
[2023-02-01] MEDS: DULoxetine 60 MG CAP PO SCH (21:08)
[2023-02-01] MEDS: Labetalol HCl 100 MG TAB PO SCH (21:08)
[2023-02-01] MEDS: NIFEdipine XL 60 MG ER.TAB PO SCH (21:08)
[2023-02-02 07:52] VITALS: BP 107/62; TEMP 98
[2023-02-02] MEDS: Aspirin 81 mg Enteric Coated Tablet PO SCH (08:32)
[2023-02-02] MEDS: HYDROcodone/Acetaminophen 5/325 mg Tablet PO PRN ×3 (08:32→16:54)
[2023-02-02] MEDS: DULoxetine 60 MG CAP PO SCH (08:32)
[2023-02-02] MEDS: Labetalol HCl 100 MG TAB PO SCH (08:32)
[2023-02-02] MEDS: Gabapentin 300 MG CAP PO SCH ×2 (08:32→12:42)
[2023-02-02] MEDS: Ranolazine 500 MG ER.TAB PO SCH (08:32)
[2023-02-02] MEDS: NIFEdipine XL 60 MG ER.TAB PO SCH (08:33)
[2023-02-02] MEDS: HumaLOG 300 UNITS/3 ML VIAL SC SCH ×3 (08:58→16:51)
[2023-02-02] MEDS ORDERED: Torsemide 10 MG TAB PO SCH (09:00)
[2023-02-02] MEDS ORDERED: Empagliflozin 25 MG TAB PO SCH (09:00)
== END 2023-02-02 18:24 | disposition home or self-care (01) ==
LOC: SDC 10:21 → T4-A 12:40
PROVIDERS: ADMIT Orthopaedic Surgery; ATTEND Orthopaedic Surgery
PROC: 0QSJ04Z Reposition Right Fibula with Internal Fixation Device, Open Approach (ICD-10-PCS; principal; 2023-01-31)
PROC: 0QSG0ZZ Reposition Right Tibia, Open Approach (ICD-10-PCS; 2023-01-31)
DX: S82.841A Displaced bimalleolar fracture of right lower leg, initial encounter for closed fracture (principal); E11.9 Type 2 diabetes mellitus without complications; F41.0 Panic disorder [episodic paroxysmal anxiety]; I10 Essential (primary) hypertension; Z90.710 Acquired absence of both cervix and uterus; Z90.49 Acquired absence of other specified parts of digestive tract; Z88.2 Allergy status to sulfonamides; Z91.048 Other nonmedicinal substance allergy status; X58.XXXA Exposure to other specified factors, initial encounter
CPT/HCPCS: 27814; 73610; 82962 ×3; 86850; 86900; 86901; 97530 ×3; 97535; C1713 ×7; C1776; J3010; 36416; J1815; J2250; J2405; J2704; J3490; S0020

== ENCOUNTER 2023-03-07 15:41 | Inpatient (IN) | payer OTHER, MEDICAID ==
[2023-03-07 16:26] LABS: #Eosinphils 0.4 thou/uL (0.0-0.7); #Monocytes 0.4 thou/uL (0.11-0.59); #Neutrophils 4.4 thou/uL (1.40-6.50); %Basophils 0.6 % (0.0-1.0); %Eosinophils 5.4 % (0.0-10.0); %Lymphocytes 22.2 % (21.0-51.0); %Monocytes 5.3 % (0.0-10.0); Hematocrit 30.2 % (36.0-47.0); Hemoglobin 9.1 g/dL (12.0-16.0); Mean Corpuscular HGB CONC 30.1 g/dL (32.0-36.0); Mean Corpuscular Hemoglobin 27.1 pg (27.0-31.0); Mean Corpuscular Volume 89.9 fl (78.0-98.0); Mean Platelet Volume 10.6 fL (7.4-10.4); Platelet Count 327 10x3/uL (130-400); RBC Distribution Width 16.7 % (11.5-14.5); Red Blood Cell (RBC) Count 3.36 mill/uL (4.20-5.40); White Blood Cell (WBC) Count 6.6 10x3/uL (4.8-10.8)
[2023-03-07 16:52] LABS: Troponin I Less than 0.010 ng/mL (< 0.028)
[2023-03-07 16:55] LABS: ALT (SGPT) 8 U/L (8-55); AST (SGOT) 22 U/L (5-34); Albumin 4.1 g/dL (3.4-4.8); Alkaline Phosphatase 143 U/L (40-110); Anion Gap 17 mmol/L (10-20); BUN (Urea Nitrogen) 30 mg/dL (9.8-20.1); Bilirubin, Total 0.5 mg/dL (0.2-1.2); Calc. Creatinine Clearance 0 mL/min (70-130); Calcium 9.3 mg/dL (7.8-10.44); Carbon Dioxide 24 mmol/L (23-31); Chloride 105 mmol/L (98-107); Estimated GFR 17; Globulin 3.7 g/dL (2.4-3.5); Glucose 144 mg/dL (80-115); Potassium 5.7 mmol/L (3.5-5.1); Protein, Total 7.8 g/dL (5.8-8.1); Sodium 140 mmol/L (136-145)
[2023-03-07] MEDS ORDERED: Acetaminophen 325 MG TAB PO PRN (18:44)
[2023-03-07] MEDS ORDERED: Glucagon 1 MG/ML KIT IM PRN (18:44)
[2023-03-07] MEDS ORDERED: HumaLOG 300 UNITS/3 ML VIAL SC PRN ×2 (18:44)
[2023-03-07] MEDS ORDERED: Ondansetron ODT 4 MG TAB PO PRN (18:44)
[2023-03-07] MEDS ORDERED: Ondansetron PF 4 MG/2 ML Vial IVP PRN (18:44)
[2023-03-07] MEDS ORDERED: Dextrose 50% Abboject 50 ML SYRINGE SLOW IVP PRN (18:44)
[2023-03-07] MEDS ORDERED: Senokot S 8.6-50 MG TAB PO PRN (18:44)
[2023-03-07] MEDS ORDERED: Dextrose 5% in Water 1,000 ML IV PRN (18:44)
[2023-03-07 19:59] LABS: Troponin I 0.011 ng/mL (< 0.028)
[2023-03-07] MEDS ORDERED: Benzonatate 100 MG CAP PO PRN (20:41)
[2023-03-07] MEDS: HYDROcodone/Acetaminophen 7.5/325 mg Tablet PO PRN (21:11)
[2023-03-07] MEDS: NIFEdipine XL 60 MG ER.TAB PO SCH (21:13)
[2023-03-07] MEDS: DULoxetine 60 MG CAP PO SCH (21:13)
[2023-03-07] MEDS: Ezetimibe 10 MG TAB PO SCH (21:14)
[2023-03-07] MEDS: Montelukast Sodium 10 mg Tablet PO SCH (21:14)
[2023-03-07] MEDS: Labetalol HCl 100 MG TAB PO SCH (21:14)
[2023-03-07] MEDS: Atorvastatin Calcium 40 MG TAB PO SCH (21:14)
[2023-03-07] MEDS: Ranolazine 500 MG ER.TAB PO SCH (21:14)
[2023-03-07 22:57] VITALS: BMI 34.8
[2023-03-07 22:58] LABS: Troponin I Less than 0.010 ng/mL (< 0.028)
[2023-03-08 01:25] LABS: Anion Gap 13 mmol/L (10-20); BUN (Urea Nitrogen) 31 mg/dL (9.8-20.1); Calc. Creatinine Clearance 29 mL/min (70-130); Calcium 8.8 mg/dL (7.8-10.44); Carbon Dioxide 26 mmol/L (23-31); Chloride 108 mmol/L (98-107); Estimated GFR 17; Glucose 198 mg/dL (80-115); Potassium 5.6 mmol/L (3.5-5.1); Sodium 141 mmol/L (136-145)
[2023-03-08] MEDS ORDERED: Dextrose 50% Abboject 50 ML SYRINGE SLOW IVP SCH (02:15)
[2023-03-08] MEDS ORDERED: Insulin Regular 300 UNITS/3 ML VIAL IVP SCH (02:15)
[2023-03-08 07:48] LABS: Anion Gap 12 mmol/L (10-20); BUN (Urea Nitrogen) 29 mg/dL (9.8-20.1); Calc. Creatinine Clearance 30 mL/min (70-130); Calcium 8.9 mg/dL (7.8-10.44); Carbon Dioxide 26 mmol/L (23-31); Chloride 108 mmol/L (98-107); Estimated GFR 18; Glucose 105 mg/dL (80-115); Potassium 5.3 mmol/L (3.5-5.1); Sodium 141 mmol/L (136-145)
[2023-03-08] MEDS: HumaLOG 300 UNITS/3 ML VIAL SC SCH ×3 (08:28→18:24)
[2023-03-08] MEDS: NIFEdipine XL 60 MG ER.TAB PO SCH ×2 (08:37→20:06)
[2023-03-08] MEDS: Labetalol HCl 100 MG TAB PO SCH ×2 (08:38→20:06)
[2023-03-08] MEDS: DULoxetine 60 MG CAP PO SCH ×2 (08:38→20:07)
[2023-03-08] MEDS: Empagliflozin 25 MG TAB PO SCH (08:38)
[2023-03-08] MEDS: Ranolazine 500 MG ER.TAB PO SCH ×2 (08:38→20:06)
[2023-03-08 12:40] LABS: #Basophils 0.1 thou/uL (0.0-0.2); #Eosinphils 0.3 thou/uL (0.0-0.7); #Monocytes 0.4 thou/uL (0.11-0.59); #Neutrophils 5.1 thou/uL (1.40-6.50); %Basophils 0.7 % (0.0-1.0); %Eosinophils 4.4 % (0.0-10.0); %Lymphocytes 17.4 % (21.0-51.0); %Monocytes 5.1 % (0.0-10.0); Hematocrit 29.2 % (36.0-47.0); Hemoglobin 8.7 g/dL (12.0-16.0); Mean Corpuscular HGB CONC 29.8 g/dL (32.0-36.0); Mean Corpuscular Hemoglobin 27.2 pg (27.0-31.0); Mean Corpuscular Volume 91.3 fl (78.0-98.0); Mean Platelet Volume 10.8 fL (7.4-10.4); Platelet Count 306 10x3/uL (130-400); RBC Distribution Width 16.5 % (11.5-14.5); White Blood Cell (WBC) Count 7.1 10x3/uL (4.8-10.8)
[2023-03-08 16:06] LABS: Pleural Fluid, Protein 3.2 g/dL
[2023-03-08 16:15] LABS: RBC Count-Automated (BF) 19846 /cu.mm; WBC/Nucleated-Auto (BF) 803 /cu.mm
[2023-03-08 16:24] LABS: BF Color Red; Body Fluid Source Thoracentesis Fluid; Tube # EDTA
[2023-03-08 16:25] LABS: Clarity Cloudy/Turbid (Clear)
[2023-03-08 16:27] LABS: BF Segmented Neutrophils 28 %; Cell Count Non Hematic 60 %; Lymphocytes 11 %
[2023-03-08] MEDS: Montelukast Sodium 10 mg Tablet PO SCH (20:06)
[2023-03-08] MEDS: Ezetimibe 10 MG TAB PO SCH (20:06)
[2023-03-08] MEDS: Atorvastatin Calcium 40 MG TAB PO SCH (20:06)
[2023-03-08] MEDS: HYDROcodone/Acetaminophen 7.5/325 mg Tablet PO PRN (20:07)
[2023-03-09] MEDS: HYDROcodone/Acetaminophen 7.5/325 mg Tablet PO PRN ×3 (02:54→14:05)
[2023-03-09 04:40] LABS: #Eosinphils 0.3 thou/uL (0.0-0.7); #Monocytes 0.5 thou/uL (0.11-0.59); #Neutrophils 3.9 thou/uL (1.40-6.50); %Basophils 0.6 % (0.0-1.0); %Eosinophils 5.2 % (0.0-10.0); %Lymphocytes 25.2 % (21.0-51.0); %Monocytes 7.4 % (0.0-10.0); %Neutrophils 61.3 % (42.0-75.0); Hematocrit 26.1 % (36.0-47.0); Hemoglobin 7.8 g/dL (12.0-16.0); Mean Corpuscular HGB CONC 29.9 g/dL (32.0-36.0); Mean Corpuscular Hemoglobin 27.3 pg (27.0-31.0); Mean Corpuscular Volume 91.3 fl (78.0-98.0); Mean Platelet Volume 10.8 fL (7.4-10.4); Platelet Count 262 10x3/uL (130-400); RBC Distribution Width 16.5 % (11.5-14.5); Red Blood Cell (RBC) Count 2.86 mill/uL (4.20-5.40); White Blood Cell (WBC) Count 6.3 10x3/uL (4.8-10.8)
[2023-03-09 05:11] LABS: Anion Gap 12 mmol/L (10-20); BUN (Urea Nitrogen) 28 mg/dL (9.8-20.1); Calc. Creatinine Clearance 27 mL/min (70-130); Calcium 8.7 mg/dL (7.8-10.44); Carbon Dioxide 24 mmol/L (23-31); Chloride 107 mmol/L (98-107); Estimated GFR 16; Glucose 189 mg/dL (80-115); Potassium 5.6 mmol/L (3.5-5.1); Sodium 137 mmol/L (136-145)
[2023-03-09] MEDS ORDERED: LOKELMA 10 GM PACKET PO SCH (08:30)
[2023-03-09] MEDS: NIFEdipine XL 60 MG ER.TAB PO SCH ×2 (09:26→22:35)
[2023-03-09] MEDS: HumaLOG 300 UNITS/3 ML VIAL SC SCH ×3 (09:26→18:23)
[2023-03-09] MEDS: Ranolazine 500 MG ER.TAB PO SCH ×2 (09:27→22:32)
[2023-03-09] MEDS: DULoxetine 60 MG CAP PO SCH ×2 (09:27→22:33)
[2023-03-09] MEDS: Empagliflozin 25 MG TAB PO SCH (09:27)
[2023-03-09] MEDS: Labetalol HCl 100 MG TAB PO SCH ×3 (09:31→22:33)
[2023-03-09] MEDS ORDERED: Colchicine 0.6 MG TAB PO SCH (13:00)
[2023-03-09] MEDS ORDERED: Furosemide 40 MG/4 ML VIAL SLOW IVP SCH (13:15)
[2023-03-09] MEDS: Atorvastatin Calcium 40 MG TAB PO SCH (22:32)
[2023-03-09] MEDS: Montelukast Sodium 10 mg Tablet PO SCH (22:34)
[2023-03-09] MEDS: Ezetimibe 10 MG TAB PO SCH (22:35)
[2023-03-09] MEDS: Colchicine 0.6 MG TAB PO SCH (22:35)
[2023-03-09] MEDS: Ipratropium/Albuterol 3 ML NEB NEB PRN (22:47)
[2023-03-10 05:31] LABS: #Eosinphils 0.4 thou/uL (0.0-0.7); #Monocytes 0.5 thou/uL (0.11-0.59); #Neutrophils 5.4 thou/uL (1.40-6.50); %Basophils 0.4 % (0.0-1.0); %Eosinophils 4.8 % (0.0-10.0); %Lymphocytes 19.4 % (21.0-51.0); %Monocytes 6.6 % (0.0-10.0); %Neutrophils 68.4 % (42.0-75.0); Hemoglobin 8.4 g/dL (12.0-16.0); Mean Corpuscular Hemoglobin 27.9 pg (27.0-31.0); Mean Platelet Volume 11.2 fL (7.4-10.4); Platelet Count 259 10x3/uL (130-400); RBC Distribution Width 16.1 % (11.5-14.5); Red Blood Cell (RBC) Count 3.01 mill/uL (4.20-5.40); White Blood Cell (WBC) Count 7.9 10x3/uL (4.8-10.8)
[2023-03-10 05:53] LABS: Anion Gap 16 mmol/L (10-20); BUN (Urea Nitrogen) 34 mg/dL (9.8-20.1); Calc. Creatinine Clearance 23 mL/min (70-130); Calcium 8.8 mg/dL (7.8-10.44); Carbon Dioxide 21 mmol/L (23-31); Chloride 105 mmol/L (98-107); Estimated GFR 13; Glucose 146 mg/dL (80-115); Sodium 135 mmol/L (136-145)
[2023-03-10 06:03] LABS: Potassium 7.1 mmol/L (3.5-5.1)
[2023-03-10] MEDS ORDERED: Dextrose 50% Abboject 50 ML SYRINGE SLOW IVP PRN (06:24)
[2023-03-10] MEDS ORDERED: Insulin Regular 300 UNITS/3 ML VIAL IVP SCH (06:30)
[2023-03-10] MEDS ORDERED: LOKELMA 10 GM PACKET PO SCH ×2 (06:30→11:45)
[2023-03-10] MEDS ORDERED: Furosemide 40 MG/4 ML VIAL SLOW IVP SCH (09:00)
[2023-03-10] MEDS: Ranolazine 500 MG ER.TAB PO SCH ×2 (09:30→23:02)
[2023-03-10] MEDS: Labetalol HCl 100 MG TAB PO SCH ×3 (09:30→23:03)
[2023-03-10] MEDS: Colchicine 0.6 MG TAB PO SCH (09:30)
[2023-03-10] MEDS: NIFEdipine XL 60 MG ER.TAB PO SCH ×2 (09:30→23:02)
[2023-03-10] MEDS: Empagliflozin 25 MG TAB PO SCH (09:31)
[2023-03-10] MEDS: DULoxetine 60 MG CAP PO SCH ×2 (09:31→23:04)
[2023-03-10] MEDS: HYDROcodone/Acetaminophen 7.5/325 mg Tablet PO PRN ×2 (09:44→23:13)
[2023-03-10 10:17] LABS: Potassium 5.7 mmol/L (3.5-5.1)
[2023-03-10] MEDS: HumaLOG 300 UNITS/3 ML VIAL SC SCH ×3 (11:39→13:57)
[2023-03-10] MEDS ORDERED: Sodium Bicarbonate 150 MEQ in Dextrose 5% in Water 1,000 ML IV SCH (12:00)
[2023-03-10] MEDS ORDERED: Sodium Bicarbonate Tab 325 MG TAB PO SCH (15:00)
[2023-03-10 15:04] LABS: Bacteria/HPF None Seen HPF (None Seen); Bilirubin Negative (Negative); Blood, Urine 1+ (Negative); Clarity Clear (Clear); Glucose, Urine (Dipstick) Greater than 1000 mg/dL (Negative); Ketone, Urine Negative (Negative); Leukocyte 25 Leu/uL (Negative); Nitrite Negative (Negative); Protein, Urine (Dipstick) 200 mg/dL (Neg-Trace); Specific Gravity, Urine 1.015 (1.002-1.036); Squamous Epithelial 0-3 HPF (0-3); Urobilinogen Normal mg/dL (Less than 2); WBC/HPF 0-3 HPF (0-3); pH, Urine 5.5 (5.0-9.0)
[2023-03-10] MEDS: Sodium Bicarbonate Tab 325 MG TAB PO SCH ×2 (15:34→23:03)
[2023-03-10 16:39] LABS: Albumin 3.5 g/dL (3.4-4.8); Anion Gap 16 mmol/L (10-20); BUN (Urea Nitrogen) 35 mg/dL (9.8-20.1); BUN/Creatinine Ratio 8.79; Calc. Creatinine Clearance 21 mL/min (70-130); Calcium 8.9 mg/dL (7.8-10.44); Carbon Dioxide 24 mmol/L (23-31); Chloride 103 mmol/L (98-107); Estimated GFR 12; Glucose 181 mg/dL (80-115); Phosphorus 5.4 mg/dL (2.3-4.7); Potassium 5.7 mmol/L (3.5-5.1); Sodium 137 mmol/L (136-145)
[2023-03-10 17:41] LABS: Creatinine, Urine 103.62 mg/dL (47-110)
[2023-03-10] MEDS: Ipratropium/Albuterol 3 ML NEB NEB PRN (21:24)
[2023-03-10] MEDS: Ezetimibe 10 MG TAB PO SCH (23:03)
[2023-03-10] MEDS: Atorvastatin Calcium 40 MG TAB PO SCH (23:04)
[2023-03-10] MEDS: Montelukast Sodium 10 mg Tablet PO SCH (23:04)
[2023-03-11] MEDS: Ipratropium/Albuterol 3 ML NEB NEB PRN ×3 (03:12→10:42)
[2023-03-11 06:09] LABS: #Eosinphils 0.4 thou/uL (0.0-0.7); #Monocytes 0.5 thou/uL (0.11-0.59); #Neutrophils 2.6 thou/uL (1.40-6.50); %Basophils 0.2 % (0.0-1.0); %Eosinophils 7.2 % (0.0-10.0); %Lymphocytes 30.7 % (21.0-51.0); %Monocytes 9.6 % (0.0-10.0); %Neutrophils 51.9 % (42.0-75.0); Hematocrit 25.3 % (36.0-47.0); Hemoglobin 7.8 g/dL (12.0-16.0); Mean Corpuscular HGB CONC 30.8 g/dL (32.0-36.0); Mean Corpuscular Volume 87.5 fl (78.0-98.0); Mean Platelet Volume 10.9 fL (7.4-10.4); Platelet Count 226 10x3/uL (130-400); RBC Distribution Width 15.8 % (11.5-14.5); Red Blood Cell (RBC) Count 2.89 mill/uL (4.20-5.40)
[2023-03-11 06:32] LABS: Anion Gap 15 mmol/L (10-20); BUN (Urea Nitrogen) 31 mg/dL (9.8-20.1); Calc. Creatinine Clearance 23 mL/min (70-130); Calcium 8.5 mg/dL (7.8-10.44); Carbon Dioxide 26 mmol/L (23-31); Chloride 101 mmol/L (98-107); Estimated GFR 13; Glucose 204 mg/dL (80-115); Potassium 4.6 mmol/L (3.5-5.1); Sodium 137 mmol/L (136-145)
[2023-03-11] MEDS: Labetalol HCl 100 MG TAB PO SCH ×3 (09:36→20:49)
[2023-03-11] MEDS: NIFEdipine XL 60 MG ER.TAB PO SCH ×2 (09:36→20:49)
[2023-03-11] MEDS: Sodium Bicarbonate Tab 325 MG TAB PO SCH ×3 (09:37→20:49)
[2023-03-11] MEDS: DULoxetine 60 MG CAP PO SCH ×2 (09:37→20:49)
[2023-03-11] MEDS: HumaLOG 300 UNITS/3 ML VIAL SC SCH ×3 (09:37→18:22)
[2023-03-11] MEDS: Ranolazine 500 MG ER.TAB PO SCH ×2 (09:37→20:49)
[2023-03-11] MEDS ORDERED: Epoetin (ESRD) 10,000 UNITS/ML VIAL SC SCH (12:00)
[2023-03-11] MEDS ORDERED: Fluticasone Propionate Nasal Spray 16 gm Bottle NASAL SCH (13:53)
[2023-03-11] MEDS: HYDROcodone/Acetaminophen 7.5/325 mg Tablet PO PRN ×2 (15:32→20:49)
[2023-03-11] MEDS: Atorvastatin Calcium 40 MG TAB PO SCH (20:49)
[2023-03-11] MEDS: Montelukast Sodium 10 mg Tablet PO SCH (20:49)
[2023-03-11] MEDS: Ezetimibe 10 MG TAB PO SCH (20:49)
[2023-03-12 05:36] LABS: #Eosinphils 0.4 thou/uL (0.0-0.7); #Monocytes 0.5 thou/uL (0.11-0.59); #Neutrophils 2.6 thou/uL (1.40-6.50); %Basophils 0.4 % (0.0-1.0); %Eosinophils 8.2 % (0.0-10.0); %Lymphocytes 28.6 % (21.0-51.0); %Monocytes 10.4 % (0.0-10.0); Hematocrit 27.1 % (36.0-47.0); Hemoglobin 8.3 g/dL (12.0-16.0); Mean Corpuscular HGB CONC 30.6 g/dL (32.0-36.0); Mean Corpuscular Hemoglobin 26.9 pg (27.0-31.0); Mean Platelet Volume 10.9 fL (7.4-10.4); Platelet Count 238 10x3/uL (130-400); RBC Distribution Width 15.8 % (11.5-14.5); Red Blood Cell (RBC) Count 3.08 mill/uL (4.20-5.40)
[2023-03-12 06:03] LABS: Anion Gap 17 mmol/L (10-20); BUN (Urea Nitrogen) 29 mg/dL (9.8-20.1); Calc. Creatinine Clearance 23 mL/min (70-130); Calcium 8.8 mg/dL (7.8-10.44); Carbon Dioxide 26 mmol/L (23-31); Chloride 100 mmol/L (98-107); Estimated GFR 13; Glucose 153 mg/dL (80-115); Potassium 4.2 mmol/L (3.5-5.1); Sodium 139 mmol/L (136-145)
[2023-03-12] MEDS ORDERED: Fluticasone Propionate Nasal Spray 16 gm Bottle NASAL SCH (09:00)
[2023-03-12] MEDS: HumaLOG 300 UNITS/3 ML VIAL SC SCH ×2 (10:02→14:08)
[2023-03-12] MEDS: DULoxetine 60 MG CAP PO SCH (10:04)
[2023-03-12] MEDS: Sodium Bicarbonate Tab 325 MG TAB PO SCH (10:04)
[2023-03-12] MEDS: Labetalol HCl 100 MG TAB PO SCH (10:05)
[2023-03-12] MEDS: Ranolazine 500 MG ER.TAB PO SCH (10:05)
[2023-03-12] MEDS: NIFEdipine XL 60 MG ER.TAB PO SCH (10:05)
[2023-03-12 11:53] VITALS: TEMP 98.2
[2023-03-12 12:47] VITALS: BP 175/74
== END 2023-03-12 14:30 | disposition home health service (06) | DRG 291 ==
LOC: ERS 15:41 → INTOOBSV 18:13 → 2SE 18:13 → OBSVTOIN 03-08 11:44
PROVIDERS: ADMIT Internal Medicine; ATTEND Hospitalist
PROC: 0W9B3ZZ Drainage of Left Pleural Cavity, Percutaneous Approach (ICD-10-PCS; principal; 2023-03-08)
DX: I13.0 Hypertensive heart and chronic kidney disease with heart failure and stage 1 through stage 4 chronic kidney disease, or unspecified chronic kidney disease (principal); I50.33 Acute on chronic diastolic (congestive) heart failure; E87.20 Acidosis, unspecified; J98.11 Atelectasis; J91.8 Pleural effusion in other conditions classified elsewhere; N18.4 Chronic kidney disease, stage 4 (severe); J96.10 Chronic respiratory failure, unspecified whether with hypoxia or hypercapnia; J94.2 Hemothorax; N17.9 Acute kidney failure, unspecified; E11.22 Type 2 diabetes mellitus with diabetic chronic kidney disease; J44.9 Chronic obstructive pulmonary disease, unspecified; M54.2 Cervicalgia; M54.9 Dorsalgia, unspecified; G89.29 Other chronic pain; E87.6 Hypokalemia; D63.1 Anemia in chronic kidney disease; E87.5 Hyperkalemia; E11.21 Type 2 diabetes mellitus with diabetic nephropathy; E88.09 Other disorders of plasma-protein metabolism, not elsewhere classified; Z87.81 Personal history of (healed) traumatic fracture; Z98.890 Other specified postprocedural states; Z88.2 Allergy status to sulfonamides; Z88.1 Allergy status to other antibiotic agents; Z88.8 Allergy status to other drugs, medicaments and biological substances; Z79.899 Other long term (current) drug therapy; Z79.84 Long term (current) use of oral hypoglycemic drugs; Z79.82 Long term (current) use of aspirin; Z86.73 Personal history of transient ischemic attack (TIA), and cerebral infarction without residual deficits; Z98.891 History of uterine scar from previous surgery; Z90.710 Acquired absence of both cervix and uterus; Z90.49 Acquired absence of other specified parts of digestive tract; Z95.0 Presence of cardiac pacemaker; Z82.49 Family history of ischemic heart disease and other diseases of the circulatory system
CPT/HCPCS: 36415; 36416; 71045; 71046; 71250; 78451; 80048; 80053; 81001; 82150; 82570; 82945; 83605; 83615; 83880; 83986; 84145; 84157; 84300; 84478; 84484; 84540; 85025; 85060; 85379; 87116; 87206; 88112; 88305; 89051; 93005; 93970; 94640; A9540; G0378; J1815; J1940; J2405; J7070; J7620; J7999; Q4081

== ENCOUNTER 2023-04-04 12:17 | Inpatient (IN) | payer OTHER ==
[2023-04-04 12:44] LABS: #Basophils 0.1 thou/uL (0.0-0.2); #Eosinphils 0.3 thou/uL (0.0-0.7); #Monocytes 0.6 thou/uL (0.11-0.59); #Neutrophils 5.1 thou/uL (1.40-6.50); %Basophils 0.6 % (0.0-1.0); %Eosinophils 4.2 % (0.0-10.0); %Lymphocytes 23.9 % (21.0-51.0); %Monocytes 6.8 % (0.0-10.0); %Neutrophils 63.5 % (42.0-75.0); Hematocrit 32.4 % (36.0-47.0); Hemoglobin 10.2 g/dL (12.0-16.0); Mean Corpuscular HGB CONC 31.5 g/dL (32.0-36.0); Mean Corpuscular Hemoglobin 27.3 pg (27.0-31.0); Mean Corpuscular Volume 86.9 fl (78.0-98.0); Mean Platelet Volume 10.4 fL (7.4-10.4); Platelet Count 277 10x3/uL (130-400); RBC Distribution Width 15.3 % (11.5-14.5); Red Blood Cell (RBC) Count 3.73 mill/uL (4.20-5.40); White Blood Cell (WBC) Count 8.1 10x3/uL (4.8-10.8)
[2023-04-04 13:06] LABS: ALT (SGPT) 7 U/L (8-55); AST (SGOT) 12 U/L (5-34); Albumin 3.5 g/dL (3.4-4.8); Alkaline Phosphatase 263 U/L (40-110); Anion Gap 14 mmol/L (10-20); BUN (Urea Nitrogen) 22 mg/dL (9.8-20.1); Bilirubin, Total 0.3 mg/dL (0.2-1.2); Calc. Creatinine Clearance 0 mL/min (70-130); Calcium 8.7 mg/dL (7.8-10.44); Carbon Dioxide 20 mmol/L (23-31); Chloride 108 mmol/L (98-107); Estimated GFR 24; Globulin 3.4 g/dL (2.4-3.5); Glucose 228 mg/dL (80-115); Lipase 79 U/L (8-78); Magnesium 1.8 mg/dL (1.6-2.6); Potassium 5.1 mmol/L (3.5-5.1); Protein, Total 6.9 g/dL (5.8-8.1); Sodium 137 mmol/L (136-145)
[2023-04-04 13:10] LABS: Troponin I Less than 0.010 ng/mL (< 0.028)
[2023-04-04] MEDS ORDERED: Ondansetron PF 4 MG/2 ML Vial ONE (13:40)
[2023-04-04] MEDS ORDERED: Morphine 4 MG/ML VIAL ONE ×2 (13:40→15:06)
[2023-04-04] MEDS ORDERED: Nitroglycerin 2% Ointment 1 INCH/1 GM Packet ONE (15:06)
[2023-04-04] MEDS ORDERED: Albuterol 200 PUFF (6.7GM INHALER) INH PRN (16:12)
[2023-04-04] MEDS ORDERED: Dextrose 5% in Water 1,000 ML IV PRN (16:44)
[2023-04-04] MEDS ORDERED: Dextrose 50% Abboject 50 ML SYRINGE SLOW IVP PRN (16:44)
[2023-04-04] MEDS ORDERED: Glucagon 1 MG/ML KIT IM PRN (16:44)
[2023-04-04 17:18] LABS: Troponin I Less than 0.010 ng/mL (< 0.028)
[2023-04-04 18:34] LABS: Troponin I Less than 0.010 ng/mL (< 0.028)
[2023-04-04 20:13] VITALS: BMI 34.9
[2023-04-04] MEDS ORDERED: Famotidine 20 MG TAB PO SCH (21:00)
[2023-04-04] MEDS: Ezetimibe 10 MG TAB PO SCH (21:26)
[2023-04-04] MEDS: Atorvastatin Calcium 40 MG TAB PO SCH (21:27)
[2023-04-04] MEDS: Aripiprazole 10 MG TAB PO SCH (21:27)
[2023-04-04] MEDS: Heparin 5,000 UNITS/ML VIAL SC SCH (21:27)
[2023-04-04] MEDS: Ranolazine 500 MG ER.TAB PO SCH (21:27)
[2023-04-04] MEDS: NIFEdipine XL 60 MG ER.TAB PO SCH (21:27)
[2023-04-04] MEDS: Labetalol HCl 100 MG TAB PO SCH (21:27)
[2023-04-04] MEDS: DULoxetine 60 MG CAP PO SCH (21:27)
[2023-04-04] MEDS: traZODone HCl 150 MG TAB PO SCH (21:27)
[2023-04-04] MEDS: HumaLOG 300 UNITS/3 ML VIAL SC SCH (22:32)
[2023-04-05 05:02] LABS: #Eosinphils 0.5 thou/uL (0.0-0.7); #Monocytes 0.7 thou/uL (0.11-0.59); %Basophils 0.5 % (0.0-1.0); %Eosinophils 5.4 % (0.0-10.0); %Lymphocytes 27.2 % (21.0-51.0); %Monocytes 8.2 % (0.0-10.0); Hematocrit 33.3 % (36.0-47.0); Hemoglobin 10.2 g/dL (12.0-16.0); Mean Corpuscular HGB CONC 30.6 g/dL (32.0-36.0); Mean Corpuscular Hemoglobin 27.1 pg (27.0-31.0); Mean Corpuscular Volume 88.6 fl (78.0-98.0); Mean Platelet Volume 10.7 fL (7.4-10.4); Platelet Count 270 10x3/uL (130-400); RBC Distribution Width 15.5 % (11.5-14.5); Red Blood Cell (RBC) Count 3.76 mill/uL (4.20-5.40); White Blood Cell (WBC) Count 8.5 10x3/uL (4.8-10.8)
[2023-04-05 05:31] LABS: ALT (SGPT) Less than 7 U/L (8-55); AST (SGOT) 13 U/L (5-34); Albumin 3.4 g/dL (3.4-4.8); Alkaline Phosphatase 168 U/L (40-110); Anion Gap 14 mmol/L (10-20); BUN (Urea Nitrogen) 25 mg/dL (9.8-20.1); Bilirubin, Total 0.4 mg/dL (0.2-1.2); Calc. Creatinine Clearance 32 mL/min (70-130); Calcium 8.7 mg/dL (7.8-10.44); Carbon Dioxide 21 mmol/L (23-31); Chloride 108 mmol/L (98-107); Estimated GFR 20; Globulin 3.4 g/dL (2.4-3.5); Glucose 183 mg/dL (80-115); Potassium 5.6 mmol/L (3.5-5.1); Protein, Total 6.8 g/dL (5.8-8.1); Sodium 137 mmol/L (136-145)
[2023-04-05] MEDS: Ranolazine 500 MG ER.TAB PO SCH ×2 (08:40→20:11)
[2023-04-05] MEDS: Aspirin 81 mg Enteric Coated Tablet PO SCH (08:40)
[2023-04-05] MEDS: Labetalol HCl 100 MG TAB PO SCH ×2 (08:40→20:17)
[2023-04-05] MEDS: DULoxetine 60 MG CAP PO SCH ×2 (08:41→20:13)
[2023-04-05] MEDS: Heparin 5,000 UNITS/ML VIAL SC SCH ×3 (08:43→20:13)
[2023-04-05] MEDS: HumaLOG 300 UNITS/3 ML VIAL SC SCH ×3 (08:48→18:41)
[2023-04-05] MEDS: NIFEdipine XL 60 MG ER.TAB PO SCH ×2 (08:49→20:12)
[2023-04-05] MEDS ORDERED: FLU VACC QS2023(65UP)/MF59C/PF 60 MCG/0.5 ML SYRINGE IM ONE (09:00)
[2023-04-05] MEDS ORDERED: predniSONE 20 MG TAB PO SCH (09:45)
[2023-04-05] MEDS: HumaLOG 300 UNITS/3 ML VIAL SC PRN (12:41)
[2023-04-05 13:18] LABS: Potassium 5.8 mmol/L (3.5-5.1)
[2023-04-05] MEDS: traZODone HCl 150 MG TAB PO SCH (20:12)
[2023-04-05] MEDS: Ezetimibe 10 MG TAB PO SCH (20:12)
[2023-04-05] MEDS: Acetaminophen 325 MG TAB PO PRN (20:13)
[2023-04-05] MEDS: Aripiprazole 10 MG TAB PO SCH (20:13)
[2023-04-05] MEDS: Famotidine 20 MG TAB PO SCH (20:13)
[2023-04-05] MEDS: Atorvastatin Calcium 40 MG TAB PO SCH (20:14)
[2023-04-05 20:40] LABS: Potassium 6.3 mmol/L (3.5-5.1)
[2023-04-05] MEDS ORDERED: Calcium Gluc 4.6 MEQ/10 ML (100 MG/ML) SLOW IVP ONE (20:44)
[2023-04-05] MEDS ORDERED: Insulin Regular 300 UNITS/3 ML VIAL IVP SCH (20:45)
[2023-04-05] MEDS ORDERED: CALCIUM GLUC 1 GM/NS 50 ML 1 GM in Premix 1 BAG IVPB SCH (21:00)
[2023-04-05 23:56] LABS: Potassium 6.2 mmol/L (3.5-5.1)
[2023-04-06] MEDS ORDERED: Insulin Regular 300 UNITS/3 ML VIAL IVP SCH (00:15)
[2023-04-06] MEDS ORDERED: LOKELMA 10 GM PACKET PO SCH (00:15)
[2023-04-06 02:41] LABS: #Monocytes 0.2 thou/uL (0.11-0.59); #Neutrophils 6.1 thou/uL (1.40-6.50); %Basophils 0.3 % (0.0-1.0); %Lymphocytes 13.3 % (21.0-51.0); %Monocytes 2.2 % (0.0-10.0); %Neutrophils 83.5 % (42.0-75.0); Hematocrit 30.2 % (36.0-47.0); Hemoglobin 9.5 g/dL (12.0-16.0); Mean Corpuscular HGB CONC 31.5 g/dL (32.0-36.0); Mean Corpuscular Hemoglobin 27.2 pg (27.0-31.0); Mean Corpuscular Volume 86.5 fl (78.0-98.0); Mean Platelet Volume 10.1 fL (7.4-10.4); Platelet Count 241 10x3/uL (130-400); RBC Distribution Width 15.1 % (11.5-14.5); Red Blood Cell (RBC) Count 3.49 mill/uL (4.20-5.40); White Blood Cell (WBC) Count 7.3 10x3/uL (4.8-10.8)
[2023-04-06 03:09] LABS: Anion Gap 16 mmol/L (10-20); BUN (Urea Nitrogen) 39 mg/dL (9.8-20.1); Calc. Creatinine Clearance 24 mL/min (70-130); Calcium 8.6 mg/dL (7.8-10.44); Carbon Dioxide 18 mmol/L (23-31); Chloride 105 mmol/L (98-107); Estimated GFR 14; Glucose 338 mg/dL (80-115); Sodium 133 mmol/L (136-145)
[2023-04-06 03:15] LABS: Potassium 6.3 mmol/L (3.5-5.1)
[2023-04-06] MEDS ORDERED: Sodium Bicarbonate 150 MEQ in Sterile Water 1,000 ML IV SCH (03:45)
[2023-04-06] MEDS: HumaLOG 300 UNITS/3 ML VIAL SC PRN ×2 (03:58→12:36)
[2023-04-06 06:53] LABS: Anion Gap 15 mmol/L (10-20); BUN (Urea Nitrogen) 40 mg/dL (9.8-20.1); Calc. Creatinine Clearance 24 mL/min (70-130); Calcium 8.9 mg/dL (7.8-10.44); Carbon Dioxide 21 mmol/L (23-31); Chloride 104 mmol/L (98-107); Estimated GFR 14; Glucose 286 mg/dL (80-115); Potassium 5.6 mmol/L (3.5-5.1); Sodium 134 mmol/L (136-145)
[2023-04-06] MEDS ORDERED: Empagliflozin 10 MG TAB PO SCH (09:00)
[2023-04-06] MEDS: Insulin Glargine 30 UNITS/0.3 ML VIAL SC SCH (09:10)
[2023-04-06] MEDS: Acetaminophen 325 MG TAB PO PRN (09:10)
[2023-04-06] MEDS: Ranolazine 500 MG ER.TAB PO SCH ×2 (09:11→21:00)
[2023-04-06] MEDS: NIFEdipine XL 60 MG ER.TAB PO SCH ×2 (09:11→21:00)
[2023-04-06] MEDS: Aspirin 81 mg Enteric Coated Tablet PO SCH (09:11)
[2023-04-06] MEDS: Labetalol HCl 100 MG TAB PO SCH ×2 (09:12→21:00)
[2023-04-06] MEDS: DULoxetine 60 MG CAP PO SCH ×2 (09:12→21:01)
[2023-04-06] MEDS: HumaLOG 300 UNITS/3 ML VIAL SC SCH ×3 (09:17→18:26)
[2023-04-06] MEDS: Heparin 5,000 UNITS/ML VIAL SC SCH ×3 (09:21→20:59)
[2023-04-06] MEDS ORDERED: Sodium Bicarbonate 150 MEQ in Dextrose 5% in Water 1,000 ML IV SCH (12:00)
[2023-04-06] MEDS: HYDROcodone/Acetaminophen 5/325 mg Tablet PO PRN (12:31)
[2023-04-06] MEDS: Sodium Bicarbonate 150 MEQ in Sterile Water 1,000 ML IV SCH (17:45)
[2023-04-06 19:24] LABS: Albumin 2.9 g/dL (3.4-4.8); Anion Gap 17 mmol/L (10-20); BUN (Urea Nitrogen) 43 mg/dL (9.8-20.1); BUN/Creatinine Ratio 13.07; Calc. Creatinine Clearance 25 mL/min (70-130); Calcium 8.5 mg/dL (7.8-10.44); Carbon Dioxide 18 mmol/L (23-31); Chloride 105 mmol/L (98-107); Estimated GFR 15; Glucose 93 mg/dL (80-115); Phosphorus 5.9 mg/dL (2.3-4.7); Potassium 5.1 mmol/L (3.5-5.1); Sodium 135 mmol/L (136-145)
[2023-04-06] MEDS: Sodium Bicarbonate Tab 325 MG TAB PO SCH (21:00)
[2023-04-06] MEDS: Famotidine 20 MG TAB PO SCH (21:01)
[2023-04-06] MEDS: Atorvastatin Calcium 40 MG TAB PO SCH (21:01)
[2023-04-06] MEDS: Aripiprazole 10 MG TAB PO SCH (21:01)
[2023-04-06] MEDS: Ezetimibe 10 MG TAB PO SCH (21:01)
[2023-04-06] MEDS: traZODone HCl 150 MG TAB PO SCH (21:02)
[2023-04-06 21:47] LABS: Bilirubin Negative (Negative); Blood, Urine Trace (Negative); Clarity Turbid (Clear); Glucose, Urine (Dipstick) 500 mg/dL (Negative); Ketone, Urine Negative (Negative); Leukocyte 75 Leu/uL (Negative); Nitrite Negative (Negative); Protein, Urine (Dipstick) 200 mg/dL (Neg-Trace); Specific Gravity, Urine 1.012 (1.002-1.036); Urobilinogen Normal mg/dL (Less than 2); pH, Urine 5.5 (5.0-9.0)
[2023-04-06 21:49] LABS: Bacteria/HPF Rare-Few HPF (None Seen)
[2023-04-06 21:53] LABS: Creatinine, Urine 90.31 mg/dL (47-110)
[2023-04-07 04:57] LABS: #Eosinphils 0.4 thou/uL (0.0-0.7); #Monocytes 0.6 thou/uL (0.11-0.59); #Neutrophils 5.5 thou/uL (1.40-6.50); %Basophils 0.3 % (0.0-1.0); %Eosinophils 4.1 % (0.0-10.0); %Lymphocytes 24.1 % (21.0-51.0); %Monocytes 6.7 % (0.0-10.0); %Neutrophils 64.2 % (42.0-75.0); Hematocrit 30.2 % (36.0-47.0); Hemoglobin 9.8 g/dL (12.0-16.0); Mean Corpuscular HGB CONC 32.5 g/dL (32.0-36.0); Mean Corpuscular Volume 83.2 fl (78.0-98.0); Mean Platelet Volume 10.4 fL (7.4-10.4); Platelet Count 288 10x3/uL (130-400); RBC Distribution Width 15.2 % (11.5-14.5); Red Blood Cell (RBC) Count 3.63 mill/uL (4.20-5.40); White Blood Cell (WBC) Count 8.6 10x3/uL (4.8-10.8)
[2023-04-07 06:04] LABS: Albumin 3.2 g/dL (3.4-4.8); Anion Gap 14 mmol/L (10-20); BUN (Urea Nitrogen) 41 mg/dL (9.8-20.1); BUN/Creatinine Ratio 12.24; Calc. Creatinine Clearance 25 mL/min (70-130); Calcium 8.5 mg/dL (7.8-10.44); Carbon Dioxide 25 mmol/L (23-31); Chloride 102 mmol/L (98-107); Estimated GFR 14; Glucose 179 mg/dL (80-115); Phosphorus 4.7 mg/dL (2.3-4.7); Potassium 4.2 mmol/L (3.5-5.1); Sodium 137 mmol/L (136-145)
[2023-04-07] MEDS: DULoxetine 60 MG CAP PO SCH ×2 (08:12→20:14)
[2023-04-07] MEDS: HYDROcodone/Acetaminophen 5/325 mg Tablet PO PRN ×3 (08:12→20:16)
[2023-04-07] MEDS: Ranolazine 500 MG ER.TAB PO SCH ×2 (08:12→20:14)
[2023-04-07] MEDS: Sodium Bicarbonate Tab 325 MG TAB PO SCH ×3 (08:12→20:14)
[2023-04-07] MEDS: Aspirin 81 mg Enteric Coated Tablet PO SCH (08:12)
[2023-04-07] MEDS: NIFEdipine XL 60 MG ER.TAB PO SCH ×2 (08:12→20:14)
[2023-04-07] MEDS: Insulin Glargine 30 UNITS/0.3 ML VIAL SC SCH (08:13)
[2023-04-07] MEDS: Labetalol HCl 100 MG TAB PO SCH ×2 (08:13→20:14)
[2023-04-07] MEDS: Sodium Bicarbonate 150 MEQ in Sterile Water 1,000 ML IV SCH ×2 (08:15→12:30)
[2023-04-07] MEDS: HumaLOG 300 UNITS/3 ML VIAL SC SCH ×3 (08:17→20:15)
[2023-04-07] MEDS: Heparin 5,000 UNITS/ML VIAL SC SCH ×3 (08:18→20:15)
[2023-04-07] MEDS: Ezetimibe 10 MG TAB PO SCH (20:13)
[2023-04-07] MEDS: traZODone HCl 150 MG TAB PO SCH (20:14)
[2023-04-07] MEDS: Famotidine 20 MG TAB PO SCH (20:14)
[2023-04-07] MEDS: Aripiprazole 10 MG TAB PO SCH (20:14)
[2023-04-07] MEDS: Atorvastatin Calcium 40 MG TAB PO SCH (20:15)
[2023-04-08 06:21] LABS: #Eosinphils 0.3 thou/uL (0.0-0.7); #Monocytes 0.7 thou/uL (0.11-0.59); #Neutrophils 5.1 thou/uL (1.40-6.50); %Basophils 0.4 % (0.0-1.0); %Eosinophils 4.1 % (0.0-10.0); %Lymphocytes 23.3 % (21.0-51.0); %Monocytes 8.3 % (0.0-10.0); %Neutrophils 63.4 % (42.0-75.0); Hemoglobin 9.7 g/dL (12.0-16.0); Mean Corpuscular HGB CONC 32.3 g/dL (32.0-36.0); Mean Corpuscular Hemoglobin 27.2 pg (27.0-31.0); Mean Corpuscular Volume 84.3 fl (78.0-98.0); Platelet Count 277 10x3/uL (130-400); RBC Distribution Width 15.6 % (11.5-14.5); Red Blood Cell (RBC) Count 3.56 mill/uL (4.20-5.40); White Blood Cell (WBC) Count 8.1 10x3/uL (4.8-10.8)
[2023-04-08 06:46] LABS: Anion Gap 14 mmol/L (10-20); BUN (Urea Nitrogen) 42 mg/dL (9.8-20.1); BUN/Creatinine Ratio 14.09; Calc. Creatinine Clearance 28 mL/min (70-130); Calcium 8.4 mg/dL (7.8-10.44); Carbon Dioxide 30 mmol/L (23-31); Chloride 100 mmol/L (98-107); Estimated GFR 17; Glucose 185 mg/dL (80-115); Phosphorus 4.4 mg/dL (2.3-4.7); Potassium 4.6 mmol/L (3.5-5.1); Sodium 139 mmol/L (136-145)
[2023-04-08 08:26] VITALS: TEMP 98.2
[2023-04-08] MEDS: Heparin 5,000 UNITS/ML VIAL SC SCH (09:18)
[2023-04-08] MEDS: Insulin Glargine 30 UNITS/0.3 ML VIAL SC SCH (09:19)
[2023-04-08] MEDS: HumaLOG 300 UNITS/3 ML VIAL SC SCH ×2 (09:20→13:15)
[2023-04-08] MEDS: NIFEdipine XL 60 MG ER.TAB PO SCH (09:22)
[2023-04-08] MEDS: Labetalol HCl 100 MG TAB PO SCH (09:22)
[2023-04-08] MEDS: DULoxetine 60 MG CAP PO SCH (09:22)
[2023-04-08] MEDS: Aspirin 81 mg Enteric Coated Tablet PO SCH (09:22)
[2023-04-08] MEDS: Sodium Bicarbonate Tab 325 MG TAB PO SCH (09:22)
[2023-04-08] MEDS: Ranolazine 500 MG ER.TAB PO SCH (09:22)
[2023-04-08 11:44] VITALS: BP 133/61
== END 2023-04-08 14:27 | disposition home or self-care (01) | DRG 206 ==
LOC: ERS 12:17 → 2SW 17:18 → OBSVTOIN 04-05 14:41
PROVIDERS: ADMIT Student in an Organized Health Care Education/Training Program; ATTEND Hospitalist
DX: M94.0 Chondrocostal junction syndrome [Tietze] (principal); I50.32 Chronic diastolic (congestive) heart failure; N18.4 Chronic kidney disease, stage 4 (severe); I13.0 Hypertensive heart and chronic kidney disease with heart failure and stage 1 through stage 4 chronic kidney disease, or unspecified chronic kidney disease; N17.9 Acute kidney failure, unspecified; E87.20 Acidosis, unspecified; E87.5 Hyperkalemia; F41.9 Anxiety disorder, unspecified; F32.A Depression, unspecified; E78.5 Hyperlipidemia, unspecified; J44.9 Chronic obstructive pulmonary disease, unspecified; Z91.048 Other nonmedicinal substance allergy status; Z88.2 Allergy status to sulfonamides; Z88.1 Allergy status to other antibiotic agents; Z79.899 Other long term (current) drug therapy; Z79.84 Long term (current) use of oral hypoglycemic drugs; Z79.82 Long term (current) use of aspirin; Z79.4 Long term (current) use of insulin; E78.00 Pure hypercholesterolemia, unspecified; Z86.73 Personal history of transient ischemic attack (TIA), and cerebral infarction without residual deficits; E11.22 Type 2 diabetes mellitus with diabetic chronic kidney disease; Z90.49 Acquired absence of other specified parts of digestive tract; Z90.89 Acquired absence of other organs; Z90.710 Acquired absence of both cervix and uterus; E11.40 Type 2 diabetes mellitus with diabetic neuropathy, unspecified; D63.1 Anemia in chronic kidney disease
CPT/HCPCS: 36415; 36416; 71045; 80053; 80069; 81001; 82570; 83690; 83735; 84300; 84484; 85025; 90471; 90694; 93005; 93010; 96372; 96374; 96375; 96376; A4217; G0008; G0378; J0613; J1644; J1815; J2270; J2405; J7512

== ENCOUNTER 2023-05-15 22:24 | Emergency (ER) | payer OTHER ==
[2023-05-15] MEDS ORDERED: LORazepam 2 MG/ML SYR.(CARPUJECT) ONE (23:29)
[2023-05-15] MEDS ORDERED: Ketorolac Tromethamine 30 MG (1 mL) VIAL ONE (23:29)
[2023-05-15] MEDS ORDERED: fentaNYL 50 mcg/mL 1 mL Vial ONE (23:29)
[2023-05-15] MEDS ORDERED: Lidocaine 1% w/Epinephrine 1:100K 20 ML VIAL ONE (23:40)
[2023-05-16 00:16] LABS: #Eosinphils 0.5 thou/uL (0.0-0.7); #Monocytes 0.6 thou/uL (0.11-0.59); %Basophils 0.5 % (0.0-1.0); %Eosinophils 5.6 % (0.0-10.0); %Lymphocytes 26.1 % (21.0-51.0); %Monocytes 6.7 % (0.0-10.0); %Neutrophils 60.4 % (42.0-75.0); Hematocrit 30.2 % (36.0-47.0); Hemoglobin 9.7 g/dL (12.0-16.0); Mean Corpuscular HGB CONC 32.1 g/dL (32.0-36.0); Mean Corpuscular Hemoglobin 27.6 pg (27.0-31.0); Mean Platelet Volume 11.2 fL (7.4-10.4); Platelet Count 283 10x3/uL (130-400); RBC Distribution Width 15.3 % (11.5-14.5); Red Blood Cell (RBC) Count 3.51 mill/uL (4.20-5.40); White Blood Cell (WBC) Count 8.2 10x3/uL (4.8-10.8)
[2023-05-16 00:28] LABS: ALT (SGPT) 10 U/L (8-55); AST (SGOT) 23 U/L (5-34); Albumin 2.7 g/dL (3.4-4.8); Alkaline Phosphatase 185 U/L (40-110); Anion Gap 15 mmol/L (10-20); BUN (Urea Nitrogen) 22 mg/dL (9.8-20.1); Bilirubin, Total 0.3 mg/dL (0.2-1.2); Calc. Creatinine Clearance 0 mL/min (70-130); Calcium 7.9 mg/dL (7.8-10.44); Carbon Dioxide 22 mmol/L (23-31); Chloride 106 mmol/L (98-107); Estimated GFR 16; Globulin 3.8 g/dL (2.4-3.5); Glucose 174 mg/dL (80-115); Lipase 44 U/L (8-78); Magnesium 1.3 mg/dL (1.6-2.6); Potassium 4.3 mmol/L (3.5-5.1); Protein, Total 6.5 g/dL (5.8-8.1); Sodium 139 mmol/L (136-145)
[2023-05-16 00:31] LABS: Troponin I 0.011 ng/mL (< 0.028)
== END 2023-05-16 02:44 ==
LOC: ERS 22:24
DX: S01.01XA Laceration without foreign body of scalp, initial encounter (principal); I11.0 Hypertensive heart disease with heart failure; I50.9 Heart failure, unspecified; J44.9 Chronic obstructive pulmonary disease, unspecified; E78.00 Pure hypercholesterolemia, unspecified; E11.9 Type 2 diabetes mellitus without complications; W18.00XA Striking against unspecified object with subsequent fall, initial encounter; Z86.73 Personal history of transient ischemic attack (TIA), and cerebral infarction without residual deficits; Z79.899 Other long term (current) drug therapy
CPT/HCPCS: 70450; 71045; 72125; 80053; 83690; 83735; 83880; 84484; 85025; J2060; J3010; 12001; 96372; J1885

== ENCOUNTER 2023-05-20 20:45 | Emergency (ER) | payer OTHER ==
[2023-05-20 22:07] LABS: #Eosinphils 0.2 thou/uL (0.0-0.7); #Monocytes 0.5 thou/uL (0.11-0.59); #Neutrophils 5.8 thou/uL (1.40-6.50); %Basophils 0.5 % (0.0-1.0); %Eosinophils 2.7 % (0.0-10.0); %Lymphocytes 23.9 % (21.0-51.0); %Monocytes 5.3 % (0.0-10.0); %Neutrophils 67.1 % (42.0-75.0); Hematocrit 29.9 % (36.0-47.0); Hemoglobin 9.6 g/dL (12.0-16.0); Mean Corpuscular HGB CONC 32.1 g/dL (32.0-36.0); Mean Corpuscular Hemoglobin 27.6 pg (27.0-31.0); Mean Corpuscular Volume 85.9 fl (78.0-98.0); Mean Platelet Volume 10.6 fL (7.4-10.4); Platelet Count 264 10x3/uL (130-400); RBC Distribution Width 15.2 % (11.5-14.5); Red Blood Cell (RBC) Count 3.48 mill/uL (4.20-5.40); White Blood Cell (WBC) Count 8.6 10x3/uL (4.8-10.8)
[2023-05-20 22:24] LABS: ALT (SGPT) 8 U/L (8-55); AST (SGOT) 12 U/L (5-34); Albumin 2.7 g/dL (3.4-4.8); Alkaline Phosphatase 213 U/L (40-110); Anion Gap 16 mmol/L (10-20); BUN (Urea Nitrogen) 23 mg/dL (9.8-20.1); Bilirubin, Total 0.3 mg/dL (0.2-1.2); Calc. Creatinine Clearance 0 mL/min (70-130); Carbon Dioxide 21 mmol/L (23-31); Chloride 105 mmol/L (98-107); Estimated GFR 19; Globulin 3.1 g/dL (2.4-3.5); Glucose 264 mg/dL (80-115); Magnesium 1.4 mg/dL (1.6-2.6); Potassium 3.8 mmol/L (3.5-5.1); Protein, Total 5.8 g/dL (5.8-8.1); Sodium 138 mmol/L (136-145)
[2023-05-20 22:28] LABS: Troponin I 0.026 ng/mL (< 0.028)
[2023-05-20 22:57] LABS: Bacteria/HPF None Seen HPF (None Seen); CAUTI Indications for Culture Pelvic or flank pain; Squamous Epithelial 0-3 HPF (0-3); WBC/HPF 0-3 HPF (0-3)
[2023-05-20 23:00] LABS: Base Excess -4.7 mEq/L (-2.0 to +3.0); Calcium, Ionized (venous) 1.04 mmol/L (1.16-1.32); Chloride (VBG) 103 mmol/L (98-106); Hematocrit-VBG 32 % (36.0-47.0); Hemoglobin (Hb) 10.8 g/dL (11.7-16.1); Potassium (VBG) 3.64 mmol/L (3.70-5.30); Sodium 137 mmol/L (133-146); pH (venous) 7.323 (7.32-7.43)
[2023-05-20 23:05] LABS: Urine Culture Reflex No No
[2023-05-20 23:14] LABS: Leukocyte Negative Leu/uL (Negative); Specific Gravity, Urine 1.019 (1.002-1.036)
[2023-05-20 23:15] LABS: Glucose, Urine (Dipstick) Greater than 1000 mg/dL (Negative); Ketone, Urine Negative (Negative); Nitrite Negative (Negative); Protein, Urine (Dipstick) 300 mg/dL (Neg-Trace)
[2023-05-20 23:16] LABS: Bilirubin Negative (Negative); Blood, Urine 2+ (Negative); Clarity Turbid (Clear); Urobilinogen Normal mg/dL (Less than 2)
[2023-05-21] MEDS ORDERED: Acetaminophen 325 MG TAB ONE (00:11)
[2023-05-21] MEDS ORDERED: Ibuprofen 200 MG TAB ONE (00:11)
[2023-05-21 00:39] LABS: Troponin I 0.014 ng/mL (< 0.028)
[2023-05-21] MEDS ORDERED: Ketorolac Tromethamine 30 MG (1 mL) VIAL ONE (02:19)
== END 2023-05-21 02:27 | disposition home or self-care (01) ==
LOC: ERS 20:45
DX: J90 Pleural effusion, not elsewhere classified (principal); E11.65 Type 2 diabetes mellitus with hyperglycemia; D64.9 Anemia, unspecified; R31.29 Other microscopic hematuria; I13.0 Hypertensive heart and chronic kidney disease with heart failure and stage 1 through stage 4 chronic kidney disease, or unspecified chronic kidney disease; E11.22 Type 2 diabetes mellitus with diabetic chronic kidney disease; N18.9 Chronic kidney disease, unspecified; I50.9 Heart failure, unspecified; J44.9 Chronic obstructive pulmonary disease, unspecified; Z79.4 Long term (current) use of insulin; Z79.899 Other long term (current) drug therapy; Z79.84 Long term (current) use of oral hypoglycemic drugs; Z79.82 Long term (current) use of aspirin
CPT/HCPCS: 36415; 71045; 80053; 81001; 82010; 82805; 83735; 83880; 84484; 85025; 93005; 96372; J1885

== ENCOUNTER 2023-07-03 20:12 | Emergency (ER) | payer OTHER ==
[2023-07-03] MEDS ORDERED: Acetaminophen 325 MG TAB ONE (21:05)
[2023-07-03] MEDS ORDERED: Morphine 2 MG/ML VIAL ONE (21:05)
[2023-07-03 21:12] LABS: #Eosinphils 0.4 thou/uL (0.0-0.7); #Monocytes 0.6 thou/uL (0.11-0.59); #Neutrophils 5.1 thou/uL (1.40-6.50); %Basophils 0.5 % (0.0-1.0); %Eosinophils 5.1 % (0.0-10.0); %Lymphocytes 24.3 % (21.0-51.0); %Monocytes 7.6 % (0.0-10.0); %Neutrophils 61.9 % (42.0-75.0); Hematocrit 29.6 % (36.0-47.0); Hemoglobin 9.8 g/dL (12.0-16.0); Mean Corpuscular HGB CONC 33.1 g/dL (32.0-36.0); Mean Corpuscular Hemoglobin 28.2 pg (27.0-31.0); Mean Corpuscular Volume 85.3 fl (78.0-98.0); Mean Platelet Volume 9.9 fL (7.4-10.4); Platelet Count 316 10x3/uL (130-400); RBC Distribution Width 14.3 % (11.5-14.5); Red Blood Cell (RBC) Count 3.47 mill/uL (4.20-5.40); White Blood Cell (WBC) Count 8.3 10x3/uL (4.8-10.8)
[2023-07-03 21:35] LABS: ALT (SGPT) 8 U/L (8-55); AST (SGOT) 16 U/L (5-34); Albumin 2.6 g/dL (3.4-4.8); Alkaline Phosphatase 173 U/L (40-110); Anion Gap 10 mmol/L (10-20); BUN (Urea Nitrogen) 17 mg/dL (9.8-20.1); Bilirubin, Total 0.3 mg/dL (0.2-1.2); Calc. Creatinine Clearance 0 mL/min (70-130); Calcium 8.7 mg/dL (7.8-10.44); Carbon Dioxide 24 mmol/L (23-31); Chloride 108 mmol/L (98-107); Estimated GFR 19; Globulin 3.6 g/dL (2.4-3.5); Glucose 91 mg/dL (80-115); Lipase 57 U/L (8-78); Potassium 3.5 mmol/L (3.5-5.1); Protein, Total 6.2 g/dL (5.8-8.1); Sodium 138 mmol/L (136-145)
[2023-07-03 21:37] LABS: Troponin I 0.025 ng/mL (< 0.028)
== END 2023-07-04 00:11 | disposition home or self-care (01) ==
LOC: ERS 20:12
DX: M94.0 Chondrocostal junction syndrome [Tietze] (principal); I11.0 Hypertensive heart disease with heart failure; I50.9 Heart failure, unspecified; E11.9 Type 2 diabetes mellitus without complications; E78.00 Pure hypercholesterolemia, unspecified; J44.9 Chronic obstructive pulmonary disease, unspecified; E66.9 Obesity, unspecified; Z86.73 Personal history of transient ischemic attack (TIA), and cerebral infarction without residual deficits; Z55.6 Problems related to health literacy; Z79.82 Long term (current) use of aspirin; Z79.899 Other long term (current) drug therapy
CPT/HCPCS: 71045; 80053; 83690; 84484; 85025; 93005; 96374; J2272

== ENCOUNTER 2023-07-09 17:44 | Emergency (ER) | payer OTHER ==
[2023-07-09 19:27] LABS: #Eosinphils 0.3 thou/uL (0.0-0.7); #Monocytes 0.6 thou/uL (0.11-0.59); %Basophils 0.3 % (0.0-1.0); %Eosinophils 3.4 % (0.0-10.0); %Lymphocytes 20.2 % (21.0-51.0); %Monocytes 6.4 % (0.0-10.0); %Neutrophils 68.6 % (42.0-75.0); Hematocrit 30.2 % (36.0-47.0); Hemoglobin 9.8 g/dL (12.0-16.0); Mean Corpuscular HGB CONC 32.5 g/dL (32.0-36.0); Mean Corpuscular Hemoglobin 28.4 pg (27.0-31.0); Mean Corpuscular Volume 87.5 fl (78.0-98.0); Mean Platelet Volume 10.6 fL (7.4-10.4); Platelet Count 332 10x3/uL (130-400); RBC Distribution Width 15.2 % (11.5-14.5); Red Blood Cell (RBC) Count 3.45 mill/uL (4.20-5.40); White Blood Cell (WBC) Count 8.8 10x3/uL (4.8-10.8)
[2023-07-09 19:55] LABS: Troponin I 0.022 ng/mL (< 0.028)
[2023-07-09 20:04] LABS: ALT (SGPT) 9 U/L (8-55); AST (SGOT) 19 U/L (5-34); Albumin 2.7 g/dL (3.4-4.8); Alkaline Phosphatase 210 U/L (40-110); Anion Gap 13 mmol/L (10-20); BUN (Urea Nitrogen) 24 mg/dL (9.8-20.1); Bilirubin, Total 0.2 mg/dL (0.2-1.2); Calc. Creatinine Clearance 0 mL/min (70-130); Calcium 8.4 mg/dL (7.8-10.44); Carbon Dioxide 23 mmol/L (23-31); Chloride 104 mmol/L (98-107); Estimated GFR 16; Globulin 3.9 g/dL (2.4-3.5); Glucose 294 mg/dL (80-115); Lipase 171 U/L (8-78); Magnesium 1.7 mg/dL (1.6-2.6); Potassium 3.8 mmol/L (3.5-5.1); Protein, Total 6.6 g/dL (5.8-8.1); Sodium 136 mmol/L (136-145)
[2023-07-09] MEDS ORDERED: Morphine 4 MG/ML VIAL ONE (21:21)
[2023-07-09] MEDS ORDERED: Ondansetron PF 4 MG/2 ML Vial ONE (22:18)
[2023-07-09 23:30] LABS: Troponin I 0.017 ng/mL (< 0.028)
== END 2023-07-10 00:19 | disposition home or self-care (01) ==
LOC: ERS 17:44
DX: R07.9 Chest pain, unspecified (principal); I11.0 Hypertensive heart disease with heart failure; I50.9 Heart failure, unspecified; E11.9 Type 2 diabetes mellitus without complications; J44.9 Chronic obstructive pulmonary disease, unspecified; Z86.73 Personal history of transient ischemic attack (TIA), and cerebral infarction without residual deficits
CPT/HCPCS: 36415; 71046; 74176; 80053; 83690; 83735; 83880; 84484; 85025; 93005; 96374; 96375; J2270; J2405